=== PATIENT | male | born 1980 | race Caucasian/White ===

== ENCOUNTER 2018-07-13 13:21 | Emergency (ER) | payer MEDICAID, SELFPAY ==
[2018-07-13 13:22] VITALS: BP 130/79; PULSE 92; RESP 28; TEMP 36.6; O2SAT 97; BMI 31.3
--- NOTE | 2018-07-13 13:40 | EKG12_ITS ---
Test Reason : CP Blood Pressure : / mmHG Vent. Rate : 095 BPM Atrial Rate : 095 BPM P-R Int : 142 ms QRS Dur : 088 ms QT Int : 358 ms P-R-T Axes : 033 061 015 degrees QTc Int : 449 ms Normal sinus rhythm Normal ECG Confirmed by DAVON GARCES ([id number]), editorial intern PHOEBE CHARLES ([id number]) on 07/20/2018 8:50:57 AM Referred By: SAHIL Confirmed By:DAVON GARCES
--- NOTE | 2018-07-13 13:48 | RAD_ITS ---
STUDY: X-RAY CHEST REASON FOR EXAM: Male, 38 years old. Chest pain. Blurred vision. TECHNIQUE: Single AP portable view of the chest. COMPARISON: Comparison is made with prior study dated January 31, 2015. FINDINGS: EKG electrodes are seen. The lungs are clear and expanded. There is no demonstrated pleural abnormality. Normal size heart. Normal mediastinum and wendy. Normal visualized pulmonary arteries. Normal visualized aortic arch and descending thoracic aorta. Normal visualized thoracic spine. Normal visualized ribs, clavicles, and shoulders. There is no demonstrated abnormality of the visualized soft tissue structures of the upper abdomen. RAD/Chest 1 View (Portable) IMPRESSION: Normal x-ray examination of the chest. Electronically Signed: Hunter Chowdhury, at 14:07 EDT , Service support ,
--- NOTE | 2018-07-13 13:54 | CT_ITS ---
STUDY: CT BRAIN WITHOUT CONTRAST REASON FOR EXAM: Male, 38 years old. Visual disturbances in the right eye. RADIATION DOSAGE (If Supplied By Facility): CTDIvol = ( 60.81 ) mGy, DLP = ( 1044.28 ) mGycm TECHNIQUE: Transaxial CT imaging of the brain was performed without administration of intravenous contrast material. Individualized dose optimization techniques were used for this CT. COMPARISON: No relevant priors. FINDINGS: Normal soft tissue structures. Normal calvarium. Normal size ventricles and extra-axial spaces for the patient's age. Normal white matter tracts of the cerebral hemispheres. Normal basal ganglia and thalami. Normal brainstem. Normal cerebellum. There is no intracranial hemorrhage. There are no findings of an acute ischemic infarction. Normal visualized paranasal sinuses. CT/Brain/Head without Contrast IMPRESSION: Normal unenhanced CT scan of the brain. Electronically Signed: Hunter Chowdhury, at 14:37 EDT , Service support ,
--- NOTE | 2018-07-13 13:56 | ED.VISSUMM ---
- ER Visit Summary Date of Service: 07/13/18 Chief Complaint: [] Transient visual disturbance right eye muscle spasms left chest History of Present Illness: The patient is a 38 M [] diabetes noncompliant no medications no follow-up for 3 years he was on metformin. 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 He had no reports of anything that sounds like angina no diaphoresis no shortness of breath. He felt he should be evaluated he has been at baseline since this occurred at 8 AM no recurrence of the symptoms He has no history of MD PE or DVT or stroke Physical Examination: [] Vital signs are within normal range General, no distress resting comfortably HEENT is generally unremarkable, his ocular exam visual acuity are negative see below The neck is supple no adenopathy Cardiovascular, regular rate and rhythm Lungs, clear bilateral Abdomen, soft nontender Extremities, no clubbing cyanosis or edema Neurologic, awake alert answering questions appropriately moving all 4 extremities, his visual acuity is normal extraocular muscle movements cranial nerve exam all negative his NIH is 0 Test Results: [] Emergency Department Course and Treatment: [] EKG shows a sinus rhythm nothing acute His screening labs are generally unremarkable except his blood sugar is 371 troponin negative chest x-ray head CT negative on reevaluation he states he feels back to baseline he feels fine we discussed the long differential which included potential life-threatening conditions, we discussed inpatient versus outpatient management he does not wish to be admitted he wants to go home his is with him in the room, I discussed the potential that the blood sugar being 371 and his noncompliance diabetes could be contributing he agrees to keep his appointments with outpatient providers to reschedule soon, he will modify his diet he will get a glucometer check his blood sugar and he will return for change in symptoms, and again he declined admission Treatment Plan: [] Disposition: [] Home stable declined admission Impression: [] Transient visual disturbance right eye resolved, nonspecific sense of left chest muscle spasm This note was generated with [employer] dictation software. It may contain incorrect words, spelling, and punctuation that were not noted in review of the chart prior to signing ED Disposition - Plan for ED Patient: Referrals: Bernard Zelaya MD [Primary Care Provider] -
[2018-07-13 14:02] VITALS: BP 130/74; PULSE 91; RESP 17; O2SAT 95
[2018-07-13 14:20] LABS: Absolute Lymphocyte Count 3.81 X10^3/ul (0.83-4.51); Absolute Neutrophil Count 7.3 X10^3/uL (2.0-7.7); Basophil# 0.04 X10^3/uL; Basophil% 0.3 % (0-1); Differential Indicated SCAN CRITERIA MET; Eosinophil# 0.43 X10^3/uL; Eosinophils% 3.4 % (0-5); Hematocrit 44.7 % (40-54); Hemoglobin 15.9 g/dl (13.0-16.5); Lymphocyte # 3.81 X10^3/ul (4.0); Lymphocyte % 30.3 % (19-41); Mean Corp Hgb Conc 35.6 g/gl (32-36); Mean Corpuscular Volume 70.3 fL (80-94); Monocyte# 0.98 X10^3/uL; Monocyte% 7.8 % (0-10); Neutrophil # 7.29 X10^3/uL (2.7-7.7); POSITIVE COUNT NO; POSITIVE DIFFERENTIAL NO; POSITIVE MORPHOLOGY YES; Platelet Count 298 K/mm3 (150-450); RBC Distribution Width CV 14.9 % (11.6-14.6); RBC Distribution Width SD 37.7 fl (35.1-43.9); Red Blood Count 6.36 M/mm3 (4.6-6.2); White Blood Count 12.6 K/mm3 (4.4-11.0)
[2018-07-13 14:31] LABS: D-Dimer Quantitative (DVT/PE) < 0.27 FEU/ug/m (0.27-0.49)
[2018-07-13 14:44] LABS: Anion Gap 5 (5-15); BUN 14 mg/dL (7-18); Calcium,Total 8.6 mg/dL (8.5-10.1); Chloride 100 mmol/L (98-107); Creatinine, Serum 0.93 mg/dL (0.70-1.30); EST Glomerular Filtration Rate 96 mL/min (>60); Est Glom Filt Rate - Afr Amer 116 mL/min (>60); Estimated Creatinine Clearance 106.64 ml/min; Glucose 371 mg/dL (74-106); Sodium Level 132 mmol/L (136-145)
[2018-07-13 15:20] VITALS: BP 119/70; PULSE 88; RESP 27; O2SAT 97
[2018-07-13 16:07] VITALS: BP 130/86; PULSE 80; RESP 14; O2SAT 98
--- NOTE | 2018-07-13 16:23 | ED.DEP ---
ED Disposition - Plan for ED Patient: Instructions: ED Chest Pain Atypical Unkn Cause, ED Double Vision Referrals: Bernard Zelaya MD [Primary Care Provider] - Mickey Conway MD [STAFF PHYSICIAN] -
--- NOTE | 2018-07-13 16:29 | ED.RN ---
PT GIVEN WRITTEN WRITTN AND VERBAL DISCHARGE INSTRUCTIONS. VERBALIZES UNDERSTANDING. DENIES ANY FURTHER QUESTONS. REFUSES D/C VS. IV D/C AND COVERED WITH 2X2 GAUZE AND PAPER TAPE. AMBULATES OUT OF DEPT BY SELF.
== END 2018-07-13 16:30 | disposition home or self-care (01) ==
PROVIDERS: Emergency Provider Emergency Medicine; Family Provider Internal Medicine; PCP Internal Medicine
DX: H53.8 Other visual disturbances (principal); M62.838 Other muscle spasm; Z91.19 Patient's noncompliance with other medical treatment and regimen; E11.9 Type 2 diabetes mellitus without complications; R07.9 Chest pain, unspecified
CPT/HCPCS: 70450; 71045; 80048; 84484; 85025; 85379; 93005; 99284; A4216

== ENCOUNTER 2022-06-16 20:06 | Emergency (ER) | payer MEDICAID, SELFPAY ==
[2022-06-16 20:07] VITALS: BP 168/84; PULSE 96; RESP 18; TEMP 36.8; O2SAT 100; BMI 29.4
--- NOTE | 2022-06-16 20:42 | ED.VIS.GI ---
HPI HPI - GI History of Present Illness Chief Complaint: Abd Pain Detail of Chief Complaint: Abdominal pain Informant: patient Narrative Narrative: Patient presents with abdominal pain x4 days. Patient initially felt like maybe he has had on his testicle and he had discomfort in the area of the testicle. Patient denies nausea or vomiting. He has remote history as a child of torsion of the testicle with repair. Patient denies urinary symptoms. He denies trauma to his testicle. No history of kidney stones. Patient denies dysuria. He denies fever. Prior similar symptoms: No PFSH PFSH Medical History (Updated 06/16/22 @ 22:[address] Ti Storey, DO) Diabetes GERD (gastroesophageal reflux disease) Hypertension Sleep apnea Smoker Testicular torsion Home Medications atorvastatin 40 mg tablet 40 mg PO QHS 06/16/22 [History Last Taken Unknown] dulaglutide 3 mg/0.5 mL subcutaneous pen injector (Trulicity) 3 mg subcut QWEEK 06/16/22 [History Last Taken Unknown] lisinopril 5 mg tablet 5 mg PO DAILY 06/16/22 [History Last Taken Unknown] metformin 500 mg tablet,extended release 24 hr 1,000 mg PO BID 06/16/22 [History Last Taken Unknown] omeprazole 40 mg capsule,delayed release 40 mg PO DAILY 06/16/22 [History Last Taken Unknown] Allergy/AdvReac Type Severity Reaction Status Date / Time No Known Allergies Allergy Verified 06/16/22 20:09 Family History (Updated 06/16/22 @ 20:31 by Chelita Morales) Other Lymphoma Social History Smoking Status: Current every day smoker tobacco type: cigarettes ROS ROS ED Review of Systems ROS Unobtainable: other Constitutional Constitutional ED: Reports lethargy; Denies chills, fever(s), sweats or weight loss Eyes Eyes: Denies blurry vision, change in vision or diplopia ENT ENT ED: Denies rhinorrhea or sore throat Cardiovascular Cardiovascular: Denies chest pain, orthopnea or racing heartbeat Respiratory/Chest Respiratory/Chest: Denies cough, dyspnea, dyspnea on exertion, orthopnea or sputum Gastrointestinal Gastrointestinal: Reports abdominal pain; Denies diarrhea, nausea or vomiting Genitourinary Genitourinary ED: Reports other Details: Right testicle pain ; Denies dysuria, hematuria or urinary frequency Musculoskeletal Musculoskeletal: Denies arthralgias, back pain, myalgias or neck pain Integumentary Denies abscess, Abrasions or rash Neurologic Neurologic: Denies headache(s) or weakness Psychiatric Psychiatric: Denies anxiety, depression or suicidal thoughts Endocrine Endocrinology: Denies polydipsia, polyphagia or polyuria Hematologic/Lymphatic Hematologic/Lymphatic: Denies easy bleeding, easy bruising or lymphadenopathy Allergic/Immunologic Allergic/Immunologic ED: Denies mouth swelling, tongue swelling or urticaria EXAM Physical Exam Const Vital Signs: 06/16/22 20:07 06/16/22 22:22 Temperature 98.2 F Temperature Source Temporal Pulse Rate 96 86 Respiratory Rate 18 16 Blood Pressure 168/84 H 156/81 H Blood Pressure Mean 112 106 Pulse Ox 100 97 Oxygen Delivery Method Room Air Room Air Positive well nourished and well developed General Appearance ED: well developed and NAD HEENT Reports TM's clear and moist mucous membranes normocephalic and atraumatic; Negative for trauma or tenderness Tympanic Membrane ED: Yes TM's clear Eyes PERRL and EOMs intact bilaterally General Eye ED: Negative for pale conjunctiva or scleral icterus Neck no lymphadenopathy, supple and no JVD General: Negative for tenderness Chest Wall inspection of chest normal and palpation of chest normal Chest: Negative for tenderness Resp normal respiratory effort and clear to auscultation bilaterally Effort and Inspection: Negative for respiratory distress or pain with movement Auscultation: Negative for rhonchi, wheezes or diminished lung sounds Cardio regular rate, regular rhythm, S1 normal heart sound, S2 normal heart sound and no murmurs Peripheral Pulses: pulses 2+ throughout GI normal to inspection, nondistended, normoactive bowel sounds, soft to palpation, non-distended and no masses GI Narrative: Patient with tenderness over the right lower quadrant with some guarding. There is no rebound, rigidity, or. Signs. No obvious masses noted. Narrative: Patient with minimal discomfort over the right epididymis. Testicle has a normal lie. He has normal cremasteric reflex. No obvious or significant hernia palpated within the inguinal canal with cough. Back/Spine no CVA tenderness and no thoracic nor lumbar tenderness Extremity normal to inspection General Extremety ED: Negative for edema General Extremity: Negative for edema Neuro oriented x3, CN's II-XII intact bilaterally, no sensory deficits noted and gait normal Sensorium / Orientation: awake, alert, oriented to person, oriented to place and oriented to time Motor Exam: strength 5/5 throughout and strength abnormal Psych mental status grossly normal Skin no rashes or lesions noted and no wounds MDM MDM MDM Narrative Medical decision making narrative: Patient presents with right testicle pain and right lower quadrant abdominal discomfort. In the differential would be hernia versus epididymitis. Medically not having a significant amount of tenderness over the epididymis. There is no erythema or warmth or cellulitic changes noted. IV line established on arrival. CBC with differential obtained showed a white count of 11 as well as a hemoglobin of 13 and hematocrit of 41 and platelet count of 319. Chemistries were unremarkable. Urinalysis was normal. Lactate normal at 1.6. CT scan of the abdomen pelvis ordered to rule out incarcerated hernia versus appendicitis versus other etiology. CT scan of abdomen pelvis was read essentially as normal. I did order a testicular ultrasound to evaluate further for possible epididymitis versus other etiology for his pain. Case turned over to evening physician awaiting ultrasound results. Lab Data Labs: Laboratory Results - last 24 hr 06/16/22 06/16/22 06/16/22 21:00 21:05 21:05 WBC 11.0 RBC 5.26 Hgb 13.3 Hct 41.1 MCV 78.1 L MCH 25.3 L MCHC 32.4 RDW Std Deviation 39.9 RDW Coeff of Citlalli 14.2 Plt Count 319 MPV 9.5 Immature Gran % (Auto) 0.300 Neut % (Auto) 50.2 Lymph % (Auto) 37.0 Cook % (Auto) 7.0 Eos % (Auto) 5.0 Baso % (Auto) 0.5 Absolute Neuts (auto) 5.5 Absolute Lymphs (auto) 4.08 Nucleated RBC % 0 Sodium 138 Potassium 3.5 Chloride 107 Carbon Dioxide 28.0 Anion Gap 3 L BUN 14 Creatinine 1.12 Estim Creat Clear Calc 85.04 Est GFR (MDRD) Af Amer 92 Est GFR (MDRD) Non-Af 76 BUN/Creatinine Ratio 12.5 Glucose 191 H Lactic Acid Calcium 8.6 Urine Color Yellow Urine Clarity Clear Urine pH 7.0 Ur Specific [place] 1.010 Urine Protein 15 H Urine Glucose (UA) Normal Urine Ketones Negative Urine Occult Blood Negative Urine Nitrite Negative Urine Bilirubin Negative Urine Urobilinogen Normal Ur Leukocyte Esterase Negative Urine RBC 0 SEEN Urine WBC 0 SEEN Ur Squamous Epith Cells 0 SEEN Urine Bacteria 0 SEEN Urine Mucus 0 SEEN 06/16/22 21:05 WBC RBC Hgb Hct MCV MCH MCHC RDW Std Deviation RDW Coeff of Citlalli Plt Count MPV Immature Gran % (Auto) Neut % (Auto) Lymph % (Auto) Cook % (Auto) Eos % (Auto) Baso % (Auto) Absolute Neuts (auto) Absolute Lymphs (auto) Nucleated RBC % Sodium Potassium Chloride Carbon Dioxide Anion Gap BUN Creatinine Estim Creat Clear Calc Est GFR (MDRD) Af Amer Est GFR (MDRD) Non-Af BUN/Creatinine Ratio Glucose Lactic Acid 1.6 Calcium Urine Color Urine Clarity Urine pH Ur Specific [place] Urine Protein Urine Glucose (UA) Urine Ketones Urine Occult Blood Urine Nitrite Urine Bilirubin Urine Urobilinogen Ur Leukocyte Esterase Urine RBC Urine WBC Ur Squamous Epith Cells Urine Bacteria Urine Mucus Radiography Diagnostic Testing: Clinical Impression(s) from Imaging Studies Abdomen/Pelvis CT 06/16/22 21:24 IMPRESSION: No acute or inflammatory disease or bowel obstruction. Electronically Signed: Corky Miller MD at 22:37 EDT , Discharge Plan Triage Chief Complaint: Abd Pain ED Provider: Ti Storey Dx/Rx/DC Orders Clinical Impression: Abdominal pain, Pain in testicle Prescriptions: No Action atorvastatin 40 mg tablet 40 mg PO QHS Label Comments: TAKE 1 TABLET BY MOUTH ONCE DAILY AT BEDTIME FOR CHOLESTEROL omeprazole 40 mg capsule,delayed release(DR/EC) 40 mg PO DAILY lisinopril 5 mg tablet 5 mg PO DAILY metformin 500 mg tablet extended release 24 hr 1,000 mg PO BID Label Comments: TAKE 2 TABLETS BY MOUTH TWICE DAILY WITH MEALS Trulicity 3 mg/0.5 mL pen injector 3 mg SUBCUT QWEEK Label Comments: INJECT THE CONTENTS OF 1 PEN SUBCUTANEOUSLY ONCE WEEKLY Rx Instructions: saturdays Primary Care Provider: Bernard Zelaya Referrals: Bernard Zelaya MD [Primary Care Provider] -
[2022-06-16] MEDS: 0.9% Normal Saline 1,000 ML 125 ML IV (21:05)
[2022-06-16 21:16] LABS: Absolute Lymphocyte Count 4.08 X10^3/uL (0.83-4.51); Absolute Neutrophil Count 5.5 X10^3/uL (2.0-7.7); Basophil# 0.06 X10^3/uL; Basophil% 0.5 % (0-1); Eosinophil# 0.55 X10^3/uL; Hematocrit 41.1 % (40-54); Hemoglobin 13.3 g/dL (13.0-16.5); Lymphocyte # 4.08 X10^3/ul (0.83-4.51); Mean Corp Hgb Conc 32.4 g/dL (32-36); Mean Corpuscular Hgb 25.3 pg (27.0-32.0); Mean Corpuscular Volume 78.1 fL (80-94); Mean Platelet Vol. 9.5 fl (6.2-12.0); Monocyte# 0.77 X10^3/uL; NRBC Flagged by Analyzer 0 % (0-5); Neutrophil # 5.54 X10^3/uL (2.7-7.7); Neutrophil % 50.2 % (47-70); Platelet Count 319 K/mm3 (150-450); RBC Distribution Width CV 14.2 % (11.6-14.6); RBC Distribution Width SD 39.9 fl (35.1-43.9); Red Blood Count 5.26 M/mm3 (4.6-6.2)
[2022-06-16 21:17] LABS: Bacteria 0 SEEN /hpf (None Seen); Mucous, Urine 0 SEEN /hpf (<or=2+); Red Blood Cells-Urine 0 SEEN /hpf (0-5); Squamous Epithelial Cells - UA 0 SEEN /hpf (0-5); White Blood Cells 0 SEEN /hpf (0-5)
--- NOTE | 2022-06-16 21:24 | CT_ITS ---
EXAM: CT ABDOMEN AND PELVIS WITH INTRAVENOUS CONTRAST CLINICAL INDICATION: ABDOMINAL PAIN TECHNIQUE: Helically acquired images were obtained of the abdomen and pelvis with intravenous contrast. CTDIvol = ( 10.70 ) mGy, DLP = ( 1046.16 ) mGycm This CT exam was performed using one or more of the following dose reduction techniques: automated exposure control, adjustment of the mA and/or kV according to patient size, and/or use of iterative reconstruction technique. This report was created using [employer] report generation technology. CONTRAST: IV 100mL Isovue-300 COMPARISON: None. FINDINGS: LOWER THORAX: Unremarkable. Lung bases are clear. No cardiomegaly. No significant pericardial effusion. ABDOMEN: LIVER: Unremarkable. Homogeneous. No focal mass. GALLBLADDER AND BILE DUCTS: Contracted gallbladder. No calcified gallstones. No gallbladder distention or wall edema. No intra- or extrahepatic biliary ductal dilation. PANCREAS: Unremarkable. No focal cystic or solid mass. SPLEEN: Unremarkable. Normal size without focal cystic or solid mass. ADRENALS: Unremarkable. No nodules. KIDNEYS AND URETERS: Unremarkable. Normal renal size and position. No hydronephrosis. STOMACH AND BOWEL: Distal colonic diverticulosis without acute diverticulitis. No stomach or bowel distention. PELVIS: APPENDIX: No evidence of acute appendicitis. BLADDER: Unremarkable. REPRODUCTIVE: Unremarkable as visualized. No mass. ABDOMEN and PELVIS: INTRAPERITONEAL SPACE: Unremarkable. No ascites or other fluid collection. No free air. BONES/JOINTS: Unremarkable. No suspicious lytic or blastic abnormality. SOFT TISSUES: Unremarkable. No discrete abdominal or pelvic wall hernia. VASCULATURE: Unremarkable. Abdominal aorta is non-dilated. LYMPH NODES: Unremarkable. No enlarged lymph nodes. CT/Abdomen/Pelvis W IV Cont ONLY IMPRESSION: No acute or inflammatory disease or bowel obstruction. Electronically Signed: Corky Miller MD at 22:37 EDT ,
[2022-06-16 21:29] LABS: Color, Urine Yellow (Yellow); Glucose, Dipstick Normal (Normal); Ketone-Dipstick Negative (Negative); Leukocyte Esterase-Dipstick Negative /ul (Negative); Nitrite-Dipstick Negative (Negative); Occult Blood-Urine Negative /ul (Negative); Protein-Dipstick 15 mg/dl (Negative); Urine Bilirubin Dipstick Negative (Negative); Urine Clarity Clear (Clear); Urine Urobilinogen Normal (Normal)
[2022-06-16 21:35] LABS: Anion Gap 3 (5-15); BUN 14 mg/dL (7-18); BUN/Creat Ratio 12.5 RATIO (10-20); Calcium,Total 8.6 mg/dL (8.5-10.1); Chloride 107 mmol/L (98-107); Creatinine, Serum 1.12 mg/dL (0.70-1.30); EST Glomerular Filtration Rate 76 mL/min (>60); Est Glom Filt Rate - Afr Amer 92 mL/min (>60); Estimated Creatinine Clearance 85.04 ml/min; Glucose 191 mg/dL (74-106); Potassium 3.5 mmol/L (3.5-5.1); Sodium Level 138 mmol/L (136-145)
[2022-06-16 21:38] LABS: Lactic Acid 1.6 mmol/L (0.4-1.9)
--- NOTE | 2022-06-16 21:47 | US_ITS ---
EXAM: US SCROTUM CLINICAL INDICATION: right testicle pain TECHNIQUE: Realtime ultrasound of the testicles was performed with grayscale and Color Doppler analysis. This report was created using [employer] report generation technology. COMPARISON: None. FINDINGS: RIGHT TESTICLE: Unremarkable. Normal in size and echotexture. No focal lesion. No testicular tumor, torsion or infection. LEFT TESTICLE: See above. EPIDIDYMIDES: Small benign right and left-sided epididymal cyst measuring 3 and 4 mm respectively. Normal color Doppler flow pattern in the epididymis. SCROTUM: Small right hydrocele. Right-sided scrotal leeanna identified. No varicocele bilaterally. US/Testicular with Arterial Flow IMPRESSION: 1. No testicular tumor, torsion or infection. 2. Small right hydrocele. 3. Benign epididymal cysts. Electronically Signed: Corky Miller MD at 23:05 EDT ,
[2022-06-16 22:22] VITALS: BP 156/81; PULSE 86; RESP 16; O2SAT 97
== END 2022-06-16 23:45 | disposition home or self-care (01) ==
PROVIDERS: Emergency Provider Emergency Medicine; PCP Internal Medicine; Visit Provider Emergency Medicine
DX: R10.31 Right lower quadrant pain (principal); E11.9 Type 2 diabetes mellitus without complications; I10 Essential (primary) hypertension; N50.811 Right testicular pain; F17.210 Nicotine dependence, cigarettes, uncomplicated; Z79.85 Long-term (current) use of injectable non-insulin antidiabetic drugs; Z79.84 Long term (current) use of oral hypoglycemic drugs; Z79.899 Other long term (current) drug therapy; K21.9 Gastro-esophageal reflux disease without esophagitis
CPT/HCPCS: 74177; 76870; 80048; 81001; 83605; 85025; 93976; 96360; 96361; 99282; J7030; Q9967; A4216

== ENCOUNTER 2023-01-01 09:45 | Emergency (ER) | payer SELFPAY ==
[2023-01-01 09:46] VITALS: BP 151/92; PULSE 83; RESP 16; TEMP 36.6; O2SAT 98; BMI 32.2
--- NOTE | 2023-01-01 10:35 | ED.VIS.GI ---
HPI HPI - GI History of Present Illness Chief Complaint: Abd Pain Informant: patient and spouse/S.O. Narrative Narrative: 42-year-old diabetic male presenting to the emergency room with right upper quadrant abdominal pain. Patient symptoms began 8 to 9 days ago. He notes that it is worse with movement and certain positions. Worse with his smoker's cough with that is unchanged. He denies any fevers. No vomiting or diarrhea. He denies any known injury to the area. No rashes. Symptoms are not made worse with eating. He states that he thought at first it was most likely a pulled muscle or a rib injury but he cannot recall an injury and states its not gotten any better. Symptoms have been constant/persistent. 16 pound weight gain since September but he relates that to discontinuation of Trulicity. [facility] Medical History Diabetes GERD (gastroesophageal reflux disease) Hypertension Sleep apnea Smoker Testicular torsion Home Medications atorvastatin 40 mg tablet 40 mg PO QHS 06/16/22 [History Last Taken Unknown] dulaglutide 3 mg/0.5 mL subcutaneous pen injector (Trulicity) 3 mg subcut QWEEK 06/16/22 [History Last Taken Unknown] lisinopril 5 mg tablet 5 mg PO DAILY 06/16/22 [History Last Taken Unknown] metformin 500 mg tablet,extended release 24 hr 1,000 mg PO BID 06/16/22 [History Last Taken Unknown] omeprazole 40 mg capsule,delayed release 40 mg PO DAILY 06/16/22 [History Last Taken Unknown] Allergy/AdvReac Type Severity Reaction Status Date / Time No Known Allergies Allergy Verified 06/16/22 20:09 Family History Other Lymphoma Social History Smoking Status: Current every day smoker tobacco type: cigarettes ROS ROS ED Constitutional Constitutional ED: Denies chills or weight loss Eyes Eyes: Denies change in vision or diplopia ENT ENT ED: Denies ear pain, rhinorrhea or sore throat Cardiovascular Cardiovascular: Reports chest pain; Denies orthopnea, palpitations or racing heartbeat Respiratory/Chest Respiratory/Chest: Reports cough; Denies dyspnea, dyspnea on exertion or orthopnea Gastrointestinal Gastrointestinal: Reports abdominal pain; Denies diarrhea, nausea or vomiting Genitourinary Genitourinary ED: Denies dysuria, hematuria or urinary frequency Musculoskeletal Musculoskeletal: Denies arthralgias or myalgias Integumentary Denies abscess or rash Neurologic Neurologic: Denies headache(s) or weakness Psychiatric Psychiatric: Denies anxiety, depression, suicidal ideation or suicidal thoughts Endocrine Endocrinology: Denies polydipsia, polyphagia or polyuria Allergic/Immunologic Allergic/Immunologic ED: Denies mouth swelling, tongue swelling or urticaria EXAM Physical Exam Const Vital Signs: 01/01/23 09:46 Temperature 97.9 F Temperature Source Temporal Pulse Rate 83 Respiratory Rate 16 Blood Pressure 151/92 H Blood Pressure Mean 111 Pulse Ox 98 Oxygen Delivery Method Room Air Positive well nourished and well developed General Appearance ED: well developed HEENT Reports normocephalic, head/scalp atraumatic and moist mucous membranes Eyes PERRL and EOMs intact bilaterally Neck no lymphadenopathy, supple and no JVD Resp normal respiratory effort and clear to auscultation bilaterally Cardio regular rate, regular rhythm and no murmurs GI normal to inspection, nondistended, normoactive bowel sounds and non-tender GI Narrative: Patient points to the lower anterior costochondral border on the right as the area that hurts. He splints when he goes to do is set up. I do not appreciate a rash. No ecchymosis seen. No CVA tenderness. The abdomen itself is nontender. Palpation: soft Back/Spine no CVA tenderness and normal ROM Extremity normal to inspection General Extremety ED: Negative for edema General Extremity: Negative for edema Neuro oriented x3 and CN's II-XII intact bilaterally Sensorium / Orientation: alert Motor Exam: strength 5/5 throughout Psych mental status grossly normal Mood & Affect: Negative for depressed or tearful Skin no rashes or lesions noted and no wounds MDM MDM MDM Narrative Medical decision making narrative: White count 11.4 hemoglobin 14.8 platelet count of 308. Liver enzymes are within normal limits and lipase is normal at 20. Urinalysis is normal. He has no right upper quadrant tenderness over the gallbladder. The pain and tenderness is over the lower ribs/insertion of the oblique musculature. Is made worse with movement but at rest is better. He has no change with food. There is no vomiting at this point I would give this some more time have him use splinting techniques and scheduled anti-inflammatories. Had asked for him to follow-up with his primary care doctor in a week. Lab Data Attestation: I reviewed the patient's lab results. Labs: Laboratory Results - last 24 hr 01/01/23 01/01/23 10:32 10:55 WBC 11.4 H RBC 5.69 Hgb 14.8 Hct 44.5 MCV 78.2 L MCH 26.0 L MCHC 33.3 RDW Std Deviation 38.2 RDW Coeff of Citlalli 13.5 Plt Count 308 MPV 9.4 Immature Gran % (Auto) 0.300 Neut % (Auto) 49.2 Lymph % (Auto) 40.0 Andrew % (Auto) 7.1 Eos % (Auto) 3.0 Baso % (Auto) 0.4 Absolute Neuts (auto) 5.6 Absolute Lymphs (auto) 4.58 H Nucleated RBC % 0 Sodium 135 L Potassium 3.7 Chloride 104 Carbon Dioxide 29.0 Anion Gap 2 L BUN 10 Creatinine 0.78 Estim Creat Clear Calc 122.11 Est GFR (MDRD) Af Amer 140 Est GFR (MDRD) Non-Af 116 BUN/Creatinine Ratio 12.9 Glucose 207 H Calcium 8.5 Total Bilirubin 0.20 Direct Bilirubin < 0.05 AST 16 ALT 26 Alkaline Phosphatase 91 Total Protein 7.7 Albumin 3.2 Globulin 4.5 H Lipase 20 Urine Color Yellow Urine Clarity Clear Urine pH 6.0 Ur Specific [place] 1.010 Urine Protein 15 H Urine Glucose (UA) 1000 H Urine Ketones Negative Urine Occult Blood Negative Urine Nitrite Negative Urine Bilirubin Negative Urine Urobilinogen Normal Ur Leukocyte Esterase Negative Urine RBC 0 SEEN Urine WBC 0 SEEN Ur Squamous Epith Cells 0 SEEN Urine Bacteria 0 SEEN Urine Mucus 0 SEEN Discharge Plan Triage Chief Complaint: Abd Pain ED Provider: Bam Castro Dx/Rx/DC Orders Clinical Impression: Rib pain, Abdominal wall pain Prescriptions: No Action atorvastatin 40 mg tablet 40 mg PO QHS Patient Comments: TAKE 1 TABLET BY MOUTH ONCE DAILY AT BEDTIME FOR CHOLESTEROL omeprazole 40 mg capsule,delayed release(DR/EC) 40 mg PO DAILY lisinopril 5 mg tablet 5 mg PO DAILY metformin 500 mg tablet extended release 24 hr 1,000 mg PO BID Patient Comments: TAKE 2 TABLETS BY MOUTH TWICE DAILY WITH MEALS Trulicity 3 mg/0.5 mL pen injector 3 mg SUBCUT QWEEK Patient Comments: INJECT THE CONTENTS OF 1 PEN SUBCUTANEOUSLY ONCE WEEKLY Rx Instructions: saturdays Primary Care Provider: Bernard Zelaya Referrals: Bernard Zelaya MD [Primary Care Provider] - 1 Week Disposition Disposition: Home, Self Care
[2023-01-01 10:36] LABS: Bacteria 0 SEEN /hpf (None Seen); Mucous, Urine 0 SEEN /hpf (<or=2+); Red Blood Cells-Urine 0 SEEN /hpf (0-5); Squamous Epithelial Cells - UA 0 SEEN /hpf (0-5); White Blood Cells 0 SEEN /hpf (0-5)
[2023-01-01 10:46] LABS: Color, Urine Yellow (Yellow); Glucose, Dipstick 1000 mg/dl (Normal); Ketone-Dipstick Negative (Negative); Leukocyte Esterase-Dipstick Negative /ul (Negative); Nitrite-Dipstick Negative (Negative); Occult Blood-Urine Negative /ul (Negative); Protein-Dipstick 15 mg/dl (Negative); Urine Bilirubin Dipstick Negative (Negative); Urine Clarity Clear (Clear); Urine Urobilinogen Normal (Normal)
[2023-01-01 11:16] LABS: Absolute Lymphocyte Count 4.58 X10^3/uL (0.83-4.51); Absolute Neutrophil Count 5.6 X10^3/uL (2.0-7.7); Basophil# 0.05 X10^3/uL; Basophil% 0.4 % (0-1); Eosinophil# 0.34 X10^3/uL; Hematocrit 44.5 % (40-54); Hemoglobin 14.8 g/dL (13.0-16.5); Lymphocyte # 4.58 X10^3/ul (0.83-4.51); Mean Corp Hgb Conc 33.3 g/dL (32-36); Mean Corpuscular Volume 78.2 fL (80-94); Mean Platelet Vol. 9.4 fl (6.2-12.0); Monocyte# 0.81 X10^3/uL; Monocyte% 7.1 % (0-10); NRBC Flagged by Analyzer 0 % (0-5); Neutrophil # 5.63 X10^3/uL (2.7-7.7); Neutrophil % 49.2 % (47-70); Platelet Count 308 K/mm3 (150-450); RBC Distribution Width CV 13.5 % (11.6-14.6); RBC Distribution Width SD 38.2 fl (35.1-43.9); Red Blood Count 5.69 M/mm3 (4.6-6.2); White Blood Count 11.4 K/mm3 (4.4-11.0)
[2023-01-01 12:04] LABS: AST(SGOT) 16 U/L (15-37); Alanine Aminotransfer ALT/SGPT 26 U/L (16-61); Albumin, Serum 3.2 g/dL (3.2-5.0); Alkaline Phosphatase 91 U/L (45-117); Anion Gap 2 (5-15); BUN 10 mg/dL (7-18); BUN/Creat Ratio 12.9 RATIO (10-20); Bilirubin, Direct < 0.05 mg/dL (0.00-0.30); Calcium,Total 8.5 mg/dL (8.5-10.1); Chloride 104 mmol/L (98-107); Creatinine, Serum 0.78 mg/dL (0.70-1.30); EST Glomerular Filtration Rate 116 mL/min (>60); Est Glom Filt Rate - Afr Amer 140 mL/min (>60); Estimated Creatinine Clearance 122.11 ml/min; Globulin 4.5 g/dL (2.2-4.2); Glucose 207 mg/dL (74-106); Lipase 20 U/L (13-75); Potassium 3.7 mmol/L (3.5-5.1); Protein, Total 7.7 g/dL (6.4-8.2); Sodium Level 135 mmol/L (136-145)
== END 2023-01-01 12:56 | disposition home or self-care (01) ==
PROVIDERS: Emergency Provider Emergency Medicine; PCP Internal Medicine; Visit Provider Emergency Medicine
DX: R10.9 Unspecified abdominal pain (principal); E11.9 Type 2 diabetes mellitus without complications; R07.81 Pleurodynia; I10 Essential (primary) hypertension; F17.210 Nicotine dependence, cigarettes, uncomplicated; Z79.899 Other long term (current) drug therapy; Z79.85 Long-term (current) use of injectable non-insulin antidiabetic drugs; K21.9 Gastro-esophageal reflux disease without esophagitis; Z79.84 Long term (current) use of oral hypoglycemic drugs
CPT/HCPCS: 80048; 80076; 81001; 83690; 85025; 99282

== ENCOUNTER 2023-01-10 07:56 | Emergency (ER) | payer SELFPAY ==
[2023-01-10 07:58] VITALS: BP 201/87; PULSE 86; RESP 15; TEMP 36.1; O2SAT 100; BMI 32.3
[2023-01-10 08:29] LABS: Absolute Neutrophil Count 5.8 X10^3/uL (2.0-7.7); Basophil# 0.06 X10^3/uL; Basophil% 0.5 % (0-1); Eosinophil# 0.39 X10^3/uL; Eosinophils% 3.5 % (0-5); Hematocrit 45.4 % (40-54); Hemoglobin 14.7 g/dL (13.0-16.5); Lymphocyte % 36.5 % (19-41); Mean Corp Hgb Conc 32.4 g/dL (32-36); Mean Corpuscular Hgb 25.5 pg (27.0-32.0); Mean Corpuscular Volume 78.7 fL (80-94); Mean Platelet Vol. 9.3 fl (6.2-12.0); Monocyte# 0.83 X10^3/uL; Monocyte% 7.4 % (0-10); NRBC Flagged by Analyzer 0 % (0-5); Neutrophil # 5.81 X10^3/uL (2.7-7.7); Neutrophil % 51.8 % (47-70); Platelet Count 298 K/mm3 (150-450); RBC Distribution Width CV 13.3 % (11.6-14.6); Red Blood Count 5.77 M/mm3 (4.6-6.2); White Blood Count 11.2 K/mm3 (4.4-11.0)
--- NOTE | 2023-01-10 08:37 | EDS_ITS ---
HPI History of Present Illness Chief Complaint: Abd Pain [facility] Medical History Diabetes GERD (gastroesophageal reflux disease) Hypertension Sleep apnea Smoker Testicular torsion Home Medications atorvastatin 40 mg tablet 40 mg PO QHS 06/16/22 [History Last Taken 01/09/23] lisinopril 5 mg tablet 10 mg PO DAILY 06/16/22 [History Last Taken 01/03/23] metformin 500 mg tablet,extended release 24 hr 1,000 mg PO BID 06/16/22 [History Last Taken 01/10/23] omeprazole 40 mg capsule,delayed release 40 mg PO DAILY 06/16/22 [History Last Taken 01/10/23] empagliflozin 25 mg tablet (Jardiance) 25 mg PO DAILY 01/10/23 [History Last Taken 01/03/23] insulin glargine 100 unit/mL (3 mL) subcutaneous pen (Basaglar KwikPen U-100 Insulin) 20 unit subcut QPM 01/10/23 [History Last Taken 01/09/23] naproxen sodium 220 mg tablet (Aleve) 440 mg PO BID 01/10/23 [History Last Taken 01/10/23] Allergy/AdvReac Type Severity Reaction Status Date / Time No Known Allergies Allergy Verified 01/10/23 08:01 Family History Other Lymphoma Social History Smoking Status: Current every day smoker tobacco type: cigarettes EXAM Physical Exam Const Vital Signs: 01/10/23 07:58 01/10/23 10:18 Temperature 96.9 F L Temperature Source Temporal Pulse Rate 86 Respiratory Rate 15 16 Blood Pressure 201/87 H Blood Pressure Mean 125 Pulse Ox 100 Oxygen Delivery Method Room Air MDM MDM MDM Narrative Medical decision making narrative: HISTORY OF PRESENT ILLNESS: 42-year-old male here with concern for abdominal pain. He states he developed burning right upper quad abdominal pain after coughing. No trauma. The pain is not worse with food. Denies history abdominal surgery. Denies fever nausea or vomiting. Denies chest pain or shortness of breath. Denies any trouble urinating. Denies any melena hematochezia constipation or diarrhea. REVIEW OF SYSTEMS: Pertinent positives: Abdominal pain Pertinent negatives: Fever, nausea vomiting, chest pain, shortness of breath, change in bowel or bladder habits PHYSICAL EXAM: Nursing triage notes reviewed, Vital signs reviewed Constitutional: please see [facility] HENT: MMM Eyes: Pupils equal round and reactive to light, Extraocular muscles intact Neck: No stridor, no JVD, full neck ROM Lungs: Clear to auscultation, No wheezing or rales. No increased work of breathing, no conversational dyspnea, no accessory muscle use, no nasal flaring. No respiratory distress noted Heart: Regular rate and rhythm, No murmurs, No rubs and No gallops, 2+ distal pulses (radial, femoral, posterior tibial) in all extremities Abdomen: Soft, there is no tenderness, rigidity, rebound or guarding, no obvious peritoneal signs, no palpable pulsatile abdominal masses, no auscultated abdominal bruit : No CVAT Extremities: No edema Neuro: No focal neurological deficits, cranial nerves II through XII intact, 5/5 strength in all extremities. Intact sensation to light touch in all extremities, 2+ reflexes bilateral patella tendons. Normal gait. No ataxia. Skin: No rash or lesions noted MEDICAL DECISION MAKING: Chief Complaint: Abdominal pain External records reviewed: CT scan abdomen pelvis from May 2022 shows no acute inflammatory process Factors affecting care: none Social determinants of health: none History obtained from others: The patient's Consults: none [facility] Narrative: The patient was hemodynamically stable, afebrile, nontoxic-appearing. Exam with right upper quadrant TTP, no peritoneal signs I considered the following differential diagnosis: Musculoskeletal abdominal injury, acute cholecystitis, pancreatitis, hepatobiliary production, viral hepatitides ALL IMAGES (IF OBTAINED) HAVE BEEN PERSONALLY REVIEWED AND INTERPRETED BY MYSELF. CBC with leukocytosis (stable from baseline) suggestive of systemic inflammation, no anemia or thrombocytopenia BMP without evidence of significant electrolyte abnormalities, no anion gap, no acute kidney injury. Lipase is wnl indicating no pancreatic inflammation. LFTs show no evidence of hepatobiliary pathology. Gallbladder ultrasound showed evidence of gallstones but no evidence of acute cholecystitis The synthesis of the patient's history, physical exam, labs, images were suggestive of biliary colic. No indication for emergent surgical consultation or evaluation at this time. Patient was noted to have elevated blood pressure. Is likely secondary to pain. Encouraged him to take his home lisinopril. We will give surgery referral. Gave strict return precautions. The patient and/or family, caregivers express understanding. The patient and/or family, caregivers agrees with the plan. Shared decision making: I will have a discussion with the patient and or visitors regarding risk/benefits of further testing or admission. They will be made aware of of the risk/benefits inherent in this decision they will be given the opportunity to voice understanding. Total critical care time today provided was at least 0 minutes. This excludes separately billable procedures. Critical care time (if documented) is secondary to the patient having high probability of clinically significant/life threatening deterioration in the patient's condition which required my urgent intervention. Impression: 1. Abdominal pain acute on chronic right upper quadrant 2. Uncontrolled hypertension 3. Leukocytosis Dispo: Discharge Lab Data Attestation: I reviewed the patient's lab results. Labs: Laboratory Results - last 24 hr 01/10/23 08:25 WBC 11.2 H RBC 5.77 Hgb 14.7 Hct 45.4 MCV 78.7 L MCH 25.5 L MCHC 32.4 RDW Std Deviation 38.0 RDW Coeff of Citlalli 13.3 Plt Count 298 MPV 9.3 Immature Gran % (Auto) 0.300 Neut % (Auto) 51.8 Lymph % (Auto) 36.5 [place] % (Auto) 7.4 Eos % (Auto) 3.5 Baso % (Auto) 0.5 Absolute Neuts (auto) 5.8 Absolute Lymphs (auto) 4.10 Nucleated RBC % 0 Sodium 137 Potassium 4.4 Chloride 104 Carbon Dioxide 27.0 Anion Gap 6 BUN 10 Creatinine 0.86 Estim Creat Clear Calc 110.75 Est GFR (MDRD) Af Amer 124 Est GFR (MDRD) Non-Af 102 BUN/Creatinine Ratio 11.6 Glucose 176 H Calcium 8.7 Total Bilirubin 0.40 Direct Bilirubin 0.08 AST 16 ALT 24 Alkaline Phosphatase 93 Total Protein 7.5 Albumin 3.3 Globulin 4.2 Lipase 20 Radiography Diagnostic Testing: Clinical Impression(s) from Imaging Studies Gallbladder Ultrasound 01/10/23 09:03 IMPRESSION: Cholelithiasis without gallbladder wall thickening. Hepatomegaly with hepatic steatosis. Electronically Signed: Celestina Ribeiro MD at 10:30 EST , Discharge Plan Triage Chief Complaint: Abd Pain ED Provider: Dario Smith Dx/Rx/DC Orders Instructions: ED Gallstones with Biliary Colic Prescriptions: No Action atorvastatin 40 mg tablet 40 mg PO QHS Patient Comments: TAKE 1 TABLET BY MOUTH ONCE DAILY AT BEDTIME FOR CHOLESTEROL omeprazole 40 mg capsule,delayed release(DR/EC) 40 mg PO DAILY lisinopril 5 mg tablet 10 mg PO DAILY metformin 500 mg tablet extended release 24 hr 1,000 mg PO BID Patient Comments: TAKE 2 TABLETS BY MOUTH TWICE DAILY WITH MEALS Jardiance 25 mg tablet 25 mg PO DAILY insulin glargine [Basaglar KwikPen U-100 Insulin] 100 unit/mL (3 mL) insulin pen 20 unit subcut QPM naproxen sodium [Aleve] 220 mg tablet 440 mg PO BID Stand Alone Forms: ED Work / School Excuse Primary Care Provider: Bernard Zelaya Referrals: Reed Pedraza MD [Med Staff - Active Staff] - Activity Restrictions/Additional Instructions: Thank you for trusting us with your care today! Please take Tylenol (2 pills, 650 mg), ibuprofen (2 pills, 400 mg) every 6 hours as needed for pain and fever control. Please return to the emergency department if your symptoms change or worsen. Please follow with your primary care physician for further outpatient evaluation and management. Disposition Disposition: Home, Self Care
[2023-01-10 08:49] LABS: AST(SGOT) 16 U/L (15-37); Alanine Aminotransfer ALT/SGPT 24 U/L (16-61); Albumin, Serum 3.3 g/dL (3.2-5.0); Alkaline Phosphatase 93 U/L (45-117); Anion Gap 6 (5-15); BUN 10 mg/dL (7-18); BUN/Creat Ratio 11.6 RATIO (10-20); Bilirubin, Direct 0.08 mg/dL (0.00-0.30); Calcium,Total 8.7 mg/dL (8.5-10.1); Chloride 104 mmol/L (98-107); Creatinine, Serum 0.86 mg/dL (0.70-1.30); EST Glomerular Filtration Rate 102 mL/min (>60); Est Glom Filt Rate - Afr Amer 124 mL/min (>60); Estimated Creatinine Clearance 110.75 ml/min; Globulin 4.2 g/dL (2.2-4.2); Glucose 176 mg/dL (74-106); Lipase 20 U/L (13-75); Potassium 4.4 mmol/L (3.5-5.1); Protein, Total 7.5 g/dL (6.4-8.2); Sodium Level 137 mmol/L (136-145)
--- NOTE | 2023-01-10 09:03 | US_ITS ---
HISTORY: RUQ TTP, hx of gallstones. TECHNIQUE: Arndt scale and color doppler imaging was performed of the right upper quadrant. 88 images. COMPARISON: CT 06/16/2022. FINDINGS: LIVER: 18.5 cm in length. Heterogeneous echotexture without focal lesion demonstrated. No intrahepatic ductal dilatation. MAIN PORTAL VEIN: Industrial [employer] noted that the main portal vein was patent. COMMON BILE DUCT: 3-4 mm in diameter. GALLBLADDER: Multiple gallstones in a contracted gallbladder. 2 mm wall thickness, within normal limits. No pericholecystic fluid. Sonographic Jimenez sign negative. PANCREAS: Not well visualized due to overlying bowel gas. RIGHT KIDNEY: 12.3 cm in length with a cortical thickness of 1.4 cm. No hydronephrosis or gross renal mass demonstrated. US/Gallbladder IMPRESSION: Cholelithiasis without gallbladder wall thickening. Hepatomegaly with hepatic steatosis. Electronically Signed: Celestina Ribeiro MD at 10:30 EST ,
[2023-01-10] MEDS: 0.9% Normal Saline (1000mL) 1,000 ML 1000 ML IV (09:15)
[2023-01-10] MEDS: Ondansetron 4 MG/2 ML Vial IV (09:15)
[2023-01-10] MEDS: Ketorolac 15 MG/ML Vial IV (09:15)
[2023-01-10] MEDS: Morphine 4 MG/ML Syringe IV (09:16)
[2023-01-10 10:18] VITALS: RESP 16
== END 2023-01-10 11:34 | disposition home or self-care (01) ==
PROVIDERS: Student in an Organized Health Care Education/Training Program; Emergency Provider Emergency Medicine; PCP Internal Medicine; Visit Provider Emergency Medicine
DX: R10.11 Right upper quadrant pain (principal); E11.9 Type 2 diabetes mellitus without complications; Z79.4 Long term (current) use of insulin; F17.210 Nicotine dependence, cigarettes, uncomplicated; I10 Essential (primary) hypertension; K80.20 Calculus of gallbladder without cholecystitis without obstruction; G47.30 Sleep apnea, unspecified; K21.9 Gastro-esophageal reflux disease without esophagitis; Z79.899 Other long term (current) drug therapy; Z79.84 Long term (current) use of oral hypoglycemic drugs; D72.829 Elevated white blood cell count, unspecified
CPT/HCPCS: 76705; 80048; 80076; 83690; 85025; 96361; 96374; 96375; 99283; J7030; A4216; J2405

== ENCOUNTER 2025-01-22 21:10 | Emergency (ER) | payer MEDICAID, SELFPAY ==
[2025-01-22 21:10] VITALS: BP 163/91; PULSE 101; RESP 20; TEMP 36.2; O2SAT 97; BMI 33.5
--- NOTE | 2025-01-22 21:27 | EKG12_ITS ---
Test Reason : CP Blood Pressure : */* mmHG Vent. Rate : 84 BPM Atrial Rate : 84 BPM P-R Int : 148 ms QRS Dur : 92 ms QT Int : 364 ms P-R-T Axes : 35 43 18 degrees QTcB Int : 430 ms Normal sinus rhythm Normal ECG Confirmed by Stalin Guo ([id number]), editor sound LOKI PHILLIPS ([id number]) on 01/23/2025 8:48:52 AM Referred By: UG Confirmed By: Stalin Guo
--- NOTE | 2025-01-22 21:29 | ED.VIS.CHEST ---
HPI History of Present Illness Chief Complaint: Chest Pain Detail of Chief Complaint: Intermittent central chest pain that started Tuesday Informant: patient and spouse/S.O. Onset/Context/Timing Onset: Days Activity at onset: rest Timing: Intermittent and Lasts (2+ hours each episode) Quality: Positive for Aching and Dull Location: Substernal Current Severity: Gone Maximum Severity: Moderate Worsened By: Not Worsened By Exertion, Movement of Arm, Movement of Torso, Eating, Palpation, Breathing or Coughing Relieved By: - (Raising left arm above his head) Associated Symptoms: Positive for Acid Reflux (History of GERD.) and - (No history of trauma. No history of recent upper respiratory infection. Endorses belching more); Negative for Nausea, Vomiting, Diaphoresis, Dyspnea, Cough, Fever, Lightheadedness or Palpitations Narrative Narrative: Patient is a 44-year-old male. He has history of hypertension, type 2 diabetes on insulin that is poorly controlled, hypercholesterolemia and GERD. He is on omeprazole 40 mg. He has had intermittent pain lasting greater than 2 hours per episode since Tuesday. He had no associated symptoms. He did complain of numbness in his left upper extremity and more than 1 occasion and now complains of an ache over the bicep and and antecubital fossa region. He denies loss of use of that extremity. He has no known coronary disease. He states when he went to an urgent care with similar presentation he was told was a pinched nerve. The difference at that time is he had numbness in his little finger and ring finger on the left side and it was in a dermatomal pattern. The discomfort is left arm is not dermatomal. He denies headache, visual, ocular auditory symptoms. Eye he denies saw eructation. Eyes melena. Patient has not noted a rash. Patient has no motor or sensory deficits. Patient is a smoker of about 1/2 pack/day and vapes. No history of PE or DVT. He has no risk factors for either as well. Prior Similar Symptoms: Yes (Pinched nerve) Recent Illness/Hospitalization: No CVD Risk Factors: Positive for Hypertension, Diabetes, Hypercholesterolemia and Smoking PE Risk Factors: Negative for Recent Travel/Surgery, Recent Immobilization, Prior DVT or PE, Cancer or OCP + Smoking + >/=35 TAD Risk Factors: Positive for Hypertension; Negative for Marfan's Syndrome or Family History PFSH PFS Medical History Testicular torsion Diabetes GERD (gastroesophageal reflux disease) Sleep apnea Smoker Hypertension Home Medications ?Medication ?Instructions ?Recorded ?Last Taken ?Type atorvastatin 40 mg tablet 40 mg PO QHS 06/16/22 01/09/23 History lisinopril 5 mg tablet 10 mg PO DAILY 06/16/22 01/03/23 History metformin 500 mg tablet,extended 1,000 mg PO BID 06/16/22 01/10/23 History release 24 hr omeprazole 40 mg capsule,delayed 40 mg PO DAILY 06/16/22 01/10/23 History release empagliflozin 25 mg tablet 25 mg PO DAILY 01/10/23 01/03/23 History (Jardiance) insulin glargine 100 unit/mL (3 20 unit subcut QPM 01/10/23 01/09/23 History mL) subcutaneous pen (Basaglar KwikPen U-100 Insulin) naproxen sodium 220 mg tablet 440 mg PO BID 01/10/23 01/10/23 History (Aleve) sucralfate 1 gram tablet 1 g PO .AC and at bedtime #60 tabs 01/22/25 Unknown Rx Allergy/AdvReac Type Severity Reaction Status Date / Time No Known Allergies Allergy Verified 01/22/25 21:12 Family History Other Lymphoma Social History household members: spouse housing: house Smoking Status: Current every day smoker tobacco type: cigarettes ROS ROS ED Constitutional Constitutional ED: Denies chills, fever(s), subjective or sweats Eyes Eyes: Reports none ENT ENT ED: Denies ear pain, rhinorrhea or sore throat Cardiovascular Cardiovascular: Reports as per HPI; Denies orthopnea or paroxysmal nocturnal dyspnea Respiratory/Chest Respiratory/Chest: Denies cough, dyspnea, dyspnea on exertion, orthopnea or paroxysmal nocturnal dyspnea Gastrointestinal Gastrointestinal: Denies abdominal pain, constipation, diarrhea, melena, nausea or vomiting Musculoskeletal Musculoskeletal: Denies arthralgias, back pain, myalgias or neck pain Integumentary Denies rash Neurologic Neurologic: Reports paresthesias LUE (Paresthesia is not in dermatomal pattern. Described under the narrative portion of the HPI.); Denies weakness Hematologic/Lymphatic Hematologic/Lymphatic: Denies easy bleeding or easy bruising EXAM Physical Exam Const Vital Signs: 01/22/25 21:10 01/22/25 21:23 01/22/25 21:45 Temperature 97.2 F L Temperature Source Temporal Pulse Rate 101 H Respiratory Rate 20 H Respiratory Effort Normal Non-Labored Blood Pressure 163/91 H Blood Pressure Mean 115 Pulse Ox 97 100 Oxygen Delivery Method Room Air Room Air 01/22/25 22:10 Temperature Temperature Source Pulse Rate 88 Respiratory Rate 18 Respiratory Effort Blood Pressure 122/70 H Blood Pressure Mean 87 Pulse Ox 99 Oxygen Delivery Method Positive well nourished and well developed General Appearance ED: well developed and NAD; Negative for pallor HEENT Reports moist mucous membranes normocephalic and atraumatic Eyes PERRL and EOMs intact bilaterally General Eye ED: Negative for scleral icterus Neck No no lymphadenopathy, No supple and No no JVD Chest Wall Negative for inspection of chest normal or palpation of chest normal Resp No normal respiratory effort and No clear to auscultation bilaterally Resp Narrative: Patient has reproducible pain over the fourth fifth intercostal space on the left side. Cardio regular rate, regular rhythm, S1 normal heart sound, S2 normal heart sound and no murmurs GI normal to inspection, nondistended, normoactive bowel sounds, soft to palpation, non-tender, non-distended and no masses; Negative for hepatosplenomegaly Extremity normal to inspection General Extremety ED: Negative for edema or pulses abnormal General Extremity: Negative for edema or pulses abnormal Neuro oriented x3 and CN's II-XII intact bilaterally Sensorium / Orientation: awake and alert Psych mental status grossly normal Skin no rashes or lesions noted General Skin Exam: Negative for jaundice or pallor MDM MDM MDM Narrative Medical decision making narrative: Patient with multiple risk factors and hours of pain will obtain EKG and troponin. If first troponin is normal this will rule out cardiac event since she has had pain since Tuesday, January 19. This could represent costochondritis because of the reproducible pain versus musculoskeletal since he has improvement with his arm raised above his head. With history of GERD and arm discomfort he is could be causing irritation of the diaphragm with radiation of pain to his left upper extremity. Will obtain EKG appropriate blood work. Since he is not having pain will not treat with GI cocktail at this time. History & Record Review Additional record(s) reviewed:: Prior ED visit (Last ER visit was January 10, 2023. He was seen by Dr. Smith. He had unspecified abdominal pain. He was seen earlier that month for abdominal symptoms as well. He was seen at that time by Dr. Dariusz Koch. Also was seen earlier that year by Dr. Cherry.) and Prior labs Lab Data Attestation: I reviewed the patient's lab results. Lab results narrative: White count is slightly elevated 13.8 with no shift if anything he has a lymphocytosis. Electrolyte panel is remarkable and elevated glucose of 253. As noted earlier he states he has had high blood sugars and how he A1c. He had difficulty controlling his blood sugar levels. With pain since Tuesday and a troponin is 6 and a normal EKG cardiac etiologies been ruled out. He has been made aware of this. Labs: Laboratory Results - last 24 hr 01/22/25 21:35 WBC 13.8 H RBC 5.88 Hgb 14.5 Hct 43.9 MCV 74.7 L MCH 24.7 L MCHC 33.0 RDW Std Deviation 35.2 RDW Coeff of Citlalli 13.3 Plt Count 388 MPV 9.6 Immature Gran % (Auto) 0.300 Neut % (Auto) 48.1 Lymph % (Auto) 41.2 H [place] % (Auto) 6.9 Eos % (Auto) 2.9 Baso % (Auto) 0.6 Absolute Neuts (auto) 6.7 Absolute Lymphs (auto) 5.70 H Nucleated RBC % 0.1 Reactive Lymphocytes 1+ RBC Morphology NORM C+C Sodium 133 Potassium 4.3 Chloride 98 Carbon Dioxide 23.9 Anion Gap 11 BUN 12 Creatinine 0.90 Estim Creat Clear Calc 122.59 Est GFR (MDRD) Non-Af 107 BUN/Creatinine Ratio 12.8 Glucose 253 H Calcium 9.1 Troponin T High Sens 6 EKG Initial EKG: Attestation: I personally reviewed and interpreted this EKG as follows: Interpretation: Sinus Rhythm (Rate is 84. EKG is normal. TN interval is 148 ms. QS duration 92 ms. QT duration 364 ms. [place] is normal.) Treatment and Re-Evaluation :: The patient having increased belching and discomfort suspect this is GI etiology. Will add additional medication to the omeprazole. Discharge Plan Triage Chief Complaint: Chest Pain ED Provider: Tien Bonilla Dx/Rx/DC Orders Clinical Impression: Non-cardiac chest pain, Hx of gastroesophageal reflux (GERD), Costochondritis, acute, Type 2 diabetes mellitus with hyperglycemia, with long-term current use of insulin, Hypertension, Hypercholesterolemia Instructions: ED Chest Pain, Noncardiac, ED Chest Wall Pain, Costochondritis Prescriptions: New sucralfate 1 gram tablet 1 g PO .AC and at bedtime Qty: 60 0RF No Action atorvastatin 40 mg tablet 40 mg PO QHS Patient Comments: TAKE 1 TABLET BY MOUTH ONCE DAILY AT BEDTIME FOR CHOLESTEROL omeprazole 40 mg capsule,delayed release(DR/EC) 40 mg PO DAILY lisinopril 5 mg tablet 10 mg PO DAILY metformin 500 mg tablet extended release 24 hr 1,000 mg PO BID Patient Comments: TAKE 2 TABLETS BY MOUTH TWICE DAILY WITH MEALS Jardiance 25 mg tablet 25 mg PO DAILY insulin glargine [Basaglar KwikPen U-100 Insulin] 100 unit/mL (3 mL) insulin pen 20 unit subcut QPM naproxen sodium [Aleve] 220 mg tablet 440 mg PO BID Primary Care Provider: Bernard Zelaya Referrals: Bernard Zelaya MD [Primary Care Provider, Internal Medicine] - 1 Week Print Language: Citizen Of [place] Disposition Disposition: Home, Self Care
[2025-01-22 21:45] VITALS: O2SAT 100
[2025-01-22 21:47] LABS: Hematocrit 43.9 % (40-54); Hemoglobin 14.5 g/dL (13.0-16.5); Immature Granulocytes Count 0.040 X10^3/uL (0.0-0.0); Mean Corp Hgb Conc 33.0 g/dL (32-36); Mean Corpuscular Volume 74.7 fL (80-94); Mean Platelet Vol. 9.6 fl (6.2-12.0); NRBC Flagged by Analyzer 0.1 % (0-5); POSITIVE DIFFERENTIAL YES; Platelet Count 388 K/mm3 (150-450); RBC Distribution Width CV 13.3 % (11.6-14.6); RBC Distribution Width SD 35.2 fl (35.1-43.9); Red Blood Count 5.88 M/mm3 (4.6-6.2); White Blood Count 13.8 K/mm3 (4.4-11.0)
[2025-01-22 22:01] LABS: Differential Indicated SCAN CRITERIA MET
[2025-01-22 22:07] LABS: Troponin T High Sensitivity 6 ng/L (<=22)
[2025-01-22 22:10] VITALS: BP 122/70; PULSE 88; RESP 18; O2SAT 99
[2025-01-22 22:12] LABS: Anion Gap 11 (5-15); BUN 12 mg/dL (4-19); BUN/Creat Ratio 12.8 RATIO (10-20); Calcium,Total 9.1 mg/dL (7.6-11.0); Carbon Dioxide 23.9 mmol/L (21.0-32.0); Chloride 98 mmol/L (98-108); Estimated Creatinine Clearance 122.59 ml/min (50-250); Glucose 253 mg/dL (70-99); Potassium 4.3 mmol/L (3.3-5.1)
--- OUTSIDE RECORDS SUMMARY | 2025-01-22 22:12 | XMS RPT_ITS | CCD ---
Author Organization [facility] Care Team Providers Care Solderer Electronic Name Role Phone Laurel Sinclair Beronica Unavailable Dottie Laurel N Unavailable Bernard Zelaya MD Primary Care Provider [facility] [place] Unavailable Bernard Zelaya MD Primary Care Provider [facility] [place] Unavailable [facility] [place] Unavailable Bernard Zelaya MD Primary Care Provider [facility] [place] Unavailable DOTTY AMARO Attending Unavailable GARCIA, MC Primary Care Unavailable KARIME ROA Referring Unavailable ZELAYA, BERNARD Akers Primary Care Unavailable GARCIA, MC Primary Care Unavailable NEEL WANG Attending Unavailable NEEL WANG Admitting Unavailable Zelaya, Bernard Primary Care Unavailable Ti Storey Attending Unavailable Dario Smith Attending Unavailable Zelaya, Bernard Primary Care Unavailable Zelaya, Bernard Primary Care Unavailable Bam Castro Attending Unavailable Bernard Zelaya MD Primary Care Provider Lars POSTAGE MACHINE OPERATOR.Karime RECINOS Unavailable GARCIA, MC Primary Care Unavailable ALEXA GONZALEZ Referring Unavailable GARCIA, MC Primary Care Unavailable GARCIA, MC Referring Unavailable SUDRASHAN TRAN Attending Unavailable GARCIA, MC Primary Care Unavailable KARIME PRYOR Attending Unavailable BERNARD ZELAYA Primary Care Unavailable BERNARD ZELAYA Primary Care Unavailable KARIME PRYOR Referring Unavailable BERNARD ZELAYA Primary Care Unavailable SELF Referring Unavailable BERNARD ZELAYA Primary Care Unavailable KARIME PRYOR Attending Unavailable Allergies Allergy Classification Reported Allergen(s) Allergy Type Date of Onset Reaction(s) Facility (4 sources) dulaglutide; Translations: [DULAGLUTIDE] Drug Allergy 08-25-2024 Intolerance [facility] Medications Current Medications Medication Drug Class(es) Dates Sig (Normalized) Sig (Original) atorvastatin 40 mg oral tablet (20 sources) HMG-CoA Reductase Inhibitor Start: 09-14-2024 End: 10-02-2024 take 1 tablet by mouth once daily at bedtime for hyperlipidemia atorvastatin (LIPITOR) 40 mg tablet Indications: Hyperlipidemia, unspecified hyperlipidemia type Take 1 tablet by mouth daily at bedtime. For cholesterol. 30 tablet 11 09/14/2024 10/02/2024 Discontinued (Clinical Decision) Start: 06-16-2022 End: 09-14-2024 take 1 tablet by mouth once daily at bedtime for hyperlipidemia atorvastatin (LIPITOR) 40 mg tablet Indications: Hyperlipidemia, unspecified hyperlipidemia type Take 1 tablet by mouth daily at bedtime. For cholesterol. 90 tablet 1 03/14/2024 09/14/2024 Discontinued Start: 12-02-2021 End: 05-28-2022 take 1 tablet by mouth once daily at bedtime for hyperlipidemia atorvastatin (LIPITOR) 40 mg tablet Take 1 tablet by mouth daily at bedtime. For cholesterol. 90 tablet 1 05/28/2022 Active Comment on above: Take 1 tablet by amelia th daily at bedtime. For cholesterol. Blood-Glucose Meter (10 sources) Start: 03-14-2024 Blood-Glucose Meter Indications: Type 2 diabetes (HCC) Check Sugar 4 or more times daily Dx: E11.9 Insulin use: yes 1 Each 03/14/2024 Active Blood-Glucose Meter,Continuous (DEXCOM G7 TOMOGRAPHY TECHNOLOGIST) misc (7 sources) Start: 03-19-2024 Blood-Glucose Meter,Continuous (DEXCOM G7 TOMOGRAPHY TECHNOLOGIST) misc Indications: Type 2 diabetes (HCC) Use to check blood sugar at least four (4) times daily. Dx: E11.9. Insulin. Yes. 1 Each 03/19/2024 Active Blood-Glucose Sensor (DEXCOM G7 SENSOR) gem (7 sources) Start: 03-19-2024 Blood-Glucose Sensor (DEXCOM G7 SENSOR) gem Indications: Type 2 diabetes (HCC) Apply new sensor every ten (10) days. Dx:E11.9. Insulin: Yes. 9 Each 5 03/19/2024 Active 3 ml insulin glargine 100 unt/ml pen injector (20 sources) Insulin Analog Start: 09-14-2024 insulin glargine (LANTUS SOLOSTAR U-100 INSULIN) 100 unit/mL (3 mL) Indications: Type 2 diabetes (HCC) Inject 46 Units subcutaneously daily at bedtime. 09/14/2024 Active Start: 02-24-2024 End: 09-14-2024 insulin glargine (LANTUS JOAQUIN OSTAR U-100 INSULIN) 100 unit/mL (3 mL) Indications: Type 2 diabetes (HCC) Inject 44 Units subcutaneously daily at bedtime. 15 mL 5 03/14/2024 09/14/2024 Discontinued Start: 11-14-2023 End: 02-21-2024 insulin glargine (LANTUS JOAQUIN OSTAR U-100 INSULIN) 100 unit/mL (3 mL) Indications: Type 2 diabetes (HCC) Inject 44 Units subcutaneously daily at bedtime. 15 mL 2 11/14/2023 02/21/2024 Discontinued Start: 09-16-2023 End: 11-14-2023 insulin glargine (LANTUS JOAQUIN OSTAR U-100 INSULIN) 100 unit/mL (3 mL) Indications: Type 2 diabetes (HCC) Inject 38 Units subcutaneously daily at bedtime. 15 mL 1 09/16/2023 11/14/2023 Discontinued Start: 07-14-2023 End: 09-16-2023 insulin glargine (LANTUS JOAQUIN OSTAR U-100 INSULIN) 100 unit/mL (3 mL) Indications: Type 2 diabetes (HCC) Inject 36 Units subcutaneously daily at bedtime. 15 mL 1 08/11/2023 09/16/2023 Discontinued Start: 05-13-2023 End: 07-14-2023 insulin glargine (LANTUS JOAQUIN OSTAR U-100 INSULIN) 100 unit/mL (3 mL) Indications: Type 2 diabetes (HCC) Inject 28 Units subcutaneously daily at bedtime. 15 mL 2 05/23/2023 Active Start: 01-10-2023 Insulin Glargi ne (Basaglar Kwikpen U-100 Insulin) 100 unit/mL (3 mL) insulin pen Active 20 UNIT SC EVERY EVENING January 10, 2023 12:00am Start: 12-23-2022 End: 05-13-2023 insulin glargine (LANTUS JOAQUIN OSTAR U-100 INSULIN) 100 unit/mL (3 mL) Indications: Type 2 diabetes (HCC) Inject 20 Units subcutaneously daily at bedtime. 15 mL 2 03/11/2023 05/13/2023 Discontinued Start: 12-23-2022 insulin glargi ne (LANTUS SOLOSTAR U-100 INSULIN) 100 unit/mL (3 mL) Indications: Type 2 diabetes (HCC) Inject 20 Units subcutaneously daily at bedtime. 15 mL 2 12/23/2022 Active Start: 09-29-2022 End: 11-23-2022 insulin glargine (LANTUS JOAQUIN OSTAR U-100 INSULIN) 100 unit/mL (3 mL) Inject 17 Units subcutaneously daily at bedtime. 15 mL 2 11/24/2022 Active Start: 08-23-2022 End: 09-29-2022 insulin glargine (LANTUS JOAQUIN OSTAR U-100 INSULIN) 100 unit/mL (3 mL) Inject 15 Units subcutaneously daily at bedtime. 5 Each 0 08/23/2022 09/29/2022 Discontinued Start: 03-26-2021 End: 03-26-2022 insulin glargine (LANTUS JOAQUIN OSTAR U-100 INSULIN) 100 unit/mL (3 mL) Indications: Uncontrolled type 2 diabetes mellitus with hyperglycemia, with long-term current use of insulin ([facility]) Inject 32 Units subcutaneously daily at bedtime. 10 Pen 3 03/26/2021 09/26/2021 Discontinued Comment on above: Inject 32 Units subc utaneously daily at bedtime. Inject 15 Units subc utaneously daily at bedtime. Inject 17 Units subc utaneously daily at bedtime. Inject 20 Units subc utaneously daily at bedtime. Inject 28 Units subc utaneously daily at bedtime. isopropyl alcohol 0.7 ml/ml medicated pad (20 sources) Start: alcohol swabs (ALCOHOL PADS) Indications: Type 2 diabetes (HCC) Test blood sugar(s) 2 times daily. Dx: Type 2 DM - Uncontrolled E11.65 Insulin: Yes 100 Each 3 06/30/2020 Active Comment on above: Test blood sugar(s) 2 times daily. Dx: Type 2 DM - Uncontrolled E11.65 Insulin: Yes lisinopril 40 mg oral tablet (20 sources) Angiotensin Converting Enzyme Inhibitor Start: 4 End: take 1 tablet by mouth once daily lisinopril (ZESTRIL) 40 mg tablet Indications: Primary hypertension Take 1 tablet by mouth once daily. 90 tablet 3 07/23/2024 Active Start: 05-13-2023 End: 07-14-2023 take 1 tablet by mouth once daily lisinopril (ZESTRIL) 20 mg tablet Indications: Primary hypertension Take 1 tablet by mouth once daily. 90 tablet 3 05/13/2023 07/14/2023 Discontinued Start: 12-23-2022 End: 05-13-2023 take 1 tablet by mouth once daily lisinopril (ZESTRIL) 10 mg tablet Indications: Primary hypertension Take 1 tablet by mouth once daily. 30 tablet 5 01/05/2023 05/13/2023 Discontinued Start: 06-16-2022 take 10 mg by mouth once daily Lisinopril Active 10 MG PO DAILY June 15, 2022 11:00pm Start: 11-30-2021 End: 01-19-2023 take 1 tablet by mouth once daily lisinopril (ZESTRIL) 5 mg tablet Take 1 tablet by mouth once daily. 30 tablet 1 11/20/2022 01/19/2023 Active Start: 10-29-2020 End: 11-30-2021 take 1 tablet by mouth once daily lisinopril 2.5 mg tablet Indications: Type 2 diabetes (HCC) Take 1 tablet by mouth once daily. 30 tablet 11 10/29/2020 11/30/2021 Discontinued Start: 10-22-2016 LISINOPRIL 10 MG TABS LISINOPRIL [id number] Elis Callahan Comment on above: Take 1 tablet by amelia th once daily. meloxicam 15 mg oral tablet (20 sources) Nonsteroidal Anti-inflammatory Drug Start: 09-14-2024 take 1 tablet by mouth once daily as needed meloxicam (MOBIC) 15 mg tablet Take 1 tablet by mouth once daily. As needed 30 tablet 5 09/14/2024 Active Start: 03-11-2023 End: 09-14-2024 take 1 tablet by mouth once daily as needed meloxicam (MOBIC) 15 mg tablet Take 1 tablet by mouth once daily. As needed 30 tablet 2 03/14/2024 09/14/2024 Discontinued Start: 09-06-2022 End: 09-21-2022 take 1 tablet by mouth once daily at mealtime meloxicam (MOBIC) 15 mg tablet Indications: Left hand weakness , Numbness and tingling in left hand Take 1 tablet by mouth once daily for 15 days. Take with food. 15 tablet 0 09/06/2022 09/21/2022 Active Comment on above: Take 1 tablet by amelia th once daily for 15 days. Take with food. Take 1 tablet by amelia th once daily. With food. Take 1 tablet by amelia th once daily. As needed 24 hr metFORMIN hydrochloride 500 mg extended release oral tablet (20 sources) Biguanide Start: take 2 tablets by mouth twice daily at mealtime metFORMIN ER (GLUCOPHAGE XR) 500 mg 24 hr tablet Indications: Type 2 diabetes (HCC) Take 2 tablets by mouth two times a day with meals. E11.65 120 tablet 11 09/14/2024 Active Start: 02-09-2021 End: 09-14-2024 take 2 tablets by mouth twice daily at mealtime metFORMIN ER (GLUCOPHAGE XR) 500 mg 24 hr tablet Indications: Type 2 diabetes (HCC) Take 2 tablets by mouth two times a day with meals. E11.65 120 tablet 5 03/14/2024 09/14/2024 Discontinued Start: 10-22-2016 METFORMIN HCL 500 MG TABS METFORMIN HCL [id number] Elis Callahan Comment on above: Take 2 tablets by mo uth twice daily with meals. E11.65 Take 2 tablets by mo uth two times a day with meals. E11.65 naproxen sodium 220 mg oral tablet (1 source) Nonsteroidal Anti-inflammatory Drug Start: 01-11-20 23 take 2 tablets by mouth twice daily Naproxen Sodium (Aleve) 220 mg tablet Active 440 MG PO TWICE A DAY January 10, 2023 12:00am omeprazole 40 mg delayed release oral capsule (20 sources) Proton Pump Inhibitor Start: 09-15-19 take 1 capsule by mouth once daily omeprazole (PRILOSEC) 40 mg capsule Indications: Gastroesophageal reflux disease without esophagitis Take 1 capsule by mouth once daily. 30 capsule 11 09/14/2024 Active Start: 12-23-2022 End: 09-14-2024 take 1 capsule by mouth once daily omeprazole (PRILOSEC) 40 mg capsule Indications: Gastroesophageal reflux disease without esophagitis Take 1 capsule by mouth once daily. 90 capsule 1 03/14/2024 09/14/2024 Discontinued Start: 05-14-2021 End: 07-22-2022 take 1 capsule by mouth once daily omeprazole (PRILOSEC) 40 mg capsule Indications: Gastroesophageal reflux disease without esophagitis Take 1 capsule by mouth once daily. 90 capsule 1 12/23/2022 Active Start: 03-07-2021 take 1 capsule by mo uth once daily before breakfast omeprazole (PRILOSEC) 20 mg capsule Indications: Gastroesophageal reflux disease without esophagitis Take 1 capsule by mouth daily before breakfast. 1/2 hr before meal. 30 capsule 2 03/07/2021 Active Start: 10-22-2016 PRILOSEC 10 MG PACK OMEPRAZOLE MAGNESIUM [id number] Elis Callahan Comment on above: Take 1 capsule by mo uth daily before breakfast. 1/2 hr before meal. Take 1 capsule by mo uth once daily. ondansetron 4 mg disintegrating oral tablet (20 sources) Serotonin-3 Receptor Antagonist Start: 08-18-19 End: 09-15-19 take 1 tablet by mouth every six hours as needed for nausea and nausea ondansetron orally disintegrating (ZOFRAN ODT) 4 mg disintegrating tablet Indications: Nausea Take 1 tablet by mouth every 6 hours as needed for nausea/vomiting. 12 tablet 08/17/2022 09/14/2024 Discontinued (Lack of Efficacy) Start: 05-14-2021 End: 08-17-2022 take 1 tablet by mouth every twelve hours as needed for nausea ondansetron orally disintegrating (ZOFRAN ODT) 4 mg disintegrating tablet Indications: Nausea and vomiting, unspecified vomiting type Take 1 tablet by mouth every 12 hours as needed for nausea/vomiting. 10 tablet 0 02/01/2022 08/17/2022 Discontinued Comment on above: Take 1 tablet by amelia th every 12 hours as needed for nausea/vomiting. Take 1 tablet by amelia th every 6 hours as needed for nausea/vomiting. penicillin v potassium 500 mg oral tablet (2 sources) Start: End: take 1 tablet by mouth four times daily penicillin V potassium (V-CILLIN, VEETIDS) 500 mg tablet Indications: Pain, dental Take 1 tablet by mouth four times daily for 5 days. 20 tablet 0 04/09/2022 04/14/2022 Active Comment on above: Take 1 tablet by amelia th four times daily for 5 days. perflutren lipid microspheres 1.3 mL in NaCl (PF) 0.9% 10 mL injection (DEFINITY) (1 source) Start: End: perflutren lipid microspheres 1.3 mL in NaCl (PF) 0.9% 10 mL injection (DEFINITY) phenylephrine hydrochloride 25 mg/ml ophthalmic solution (1 source) alpha-1 Adrenergic Agonist Start: End: PHENYLephrine 2.5 % 1 Drop (AK-DILATE, MARBIN-SYNEPHRINE) predniSONE 10 mg oral tablet (1 source) Start: End: predniSONE (DELTASONE) 10 mg tablet Take 4 tabs daily for 3 days, then 2 tabs daily for 3 days, then 1 tab daily for 3 days with food. 21 tablet 02/22/2024 03/02/2024 Active proparacaine hydrochloride 5 mg/ml ophthalmic solution (1 source) Local Anesthetic Start: End: proparacaine 0.5 % 1 Drop (ALCAINE) rosuvastatin calcium 10 mg oral tablet (1 source) HMG-CoA Reductase Inhibitor Start: take 1 tablet by mouth once daily at bedtime rosuvastatin (CRESTOR) 10 mg tablet Take 1 tablet by mouth daily at bedtime. 90 tablet 3 10/02/2024 Active Start: 10-02-2024 take 1 tablet by amelia th once daily at bedtime rosuvastatin (CRESTOR) 10 mg tablet Take 1 tablet by mouth daily at bedtime. 90 tablet 3 10/02/2024 Active 125 ml sodium chloride 9 mg/ml prefilled syringe (1 source) Start: 03-02-2021 End: 06-01-2022 sodium chloride 0.9 % (flush) 10 mL (BD POSIFLUSH) tropicamide 10 mg/ml ophthalmic solution (1 source) Anticholinergic Start: 01-07-2023 End: 01-07-2023 tropicamide 1 % 1 Drop (MYDRIACYL) Completed/Discontinued Medications Medication Drug Class(es) Dates Sig (Normalized) Sig (Original) Blood-Glucose Sensor (FREESTYLE WANDA 3 SENSOR) gem (20 sources) Start: 03-14-2024 End: 03-19-2024 Blood-Glucose Sensor (FREESTYLE WANDA 3 SENSOR) gem Indications: Type 2 diabetes (HCC) Use to test blood sugar as directed. E11.65 6 Each 3 03/14/2024 03/19/2024 Discontinued (Not on Formulary) Start: 03-14-2024 Blood-Glucose Sensor (FREESTYLE WANDA 3 SENSOR) gem Indications: Type 2 diabetes (HCC) Use to test blood sugar as directed. E11.65 6 Each 3 03/14/2024 Active Start: 01-05-2023 End: 03-14-2024 Blood-Glucose Sensor (FREEST YLE WANDA 3 SENSOR) gem Indications: Type 2 diabetes (HCC) Use to test blood sugar as directed. E11.65 6 Each 3 01/05/2023 03/14/2024 Discontinued Start: 01-05-2023 Blood-Glucose Sensor (FREESTYLE WANDA 3 SENSOR) gem Indications: Type 2 diabetes (HCC) Use to test blood sugar as directed. E11.65 6 Each 3 01/05/2023 Active Start: 12-23-2022 End: 01-05-2023 Blood-Glucose Sensor (FREEST YLE WANDA 3 SENSOR) gem Indications: Type 2 diabetes (HCC) Use to test blood sugar as directed. E11.65 6 Each 3 12/23/2022 01/05/2023 Discontinued Start: 12-23-2022 Blood-Glucose Sensor (FREESTYLE WANDA 3 SENSOR) gem Indications: Type 2 diabetes (HCC) Use to test blood sugar as directed. E11.65 6 Each 3 12/23/2022 Active Start: 04-09-2022 Blood-Glucose Sensor (FREESTYLE WANDA 3 SENSOR) gem Indications: Type 2 diabetes mellitus with hyperglycemia, without long-term current use of insulin (HCC) Use to test blood sugar as directed. E11.65 6 Each 3 04/09/2022 Active Comment on above: Use to test blood wells gar as directed. E11.65 cephalexin 250 mg oral capsule (2 sources) Cephalosporin Antibacterial Start: 017 KEFLEX 250 MG CAPS CEPHALEXIN [id number] Elis Callahan cyclobenzaprine hydrochloride 10 mg oral tablet (9 sources) Muscle Relaxant Start: 025 End: take 1 tablet by mouth every eight hours as needed cyclobenzaprine (FLEXERIL) 10 mg tablet Take 1 tablet by mouth three times a day as needed for muscle spasm. 15 tablet 02/22/2024 08/25/2024 Discontinued (Other) Dulaglutide (10 sources) GLP-1 Receptor Agonist Start: 023 End: 023 Dulaglutide (Trulicity) 3 mg/0.5 mL pen injector Discontinued 3 MG SC EVERY WEEK June 15, 2022 11:00pm January 10, 2023 9:42am saturdays Start: 06-16-2022 Dulaglutide (T rulicity) 3 mg/0.5 mL pen injector Active 3 MG SC EVERY WEEK June 15, 2022 11:00pm saturdays Start: 06-16-2022 Dulaglutide (T rulicity) 3 mg/0.5 mL pen injector Active 3 MG SC EVERY WEEK June 16, 2022 12:00am saturdays Start: 08-31-2021 End: 11-29-2021 inject 1.5 mg by subcutaneous injection every week dulaglutide (TRULICITY) 1.5 mg/0.5 mL pen injector Inject 1.5 mg subcutaneously one time a week. 6 mL 0 08/31/2021 09/26/2021 Discontinued (Dosage adjustment) Start: 01-20-2021 inject 1.5 mg by sub cutaneous injection every week dulaglutide (TRULICITY) 1.5 mg/0.5 mL pen injector Inject 1.5 mg subcutaneously one time a week. 2 mL 5 01/20/2021 Active Comment on above: Inject 1.5 mg subcut aneously one time a week. dulaglutide (TRULICITY) 3 mg/0.5 mL pen injector (20 sources) Start: 023 End: 023 inject 3 mg by subcutaneous injection every week dulaglutide (TRULICITY) 3 mg/0.5 mL pen injector Indications: Type 2 diabetes mellitus with hyperglycemia, without long-term current use of insulin (HCC) Inject 3 mg subcutaneously one time a week. 6 mL 1 04/09/2022 09/29/2022 Discontinued (Side Effects) Start: 04-09-2022 End: 10-06-2022 inject 3 mg by subcutaneous injection every week dulaglutide (TRULICITY) 3 mg/0.5 mL pen injector Indications: Type 2 diabetes mellitus with hyperglycemia, without long-term current use of insulin (HCC) Inject 3 mg subcutaneously one time a week. 6 mL 1 04/09/2022 10/06/2022 Active Start: 03-31-2022 End: 04-09-2022 inject 3 mg by subcutaneous injection every week dulaglutide (TRULICITY) 3 mg/0.5 mL pen injector Indications: Type 2 diabetes mellitus with hyperglycaemia (HCC) Inject 3 mg subcutaneously one time a week. 6 mL 0 03/31/2022 04/09/2022 Discontinued Start: 03-31-2022 End: 06-29-2022 inject 3 mg by subcutaneous injection every week dulaglutide (TRULICITY) 3 mg/0.5 mL pen injector Indications: Type 2 diabetes mellitus with hyperglycaemia (HCC) Inject 3 mg subcutaneously one time a week. 6 mL 0 03/31/2022 06/29/2022 Active Start: 09-26-2021 End: 03-30-2022 inject 3 mg by subcutaneous injection every week dulaglutide (TRULICITY) 3 mg/0.5 mL pen injector Indications: Type 2 diabetes mellitus with hyperglycaemia (HCC) Inject 3 mg subcutaneously one time a week. 6 mL 1 09/26/2021 03/30/2022 Discontinued Start: 09-26-2021 End: 03-25-2022 inject 3 mg by subcutaneous injection every week dulaglutide (TRULICITY) 3 mg/0.5 mL pen injector Indications: Type 2 diabetes mellitus with hyperglycaemia (HCC) Inject 3 mg subcutaneously one time a week. 6 mL 1 09/26/2021 03/25/2022 Active Comment on above: Inject 3 mg subcutan eously one time a week. empagliflozin 25 mg oral tablet (20 sources) Sodium-Glucose Cotransporter 2 Inhibitor Start: 09-16-19 End: 08-26-19 take 1 tablet by mouth once daily, then take 1 tablet by mouth once daily in the morning empagliflozin (JARDIANCE) 25 mg tablet Take 1 tablet by mouth once daily. Take 1 tablet once daily in the morning 90 tablet 1 03/14/2024 08/25/2024 Discontinued (Other) Start: 01-05-2023 End: 03-11-2023 take 1 tablet by mouth once daily, then take 1 tablet by mouth once daily in the morning empagliflozin (JARDIANCE) 25 mg tablet Take 1 tablet by mouth once daily. Take 1 tablet once daily in the morning 30 tablet 2 01/05/2023 03/11/2023 Discontinued (Lack of Efficacy) Start: 10-15-2022 take 1 tablet by amelia th once daily, then take 1 tablet by mouth once daily in the morning empagliflozin (JARDIANCE) 10 mg tablet Take 1 tablet by mouth once daily. Take 1 tablet once daily in the morning 30 tablet 1 10/15/2022 Active Comment on above: Take 1 tablet by amelia th once daily. Take 1 tablet once daily in the morning flash glucose sensor (FREESTYLE WANDA 14 DAY SENSOR) kit (19 sources) Start: 09-26-2021 End: 04-09-2022 flash glucose sensor (FREESTYLE WANDA 14 DAY SENSOR) kit Use as directed. Change sensor every 14 days. E11.65 6 Kit 3 09/26/2021 04/09/2022 Discontinued (Clinical Decision) Start: 09-26-2021 flash glucose sensor (FREESTYLE WANDA 14 DAY SENSOR) kit Use as directed. Change sensor every 14 days. E11.65 6 Kit 3 09/26/2021 Active Start: 11-18-2020 End: 09-26-2021 flash glucose sensor (FREEST YLE WANDA 14 DAY SENSOR) kit Indications: Uncontrolled type 2 diabetes mellitus with hyperglycemia (HCC) Use as directed. E11.65 2 Kit 11 11/18/2020 09/26/2021 Discontinued Start: 11-18-2020 flash glucose sensor (FREESTYLE WANDA 14 DAY SENSOR) kit Indications: Uncontrolled type 2 diabetes mellitus with hyperglycemia (HCC) Use as directed. E11.65 2 Kit 11 11/18/2020 Active Comment on above: Use as directed. E11 .65 Use as directed. Nohemy nge sensor every 14 days. E11.65 pravastatin sodium 40 mg oral tablet (17 sources) HMG-CoA Reductase Inhibitor Start: End: take 1 tablet by mouth once daily at bedtime pravastatin (PRAVACHOL) 40 mg tablet Indications: Hyperlipidemia, unspecified hyperlipidemia type Take 1 tablet by mouth daily at bedtime. 90 tablet 0 11/30/2021 12/02/2021 Discontinued (Clinical Decision) Start: 07-10-2021 End: 11-30-2021 take 1 tablet by mouth once daily at bedtime pravastatin (PRAVACHOL) 40 mg tablet Indications: Hyperlipidemia, unspecified hyperlipidemia type Take 1 tablet by mouth daily at bedtime. 90 tablet 0 11/18/2021 11/30/2021 Discontinued Start: 03-27-2021 End: 07-08-2021 take 1 tablet by mouth once daily at bedtime pravastatin (PRAVACHOL) 40 mg tablet Indications: Hyperlipidemia, unspecified hyperlipidemia type Take 1 tablet by mouth daily at bedtime. 30 tablet 1 03/27/2021 07/08/2021 Discontinued Start: 10-22-2016 PRAVACHOL 20 M G TABS PRAVASTATIN SODIUM [id number] Elis Callahan Comment on above: Take 1 tablet by amelia th daily at bedtime. semaglutide (OZEMPIC) 0.25 mg or 0.5 mg (2 mg/3 mL) pen (14 sources) Start: 05-13-2023 End: 07-14-2023 semaglutide (OZEMPIC) 0.25 mg or 0.5 mg (2 mg/3 mL) pen Inject 0.25 mg subcutaneously one time a week. 3 mL 1 05/13/2023 07/14/2023 Discontinued (Cost of medication) Start: 05-13-2023 semaglutide (O ZEMPIC) 0.25 mg or 0.5 mg (2 mg/3 mL) pen Inject 0.25 mg subcutaneously one time a week. 3 mL 1 05/13/2023 Active Start: 03-14-2023 End: 05-13-2023 semaglutide (OZEMPIC) 0.25 m g or 0.5 mg (2 mg/3 mL) pen Inject 0.25 mg subcutaneously one time a week. 3 mL 1 03/14/2023 05/13/2023 Discontinued Start: 03-14-2023 semaglutide (O ZEMPIC) 0.25 mg or 0.5 mg (2 mg/3 mL) pen Inject 0.25 mg subcutaneously one time a week. 3 mL 1 03/14/2023 Active Start: 09-29-2022 semaglutide (O ZEMPIC) 0.25 mg or 0.5 mg (2 mg/3 mL) pen Inject 0.25 mg subcutaneously one time a week. 3 mL 2 09/29/2022 Active Comment on above: Inject 0.25 mg subcu taneously one time a week. varenicline 0.5 mg oral tablet (8 sources) Partial Cholinergic Nicotinic Agonist Start: 12-24-19 End: 03-11-19 24 take 1 tablet by mouth once daily varenicline (CHANTIX STARTING MONTH BOX) 0.5 mg (11)- 1 mg (42) tablet Indications: Tobacco use disorder Take 0.5 mg by mouth once daily on Days 1 through 3, THEN 0.5 mg twice daily on Days 4 through 7, THEN 1 mg twice daily on Day 8 and thereafter 53 tablet 12/23/2022 03/11/2023 Discontinued (Discontinued by Patient) Comment on above: Take 0.5 mg by mouth once daily on Days 1 through 3, THEN 0.5 mg twice daily on Days 4 through 7, THEN 1 mg twice daily on Day 8 and thereafter Problems Active Problems Problem Classification Problem Date Documented Da te Episodic/Chronic Abdominal pain (12 sources) Abdominal pain; Translations: [Unspecified abdominal pain] Onset: 3 06-16-2022 Episodic Biliary tract disease (1 source) Chronic cholecystitis; Translations: [Chronic cholecystitis] Onset: 3 Episodic Blindness and vision defects (2 sources) Bilateral myopia of eyes; Translations: [Myopia, bilateral] 01-07-2023 Episodic Complications of surgical procedures or medical care (1 source) Drug therapy finding; Translations: [Unspecified adverse effect of drug or medicament, initial encounter] 09-29-2022 Episodic Conditions associated with dizziness or vertigo (2 sources) Lightheadedness; Translations: [Dizziness and giddiness] Onset: 5 09-14-2024 Episodic Diabetes mellitus without complication (20 sources) Type 2 diabetes mellitus; Translations: [Type 2 diabetes mellitus without complications] Onset: 5 04-04-2019 Chronic Diseases of white blood cells (8 sources) Leukocytosis; Translations: [Elevated white blood cell count, unspecified] Onset: Chronic Disorders of lipid metabolism (20 sources) Hyperlipidemia; Translations: [Hyperlipidemia, unspecified] Onset: 5 08-26-2014 Chronic Disorders of teeth and jaw (1 source) Toothache; Translations: [Other specified disorders of teeth and supporting structures] Episodic Esophageal disorders (20 sources) Gastroesophageal reflux disease without esophagitis; Translations: [Gastro-esophageal reflux disease without esophagitis] Onset: 5 07-02-2020 Chronic Essential hypertension (20 sources) Essential hypertension; Translations: [Essential (primary) hypertension] Onset: 3 12-23-2022 Chronic Immunizations and screening for infectious disease (1 source) Exposure to streptococcal pharyngitis; Translations: [Contact with and (suspected) exposure to other bacterial communicable diseases] 04-20-2023 Episodic Nausea and vomiting (2 sources) Nausea and vomiting; Translations: [Nausea with vomiting, unspecified] Episodic Noninfectious gastroenteritis (1 source) Gastroenteritis; Translations: [Noninfective gastroenteritis and colitis, unspecified] Episodic Nonspecific chest pain (1 source) Chest pain; Translations: [Chest pain, unspecified] 12-30-2022 Episodic Other aftercare (1 source) Treatment changed; Translations: [Other ferry terminal agent (current) drug therapy] Episodic Other circulatory disease (1 source) Elevated blood-pressure reading without diagnosis of hypertension; Translations: [Elevated blood-pressure reading, without diagnosis of hypertension] Episodic Other connective tissue disease (2 sources) Weakness of left hand; Translations: [Other symptoms and signs involving the musculoskeletal system] 09-06-2022 Episodic Other connective tissue disease (1 source) Pain in left arm; Translations: [Pain in left arm] 12-30-2022 Episodic Other eye disorders (1 source) Pain of right eye; Translations: [Ocular pain, right eye] 07-06-2023 Episodic Other gastrointestinal disorders (4 sources) Diarrhea; Translations: [Diarrhea, unspecified] Episodic Other gastrointestinal disorders (1 source) Abdominal bloating; Translations: [Abdominal distension (gaseous)] 05-13-2023 Episodic Other gastrointestinal disorders (1 source) Dysphagia; Translations: [Dysphagia, unspecified] 03-14-2024 Episodic Other gastrointestinal disorders (1 source) Diarrhea of presumed infectious origin; Translations: [Diarrhea, unspecified] 08-25-2024 Episodic Other gastrointestinal disorders (1 source) Diarrhea, unspecified; Translations: [Diarrhea of presumed infectious origin] Onset: Episodic Other lower respiratory disease (4 sources) Rib pain; Translations: [Pleurodynia] 01-01-2023 Episodic Other male genital disorders (20 sources) Male erectile dysfunction, unspecified; Translations: [Impotence of organic origin] Onset: 6 04-17-2015 Chronic Other male genital disorders (3 sources) Pain in testicle; Translations: [Testicular pain, unspecified] 06-16-2022 Episodic Other male genital disorders (4 sources) Disorder of male genital organ; Translations: [Hydrocele, unspecified] 06-16-2022 Episodic Other male genital disorders (1 source) Pain of right testicle; Translations: [Right testicular pain] Episodic Other nervous system disorders (2 sources) Paresthesia of hand ; Translations: [Anesthesia of skin] 09-06-2022 Episodic Other nervous system disorders (1 source) Paresthesia of upper limb; Translations: [Anesthesia of skin] 03-14-2024 Episodic Other non-traumatic joint disorders (1 source) Pain in wrist; Translations: [Pain in left wrist] 12-23-2022 Episodic Other nutritional; endocrine; and metabolic disorders (20 sources) Obese class I; Translations: [Obesity, unspecified] Onset: 1 06-30-2020 Chronic Other upper respiratory infections (1 source) Acute upper respiratory infection; Translations: [Acute upper respiratory infection, unspecified] Episodic Residual codes; unclassified (1 source) Generalized aches and pains; Translations: [Pain, unspecified] 04-20-2023 Episodic Residual codes; unclassified (1 source) Viral syndrome; Translations: [Other general symptoms and signs] 04-22-2023 Episodic Screening and history of mental health and substance abuse codes (2 sources) Encounter for screening examination for other mental health and behavioral disorders; Translations: [Encounter for screening for depression] Onset: Episodic Substance-related disorders (20 sources) Tobacco user; Translations: [Nicotine dependence, unspecified, uncomplicated] Onset: 5 10-03-2014 Chronic Viral infection (1 source) Viral disease; Translations: [Viral infection, unspecified] 04-22-2023 Episodic Past or Other Problems Problem Classification Problem Date Documented Da te Episodic/Chronic Diabetes mellitus with complications (20 sources) Type II diabetes mellitus uncontrolled; Translations: [Type 2 diabetes mellitus with hyperglycemia] Onset: 03-04-2021 Resolved: 12-23-2022 03-04-2021 Chronic Fracture of upper limb (4 sources) Fracture of unspecified phalanx of other finger, initial encounter for closed fracture; Translations: [Fracture of unspecified phalanx of right index finger, initial encounter for open fracture] Onset: 10-22-2016 10-22-2016 Episodic Open wounds of extremities (2 sources) Laceration without foreign body, unspecified lower leg, initial encounter; Translations: [Laceration without foreign body, unspecified lower leg, initial encounter] Onset: 10-22-2016 10-22-2016 Episodic Other connective tissue disease (20 sources) Disease suspected; Translations: [Other symptoms and signs involving the nervous system] Onset: 01-20-2023 01-20-2023 Episodic Other connective tissue disease (6 sources) Suspected respiratory disease; Translations: [Other symptoms and signs involving the nervous system] Onset: 01-20-2023 01-20-2023 Episodic Other diseases of kidney and ureters (1 source) Hydronephrosis Onset: 06-22-2022 Episodic Other gastrointestinal disorders (1 source) Dysphagia, unspecified; Translations: [Dysphagia, unspecified type] Onset: 03-14-2024 Episodic Other nervous system disorders (20 sources) Burning feet; Translations: [Other disturbances of skin sensation] Onset: 11-30-2021 Episodic Other nervous system disorders (1 source) Anesthesia of skin; Translations: [Numbness and tingling in left arm] Onset: 03-14-2024 Episodic Other nervous system disorders (1 source) Paresthesia of skin; Translations: [Numbness and tingling in left arm] Onset: 03-14-2024 Episodic Other nutritional; endocrine; and metabolic disorders (20 sources) Body mass index 25-29 - overweight; Translations: [Overweight] Onset: 06-30-2020 05-28-2022 Episodic Other screening for suspected conditions (not mental disorders or infectious disease) (20 sources) Patient encounter status; Translations: [Encounter for screening for cardiovascular disorders] Onset: 03-04-2021 Resolved: 05-14-2021 03-04-2021 Episodic Spondylosis; intervertebral disc disorders; other back problems (4 sources) Neck pain; Translations: [Cervicalgia] Onset: 03-14-2024 02-22-2024 Episodic Substance-related disorders (20 sources) Marijuana user; Translations: [Cannabis use, unspecified, uncomplicated] Onset: 01-20-2023 01-20-2023 Episodic Results Test Name Value Interpretation Reference Range Facility Basic metabolic 2000 panelon 09-14-2024 Anion gap [Moles/Vol] 13 mmol/L Normal 8-15 [facility] Comment on above: Order Comment: Speci men Type: BLOOD SPECIMENOrdering Facility: [facility] Address: [address] [place] [address] Performed By: #### 2 4321-2, 99345-1 ####[facility] LABCLIA [id number] [place] [address] [place] Calcium [Mass/Vol] 9.4 mg/dL Normal 8.5-10.[address] [facility] Comment on above: Order Comment: Speci men Type: BLOOD SPECIMENOrdering Facility: [facility] Address: [address] [place] [address] Performed By: #### 2 4321-2, 22590-2 ####[facility] LABCLIA [id number] [place] [id number] [place] Chloride [Moles/Vol] 99 mmol/L Normal 98-107 [facility] Comment on above: Order Comment: Speci men Type: BLOOD SPECIMENOrdering Facility: [facility] Address: [address] [place] [address] Performed By: #### 2 4321-2, 77403-2 ####[facility] LABIA [id number] [place] [id number] [place] CO2 [Moles/Vol] 21 mmol/L Low 22-30 [facility] Comment on above: Order Comment: Speci men Type: BLOOD SPECIMENOrdering Facility: [facility] Address: [address] [place] [address] Performed By: #### 2 4321-2, 61731-2 ####[facility] [id number] [place] [address] [place] Creatinine [Mass/Vol] 0.88 mg/dL Normal 0.73-1.22 [facility] Comment on above: Order Comment: Speci men Type: BLOOD SPECIMENOrdering Facility: [facility] Address: [address] [place] [address] Performed By: #### 2 4321-2, 35110-2 ####[facility] [id number] [place] [id number] [place] eGFRcr SerPlBld CKD-EPI 2020 108 mL/min/1.73m??? Normal >=60 [facility] Comment on above: Order Comment: Speci men Type: BLOOD SPECIMENOrdering Facility: [facility] Address: [address] [place] [address] Result Comment: Maryam mated Glomerular Filtration Rate (eGFR) is calculated using the 2020 CKD-EPI creatinine equation. This equation utilizes serum creatinine, sex, and age as parameters. The creatinine assay has traceable calibration to isotope dilution-mass spectrometry. Refer to KDIGO guidelines for clinical interpretation. In patients with unstable renal function, e.g. those with acute kidney injury, the eGFR may not accurately reflect actual GFR. Performed By: #### 2 4321-2, 53205-2 ####[facility] LABIA [id number] [place] [address] [place] Glucose [Mass/Vol] 234 mg/dL High 74-[address] [facility] Comment on above: Order Comment: Mesha men Type: BLOOD SPECIMENOrdering Facility: [facility] Address: [address] [place] [address] Result Comment: The [place] Diabetes Association (ADA) provides guidance for cutoff values for fasting glucose and random glucose. The ADA defines fasting as no caloric intake for at least 8 hours. Fasting plasma glucose results between 100 to 125 mg/dL indicate increased risk for diabetes (prediabetes). Fasting plasma glucose results greater than or equal to 126 mg/dL meet the criteria for diagnosis of diabetes. In the absence of unequivocal hyperglycemia, results should be confirmed by repeat testing. In a patient with classic symptoms of hyperglycemia or hyperglycemic crisis, random plasma glucose results greater than or equal to 200 mg/dL meet the criteria for diagnosis of diabetes. Reference: Standards of Medical Care in Diabetes 2016, [place] Diabetes Association. Diabetes Care. 2016.39(Suppl 1). Performed By: #### 2 4321-2, 96670-7 ####[facility] [id number] [place] [address] [place] Potassium [Moles/Vol] 4.6 mmol/L Normal 3.7-5.1 [facility] Comment on above: Order Comment: Mesha gonzalez Type: BLOOD SPECIMENOrdering Facility: [facility] Address: [address] [place] [address] Performed By: #### 2 4321-2, 40157-4 ####[facility] [id number] [place] [address] [place] Sodium [Moles/Vol] 133 mmol/L Low 136-[address] [facility] Comment on above: Order Comment: Mesha men Type: BLOOD SPECIMENOrdering Facility: [facility] Address: [address] [place] [id number] Performed By: #### 2 4321-2, 90768-3 ####[facility] LABCLIA [id number] [place] [id number] [place] Urea nitrogen [Mass/Vol] 17 mg/dL Normal 9-24 [facility] Comment on above: Order Comment: Speci men Type: BLOOD SPECIMENOrdering Facility: [facility] Address: [address] [place] [address] Performed By: #### 2 4321-2, 99753-0 ####[facility] LABCLIA [id number] [place] [address] [place] CBC panel Auto (Bld)on 09-14 Erythrocyte distribution width (RBC) [Ratio] 13.2 % Normal 11.5-15.0 [facility] Comment on above: Order Comment: Speci men Type: BLOOD SPECIMENOrdering Facility: [facility] Address: [address] [place] [address] Performed By: #### 5 8410-2 ####[facility] LABCLIA [id number] [place] [address] [place] Hematocrit (Bld) [Volume fraction] 42.6 % Normal 39.0-51.0 [facility] Comment on above: Order Comment: Speci men Type: BLOOD SPECIMENOrdering Facility: [facility] Address: [address] [place] [address] Performed By: #### 5 8410-2 ####[facility] LABCLIA [id number] [place] [id number] [place] Hemoglobin (Bld) [Mass/Vol] 13.8 g/dL Normal 13.0-17.0 [facility] Comment on above: Order Comment: Speci men Type: BLOOD SPECIMENOrdering Facility: [facility] Address: [address] [place] [address] Performed By: #### 5 8410-2 ####[facility] LABIA [id number] [place] [address] [place] MCH (RBC) [Entitic mass] 25.0 pg Low 26.0-34.0 [facility] Comment on above: Order Comment: Speci men Type: BLOOD SPECIMENOrdering Facility: [facility] Address: [address] [place] [address] Performed By: #### 5 8410-2 ####[facility] [id number] [place] [address] [place] MCHC (RBC) [Mass/Vol] 32.4 g/dL Normal 30.5-36.0 [facility] Comment on above: Order Comment: Speci men Type: BLOOD SPECIMENOrdering Facility: [facility] Address: [address] [place] [address] Performed By: #### 5 8410-2 ####[facility] [id number] [place] [address] [place] MCV (RBC) [Entitic vol] 77.0 fL Low 80.0-100.0 [facility] Comment on above: Order Comment: Speci men Type: BLOOD SPECIMENOrdering Facility: [facility] Address: [address] [place] [address] Performed By: #### 5 8410-2 ####[facility] [id number] [place] [address] [place] Nucleated RBC (Bld) [#/Vol] 10*3/uL Normal <0.01 [facility] Comment on above: Order Comment: Speci men Type: BLOOD SPECIMENOrdering Facility: [facility] Address: [address] [place] [address] Performed By: #### 5 8410-2 ####[facility] [id number] [place] [address] [place] Platelet mean volume (Bld) [Entitic vol] 10.4 fL Normal 9.0-12.7 [facility] Comment on above: Order Comment: Speci men Type: BLOOD SPECIMENOrdering Facility: [facility] Address: [address] [place] [address] Performed By: #### 5 8410-2 ####[facility] LABCLIA [id number] [place] [address] [place] Platelets (Bld) [#/Vol] 408 10*3/uL High 150-400 [facility] Comment on above: Order Comment: Speci men Type: BLOOD SPECIMENOrdering Facility: [facility] Address: [address] [place] [address] Performed By: #### 5 8410-2 ####[facility] LABIA [id number] [place] [address] [place] RBC (Bld) [#/Vol] 5.53 10*6/uL Normal 4.20-6.00 [facility] Comment on above: Order Comment: Speci men Type: BLOOD SPECIMENOrdering Facility: [facility] Address: [address] [place] [address] Performed By: #### 5 8410-2 ####[facility] LABIA [id number] [place] [address] [place] WBC (Bld) [#/Vol] 12.24 10*3/uL High 3.70-11.00 [facility] Comment on above: Order Comment: Speci men Type: BLOOD SPECIMENOrdering Facility: [facility] Address: [address] [place] [address] Performed By: #### 5 8410-2 ####[facility] LABIA [id number] [place] [id number] [place] CNOVon 09-14-2024 CNOV Office Visit (INTMWS) PETE VASQUEZ ([id number]) 1980 M Date Time Provider Department 09/14/24 7:00 AM KARIME PRYOR INTMWS During your visit today, we recorded the following information about you: Pulse Respiration Blood pressure Weight 72/minute 12/minute 124/78 97.3 kg Karime Pryor, POSTAGE MACHINE OPERATOR.CRUISE COORDINATOR 09/14/2024 7:36 AM Signed CC: Patient presents with: Follow Up: 6 months HPI Recording using [employer] software for draft documentation of the visit was discussed with the patient/authorized paper sales representative; all questions welcomed and answered. Patient/authorized paper sales representative agreed to proceed Pete Molina Pedro is a 44-year-old male with a history of type 2 diabetes mellitus, GERD, and hyperlipidemia, presenting for a routine follow-up. Type 2 Diabetes Mellitus: - Increased Lantus by 2 units due to consistently elevated fasting blood glucose levels (130-140 mg/dL) upon waking. - Has not used continuous glucose monitor for a few weeks. - No issues reported with Metformin. - Recent burning sensation on the top of the right foot but has since resolved GERD: - Managed with omeprazole; reports rare episodes of dysphagia. Hyperlipidemia: - Taking atorvastatin; denies myalgias or other side effects. Lightheadedness: - Recent onset when standing up after bending over. Notices it more when he is outside working - Occurs more frequently than before. - Drinks 2-3 32 oz Yetis of water daily. - Recent episode of a stomach flu a couple of weeks ago prior to worsening Hypertension: - Taking Lisinopril as prescribed - Denies side effects Review of Systems See HPI PAST MEDICAL HISTORY Diagnosis Date Burning sensation of feet 11/30/2021 Erectile dysfunction 04/17/2015 Essential hypertension Gastroesophageal reflux disease without esophagitis 08/26/2014 GERD (gastroesophageal reflux disease) 08/26/2014 Hyperlipidemia 08/26/2014 Overweight (BMI 25.0-29.9) 06/30/2020 Tobacco use disorder 10/03/2014 Type 2 diabetes (HCC) 08/26/2014 Type II or unspecified type diabetes mellitus without mention of complication, not stated as uncontrolled 08/26/2014 diagnosed 2013 PAST SURGICAL HISTORY Procedure Laterality Date EUSTACHIAN TUBOPLASTY as a child PAST SURGICAL HISTORY OF Right 02/22/1996 Right hand tendon repair PAST SURGICAL HISTORY OF Right 02/21/2003 Calf debridement, infection PAST SURGICAL HISTORY OF 02/21/1991 Testicular torsion REMOVAL GALLBLADDER 01/[address] Wang ALLERGIES Trulicity [Dulaglutide] MEDICATIONS atorvastatin (LIPITOR) 40 mg tablet Take 1 tablet by mouth daily at bedtime. For cholesterol. insulin glargine (LANTUS SOLOSTAR U-100 INSULIN) 100 unit/mL (3 mL) Inject 46 Units subcutaneously daily at bedtime. meloxicam (MOBIC) 15 mg tablet Take 1 tablet by mouth once daily. As needed metFORMIN ER (GLUCOPHAGE XR) 500 mg 24 hr tablet Take 2 tablets by mouth two times a day with meals. E11.65 omeprazole (PRILOSEC) 40 mg capsule Take 1 capsule by mouth once daily. lisinopril (ZESTRIL) 40 mg tablet Take 1 tablet by mouth once daily. Blood-Glucose Meter,Continuous (DEXCOM G7 TOMOGRAPHY TECHNOLOGIST) mis Use to check blood sugar at least four (4) times daily. Dx: E11.9. Insulin. Yes. Blood-Glucose Sensor (DEXCOM G7 SENSOR) gem Apply new sensor every ten (10) days. Dx:E11.9. Insulin: Yes. blood sugar diagnostic test strip Use with blood glucose test four times a day. Insulin Dep? Yes Blood-Glucose Meter Check Sugar 4 or more times daily Dx: E11.9 Insulin use: yes Lancets Test blood sugar(s) 4 times daily. Dx: Type 2 DM - Uncontrolled E11.65 Insulin: Yes insulin needles, DISPOSABLE, (PEN NEEDLE) 31 gauge x 5/16 Use to inject insulin daily as directed. alcohol swabs (ALCOHOL PADS) Test blood sugar(s) 2 times daily. Dx: Type 2 DM - Uncontrolled . Insulin: Yes FAMILY HISTORY Problem Relation Age of Onset No Ocular Disease Mother Osteoporosis Mother No Ocular Disease Father other (lymphoma) Father other (hepatitis C) Father Stroke Father No Ocular Disease Brother No Ocular Disease Brother None Brother No Ocular Disease Maternal Grandmother Dementia Maternal Grandmother No Ocular Disease Maternal Grandfather Heart Maternal Grandfather No Ocular Disease Paternal Grandmother unsure if grandmother had cataracts or glaucoma Diabetes Paternal Grandmother No Ocular Disease Paternal Grandfather Anesthesia Problems No Family History Social History Tobacco Use Smoking status: Former Current packs/day: 0.00 Average packs/day: 1 pack/day for 27.0 years (27.0 ttl pk-yrs) Types: Cigarettes Start date: 01/24/1996 Quit date: 01/23/2023 Years since quittin.6 Smokeless tobacco: Never Tobacco comments: From age 15 Vaping Use Vaping status: current everyday user Substances: Nicotine Substance Use Topics Alcohol use: Yes Co (more content not included)... Normal [facility] HbA1c (Bld)on 09-14-2024 Average glucose Estimated from glycated hemoglobin (Bld) [Mass/Vol] 240 mg/dL Normal [facility] Comment on above: Order Comment: Mesha gonzalez Type: BLOOD SPECIMENOrdering Facility: [facility] Address: [address] [place] [address] Result Comment: eAG: (Estimated average glucose) is a calculated value from HgbA1c and is paper sales representative of the average blood glucose level in the last 2-3 month period. Performed By: #### 5 5454-3 ####[facility] LABCLIA [id number] [place] [address] [place] HbA1c (Bld) [Mass fraction] 10.0 % High 4.3-5.6 [facility] Comment on above: Order Comment: Mesha gonzalez Type: BLOOD SPECIMENOrdering Facility: [facility] Address: [address] [place] [address] Result Comment: [place] Diabetes Association guidelines indicate that patients with HgbA1c in the range 5.7-6.4% are at increased risk for development of diabetes, and intervention by lifestyle modification may be beneficial. HgbA1c greater or equal to 6.5% is considered diagnostic of diabetes. Performed By: #### 5 5454-3 ####[facility] LABCLIA [id number] [place] [id number] [place] Lipid 1996 panelon Cholesterol [Mass/Vol] 221 mg/dL High <200 [facility] Comment on above: Order Comment: Speci men Type: BLOOD SPECIMENOrdering Facility: [facility] Address: [address] [place] [address] Result Comment: <200 mg/dL, Desirable 200-239 mg/dL, Borderline high >239 mg/dL, High Performed By: #### 2 4321-2, 38065-0 ####[facility] LABCLIA [id number] [facility] [id number] [address] [place] Cholesterol in HDL [Mass/Vol] 28 mg/dL Low >39 [facility] Comment on above: Order Comment: Speci men Type: BLOOD SPECIMENOrdering Facility: [facility] Address: [address] [place] [address] Result Comment: 40-5 9 mg/dL, Acceptable >59 mg/dL, High: Negative risk factor for coronary heart disease <40 mg/dL, Low: Positive risk factor for coronary heart disease Performed By: #### 2 4321-2, 71376-5 ####[facility] LABCLIA [id number] [facility] [address] [place] [address] [place] Cholesterol in LDL [Mass/Vol] 110 mg/dL High <100 [facility] Comment on above: Order Comment: Speci men Type: BLOOD SPECIMENOrdering Facility: [facility] Address: [address] [place] [address] Result Comment: <100 mg/dL, Optimal 100-129 mg/dL, Near optimal/above optimal 130-159 mg/dL, Borderline high 160-189 mg/dL, High >189 mg/dL, Very high Secondary prevention optimal LDL Cholesterol levels are recommended to be <70 mg/dL LDL cholesterol is calculated using the Espinosa-NIH equation. Performed By: #### 2 4321-2, 00654-3 ####[facility] LABCLIA [id number] [facility] [id number], [place] [address] [place] Cholesterol in LDL/Cholesterol in HDL [Mass ratio] 3.93 {ratio} High <2.54 [facility] Comment on above: Order Comment: Speci men Type: BLOOD SPECIMENOrdering Facility: [facility] Address: [address] [place] [address] Result Comment: Guillermo elizalde: 1. National Cholesterol Education Program ATP III Guideline At-A-Glance Quick Desk Reference: National Heart, Lung, and Blood [place]. National Institutes of Health. 2001: NIH Publication No. 01-3305. 2. An International Atherosclerosis Society position paper: global recommendations for the management of dyslipidemia: executive summary, Atherosclerosis. 2014: 232(2):410-413. Performed By: #### 2 4321-2, 29153-8 ####[facility] LABIA [id number] [place] [address] [place] Cholesterol in VLDL [Mass/Vol] 83 mg/dL High <30 [facility] Comment on above: Order Comment: Speci men Type: BLOOD SPECIMENOrdering Facility: [facility] Address: [address] [place] [address] Performed By: #### 2 432-2, 39627-1 ####[facility] LABIA [id number] [place] [address] [place] Cholesterol non HDL [Mass/Vol] 193 mg/dL High <130 [facility] Comment on above: Order Comment: Speci men Type: BLOOD SPECIMENOrdering Facility: [facility] Address: [address] [place] [address] Result Comment: <130 mg/dL, Optimal 130-159 mg/dL, Near optimal/above optimal 160-189 mg/dL, Borderline high 190-219 mg/dL, High >219 mg/dL, Very high Secondary prevention optimal non HDL Cholesterol levels are recommended to be <100 mg/dL Performed By: #### 2 4321-2, 05804-2 ####[facility] LABCLIA [id number] [place] [id number] [place] Cholesterol.total/Lois sterol in HDL [Mass ratio] 7.89 {ratio} High <5.10 [facility] Comment on above: Order Comment: Speci men Type: BLOOD SPECIMENOrdering Facility: [facility] Address: [address] [id number] Performed By: #### 2 4321-2, 51581-3 ####[facility] LABCLIA [id number] [address] [address] [place] FASTING TIME 12 hrs Normal [facility] Comment on above: Order Comment: Speci men Type: BLOOD SPECIMENOrdering Facility: [facility] Address: [address] [place] [address] Performed By: #### 2 4321-2, 24077-9 ####[facility] LABCLIA [id number] [place] [id number] [place] Triglyceride [Mass/Vol] 481 mg/dL High <150 [facility] Comment on above: Order Comment: Speci men Type: BLOOD SPECIMENOrdering Facility: [facility] Address: [address] [place] [address] Result Comment: <150 mg/dL, Normal 150-199 mg/dL, Borderline high 200-499 mg/dL, High >499 mg/dL, Very high Performed By: #### 2 4321-2, 37718-7 ####[facility] LABCLIA [id number] [place] [id number] [place] CNOVon 08-25-2024 [facility] PETE VASQUEZ ([id number]) 1980 M Date Time Provider Department 08/25/24 1:30 PM SUDARSHAN TRAN [facility] During your visit today, we recorded the following information about you: Temperature Pulse Respiration Blood pressure 98.1 degrees 102/minute 20/minute 107/73 Weight 96 kg Sudarshan Tran MD 08/25/2024 2:02 PM Signed [facility] Subjective Peteelin Vasquez is a 44 year old male. No chief complaint on file. Patient has been feeling sick for 7 days. Initial symptoms just upset stomach which progressed to diarrhea, nausea, and belching. He continues to feel fatigued and and have upper abdominal discomfort. He felt dizzy when he was standing up today working in the garage. His daughter developed diarrhea today. Denies vomiting, blood in his stool, fever, cough, rhinorrhea, sore throat. Has had panting breathing and chest pain at times. He made vincentian chicken last weekend and is concerned he could have salmonella. He has been drinking water. He is not eating much. He has not taken anything for symptoms. Review of Systems Objective BP 107/73 Pulse 102 Temp 36.7 ?C (98.1 ?F) Resp 20 Wt 96 kg (211 lb 10.3 oz) SpO2 100% BMI 30.99 kg/m? Last 4 Encounter BP Readings: Date: BP: 08/25/2024 107/73 03/14/2024 134/72 02/22/2024 132/82 09/16/2023 138/77 Physical Exam Constitutional: General: He is not in acute distress. Appearance: He is not ill-appearing. Comments: Accompanied by his MARY ALICE: Right Ear: Tympanic membrane and ear canal normal. Left Ear: Tympanic membrane and ear canal normal. Nose: No congestion or rhinorrhea. Mouth/Throat: Mouth: Mucous membranes are moist. Pharynx: No oropharyngeal exudate or posterior oropharyngeal erythema. Eyes: Extraocular Movements: Extraocular movements intact. Conjunctiva/sclera: Conjunctivae normal. Pupils: Pupils are equal, round, and reactive to light. Cardiovascular: Rate and Rhythm: Normal rate and regular rhythm. Heart sounds: No murmur heard. Pulmonary: Effort: No respiratory distress. Breath sounds: No wheezing, rhonchi or rales. Abdominal: General: There is no distension. Palpations: There is no mass. Tenderness: There is no abdominal tenderness. There is no guarding. Musculoskeletal: Cervical back: Neck supple. Lymphadenopathy: Cervical: No cervical adenopathy. Neurological: General: No focal deficit present. Mental Status: He is alert and oriented to person, place, and time. Cranial Nerves: No cranial nerve deficit. Motor: No weakness. Gait: Gait normal. {ASSESSMENT/PLAN: 1. Diarrhea of presumed infectious origin - ICD9: 009.3, ICD10: R19.7 (primary diagnosis) Hydration with fluids encouraged. Resume normal solid intake as tolerated. He has nausea medicine and may try using it. Follow up in the ER with signs of dehydration, increasing abdominal pain, high fever, or blood in vomit or stool. Test for Salmonella and other enteric pathogen's can be ordered if diarrhea is not improving by Tuesday 2. Primary hypertension - ICD9: 401.9, ICD10: I10 He has had poor intake this week. He will reduce lisinopril dose in half today and tomorrow. Follow up in the ER with worsening dizziness, worsening shortness of breath, increasing chest pain. Sudarshan Tran MD Differential Diagnoses - Infectious gastroenteritis is more likely for the following reason(s): suggested by HANDP - Pancreatitis or biliary obstruction is less likely for the following reason(s): Status postcholecystectomy, benign exam Procedures Allergies As of Date: 08/25/2024 Noted Allergy Reaction TRULICITY (DULAGLUTIDE) 08/25/2024 5 - Intolerance Comments: Vomiting, abd discomfort Date Reviewed: 08/25/2024 Reviewed by: Reina Cee LPN - Fully Assessed Primary Visit Diagnosis:Diarrhea of presumed infectious origin [R19.7] Other Visit Diagnosis:Primary hypertension [I10] Prescriptions as of 08/25/2024 - lisinopril (ZESTRIL) 40 mg tablet Take 1 tablet by mouth once daily. - Blood-Glucose Meter,Continuous (DEXCOM G7 TOMOGRAPHY TECHNOLOGIST) [facility] [place] to check blood sugar at least four (4) times daily. Dx: E11.9. Insulin. Yes. - Blood-Glucose Sensor (DEXCOM G7 SENSOR) gem Apply new sensor every ten (10) days. Dx:E11.9. Insulin: Yes. - blood sugar diagnostic test strip Use with blood glucose test four times a day. Insulin Dep? Yes - Blood-Glucose Meter Check Sugar 4 or more times daily Dx: E11.9 Insulin use: yes - atorvastatin (LIPITOR) 40 mg tablet Take 1 tablet by mouth daily at bedtime. For cholesterol. - insulin glargine (LANTUS SOLOSTAR U-100 INSULIN) 100 unit/mL (3 mL) Inject 44 Units subcutaneously daily at bedtime. - Lancets Test blood sugar(s) 4 times daily. Dx: Type 2 DM - Uncontrolled E11.65 Insulin: Yes - metFORMIN ER (GLUCOPHAGE XR) 500 mg 24 hr tablet Take (more content not included)... Normal [facility] CBC panel Auto (Bld)on 03-16 Erythrocyte distribution width (RBC) [Ratio] 13.2 % Normal 11.5-15.0 [facility] Comment on above: Order Comment: Speci men Type: BLOOD SPECIMENOrdering Facility: [facility] Address: [address] [place] [address] Performed By: #### 5 8410-2 ####[facility] [id number] [place] [address] [place] Hematocrit (Bld) [Volume fraction] 42.4 % Normal 39.0-51.0 [facility] Comment on above: Order Comment: Speci men Type: BLOOD SPECIMENOrdering Facility: [facility] Address: [address] [place] [address] Performed By: #### 5 8410-2 ####[facility] [id number] [place] [address] [place] Hemoglobin (Bld) [Mass/Vol] 13.3 g/dL Normal 13.0-17.0 [facility] Comment on above: Order Comment: Speci men Type: BLOOD SPECIMENOrdering Facility: [facility] Address: [address] [place] [address] Performed By: #### 5 8410-2 ####[facility] LABIA [id number] [place] [address] [place] MCH (RBC) [Entitic mass] 24.1 pg Low 26.0-34.0 [facility] Comment on above: Order Comment: Speci men Type: BLOOD SPECIMENOrdering Facility: [facility] Address: [address] [place] [address] Performed By: #### 5 8410-2 ####[facility] LABIA [id number] [place] [address] [place] MCHC (RBC) [Mass/Vol] 31.4 g/dL Normal 30.5-36.0 [facility] Comment on above: Order Comment: Speci men Type: BLOOD SPECIMENOrdering Facility: [facility] Address: [address] [place] [address] Performed By: #### 5 8410-2 ####[facility] LABIA [id number] [place] [address] [place] MCV (RBC) [Entitic vol] 76.7 fL Low 80.0-100.0 [facility] Comment on above: Order Comment: Speci men Type: BLOOD SPECIMENOrdering Facility: [facility] Address: [address] [place] [address] Performed By: #### 5 8410-2 ####[facility] [id number] [place] [address] [place] Nucleated RBC (Bld) [#/Vol] 10*3/uL Normal <0.01 [facility] Comment on above: Order Comment: Speci men Type: BLOOD SPECIMENOrdering Facility: [facility] Address: [address] [place] [address] Performed By: #### 5 8410-2 ####[facility] [id number] [place] [address] [place] Platelet mean volume (Bld) [Entitic vol] 10.3 fL Normal 9.0-12.7 [facility] Comment on above: Order Comment: Speci men Type: BLOOD SPECIMENOrdering Facility: [facility] Address: [address] [place] [address] Performed By: #### 5 8410-2 ####[facility] LABBRIGHTL[facility] [id number] [address] [id number], [place] [address] [place] Platelets (Bld) [#/Vol] 347 10*3/uL Normal 150-400 [facility] Comment on above: Order Comment: Speci men Type: BLOOD SPECIMENOrdering Facility: [facility] Address: [address] [place] [address] Performed By: #### 5 8410-2 ####[facility] LABCLIA [id number] [place] [address] [place] RBC (Bld) [#/Vol] 5.53 10*6/uL Normal 4.20-6.00 [facility] Comment on above: Order Comment: Speci men Type: BLOOD SPECIMENOrdering Facility: [facility] Address: [address] [place] [address] Performed By: #### 5 8410-2 ####[facility] LABCLIA [id number] [place] [address] [place] WBC (Bld) [#/Vol] 12.60 10*3/uL High 3.70-11.00 [facility] Comment on above: Order Comment: Speci men Type: BLOOD SPECIMENOrdering Facility: [facility] Address: [address] [place] [address] Performed By: #### 5 8410-2 ####[facility] LABCLIA [id number] [place] [address] [place] Comprehensive metabolic 2000 panelon 03-16-2024 Albumin [Mass/Vol] 3.7 g/dL Low 3.9-4.[address] [facility] Comment on above: Order Comment: Speci men Type: BLOOD SPECIMENOrdering Facility: [facility] Address: [address] [place] [address] Performed By: #### 2 4323-8 ####[facility] LABCLIA [id number] [place] [address] [place] ALP [Catalytic activity/Vol] 106 U/L Normal 38-113 [facility] Comment on above: Order Comment: Speci men Type: BLOOD SPECIMENOrdering Facility: [facility] Address: [address] [id number] Performed By: #### 2 4323-8 ####[facility] LABCLIA [id number] [place] [id number] [place] ALT [Catalytic activity/Vol] 17 U/L Normal 10-54 [facility] Comment on above: Order Comment: Speci men Type: BLOOD SPECIMENOrdering Facility: [facility] Address: [address] [id number] Performed By: #### 2 4323-8 ####[facility] LABCLIA [id number] [place] [address] [place] Anion gap [Moles/Vol] 9 mmol/L Normal 8-15 [facility] Comment on above: Order Comment: Speci men Type: BLOOD SPECIMENOrdering Facility: [facility] Address: [address] [place] [address] Performed By: #### 2 4323-8 ####[facility] LABCLIA [id number] [place] [address] [place] AST [Catalytic activity/Vol] 19 U/L Normal 14-40 [facility] Comment on above: Order Comment: Speci men Type: BLOOD SPECIMENOrdering Facility: [facility] Address: [address] [id number] Performed By: #### 2 4323-8 ####[facility] LABCLIA [id number] [place] [id number] [place] Bilirubin [Mass/Vol] 0.2 mg/dL Normal 0.2-1.3 [facility] Comment on above: Order Comment: Speci men Type: BLOOD SPECIMENOrdering Facility: [facility] Address: [address] [place], [place] [address] Performed By: #### 2 4323-8 ####[facility] LABCLIA [id number] [place] [address] [place] Calcium [Mass/Vol] 9.0 mg/dL Normal 8.5-10.[address] [facility] Comment on above: Order Comment: Speci men Type: BLOOD SPECIMENOrdering Facility: [facility] Address: [address] [place] [address] Performed By: #### 2 4323-8 ####[facility] LABCLIA [id number] [place] [address] [place] Chloride [Moles/Vol] 100 mmol/L Normal 98-107 [facility] Comment on above: Order Comment: Speci men Type: BLOOD SPECIMENOrdering Facility: [facility] Address: [address] [place] [address] Performed By: #### 2 4323-8 ####[facility] LABCLIA [id number] [place] [address] [place] CO2 [Moles/Vol] 27 mmol/L Normal 22-30 [facility] Comment on above: Order Comment: Speci men Type: BLOOD SPECIMENOrdering Facility: [facility] Address: [address] [place] [address] Performed By: #### 2 4323-8 ####[facility] LABCLIA [id number] [place] [address] [place] Creatinine [Mass/Vol] 0.81 mg/dL Normal 0.73-1.22 [facility] Comment on above: Order Comment: Speci men Type: BLOOD SPECIMENOrdering Facility: [facility] Address: [address] [place] [address] Performed By: #### 2 4323-8 ####[facility] LABCLIA [id number] [place] [id number] [place] Creatinine and Glomerular filtration rate.predicted panel (S/P/Bld) 111 mL/min/1.73m??? Normal >=60 [facility] Comment on above: Order Comment: Mesha gonzalez Type: BLOOD SPECIMENOrdering Facility: [facility] Address: [address] [place] [address] Result Comment: Maryam mated Glomerular Filtration Rate (eGFR) is calculated using the 2020 CKD-EPI creatinine equation. This equation utilizes serum creatinine, sex, and age as parameters. The creatinine assay has traceable calibration to isotope dilution-mass spectrometry. Refer to KDIGO guidelines for clinical interpretation. In patients with unstable renal function, e.g. those with acute kidney injury, the eGFR may not accurately reflect actual GFR. Performed By: #### 2 4323-8 ####[facility] LABIA [id number] [place] [address] [place] Glucose [Mass/Vol] 155 mg/dL High 74-[address] [facility] Comment on above: Order Comment: Mesha gonzalez Type: BLOOD SPECIMENOrdering Facility: [facility] Address: [address] [place] [address] Result Comment: The [place] Diabetes Association (ADA) provides guidance for cutoff values for fasting glucose and random glucose. The ADA defines fasting as no caloric intake for at least 8 hours. Fasting plasma glucose results between 100 to 125 mg/dL indicate increased risk for diabetes (prediabetes). Fasting plasma glucose results greater than or equal to 126 mg/dL meet the criteria for diagnosis of diabetes. In the absence of unequivocal hyperglycemia, results should be confirmed by repeat testing. In a patient with classic symptoms of hyperglycemia or hyperglycemic crisis, random plasma glucose results greater than or equal to 200 mg/dL meet the criteria for diagnosis of diabetes. Reference: Standards of Medical Care in Diabetes 2016, [place] Diabetes Association. Diabetes Care. 2016.39(Suppl 1). Performed By: #### 2 4323-8 ####[facility] LABIA [id number] [place] [address] [place] Potassium [Moles/Vol] 4.0 mmol/L Normal 3.7-5.1 [facility] Comment on above: Order Comment: Mesha gonzalez Type: BLOOD SPECIMENOrdering Facility: [facility] Address: [address] [place] [address] Performed By: #### 2 4323-8 ####[facility] LABCLIA [id number] [place] [address] [place] Protein [Mass/Vol] 7.5 g/dL Normal 6.3-8.[address] [facility] Comment on above: Order Comment: Speci men Type: BLOOD SPECIMENOrdering Facility: [facility] Address: [address] [place] [address] Performed By: #### 2 4323-8 ####[facility] LABIA [id number] [place] [address] [place] Sodium [Moles/Vol] 136 mmol/L Normal 136-[address] [facility] Comment on above: Order Comment: Speci men Type: BLOOD SPECIMENOrdering Facility: [facility] Address: [address] [place] [address] Performed By: #### 2 4323-8 ####[facility] LABIA [id number] [place] [address] [place] Urea nitrogen [Mass/Vol] 14 mg/dL Normal 9-24 [facility] Comment on above: Order Comment: Speci men Type: BLOOD SPECIMENOrdering Facility: [facility] Address: [address] [place] [address] Performed By: #### 2 4323-8 ####[facility] LABIA [id number] [place] [address] [place] HbA1c (Bld)on 03-16-2024 Average glucose Estimated from glycated hemoglobin (Bld) [Mass/Vol] 192 mg/dL Normal [facility] Comment on above: Order Comment: Speci men Type: BLOOD SPECIMENOrdering Facility: [facility] Address: [address] [place] [address] Result Comment: eAG: (Estimated average glucose) is a calculated value from HgbA1c and is paper sales representative of the average blood glucose level in the last 2-3 month period. Performed By: #### 5 5454-3 ####[facility] LABIA [id number] [place] [address] [place] HbA1c (Bld) [Mass fraction] 8.3 % High 4.3-5.6 [facility] Comment on above: Order Comment: Speci men Type: BLOOD SPECIMENOrdering Facility: [facility] Address: [address] [place] [address] Result Comment: Ayad [place] Diabetes Association guidelines indicate that patients with HgbA1c in the range 5.7-6.4% are at increased risk for development of diabetes, and intervention by lifestyle modification may be beneficial. HgbA1c greater or equal to 6.5% is considered diagnostic of diabetes. Performed By: #### 5 5454-3 ####[facility] LABCLIA [id number] [address] OF [facility] Tad 03-15-2024 [facility] Telephone (INTMWS) PETE VASQUEZ ([id number]) 1980 M Date Time Provider Department 03/15/24 BERNARD ZELAYA INTWS During your visit today, we recorded the following information about you: Amanda Tabares LPN 03/15/2024 8:25 AM Signed [employer] PA completed for the freestyle wanda 3. Insurance prefers decom. Request for coverage of Continuous Glucose Monitors has been denied. A request for prescription coverage for Continuous Glucose Monitors was recently submitted on your behalf. After careful consideration and review of the information sent to us, this request was not approved. We understand that this decision may not be what you and your doctor expected. This letter and the enclosed information will explain your options and help you decide what to do next. We reviewed all the supporting information sent to us and used your plan?s guidelines to make our decision. Why your request was denied: Your plan only covers this product when your doctor gives us a medical reason you cannot use the preferred product. We have denied your request because you do not meet this condition. We reviewed the information we had. Your request has been denied. Your doctor can send us any new or missing information for us to review. The preferred product for your plan is Dexcom Continuous Glucose Monitor. Your doctor may need to get approval from your plan for preferred products. from payer: Your PA request has been denied. Additional information will be provided in the denial communication. (Message 1140) Payer: OSMAN Bustos [phone] Electronic appeal: Not supported Appeal instructions: Your PA request has been denied. Additional information will be provided in the denial communication. (Message 1140) View History Notes Time User Attachment Attachment received from payer. 03/14/2024 8:53 PM [facility], Rx Priorauth In Document Medication Being Authorized Blood-Glucose Sensor (FREESTYLE WANDA 3 SENSOR) gem Use to test blood sugar as directed. E11.65 Dispense: 6 Each Refills: 3 Start: 03/14/2024 Class: Normal Diagnoses: Type 2 diabetes (HCC) This order has been released to its destination. To be filled at: [facility] [address] [place] [address] [id number] [facility] [phone] [facility] Amanda Tabares LPN 03/15/2024 2:37 PM Signed Reviewed with pt and he would be fine with the decom that insurance says is covered. Pharmacy verified. Bernard Zelaya MD 03/19/2024 8:09 AM Signed The following approved medication requests have been transmitted electronically. Requested Prescriptions Signed Prescriptions Disp Refills Blood-Glucose Meter,Continuous (DEXCOM G7 TOMOGRAPHY TECHNOLOGIST) misc 1 Each 0 Sig: Use to check blood sugar at least four (4) times daily. Dx: E11.9. Insulin. Yes. Authorizing Provider: BERNARD ZELAYA Blood-Glucose Sensor (DEXCOM G7 SENSOR) gem 9 Each 5 Sig: Apply new sensor every ten (10) days. Dx:E11.9. Insulin: Yes. Authorizing Provider: BERNARD ZELAYA MD Allergies As of Date: 03/15/2024 (No Known Allergies) Date Reviewed: 03/14/2024 Reviewed by: Karime Pryor, POSTAGE MACHINE OPERATOR.CRUISE COORDINATOR - Fully Assessed Reason for Visit: Insurance Authorization [[id number]] Primary Visit Diagnosis:Type 2 diabetes (HCC) [E11.9] Order(s):Blood-Gluco se Meter,Continuous (DEXCOM G7 TOMOGRAPHY TECHNOLOGIST) miscUse to check blood sugar at least four (4) times daily. Dx: E11.9. Insulin. Yes.Disp: 1 EachRfl: 0 Blood-Glucose Sensor (DEXCOM G7 SENSOR) deviApply new sensor every ten (10) days. Dx:E11.9. Insulin: Yes.Disp: 9 EachRfl: 5 Prescriptions as of 03/19/2024 - Blood-Glucose Meter,Continuous (DEXCOM G7 TOMOGRAPHY TECHNOLOGIST) misc Use to check blood sugar at least four (4) times daily. Dx: E11.9. Insulin. Yes. - Blood-Glucose Sensor (DEXCOM G7 SENSOR) gem Apply new sensor every ten (10) days. Dx:E11.9. Insulin: Yes. - blood sugar diagnostic test strip Use with blood glucose test four times a day. Insulin Dep? Yes - Blood-Glucose Meter Check Sugar 4 or more times daily Dx: E11.9 Insulin use: yes - atorvastatin (LIPITOR) 40 mg tablet Take 1 tablet by mouth daily at bedtime. For cholesterol. - empagliflozin (JARDIANCE) 25 mg tablet Take 1 tablet by mouth once daily. Take 1 tablet once daily in the morning - insulin glargine (LANTUS SOLOSTAR U-100 INSULIN) 100 unit/mL (3 mL) Inject 44 Units subcutaneously daily at bedtime. - Lancets Test blood sugar(s) 4 times daily. Dx: Type 2 DM - Uncontrolled E11.65 Insulin: Yes - metFORMIN ER (GLUCOPHAGE XR) 500 mg 24 hr tablet Take 2 tablets by mouth two times a day with meals. E11.65 - omeprazole (PRILOSEC) 40 mg capsule Take 1 capsule by mouth once daily. - meloxicam (MOBIC) 15 mg tablet Take 1 tablet by mouth once daily. As needed - cyclobenzaprine (FLEXERIL) 10 mg tablet Take 1 tablet by mouth three times a day as (more content not included)... Normal [facility] CNOVon 03-14-2024 CNOV Office Visit (INTMWS) PETE VASQUEZ ([id number]) 1980 M Date Time Provider Department 03/14/24 6:20 PM KARIME PRYOR INTMWS During your visit today, we recorded the following information about you: Pulse Blood pressure Weight Height 104/minute 134/72 101.7 kg 1.76 m Karime Pryor, POSTAGE MACHINE OPERATOR.CRUISE COORDINATOR 03/14/2024 6:57 PM Signed CC: Patient presents with: Physical Pain: Neck x 1.5 month HPI Peteelin Vasquez is a 43 year old male who presents today for above. He is taking medications as prescribed, denies side effects. He reports occasional reflux and dysphagia with solid foods despite taking PPI. He was seen in [facility] on 02/21 for one week history of neck pain on the left with radiation down the left arm. Associated with intermittent numbness/tingling of the left arm. He was prescribed prednisone burst with taper. X-ray was ordered but he did not have done. He reports modest relief after completing the prednisone but pain is still bothersome. Denies any new or worsening symptoms. Denies left arm weakness or loss of standard machine stitcher strength. There was no injury or trauma, just woke up with the neck pain one morning. He does do quite a bit of heavy lifting at work. Pain is worse first thing in the morning along with stiffness that improves as the day goes on. Review of Systems Constitutional: Negative for chills, diaphoresis, fatigue, fever and unexpected weight change. HENT: Negative for voice change. Respiratory: Negative for cough, shortness of breath and wheezing. Cardiovascular: Negative for chest pain, palpitations and leg swelling. Gastrointestinal: Negative for constipation. Neurological: Negative for dizziness, syncope and light-headedness. PAST MEDICAL HISTORY Diagnosis Date Burning sensation of feet 11/30/2021 Erectile dysfunction 04/17/2015 Essential hypertension Gastroesophageal reflux disease without esophagitis 08/26/2014 GERD (gastroesophageal reflux disease) 08/26/2014 Hyperlipidemia 08/26/2014 Overweight (BMI 25.0-29.9) 06/30/2020 Tobacco use disorder 10/03/2014 Type 2 diabetes (HCC) 08/26/2014 Type II or unspecified type diabetes mellitus without mention of complication, not stated as uncontrolled 08/26/2014 diagnosed 2012 PAST SURGICAL HISTORY Procedure Laterality Date EUSTACHIAN TUBOPLASTY as a child PAST SURGICAL HISTORY OF Right 02/22/1996 Right hand tendon repair PAST SURGICAL HISTORY OF Right 02/21/2003 Calf debridement, infection PAST SURGICAL HISTORY OF 02/21/1991 Testicular torsion REMOVAL GALLBLADDER 01/[address] Wang ALLERGIES Patient has no known allergies. MEDICATIONS insulin glargine (LANTUS SOLOSTAR U-100 INSULIN) 100 unit/mL (3 mL) Inject 44 Units subcutaneously daily at bedtime. cyclobenzaprine (FLEXERIL) 10 mg tablet Take 1 tablet by mouth three times a day as needed for muscle spasm. omeprazole (PRILOSEC) 40 mg capsule Take 1 capsule by mouth once daily. metFORMIN ER (GLUCOPHAGE XR) 500 mg 24 hr tablet Take 2 tablets by mouth two times a day with meals. E11.65 empagliflozin (JARDIANCE) 25 mg tablet Take 1 tablet by mouth once daily. Take 1 tablet once daily in the morning lisinopril (ZESTRIL) 40 mg tablet Take 1 tablet by mouth once daily. insulin needles, DISPOSABLE, (PEN NEEDLE) 31 gauge x 5/16 Use to inject insulin daily as directed. atorvastatin (LIPITOR) 40 mg tablet Take 1 tablet by mouth daily at bedtime. For cholesterol. meloxicam (MOBIC) 15 mg tablet Take 1 tablet by mouth once daily. As needed Blood-Glucose Sensor (FREESTYLE WANDA 3 SENSOR) gem Use to test blood sugar as directed. E11.65 ondansetron orally disintegrating (ZOFRAN ODT) 4 mg disintegrating tablet Take 1 tablet by mouth every 6 hours as needed for nausea/vomiting. alcohol swabs (ALCOHOL PADS) Test blood sugar(s) 2 times daily. Dx: Type 2 DM - Uncontrolled E11.65 Insulin: Yes Lancets lancets Test blood sugar(s) 2 times daily. Dx: Type 2 DM - Uncontrolled E11.65 Insulin: Yes FAMILY HISTORY Problem Relation Age of Onset No Ocular Disease Mother Osteoporosis Mother No Ocular Disease Father other (lymphoma) Father other (hepatitis C) Father Stroke Father No Ocular Disease Brother No Ocular Disease Brother None Brother No Ocular Disease Maternal Grandmother Dementia Maternal Grandmother No Ocular Disease Maternal Grandfather Heart Maternal Grandfather No Ocular Disease Paternal Grandmother unsure if grandmother had cataracts or glaucoma Diabetes Paternal Grandmother No Ocular Disease Paternal Grandfather Anesthesia Problems No Family History Social History Tobacco Use Smoking status: Former Current packs/day: 0.00 Average packs/day: 1 pack/day for 27.0 years (27.0 ttl pk-yrs) Types: Cigarettes Start date: 01/24/1996 Quit date: 01/23/2023 Years since quittin.1 Smokeless tobacco: Never Tobacco comments: F (more content not included)... Normal [facility] PETE VASQUEZ ([id number]) 1980 M Date Time Provider Department 03/14/24 BEAU RO [facility] During your visit today, we recorded the following information about you: Beau Ro APRN.CNP 03/14/2024 7:20 PM Signed X-ray came back with just mild degenerative changes. Patient should continue treatment plan as discussed with his primary care that he seen yesterday. If getting worse follow back up with primary care Agatha Rosario MA 03/14/2024 7:32 PM Signed Pt was notified of the results. Pt verbalized understanding. Agatha Rosario MA Allergies As of Date: 03/14/2024 (No Known Allergies) Date Reviewed: 03/14/2024 Reviewed by: Karime Pryor APRN.CRUISE COORDINATOR - Fully Assessed Reason for Visit: Results [95] Prescriptions as of 03/14/2024 - blood sugar diagnostic test strip Use with blood glucose test four times a day. Insulin Dep? Yes - Blood-Glucose Meter Check Sugar 4 or more times daily Dx: E11.9 Insulin use: yes - atorvastatin (LIPITOR) 40 mg tablet Take 1 tablet by mouth daily at bedtime. For cholesterol. - Blood-Glucose Sensor (FREESTYLE WANDA 3 SENSOR) gem Use to test blood sugar as directed. . - empagliflozin (JARDIANCE) 25 mg tablet Take 1 tablet by mouth once daily. Take 1 tablet once daily in the morning - insulin glargine (LANTUS SOLOSTAR U-100 INSULIN) 100 unit/mL (3 mL) Inject 44 Units subcutaneously daily at bedtime. - Lancets Test blood sugar(s) 4 times daily. Dx: Type 2 DM - Uncontrolled Insulin: Yes - metFORMIN ER (GLUCOPHAGE XR) 500 mg 24 hr tablet Take 2 tablets by mouth two times a day with meals. - omeprazole (PRILOSEC) 40 mg capsule Take 1 capsule by mouth once daily. - meloxicam (MOBIC) 15 mg tablet Take 1 tablet by mouth once daily. As needed - cyclobenzaprine (FLEXERIL) 10 mg tablet Take 1 tablet by mouth three times a day as needed for muscle spasm. - lisinopril (ZESTRIL) 40 mg tablet Take 1 tablet by mouth once daily. - insulin needles, DISPOSABLE, (PEN NEEDLE) 31 gauge x 5/16 Use to inject insulin daily as directed. - ondansetron orally disintegrating (ZOFRAN ODT) 4 mg disintegrating tablet Take 1 tablet by mouth every 6 hours as needed for nausea/vomiting. - alcohol swabs (ALCOHOL PADS) Test blood sugar(s) 2 times daily. Dx: Type 2 DM - Uncontrolled Insulin: Yes Problem List As Of Date 03/14/2024 Noted Resolved Type 2 diabetes (HCC) [E11.9] 08/26/2014 Hyperlipidemia [E78.5] 08/26/2014 Gastroesophageal reflux disease without esophag*08/26/2014 Tobacco use disorder [F17.200] 10/03/2014 Erectile dysfunction [N52.9] 04/17/2015 Overweight (BMI 25.0-29.9) [E66.3] 06/30/2020 Screening for ischemic heart disease [Z13.6] 03/04/2021 05/14/2021 Uncontrolled type 2 diabetes mellitus with hype*03/04/2021 12/23/2022 Burning sensation of feet [R20.8] 11/30/2021 Primary hypertension [I10] 12/23/2022 Obesity (BMI 30.0-34.9) [E66.811] 01/20/2023 Suspected sleep apnea [R29.818] 01/20/2023 Marijuana use [F12.90] 01/20/2023 Encounter Status:Closed by AGATHA ROSARIO on 03/14/24 Normal [facility] XR CERVICAL 4V AP/LAT/OBLon 03-14-2024 XR CERVICAL 4V AP/LAT/OBL * * *Final Report* * * DATE OF EXAM: Mar 14 2024 7:01PM [id number] - XR CERVICAL 4V AP/LAT/OBL / PROCEDURE REASON: Neck pain * * * * Physician Interpretation * * * * Examination: XR CERVICAL 4V AP/LAT/OBL History: Neck pain Technique: XR CERVICAL 4V AP/LAT/OBL Comparison: 09/06/2022 RESULT: Vertebral bodies are well aligned. Disc spaces are well maintained. No fracture or prevertebral swelling is seen. Normal lordosis. Mild spondylosis. Neural foramina are widely patent bilaterally. IMPRESSION: MILD DEGENERATIVE CHANGE Soda Drier Feeder: FABRICIO Transcribe Date/Time: Mar 14 2024 7:10P Dictated by : MALLY ROCK MD This examination was interpreted and the report reviewed and electronically signed by: MALLY ROCK MD on Mar 14 2024 7:11PM EST [id number] Normal [facility] XR Cervical spine AP and Lat eral and obliqueon 03-14-2024 IMPRESSION: MILD DEGENERATIVE CHANGE Soda Drier Feeder: PSCB Transcribe Date/Time: Mar 14 2024 7:10P Dictated by : MALLY ROCK MD This examination was interpreted and the report reviewed and electronically signed by: MALLY ROCK MD on Mar 14 2024 7:11PM EST DIVISION OF RADIOLOGY * * *Final Report* * * DATE OF EXAM: Mar 14 2024 7:01PM [id number] - XR CERVICAL 4V AP/LAT/OBL / PROCEDURE REASON: Neck pain * * * * Physician Interpretation * * * * Examination: XR CERVICAL 4V AP/LAT/OBL History: Neck pain Technique: XR CERVICAL 4V AP/LAT/OBL Comparison: 09/06/2022 RESULT: Vertebral bodies are well aligned. Disc spaces are well maintained. No fracture or prevertebral swelling is seen. Normal lordosis. Mild spondylosis. Neural foramina are widely patent bilaterally. DIVISION OF RADIOLOGY Provider, [facility] [place] - 03/14/2024 * * *Final Report* * * DATE OF EXAM: Mar 14 2024 7:01PM [id number] [id number] - XR CERVICAL 4V AP/LAT/OBL / PROCEDURE REASON: Neck pain * * * * Physician Interpretation * * * * Examination: XR CERVICAL 4V AP/LAT/OBL History: Neck pain Technique: XR CERVICAL 4V AP/LAT/OBL Comparison: 09/06/2022 RESULT: Vertebral bodies are well aligned. Disc spaces are well maintained. No fracture or prevertebral swelling is seen. Normal lordosis. Mild spondylosis. Neural foramina are widely patent bilaterally. IMPRESSION IMPRESSION: MILD DEGENERATIVE CHANGE Soda Drier Feeder: PSCB Transcribe Date/Time: Mar 14 2024 7:10P Dictated by : MALLY ROCK MD This examination was interpreted and the report reviewed and electronically signed by: MALLY ROCK MD on Mar 14 2024 7:11PM [facility] Radiology Study observation (narrative) [facility] XR Cervical spine AP and Lat eral and obliqueOrdered By: [facility] Provider on 03-14-2024 [facility] CNOVon 02-22-2024 CNOV Office Visit (UCWSTR) PETE VASQUEZ ([id number]) 1980 M Date Time Provider Department 02/22/24 11:45 AM ALEXA GONZALEZ [facility] During your visit today, we recorded the following information about you: Temperature Pulse Respiration Blood pressure 97.8 degrees 86/minute 16/minute 132/82 Weight 101.1 kg Alexa Gonzalez APRN.CNP 02/22/2024 11:50 AM Signed Subjective The history is provided by the patient and the spouse. No educational sign language interpreter was used. THAI Vasquez is a 43 year old male who presents today for CC of neck pain, with radiation down arm. This started after Yvonne and has not gone away. He has tried tylenol and ibuprofen without relief. Denies any known injury or trauma. BP 132/82 Pulse 86 Temp 36.6 ?C (97.8 ?F) (Tympanic) Resp 16 Wt 101.1 kg (222 lb 14.2 oz) SpO2 98% BMI 32.44 kg/m? Social History Tobacco Use Smoking status: Former Current packs/day: 0.00 Average packs/day: 1 pack/day for 27.0 years (27.0 ttl pk-yrs) Types: Cigarettes Start date: 01/24/1996 Quit date: 01/23/2023 Years since quittin.0 Smokeless tobacco: Never Tobacco comments: From age 15 Vaping Use Vaping status: current everyday user Substances: Nicotine Substance Use Topics Alcohol use: Yes Comment: holidays 2 drinks or less, infrequent drinker Drug use: Yes Types: Marijuana Comment: 5 times per week for anxiety or less, non-medical PAST MEDICAL HISTORY Diagnosis Date Burning sensation of feet 11/30/2021 Erectile dysfunction 04/17/2015 Essential hypertension Gastroesophageal reflux disease without esophagitis 08/26/2014 GERD (gastroesophageal reflux disease) 08/26/2014 Hyperlipidemia 08/26/2014 Overweight (BMI 25.0-29.9) 06/30/2020 Tobacco use disorder 10/03/2014 Type 2 diabetes (HCC) 08/26/2014 Type II or unspecified type diabetes mellitus without mention of complication, not stated as uncontrolled 08/26/2014 diagnosed 2012 I have confirmed and edited as necessary, the [facility] Review of Systems Constitutional: Negative for chills and fever. Musculoskeletal: Positive for neck pain. Negative for joint pain and myalgias. Skin: Negative for itching and rash. All other systems reviewed and are negative. Objective Physical Exam Vitals and nursing note reviewed. Cardiovascular: Pulses: Radial pulses are 2+ on the right side and 2+ on the left side. Dorsalis pedis pulses are 2+ on the right side and 2+ on the left side. Posterior tibial pulses are 2+ on the right side and 2+ on the left side. Pulmonary: Effort: Pulmonary effort is normal. Musculoskeletal: Cervical back: Rigidity, spasms and tenderness present. No swelling, edema, deformity, erythema, signs of trauma, lacerations, torticollis, bony tenderness or crepitus. Pain with movement present. Normal range of motion. Thoracic back: Normal. Back: Skin: General: Skin is warm and dry. Neurological: Mental Status: He is alert and oriented to person, place, and time. Cranial Nerves: Cranial nerves 2-12 are intact. Sensory: Sensation is intact. Deep Tendon Reflexes: Reflexes are normal and symmetric. Psychiatric: Mood and Affect: Affect normal. ASSESSMENT/PLAN: 1. Neck pain - ICD9: 723.1, ICD10: M54.2 Muscle strain, possible disc involvement due to radiation and occasional numbness Prednisone taper as ordered Flexeril Follow up with PCP for further evaluation and treatment. - XR CERV OTHER 4V AP/LAT/OBL Diagnosis and treatment plan were discussed and questions were answered to the patient's satisfaction. Pt acknowledged understanding of concepts and follow up plan. Specific signs and symptoms that would indicate the need for higher level of care were discussed in detail warranting prompt ER evaluation. Alexa Gonzalez APRN.CRUISE COORDINATOR Referring Provider: SELF [[id number]] Allergies As of Date: 02/22/2024 (No Known Allergies) Date Reviewed: 02/22/2024 Reviewed by: Khushbu Jacobson LPN - Fully Assessed Reason for Visit: Neck Pain [135] Cmt: Neck pain radiating down back and into limbs x 2 weeks-cannot recall an injury Primary Visit Diagnosis:Neck pain [M54.2] Order(s):XR CERV OTHER 4V AP/LAT/OBL [[id number]] Order #: [id number] FUTURE predniSONE (DELTASONE) 10 mg tabletTake 4 tabs daily for 3 days, then 2 tabs daily for 3 days, then 1 tab daily for 3 days with food.Disp: 21 tabletRfl: 0 cyclobenzaprine (FLEXERIL) 10 mg tabletTake 1 tablet by mouth three times a day as needed for muscle spasm.Disp: 15 tabletRfl: 0 Prescriptions as of 02/22/2024 - predniSONE (DELTASONE) 10 mg tablet Take 4 tabs daily for 3 days, then 2 tabs daily for 3 days, then 1 tab daily for 3 days with food. - cyclobenzaprine (FLEXERIL) 10 mg tablet Take 1 tablet by mouth three times a day as needed for muscle spasm. - insulin glargine (LANTUS SOLOSTAR U-100 INSULIN) 100 unit/mL (3 mL) Inject 44 Units subcuta (more content not included)... Normal [facility] HEMOGLOBIN A1C (POC)on 09-15 HbA1c (Bld) [Mass fraction] 8.1 % Abnormal 4.3 - 5.6 % [facility] Comment on above: Location:[address], [place], [address] Point of care (POC) Hemoglobin A1c (HGBA1C) testing is intended to assess glucose control and provide a management tool for patients known to have diabetes and their healthcare providers. Target HGBA1C levels may depend on specific clinical circumstances. POC HGBA1C is not intended for use as a diagnostic or screening test; laboratory-based testing should be used for diagnostic purposes. The following information is supplemental and may not be applicable to specific diabetes management situations: The POC device chin strap maker provides a normal range of 4.2% to 6.5% for the HGBA1C POC test. However, the [employer] guidelines indicate that patients with HGBA1C in the range of 5.7% to 6.4% are at increased risk for development of diabetes and that intervention by lifestyle modification may be beneficial. A HGBA1C level greater than or equal to 6.5% is considered diagnostic of diabetes, pending confirmatory testing. Use of HGBA1C testing to evaluate glucose control may not be appropriate for patients with hemoglobin variants or other conditions (e.g. anemia) that alter red blood cell lifespan. Interpretation and review of laboratory results Abnormal [facility] INFLUENZA A&B MOLECULAR (POC )on 04-22-2023 Flu A (POCT) Negative Negative [facility] Flu B (POCT) Negative Negative [facility] Procedural Control Valid [facility] STREP A MOLECULAR (POC)on Procedural Control [facility] Strep A (POCT) Negative Negative [facility] ANES POSTPROC EVALon 023 ANES POSTPROC EVAL HNO ID: [id number] Author: Kathy Chu MD Service: Anesthesiology Author Type: Anesthesiologist Type: Anesthesia Postprocedure Evaluation Filed: 01/24/2023 10:59 AM Note Text: POST ANESTHESIA EVALUATION NOTE : 1980 Procedure Summary Date: 01/24/23 Room / Location: NM OR / NM OR Anesthesia Start: 728 Anesthesia Stop: 849 Procedure: LAPAROSCOPIC CHOLECYSTECTOMY WITH GRAMS (Abdomen) Diagnosis: Right upper quadrant pain Chronic cholecystitis (Right upper quadrant pain [R10.11]) (Chronic cholecystitis [K81.1]) Surgeons: Neel Wang MD Responsible Provider: Kathy Chu MD Anesthesia Type: general ASA Status: 2 Anesthesia Type: general Airway Type: ETT Last Vitals Vitals Value Taken Time BP 168/66 01/24/23 0944 Temp 36.2 ?C (97.2 ?F) 01/24/2330 Pulse 85 01/24/23 0944 Resp 20 01/24/23 0944 SpO2 99 % 01/24/23943 Post Anesthesia Patient Status Patient Evaluation: PACU. PACU/ICU Patient Condition: stable. Anticipated Disposition: phase 2 then home. Neurological Status: aware and responsive. Pulmonary Status: breathing comfortably on room air Airway Control: returned to baseline unsupported. Cardiovascular Status: stable. Pain Management: clinically adequate - multimodal analgesia pain management approach Postoperative Hydration: acceptable. Intraoperative Events: no significant anesthesia events Post Operative Nausea/Vomiting Status: no significant post operative nausea or vomiting Recommendation: continue current plan of care. Anesthesia Observations No Documentation SIGNATURE: Kathy Chu MD PATIENT NAME: Pete Vasquez DATE: January 24, 2023 TIME: 10:59 AM CSN: [id number] [facility] ANES PRE-OPon 01-24-2023 ANES PRE-OP HNO ID: [id number] Author: Kathy Chu MD Service: Anesthesiology Author Type: Anesthesiologist Type: Anesthesia Preprocedure Evaluation Filed: 01/24/2023 7:15 AM Note Text: ANESTHESIOLOGY DAY OF SURGERY NOTE : 1980 Procedure Information Date/Time: 01/24/23729 Procedure: LAPAROSCOPIC CHOLECYSTECTOMY WITH GRAMS Location: NM OR / NM OR Surgeons: Neel Wang MD Estimated body mass index is 31.59 kg/m? as calculated from the following: Height as of 01/20/23: 176.5 cm (5' 9.5). Weight as of 01/20/23: 98.4 kg (217 lb). Most recent hematocrit and potassium results: Hematocrit 47.3 06/19/2022 Potassium 4.2 12/17/2022 Relevant Problems CARDIO (+) Primary hypertension ENDO (+) Type 2 diabetes (HCC) GI (+) Gastroesophageal reflux disease without esophagitis I - PHYSICAL EVALUATION AIRWAY Patient intubated: No. Tracheostomy tube not present Mallampati: III. TM distance: >3 FB. Neck ROM: full ROM without neurological symptoms. Mouth opening: adequate. Short neck: yes. Thick neck: yes Hogan present: yes Microretrognathia/Mi cronagthia/Recessed Chin: No DENTAL Dental findings: missing tooth/teeth. Additional exam findings: yes. CARDIOVASCULAR Normal cardiovascular observations. Rhythm: regular Rate: normal PULMONARY Normal pulmonary observations. Breath sounds clear to auscultation. II - ANESTHESIA PLAN ASA Score: 2 Anesthetic Plan: general Airway type: ETT The patient is not a current smoker. NPO Status: adequate Beta Herb Monitoring Plan Monitoring plan: standard ASA. Post Procedure Analgesic Plan Postoperative analgesic plan: parenteral or oral opioids. Informed Consent Anesthetic risks, benefits, alternatives, personnel and consent discussed: yes. Patient / Responsible Republican agrees to proceed: yes Patient / Surrogate agrees to blood products: Yes Significant changes in the patient condition since the History and Physical, not otherwise documented in primary service progress note: no. Potential Anesthesia issues that may suggest increased risk of complications or contraindication to planned procedure: none. Vitals Value Taken Time BP 146/78 01/24/23623 Pulse Resp 16 01/24/23623 Temp 36.7 ?C (98.1 ?F) 01/24/23623 SpO2 99 % 01/24/23623 Facility-Administere d Medications as of 01/24/2023 Medication Dose Route Frequency - lidocaine (PF) 10 mg/mL (1 %) 1-2 mg injection (XYLOCAINE) 0.1-0.2 mL INTRADERMAL PRN - lactated ringers iv infusion 5-30 mL/hr INTRAVENOUS CONTINUOUS - NaCl 0.9% iv flush bag 20 mL INTRAVENOUS PRN - ceFAZolin iv piggyback 2 g in D5W (iso-osmotic) 100 mL (ANCEF) 2 g INTRAVENOUS Pre-Op Once - acetaminophen 1,000 mg tab(s) (TYLENOL) 1,000 mg ORAL ONCE - promethazine 12.5 mg tab(s) (PHENERGAN) 12.5 mg ORAL Pre-Op Once Outpatient Medications as of 01/24/2023 Medication Sig - atorvastatin (LIPITOR) 40 mg tablet Take 1 tablet by mouth daily at bedtime. For cholesterol. - insulin glargine (LANTUS SOLOSTAR U-100 INSULIN) 100 unit/mL (3 mL) Inject 20 Units subcutaneously daily at bedtime. - metFORMIN ER (GLUCOPHAGE XR) 500 mg 24 hr tablet Take 2 tablets by mouth two times a day with meals. E11.65 - empagliflozin (JARDIANCE) 25 mg tablet Take 1 tablet by mouth once daily. Take 1 tablet once daily in the morning (Patient not taking: Reported on 01/20/2023) - lisinopril (ZESTRIL) 10 mg tablet Take 1 tablet by mouth once daily. - Blood-Glucose Sensor (FREESTYLE WANDA 3 SENSOR) gem Use to test blood sugar as directed. E11.65 - omeprazole (PRILOSEC) 40 mg capsule Take 1 capsule by mouth once daily. - varenicline (CHANTIX STARTING MONTH BOX) 0.5 mg (11)- 1 mg (42) tablet Take 0.5 mg by mouth once daily on Days 1 through 3, THEN 0.5 mg twice daily on Days 4 through 7, THEN 1 mg twice daily on Day 8 and thereafter (Patient not taking: Reported on 01/18/2023) - insulin needles, DISPOSABLE, (PEN NEEDLE) 31 gauge x 5/16 Use to inject insulin daily as directed. - ondansetron orally disintegrating (ZOFRAN ODT) 4 mg disintegrating tablet Take 1 tablet by mouth every 6 hours as needed for nausea/vomiting. - alcohol swabs (ALCOHOL PADS) Test blood sugar(s) 2 times daily. Dx: Type 2 DM - Uncontrolled E11.65 Insulin: Yes - Lancets lancets Test blood sugar(s) 2 times daily. Dx: Type 2 DM - Uncontrolled E11.65 Insulin: Yes I have interviewed and examined the patient. I have reviewed the medical record and/or the pre-anesthesia evaluation, pertinent labs, and test results. This contains updated information obtained within 48 hours of Surgery/Procedure. SIGNATURE: Kathy Chu MD PATIENT NAME: Pete Vasquez DATE: January 24, 2023 TIME: 7:11 AM CSN: [id number] [facility] BRIEF OP NOTon 01-24-2023 BRIEF OP NOT HNO ID: [id number] Author: Neel Wang MD Service: General Surgery Author Type: Physician Type: Brief Op Note Filed: 01/24/2023 8:47 AM Note Text: BRIEF OPERATIVE NOTATION FOR SURGICAL PROCEDURE. Pete Vasquez 1980 [id number] male LOG ID: [id number] Surgery/Procedure Date: 01/24/2023 Incision/Procedure Start Time: 7:53 AM Incision Close/Procedure End Time: 8:36 AM Surgeon(s)/Procedura list(s) and Key Attendant(s): Surgeon(s) and Role: * Neel Wang MD - Primary Physician Key Attendant: Risa Vann PA-C REFERRING PHYSICIAN: Hammad Outpatient DEPT: CLIVE PROVIDER: Niharika POS: [id number] ANESTHESIA: General ASA CLASS: 2 - mild DIAGNOSIS: biliary colic PROCEDURE: LAPAROSCOPIC CHOLECYSTECTOMY WITH INTRAOPERATIVE CHOLEANGIOGRAM - 31510-703 IVF: 800 EBL: minimal Specimens: gallbladder ADDITIONAL DIAGNOSES: FINDINGS: chronic cholecystitis, normal IOC - call duct COMPLICATIONS: None PMHx - PAST MEDICAL HISTORY Diagnosis Date Burning sensation of feet 11/30/2021 Erectile dysfunction 04/17/2015 Essential hypertension Gastroesophageal reflux disease without esophagitis 08/26/2014 GERD (gastroesophageal reflux disease) 08/26/2014 Hyperlipidemia 08/26/2014 Overweight (BMI 25.0-29.9) 06/30/2020 Tobacco use disorder 10/03/2014 Type 2 diabetes (HCC) 08/26/2014 Type II or unspecified type diabetes mellitus without mention of complication, not stated as uncontrolled 08/26/2014 diagnosed 2013 COMORBIDITIES - Smoking/Tobacco, Obesity, and NIDDM Post Op Occurrences - None Wound Classification - Clean Contaminated Operative note dictated in the dictation system. - [id number] Neel Wang MD [facility] HISTORY PHYSICALon 12-04-202 3 HISTORY PHYSICAL HNO ID: [id number] Author: Neel Wang MD Service: General Surgery Author Type: Physician Type: HANDP Filed: 01/24/2023 6:46 AM Note Text: HISTORY AND PHYSICAL Pete Vasquez 1980 REFERRING PHYSICIAN: Karime Roa APRN.CNP CHIEF COMPLAINT: Consult (RIGHT UPPER QUADRANT) HPI: The patient is a pleasant 42 year old male with a complaint of RUQ abdominal pain. He presented to ED on 01/01/2023. He also had a fall just prior to this and thought that the pain was due to the fall He underwent gallbladder ultrasound which showed sludge and possible stones. A HIDA scan revealed an ejection fracture of 9%. He still notes RUQ abdominal pain and states that it is almost constant. He is trying to watch what he is eating - low fats and more vegetables. He denies fevers. He notes occasional nausea but denies emesis. He denies diarrhea, and notes occasional constipation, though improving with better diet. He denies icterus/jaundice PAST MEDICAL HISTORY PAST MEDICAL HISTORY Diagnosis Date Burning sensation of feet 11/30/2021 Erectile dysfunction 04/17/2015 Essential hypertension Gastroesophageal reflux disease without esophagitis 08/26/2014 GERD (gastroesophageal reflux disease) 08/26/2014 Hyperlipidemia 08/26/2014 Overweight (BMI 25.0-29.9) 06/30/2020 Tobacco use disorder 10/03/2014 Type 2 diabetes (HCC) 08/26/2014 Type II or unspecified type diabetes mellitus without mention of complication, not stated as uncontrolled 08/26/2014 diagnosed 2012 PAST SURGICAL HISTORY PAST SURGICAL HISTORY Procedure Laterality Date EUSTACHIAN TUBOPLASTY as a child PAST SURGICAL HISTORY OF Right 02/22/1996 Right hand tendon repair PAST SURGICAL HISTORY OF Right 02/21/2003 Calf debridement, infection PAST SURGICAL HISTORY OF 02/21/1991 Testicular torsion CURRENT MEDICATIONS Current Outpatient Medications Medication Sig empagliflozin (JARDIANCE) 25 mg tablet Take 1 tablet by mouth once daily. Take 1 tablet once daily in the morning lisinopril (ZESTRIL) 10 mg tablet Take 1 tablet by mouth once daily. Blood-Glucose Sensor (FREESTYLE WANDA 3 SENSOR) gem Use to test blood sugar as directed. E11.65 omeprazole (PRILOSEC) 40 mg capsule Take 1 capsule by mouth once daily. atorvastatin (LIPITOR) 40 mg tablet Take 1 tablet by mouth daily at bedtime. For cholesterol. insulin glargine (LANTUS SOLOSTAR U-100 INSULIN) 100 unit/mL (3 mL) Inject 20 Units subcutaneously daily at bedtime. metFORMIN ER (GLUCOPHAGE XR) 500 mg 24 hr tablet Take 2 tablets by mouth two times a day with meals. E11.65 insulin needles, DISPOSABLE, (PEN NEEDLE) 31 gauge x 5/16 Use to inject insulin daily as directed. ondansetron orally disintegrating (ZOFRAN ODT) 4 mg disintegrating tablet Take 1 tablet by mouth every 6 hours as needed for nausea/vomiting. alcohol swabs (ALCOHOL PADS) Test blood sugar(s) 2 times daily. Dx: Type 2 DM - Uncontrolled E11.65 Insulin: Yes Lancets lancets Test blood sugar(s) 2 times daily. Dx: Type 2 DM - Uncontrolled E11.65 Insulin: Yes varenicline (CHANTIX STARTING MONTH BOX) 0.5 mg (11)- 1 mg (42) tablet Take 0.5 mg by mouth once daily on Days 1 through 3, THEN 0.5 mg twice daily on Days 4 through 7, THEN 1 mg twice daily on Day 8 and thereafter (Patient not taking: Reported on 01/18/2023) No current facility-administere d medications for this visit. ALLERGIES: Patient has no known allergies. PERSONAL HISTORY: SOCIAL HISTORY Social History Tobacco Use Smoking status: Every Day Packs/day: 1.00 Years: 27.00 Additional pack years: 0.00 Total pack years: 27.00 Types: Cigarettes Smokeless tobacco: Never Tobacco comments: From age 15 Vaping Use Vaping Use: Some days Substance Use Topics Alcohol use: Yes Comment: holidays 2 drinks Drug use: Yes Types: Marijuana Comment: 5 times per week for anxiety FAMILY HISTORY FAMILY HISTORY Problem Relation Age of Onset No Ocular Disease Father other (lymphoma) Father other (hepatitis C) Father Stroke Father No Ocular Disease Mother Osteoporosis Mother No Ocular Disease Brother No Ocular Disease Brother None Brother No Ocular Disease Maternal Grandmother Dementia Maternal Grandmother No Ocular Disease Maternal Grandfather Heart Maternal Grandfather No Ocular Disease Paternal Grandmother unsure if grandmother had cataracts or glaucoma Diabetes Paternal Grandmother No Ocular Disease Paternal Grandfather The review of systems data was entered by the nurse and reviewed by ar Nursing Notes: Pam Nguyen LPN 01/18/2023 4:18 PM Signed REVIEW OF SYSTEMS: General: The patient denies fatigue, denies weight loss, denies weight gain, denies feeling hot, and denies feelings of cold. Eyes: The patient denies glaucoma, denies eye injury/surgery, wears glasses or contacts. Ear/Nose/Throat: The patient denies allergies, denies hayfever, NOTES ear infections, and denies b (more content not included)... [facility] NURSING PROGon 01-24-2023 NURSING PROG HNO ID: [id number] Author: Laurel Ang RN Service: Nursing Author Type: Registered Nurse Type: Nursing Progress Note Filed: 01/24/2023 10:43 AM Note Text: Other: per pt mom to stay in waiting room. Pain 6/10 wanting to get up and void then go home. 1020 pt pacing in ASCU 16 wanting to go home. Relates pain 6/10. + belching. Aware of need to picker feeder RX in out pt pharmacy. [facility] OPERATIVE NOon 01-24-2023 OPERATIVE NO HNO ID: [id number] Author: Neel Wang MD Service: General Surgery Author Type: Physician Type: Operative Report Filed: 01/24/2023 4:05 PM Note Text: [facility] - Operative Report PETE VASQUEZ : 1980 AGE: 42. SEX: M PATIENT TYPE: [facility] [place]: [facility] LOCATION: [facility] ATTENDING PHYSICIAN: Neel Wang M.D. CSN NUMBER: [id number] DATE OF SURGERY/PROCEDURE: 01/24/2023 INCISION/PROCEDURE START TIME: 7:53 a.m. INCISION CLOSE/PROCEDURE END TIME: 8:36 a.m. PREOPERATIVE DIAGNOSIS: Biliary colic. POSTOPERATIVE DIAGNOSIS: Biliary colic, adhesions to gallbladder, normal intraoperative cholangiogram with small ducts with small dark stones in the cystic duct. SURGEON: Neel Wang M.D. AIRPORT RAMP ATTENDANT: Risa Vann PA-C SURGERY/PROCEDURE: Laparoscopic cholecystectomy with intraoperative cholangiogram. ANESTHESIA: General endotracheal. LOGIN: [id number] ANESTHESIOLOGIST: Dr. Flynn. ASA: 2. INTRAVENOUS FLUIDS: 800 mL. ESTIMATED BLOOD LOSS: Minimal. URINE OUTPUT: No catheter. FINDINGS: As above. SPECIMENS: Gallbladder. DRAINS: None. COMPLICATIONS: None. DISPOSITION: Patient was taken to PACU in stable condition. DESCRIPTION OF PROCEDURE: Sign-in was performed verifying patient, site, procedure, position, critical nursing information, VTE, and antibiotic prophylaxis. Patient received 2 g of Ancef and sequential compression devices placed. The patient was brought to the operative suite. Following induction of general anesthetic, the patient's abdomen was prepped and draped in the usual fashion. Time-out was performed verifying patient, site, procedure, position. Local anesthetic was injected in the umbilicus. Incision was made through the fascia. Two stay sutures were placed on the fascia. Incision was made in fascia and peritoneum under direct visualization. Tyrel trocar was inserted through a stay suture. Pneumoperitoneum to 15 mmHg was insufflated. Three 5 mm ports were placed in position. Visual inspection revealed fatty liver. There were adhesions to the gallbladder and liver. These were taken down bluntly and using Hook electrocautery. Once this was completed, the gallbladder was dissected upward and outward. Dissection was carried out in Calot triangle. As dissection was continued, a critical view of the gallbladder finding the neck of the gallbladder with no signs of aberrant ductal structures were seen. A clip was placed at the neck of the gallbladder cystic duct junction and a partial ductotomy was made. There were noted to be dark small stones and sludge in the duct. The duct was milked backwards, so hopefully all stones removed. At this point, a cholangiocath was inserted into the duct and secured with a clip. Intraoperative cholangiogram showed cystic duct filling a smaller common bile duct, filling the secondary biliary radicals and emptying into the duodenum without signs of obstruction and no signs of common duct stones. At this point, the clip and catheter were removed from the cystic duct and cystic duct divided. Dissection was further continued. Cystic artery was identified, double clipped proximally, singly clipped distally and divided. The gallbladder was continued to be dissected free from the gallbladder fossa using electrocautery, placed in the Endobag and removed through the umbilical port site. 0 PDS [id number]-[id number] suture were placed on the port site defect. The gallbladder fossa was checked for hemostasis. With good hemostasis, area was irrigated and aspirated clear. 5 ports removed under direct visualization. No signs of bleeding. Pneumoperitoneum was released. The umbilical trocar was removed and the fascia was secured. Skin was closed using 4-0 Monocryl subcuticular sutures. Steri-Strips dressings applied. Patient tolerated procedure well and brought to recovery room in stable condition. Risa Vann was my res habilitation assistant. She assisted in visualization, retraction, or subcuticular closure. There were no surgeons or qualified residents available. Neel Wang M.D. RG:[id number] /[id number] Normal [facility] SURGICAL PATHOLOGYon 023 CASE REPORT [facility] Comment on above: Order Comment: Speci men Type: TISSUE SPECIMEN Ordering Facility: [facility] Address: [address] [place] [address] Result Comment: Surg ica Pathology Report Case: [id number] Authorizing Provider: Neel Wang MD Collected: 01/24/2023 07:56 AM Ordering Location: [facility] Surgery Received: 01/24/2023 11:24 AM Pathologist: Nori Polanco MD, PhD Specimen: GALLBLADDER, gallbladder Performed By: #### S #### [facility] CLIA [id number] [address] [place] [address] [place] CLINICAL HISTORY Normal [facility] Comment on above: Order Comment: Speci lisa Type: TISSUE SPECIMEN Ordering Facility: [facility] Address: [address] [place] [address] Result Comment: Pre- op diagnosis: Right upper quadrant pain [R10.11] Chronic cholecystitis [K81.1] Performed By: #### S #### [facility] CLIA [id number] [address] [place] [address] [place] FINAL DIAGNOSIS [facility] Comment on above: Order Comment: Abdii lisa Type: TISSUE SPECIMEN Ordering Facility: [facility] Address: [address] [place] [address] Result Comment: A. G allbladder, cholecystectomy: - Gallbladder with cholelithiasis. Performed By: #### S #### [facility] CLIA [id number] [address] [place] [address] [place] FINAL PERFORMING LAB Normal [facility] Comment on above: Order Comment: Speci men Type: TISSUE SPECIMEN Ordering Facility: [facility] Address: [address] [place] [address] Result Comment: Diag nostic interpretation performed at [facility], [address] [place] [address] CLIA# [id number] Advertising Editor: Jaun Adame M.D. Performed By: #### S #### [facility] CLIA [id number] [address] [place] [address] [place] GROSS DESCRIPTION A. GALLBLADDER Normal [facility] Comment on above: Order Comment: Speci men Type: TISSUE SPECIMEN Ordering Facility: [facility] Address: [address] [place] [address] Result Comment: Rece ived in formalin labeled gallbladder is a specimen consisting of a gallbladder measuring 7.7 x 2.8 x 2.6 cm. A perforation is not present. The lumen contains bile. The serosal surface is green smooth and glistening. The wall of the specimen measures 0.2 cm in thickness. Calculi are present and of the calcium bilirubinate type and range in size from less than 0.1 to 0.3 cm in greatest dimension. The calculus is not impacted in the cystic duct. Mucosal surface is bile-stained. Oil Derrick Operator sections are submitted in formalin in 1 cassette. KVB January 24, 2023 2:59 PM Gross examination performed at [facility], [address] [place] [address] Performed By: #### S #### [facility] CLIA [id number] [address] [place] [address] [place] Absolute lymphocyte countOrd ered By: Marcelo Arriaza on 01-10-2023 Lymphocytes Auto (Unsp spec) [#/Vol] 4.10 10*3/uL 0.83-4.51 [facility] Basic Metabolic Profile (BMP )on 01-10-2023 BUN/CRE 11.6 RATIO Normal - [facility] Comment on above: Performed By: #### L 500.3400, L100.0100, L500.2500, L501.2450 #### [facility] [address] [place], [address] CA,Total 8.7 mg/dL Normal 8.5-10.1 [facility] Comment on above: Performed By: #### L 500.3400, L100.0100, L500.2500, L501.2450 #### [facility] [address] [place], [address] Chloride [Moles/Vol] 104 mmol/L Normal 98-107 [facility] Comment on above: Performed By: #### L 500.3400, L100.0100, L500.2500, L501.2450 #### [facility] [address] [place], [address] CO2 [Moles/Vol] 27.0 mmol/L Normal 21.0-32.0 [facility] Comment on above: Performed By: #### L 500.3400, L100.0100, L500.2500, L501.2450 #### [facility] [address] [place], [address] Creatinine [Mass/Vol] 0.86 mg/dL Normal 0.70-1.30 [facility] Comment on above: Result Comment: The validity of the calculated GFR GFRAA in patients over 70 years has not been determined. Clinical correlation is essential. Performed By: #### L 500.3400, L100.0100, L500.2500, L501.2450 #### [facility] [address] [place], [address] ECRCL 110.75 ml/min Normal [facility] Comment on above: Performed By: #### L 500.3400, L100.0100, L500.2500, L501.2450 #### [facility] [address] [place], [address] EST GFR - AA 124 mL/min Normal >60 [facility] Comment on above: Result Comment: Afri can Scottish GFR Calc Performed By: #### L 500.3400, L100.0100, L500.2500, L501.2450 #### [facility] [address] [place], [address] GAP 6 Normal 5-15 [facility] Comment on above: Performed By: #### L 500.3400, L100.0100, L500.2500, L501.2450 #### [facility] [address] [place], [address] GFR/1.73 sq M.predicted among non-blacks MDRD (S/P/Bld) [Vol rate/Area] 102 mL/min/{1.73_m2} Normal >60 [facility] Comment on above: Result Comment: Non- GFR Calc Performed By: #### L 500.3400, L100.0100, L500.2500, L501.2450 #### [facility] [address] [place], [address] Glucose [Mass/Vol] 176 mg/dL High 74-106 [facility] Comment on above: Result Comment: Fast ing Glucose result greater than or equal to 126 mg/dL suggests DIABETES MELLITUS per A.D.A. criteria. Performed By: #### L 500.3400, L100.0100, L500.2500, L501.2450 #### [facility] [address] [place], [address] Potassium [Moles/Vol] 4.4 mmol/L Normal 3.5-5.1 [facility] Comment on above: Performed By: #### L 500.3400, L100.0100, L500.2500, L501.2450 #### [facility] [address] [place], [address] Sodium [Moles/Vol] 137 mmol/L Normal 136-145 [facility] Comment on above: Performed By: #### L 500.3400, L100.0100, L500.2500, L501.2450 #### [facility] [address] [place], [address] Urea nitrogen [Mass/Vol] 10 mg/dL Normal 7-18 [facility] Comment on above: Performed By: #### L 500.3400, L100.0100, L500.2500, L501.2450 #### [facility] [address] [place], [address] Basophil percentageOrdered B y: Marcelo Arriaza on 01-10-2023 Basophils/100 WBC (Bld) 0.5 % 0-1 [facility] Bilirubin [Mass/Vol] 0.40 mg/dL 0.20-1.00 [facility] Comment on above: For patients on eltr ombopag therapy, use of Dimension [place] TBIL is not recommended. Chloride [Moles/Vol] 104 mmol/L 98-107 [facility] Eosinophils/100 WBC (Bld) 3.5 % 0-5 [facility] Glucose [Mass/Vol] 176 mg/dL 74-106 [facility] Comment on above: Fasting Glucose resu lt greater than or equal to 126 mg/dL suggests DIABETES MELLITUS per A.D.A. criteria. Neutrophils (Bld) [#/Vol] 5.8 10*3/uL 2.0-7.7 [facility] Neutrophils/100 WBC (Bld) 51.8 % 47-70 [facility] Potassium [Moles/Vol] 4.4 mmol/L 3.5-5.1 [facility] Protein [Mass/Vol] 7.5 g/dL 6.4-8.2 [facility] Sodium [Moles/Vol] 137 mmol/L 136-145 [facility] WBC (Bld) [#/Vol] 11.2 10*3/uL 4.4-11.0 [facility] Blood erythrocytes count (nu mber/volume)Ordered By: Marcelo Arriaza on 01-10-2023 RBC (Bld) [#/Vol] 5.77 10*6/uL 4.6-6.2 [facility] Blood hemoglobin measurement (mass/volume)Ordered By: Marcelo Arriaza on 01-10-2023 Hemoglobin (Bld) [Mass/Vol] 14.7 g/dL 13.0-16.5 [facility] Blood lymphocytes/100 leukoc ytesOrdered By: Marcelo Arriaza on 01-10-2023 Lymphocytes/100 WBC (Bld) 36.5 % 19-41 [facility] Blood monocytes/100 leukocyt esOrdered By: Marcelo Arriaza on 01-10-2023 Monocytes/100 WBC (Bld) 7.4 % 0-10 [facility] Blood platelet mean volumeOr dered By: Marcelo Arriaza on 01-10-2023 Platelet mean volume (Bld) [Entitic vol] 9.3 fL 6.2-12.0 [facility] CBC W/Diff, Automatedon 12-23 Absolute Lymph 4.10 X10 3/uL Normal 0.83-4.51 [facility] Comment on above: Performed By: #### L 500.3400, L100.0100, L500.2500, L501.2450 #### [facility] [address] [place], [address] Absolute Neut 5.8 X10 3/uL Normal 2.0-7.7 [facility] Comment on above: Performed By: #### L 500.3400, L100.0100, L500.2500, L501.2450 #### [facility] [address] [place], [address] Basophils/100 WBC (Bld) 0.5 % Normal 0-1 [facility] Comment on above: Performed By: #### L 500.3400, L100.0100, L500.2500, L501.2450 #### [facility] [address] [place], [address] Eosinophils/100 WBC (Bld) 3.5 % Normal 0-5 [facility] Comment on above: Performed By: #### L 500.3400, L100.0100, L500.2500, L501.2450 #### [facility] [address] [place], [address] Erythrocyte distribution width (RBC) [Ratio] 13.3 % Normal 11.6-14.6 [facility] Comment on above: Performed By: #### L 500.3400, L100.0100, L500.2500, L501.2450 #### [facility] [address] [place], [address] Hematocrit (Bld) [Volume fraction] 45.4 % Normal 40-54 [facility] Comment on above: Performed By: #### L 500.3400, L100.0100, L500.2500, L501.2450 #### [facility] [address] [place], [address] Hemoglobin (Bld) [Mass/Vol] 14.7 g/dL Normal 13.0-16.5 [facility] Comment on above: Performed By: #### L 500.3400, L100.0100, L500.2500, L501.2450 #### [facility] [address] [place], [address] IG% 0.300 Normal 0.0-0.9 [facility] Comment on above: Result Comment: IG% - Immature Granulocytes (promyelocytes, myelocytes and metamyelocytes) > 1% indicates that a LEFT SHIFT is Present. Performed By: #### L 500.3400, L100.0100, L500.2500, L501.2450 #### [facility] [address] [place], [address] Lymphocytes/100 WBC (Bld) 36.5 % Normal 19-41 [facility] Comment on above: Performed By: #### L 500.3400, L100.0100, L500.2500, L501.2450 #### [facility] [address] [place], [address] MCH (RBC) [Entitic mass] 25.5 pg Low 27.0-32.0 [facility] Comment on above: Performed By: #### L 500.3400, L100.0100, L500.2500, L501.2450 #### [facility] [address] [place], [address] MCHC (RBC) [Mass/Vol] 32.4 g/dL Normal 32-36 [facility] Comment on above: Performed By: #### L 500.3400, L100.0100, L500.2500, L501.2450 #### [facility] [address] [place], [address] MCV (RBC) [Entitic vol] 78.7 fL Low 80-94 [facility] Comment on above: Performed By: #### L 500.3400, L100.0100, L500.2500, L501.2450 #### [facility] [address] [place], [address] Monocytes/100 WBC (Bld) 7.4 % Normal 0-10 [facility] Comment on above: Performed By: #### L 500.3400, L100.0100, L500.2500, L501.2450 #### [facility] [address] [place], [address] Neutrophils/100 WBC (Bld) 51.8 % Normal 47-70 [facility] Comment on above: Performed By: #### L 500.3400, L100.0100, L500.2500, L501.2450 #### [facility] [address] [place], [address] Nucleated RBC (Bld) [#/Vol] 0 10*3/uL Normal 0-5 [facility] Comment on above: Performed By: #### L 500.3400, L100.0100, L500.2500, L501.2450 #### [facility] [address] [place], [address] Platelet mean volume (Bld) [Entitic vol] 9.3 fL Normal 6.2-12.0 [facility] Comment on above: Performed By: #### L 500.3400, L100.0100, L500.2500, L501.2450 #### [facility] [address] [place], [address] Platelets (Bld) [#/Vol] 298 10*3/uL Normal 150-450 [facility] Comment on above: Performed By: #### L 500.3400, L100.0100, L500.2500, L501.2450 #### [facility] [address] [place], [address] RBC (Bld) [#/Vol] 5.77 10*6/uL Normal 4.6-6.2 [facility] Comment on above: Performed By: #### L 500.3400, L100.0100, L500.2500, L501.2450 #### [facility] [address] [place], [address] RDW SD 38.0 fl Normal 35.1-43.9 [facility] Comment on above: Performed By: #### L 500.3400, L100.0100, L500.2500, L501.2450 #### [facility] [address] [place], [address] WBC (Bld) [#/Vol] 11.2 10*3/uL High 4.4-11.0 [facility] Comment on above: Performed By: #### L 500.3400, L100.0100, L500.2500, L501.2450 #### [facility] [address] [place], [address] Determination of erythrocyte mean corpuscular volume (MCV)Ordered By: Marcelo Arriaza on 01-10-2023 MCV (RBC) [Entitic vol] 78.7 fL 80-94 [facility] Direct bilirubinOrdered By: Marcelo Arriaza on 01-10-2023 Bilirubin.direct [Mass/Vol] 0.08 mg/dL 0.00-0.30 [facility] Emergency Department Summary on 01-10-[address] [facility] Medical Records Department [address] [place] [address] Emergency Department Summary 01/10/23 MR#: [id number] Acct: [id number] Name: PETE VASQUEZ Rep #: [id number] : 1980 42 From: Dario Smith DO PCP: Dr. Bernard Zelaya MD Status:REG ER Location: ED HPI History of Present Illness Chief Complaint: [facility] Medical History Diabetes GERD (gastroesophageal reflux disease) Hypertension Sleep apnea Smoker Testicular torsion Home Medications atorvastatin 40 mg tablet 40 mg PO QHS 06/16/22 [History Last Taken 01/09/23] lisinopril 5 mg tablet 10 mg PO DAILY 06/16/22 [History Last Taken 01/03/23] metformin 500 mg tablet,extended release 24 hr 1,000 mg PO BID 06/16/22 [History Last Taken 01/10/23] omeprazole 40 mg capsule,delayed release 40 mg PO DAILY 06/16/22 [History Last Taken 01/10/23] empagliflozin 25 mg tablet (Jardiance) 25 mg PO DAILY 01/10/23 [History Last Taken 01/03/23] insulin glargine 100 unit/mL (3 mL) subcutaneous pen (Basaglar KwikPen U-100 Insulin) 20 unit subcut QPM 01/10/23 [History Last Taken 01/09/23] naproxen sodium 220 mg tablet (Aleve) 440 mg PO BID 01/10/23 [History Last Taken 01/10/23] Allergy/AdvReac Type Severity Reaction Status Date / Time No Known Allergies Allergy Verified 01/10/23 08:01 Family History Other Lymphoma Social History Smoking Status: Current every day smoker tobacco type: cigarettes EXAM Physical Exam Const Vital Signs: 01/10/23 07:58 01/10/23 10:18 Temperature 96.9 F L Temperature Source Temporal Pulse Rate 86 Respiratory Rate 15 16 Blood Pressure 201/87 H Blood Pressure Mean 125 Pulse Ox 100 Oxygen Delivery Method Room Air MDM MDM MDM Narrative Medical decision making narrative: HISTORY OF PRESENT ILLNESS: 42-year-old male here with concern for abdominal pain. He states he developed burning right upper quad abdominal pain after coughing. No trauma. The pain is not worse with food. Denies history abdominal surgery. Denies fever nausea or vomiting. Denies chest pain or shortness of breath. Denies any trouble urinating. Denies any melena hematochezia constipation or diarrhea. REVIEW OF SYSTEMS: Pertinent positives: Abdominal pain Pertinent negatives: Fever, nausea vomiting, chest pain, shortness of breath, change in bowel or bladder habits PHYSICAL EXAM: Nursing triage notes reviewed, Vital signs reviewed Constitutional: please see mdm HENT: MMM Eyes: Pupils equal round and reactive to light, Extraocular muscles intact Neck: No stridor, no JVD, full neck ROM Lungs: Clear to auscultation, No wheezing or rales. No increased work of breathing, no conversational dyspnea, no accessory muscle use, no nasal flaring. No respiratory distress noted Heart: Regular rate and rhythm, No murmurs, No rubs and No gallops, 2+ distal pulses (radial, femoral, posterior tibial) in all extremities Abdomen: Soft, there is no tenderness, rigidity, rebound or guarding, no obvious peritoneal signs, no palpable pulsatile abdominal masses, no auscultated abdominal bruit : No CVAT Extremities: No edema Neuro: No focal neurological deficits, cranial nerves II through XII intact, 5/5 strength in all extremities. Intact sensation to light touch in all extremities, 2+ reflexes bilateral patella tendons. Normal gait. No ataxia. Skin: No rash or lesions noted MEDICAL DECISION MAKING: Chief Complaint: Abdominal pain External records reviewed: CT scan abdomen pelvis from May 2022 shows no acute inflammatory process Factors affecting care: none Social determinants of health: none History obtained from others: The patient's Consults: none MDM Narrative: The patient was hemodynamically stable, afebrile, nontoxic-appearing. Exam with right upper quadrant TTP, no peritoneal signs I considered the following differential diagnosis: Musculoskeletal abdominal injury, acute cholecystitis, pancreatitis, hepatobiliary production, viral hepatitides ALL IMAGES (IF OBTAINED) HAVE BEEN PERSONALLY REVIEWED AND INTERPRETED BY MYSELF. CBC with leukocytosis (stable from baseline) suggestive of systemic inflammation, no anemia or thrombocytopenia BMP without evidence of significant electrolyte abnormalities, no anion gap, no acute kidney injury. Lipase is wnl indicating no pancreatic inflammation. LFTs show no evidence of hepatobiliary pathology. Gallbladder ultrasound showed evidence of gallstones but no evidence of acute cholecystitis The synthesis of the patient's history, physical exam, labs, images were suggestive of biliary colic. No indication for teddy (more content not included)... Normal [facility] Gallbladderon 01-10-2023 Gallbladder [facility] [address] [place] [address] Gallbladder MR#: [id number] Acct: [id number] Name: PETE VASQUEZ Rep #: [id number] : 1980 M 42 From: Celestina soriano MD PCP: Dr. Bernard Zelaya MD Status: [facility] ER Study: Gallbladder Date of Exam: 01/10/23 Exam# [id number] Ordering Dr: Dario Smith DO [id number] HISTORY: RUQ TTP, hx of gallstones. TECHNIQUE: Arndt scale and color doppler imaging was performed of the right upper quadrant. 88 images. COMPARISON: CT 06/16/2022. FINDINGS: LIVER: 18.5 cm in length. Heterogeneous echotexture without focal lesion demonstrated. No intrahepatic ductal dilatation. MAIN PORTAL VEIN: Ad Operations Associate noted that the main portal vein was patent. COMMON BILE DUCT: 3-4 mm in diameter. GALLBLADDER: Multiple gallstones in a contracted gallbladder. 2 mm wall thickness, within normal limits. No pericholecystic fluid. Sonographic Jimenez sign negative. PANCREAS: Not well visualized due to overlying bowel gas. RIGHT KIDNEY: 12.3 cm in length with a cortical thickness of 1.4 cm. No hydronephrosis or gross renal mass demonstrated. US/Gallbladder IMPRESSION: Cholelithiasis without gallbladder wall thickening. Hepatomegaly with hepatic steatosis. Electronically Signed: Celestina Ribeiro MD at 10:30 EST , CC: Dr. Dario Smith DO; Dr. Bernard Zelaya MD Soda Drier Feeder: Signed Normal [facility] Hematocrit Auto (Bld) [Volum e fraction]Ordered By: Marcelo Arriaza on 01-10-2023 Hematocrit (Bld) [Volume fraction] 45.4 % 40-54 [facility] - Chemistry and C hemistry - challengeOrdered By: Marcelo Arriaza on 01-10-2023 ALP [Catalytic activity/Vol] 93 U/L 45-117 [facility] ALT [Catalytic activity/Vol] 24 U/L 16-61 [facility] CO2 [Moles/Vol] 27.0 mmol/L 21.0-32.0 [facility] Globulin (S) [Mass/Vol] 4.2 g/dL 2.2-4.2 [facility] Lipase [Catalytic activity/Vol] 20 U/L 13-75 [facility] Comment on above: Please note:LIPASE r evised reference range effective 22. New Lipase methodology. Expected to produce lower values than the previous assay method. NEW Reference Range: 13 - 75 U/L Urea nitrogen/Creatinine [Mass ratio] 11.6 mg/mg -20 [facility] - Hematology and Cell countsOrdered By: Marcelo Arriaza on 01-10-2023 Erythrocyte distribution width (RBC) [Entitic vol] 38.0 fL 35.1-43.9 [facility] Erythrocyte distribution width (RBC) [Ratio] 13.3 % 11.6-14.6 [facility] Immature granulocytes/100 WBC (Bld) 0.300 % 0.0-0.9 [facility] Comment on above: IG% - Immature Granu locytes (promyelocytes, myelocytes and metamyelocytes) > 1% indicates that a LEFT SHIFT is Present. MCH (RBC) [Entitic mass] 25.5 pg 27.0-32.0 [facility] Nucleated RBC/100 WBC (Bld) [Ratio] 0 % 0-5 [facility] Lipaseon 01-10-2023 Lipase [Catalytic activity/Vol] 20 U/L Normal 13-75 [facility] Comment on above: Result Comment: Marielena fuller note: LIPASE revised reference range effective 22. New Lipase methodology. Expected to produce lower values than the previous assay method. NEW Reference Range: 13 - 75 U/L Performed By: #### L 500.3400, L100.0100, L500.2500, L501.2450 ####[facility] [address] [place], [address] Liver Profileon 01-10-2023 Albumin [Mass/Vol] 3.3 g/dL Normal 3.2-5.0 [facility] Comment on above: Performed By: #### L 500.3400, L100.0100, L500.2500, L501.2450 ####[facility] [address] [place], [address] ALK P 93 U/L Normal 45-117 [facility] Comment on above: Performed By: #### L 500.3400, L100.0100, L500.2500, L501.2450 ####[facility] [address] [place], [address] ALT [Catalytic activity/Vol] 24 U/L Normal 16-61 [facility] Comment on above: Performed By: #### L 500.3400, L100.0100, L500.2500, L501.2450 ####[facility] [address] [place], [address] AST [Catalytic activity/Vol] 16 U/L Normal 15-37 [facility] Comment on above: Performed By: #### L 500.3400, L100.0100, L500.2500, L501.2450 ####[facility] [address] [place], [address] Bilirubin [Mass/Vol] 0.40 mg/dL Normal 0.20-1.00 [facility] Comment on above: Result Comment: For patients on eltrombopag therapy, use of Dimension [place] TBIL is not recommended. Performed By: #### L 500.3400, L100.0100, L500.2500, L501.2450 ####[facility] [address] [place], [address] Bilirubin.direct [Mass/Vol] 0.08 mg/dL Normal 0.00-0.30 [facility] Comment on above: Performed By: #### L 500.3400, L100.0100, L500.2500, L501.2450 ####[facility] [address] [place], [address] Globulin (S) [Mass/Vol] 4.2 g/dL Normal 2.2-4.2 [facility] Comment on above: Performed By: #### L 500.3400, L100.0100, L500.2500, L501.2450 ####[facility] [address] [place], [address] T PROT 7.5 g/dL Normal 6.4-8.2 [facility] Comment on above: Performed By: #### L 500.3400, L100.0100, L500.2500, L501.2450 ####[facility] [address] [place], [address] MCHC Auto (RBC) [Mass/Vol]Or dered By: Marcelo Arriaza on 01-10-2023 MCHC (RBC) [Mass/Vol] 32.4 g/dL 32-36 [facility] No Panel InformationOrdered By: Marcelo Arriaza on 01-10-2023 Estimated Creatinine Clearance Calc 110.75 ml/min [facility] Estimated GFR (MDRD) Amer 124 mL/min >60 [facility] Comment on above: GFR Calc Estimated GFR (MDRD) Non-Af Amer 102 mL/min >60 [facility] Comment on above: Non- GFR Calc Platelets bldOrdered By: Jacques Arriaza on 01-10-2023 Platelets (Bld) [#/Vol] 298 10*3/uL 150-450 [facility] Serum or plasma albumin sera urement (mass/volume)Ordered By: Marcelo Arriaza on 01-10-2023 Albumin [Mass/Vol] 3.3 g/dL 3.2-5.0 [facility] Serum or plasma calcium sera urement (mass/volume)Ordered By: Marcelo Arriaza on 01-10-2023 Calcium [Mass/Vol] 8.7 mg/dL 8.5-10.1 [facility] Serum or plasma creatinine m easurement (mass/volume)Ordered By: Marcelo Arriaza on 01-10-2023 Creatinine [Mass/Vol] 0.86 mg/dL 0.70-1.30 [facility] Comment on above: The validity of the calculated GFR & GFRAA in patients over 70 years has not been determined. Clinical correlation is essential. Serum or plasma urea nitroge n measurement (mass/volume)Ordered By: Marcelo Arriaza on 01-10-2023 Urea nitrogen [Mass/Vol] 10 mg/dL 7-18 [facility] Thin prep Papanicolaou smear with manual screeningOrdered By: Marcelo Arriaza on 01-10-2023 Thin prep Papanicolaou smear with manual screening 16 U/L 15-37 [facility] Thin prep Papanicolaou smear with manual screening 6 5-15 [facility] US ABD RIGHT UPPER QUADRANTo n 01-06-2023 US ABD RIGHT UPPER QUADRANT * * *Final Report* * * DATE OF EXAM: Jan 06 2023 5:05PM LDU 1032 - US ABD RIGHT UPPER QUADRANT / PROCEDURE REASON: Right upper quadrant pain * * * * Physician Interpretation * * * * EXAMINATION: RIGHT UPPER QUADRANT ULTRASOUND CLINICAL HISTORY: Right upper quadrant abdominal pain TECHNIQUE: Sonography of the right upper quadrant was performed. Images were obtained and stored in a permanent archive. MQ: [id number] COMPARISON: None. RESULT: Pancreas: Normal sonographic appearance. Portions obscured: tail Liver: Echotexture: Normal, homogeneous. Echogenicity: Increased Surface contour: Smooth Lesions: None. Biliary: No intrahepatic biliary duct dilation. CBD: 0.3 cm at the hilum. Gallbladder: Normal caliber -Contents: Focal echogenic structure adherent to the gallbladder wall may represent a sludge ball or conglomerate nonshadowing gallstones. -Wall: Normal -Other: No pericholecystic fluid. Right Kidney: 11.5 cm in length. No hydronephrosis. Ascites: None. IMPRESSION: 1. Focal echogenic structure in the gallbladder may represent a sludge ball or conglomerate nonshadowing gallstones. No gallbladder wall thickening or pericholecystic fluid. No [place] dilation. 2. Hepatic steatosis. Soda Drier Feeder: FABRICIO Transcribe Date/Time: Jan 06 2023 5:46P Dictated by : DEBO LAZAR MD This examination was interpreted and the report reviewed and electronically signed by: DEBO LAZAR MD on Jan 06 2023 5:49PM EST [id number] CN Normal [facility] XR RIBS/CHEST 3V AP RIB/OBLS /CXR RIGHTon 01-05-2023 [facility] XR Ribs - right Views and est PAon 01-05-2023 IMPRESSION: No acute displaced right rib fracture identified Soda Drier Feeder: [facility] Transcribe Date/Time: Jan 05 2023 10:25A Dictated by : PUJA PEGUERO MD This examination was interpreted and the report reviewed and electronically signed by: PUJA PEGUERO MD on Jan 05 2023 10:27AM [facility] DIVISION OF RADIOLOGY * * *Final Report* * * DATE OF EXAM: Jan 05 2023 10:16AM WOX [id number] - XR RIB/CHST 3V AP RIB/OBL/CHST R / PROCEDURE REASON: Rib pain on right side * * * * Physician Interpretation * * * * TITLE: XR RIB/CHST 3V AP RIB/OBL/CHST R CLINICAL INDICATION: Right rib pain TECHNIQUE: Three-view right-sided radiographic rib series with inclusion of a single frontal view of the chest for purposes of comparison/symmetry COMPARISON: None FINDINGS: No acute displaced right rib fracture identified. Normal cardiomediastinal silhouette. No focal consolidation. No discernible pleural effusion or pneumothorax DIVISION OF RADIOLOGY Provider, [facility] [place] - 01/05/2023 * * *Final Report* * * DATE OF EXAM: Jan 05 2023 10:16AM WOX [id number] - XR RIB/CHST 3V AP RIB/OBL/CHST R / PROCEDURE REASON: Rib pain on right side * * * * Physician Interpretation * * * * TITLE: XR RIB/CHST 3V AP RIB/OBL/CHST R CLINICAL INDICATION: Right rib pain TECHNIQUE: Three-view right-sided radiographic rib series with inclusion of a single frontal view of the chest for purposes of comparison/symmetry COMPARISON: None FINDINGS: No acute displaced right rib fracture identified. Normal cardiomediastinal silhouette. No focal consolidation. No discernible pleural effusion or pneumothorax IMPRESSION IMPRESSION: No acute displaced right rib fracture identified Soda Drier Feeder: [facility] Transcribe Date/Time: Jan 05 2023 10:25A Dictated by : PUJA PEGUERO MD This examination was interpreted and the report reviewed and electronically signed by: PUJA PEGUERO MD on Jan 05 2023 10:27AM EST [facility] Radiology Study [facility] (narrative) [facility] XR Ribs - right Views and Ch est PAOrdered By: [facility]cf Provider on 01-05-2023 [facility] Absolute lymphocyte countOrd ered By: Bam Castro on 01-01-2023 Lymphocytes Auto (Unsp spec) [#/Vol] 4.58 10*3/uL 0.83-4.51 [facility] Basic Metabolic Profile (BMP )on 01-01-2023 BUN/CRE 12.9 RATIO Normal 10-20 [facility] Comment on above: Performed By: #### L 100.0100, L501.2450, L500.3400, L500.2500 ####[facility] [address] [place], [address] CA,Total 8.5 mg/dL Normal 8.5-10.1 [facility] Comment on above: Performed By: #### L 100.0100, L501.2450, L500.3400, L500.2500 ####[facility] [address] [place], [address] Chloride [Moles/Vol] 104 mmol/L Normal 98-107 [facility] Comment on above: Performed By: #### L 100.0100, L501.2450, L500.3400, L500.2500 ####[facility] [address] [place], [address] CO2 [Moles/Vol] 29.0 mmol/L Normal 21.0-32.0 [facility] Comment on above: Performed By: #### L 100.0100, L501.2450, L500.3400, L500.2500 ####[facility] [address] [place], [address] Creatinine [Mass/Vol] 0.78 mg/dL Normal 0.70-1.30 [facility] Comment on above: Result Comment: The validity of the calculated GFR GFRAA in patients over 70 years has not been determined. Clinical correlation is essential. Performed By: #### L 100.0100, L501.2450, L500.3400, L500.2500 ####[facility] [address] [place], [address] ECRCL 122.11 ml/min Normal [facility] Comment on above: Performed By: #### L 100.0100, L501.2450, L500.3400, L500.2500 ####[facility] [address] [place], [address] EST GFR - AA 140 mL/min Normal >60 [facility] Comment on above: Result Comment: Afri can [place] GFR Calc Performed By: #### L 100.0100, L501.2450, L500.3400, L500.2500 ####[facility] [address] [place], [address] GAP 2 Low 5-15 [facility] Comment on above: Performed By: #### L 100.0100, L501.2450, L500.3400, L500.2500 ####[facility] [address] [place], [address] GFR/1.73 sq M.predicted among non-blacks MDRD (S/P/Bld) [Vol rate/Area] 116 mL/min/{1.73_m2} Normal >60 [facility] Comment on above: Result Comment: Non- GFR Calc Performed By: #### L 100.0100, L501.2450, L500.3400, L500.2500 ####[facility] [address] [place], [address] Glucose [Mass/Vol] 207 mg/dL High 74-106 [facility] Comment on above: Result Comment: Gluc ose result greater than or equal to 200 mg/dL suggests DIABETES MELLITUS per A.D.A. criteria. Performed By: #### L 100.0100, L501.2450, L500.3400, L500.2500 ####[facility] [address] [place], [address] Potassium [Moles/Vol] 3.7 mmol/L Normal 3.5-5.1 [facility] Comment on above: Performed By: #### L 100.0100, L501.2450, L500.3400, L500.2500 ####[facility] [address] [place], [address] Sodium [Moles/Vol] 135 mmol/L Low 136-145 [facility] Comment on above: Performed By: #### L 100.0100, L501.2450, L500.3400, L500.2500 ####[facility] [address] [place], [address] Urea nitrogen [Mass/Vol] 10 mg/dL Normal 7-18 [facility] Comment on above: Performed By: #### L 100.0100, L501.2450, L500.3400, L500.2500 ####[facility] [address] [place], [address] Basophil percentageOrdered B y: Bam Castro on 01-01-2023 Basophils/100 WBC (Bld) 0.4 % 0-1 [facility] Bilirubin [Mass/Vol] 0.20 mg/dL 0.20-1.00 [facility] Comment on above: For patients on eltr ombopag therapy, use of Dimension [place] TBIL is not recommended. Chloride [Moles/Vol] 104 mmol/L 98-107 [facility] Eosinophils/100 WBC (Bld) 3.0 % 0-5 [facility] Glucose [Mass/Vol] 207 mg/dL 74-106 [facility] Comment on above: Glucose result great er than or equal to 200 mg/dLsuggests DIABETES MELLITUS per A.D.A. criteria. Neutrophils (Bld) [#/Vol] 5.6 10*3/uL 2.0-7.7 [facility] Neutrophils/100 WBC (Bld) 49.2 % 47-70 [facility] Potassium [Moles/Vol] 3.7 mmol/L 3.5-5.1 [facility] Protein [Mass/Vol] 7.7 g/dL 6.4-8.2 [facility] Sodium [Moles/Vol] 135 mmol/L 136-145 [facility] WBC (Bld) [#/Vol] 11.4 10*3/uL 4.4-11.0 [facility] Basophil percentage 0 SEEN /hpf 0-5 [facility] Bilirubin Test strip Ql (U)O rdered By: Bam Castro on 01-01-2023 Bilirubin Ql (U) Negative Negative [facility] Blood erythrocytes count (nu mber/volume)Ordered By: Bam Castro on 01-01-2023 RBC (Bld) [#/Vol] 5.69 10*6/uL 4.6-6.2 [facility] Blood hemoglobin measurement (mass/volume)Ordered By: Bam Castro on 01-01-2023 Hemoglobin (Bld) [Mass/Vol] 14.8 g/dL 13.0-16.5 [facility] Blood lymphocytes/100 leukoc ytesOrdered By: Bam Castro on 01-01-2023 Lymphocytes/100 WBC (Bld) 40.0 % 19-41 [facility] Blood monocytes/100 leukocyt esOrdered By: Bam Castro on 01-01-2023 Monocytes/100 WBC (Bld) 7.1 % 0-10 [facility] Blood platelet mean volumeOr dered By: Bam Castro on 01-01-2023 Platelet mean volume (Bld) [Entitic vol] 9.4 fL 6.2-12.0 [facility] CBC W/Diff, Automatedon 12-22 Absolute Lymph 4.58 X10 3/uL High 0.83-4.51 [facility] Comment on above: Performed By: #### L 100.0100, L501.2450, L500.3400, L500.2500 ####[facility] [address] [place], [address] Absolute Neut 5.6 X10 3/uL Normal 2.0-7.7 [facility] Comment on above: Performed By: #### L 100.0100, L501.2450, L500.3400, L500.2500 ####[facility] [address] [place], [address] Basophils/100 WBC (Bld) 0.4 % Normal 0-1 [facility] Comment on above: Performed By: #### L 100.0100, L501.2450, L500.3400, L500.2500 ####[facility] [address] [place], [address] Eosinophils/100 WBC (Bld) 3.0 % Normal 0-5 [facility] Comment on above: Performed By: #### L 100.0100, L501.2450, L500.3400, L500.2500 ####[facility] [address] [place], [address] Erythrocyte distribution width (RBC) [Ratio] 13.5 % Normal 11.6-14.6 [facility] Comment on above: Performed By: #### L 100.0100, L501.2450, L500.3400, L500.2500 ####[facility] [address] [place], [address] Hematocrit (Bld) [Volume fraction] 44.5 % Normal 40-54 [facility] Comment on above: Performed By: #### L 100.0100, L501.2450, L500.3400, L500.2500 ####[facility] [address] [place], [address] Hemoglobin (Bld) [Mass/Vol] 14.8 g/dL Normal 13.0-16.5 [facility] Comment on above: Performed By: #### L 100.0100, L501.2450, L500.3400, L500.2500 ####[facility] [address] [place], [address] IG% 0.300 Normal 0.0-0.9 [facility] Comment on above: Result Comment: IG% - Immature Granulocytes (promyelocytes, myelocytes and metamyelocytes) > 1% indicates that a LEFT SHIFT is Present. Performed By: #### L 100.0100, L501.2450, L500.3400, L500.2500 ####[facility] [address] [place], [address] Lymphocytes/100 WBC (Bld) 40.0 % Normal 19-41 [facility] Comment on above: Performed By: #### L 100.0100, L501.2450, L500.3400, L500.2500 ####[facility] [address] [place], [address] MCH (RBC) [Entitic mass] 26.0 pg Low 27.0-32.0 [facility] Comment on above: Performed By: #### L 100.0100, L501.2450, L500.3400, L500.2500 ####[facility] [address] [place], [address] MCHC (RBC) [Mass/Vol] 33.3 g/dL Normal 32-36 [facility] Comment on above: Performed By: #### L 100.0100, L501.2450, L500.3400, L500.2500 ####[facility] [address] [place], [address] MCV (RBC) [Entitic vol] 78.2 fL Low 80-94 [facility] Comment on above: Performed By: #### L 100.0100, L501.2450, L500.3400, L500.2500 ####[facility] [address] [place], [address] Monocytes/100 WBC (Bld) 7.1 % Normal 0-10 [facility] Comment on above: Performed By: #### L 100.0100, L501.2450, L500.3400, L500.2500 ####[facility] [address] [place], [address] Neutrophils/100 WBC (Bld) 49.2 % Normal 47-70 [facility] Comment on above: Performed By: #### L 100.0100, L501.2450, L500.3400, L500.2500 ####[facility] [address] [place], [address] Nucleated RBC (Bld) [#/Vol] 0 10*3/uL Normal 0-5 [facility] Comment on above: Performed By: #### L 100.0100, L501.2450, L500.3400, L500.2500 ####[facility] [address] [place], [address] Platelet mean volume (Bld) [Entitic vol] 9.4 fL Normal 6.2-12.0 [facility] Comment on above: Performed By: #### L 100.0100, L501.2450, L500.3400, L500.2500 ####[facility] [address] [place], [address] Platelets (Bld) [#/Vol] 308 10*3/uL Normal 150-450 [facility] Comment on above: Performed By: #### L 100.0100, L501.2450, L500.3400, L500.2500 ####[facility] [address] [place], [address] RBC (Bld) [#/Vol] 5.69 10*6/uL Normal 4.6-6.2 [facility] Comment on above: Performed By: #### L 100.0100, L501.2450, L500.3400, L500.2500 ####[facility] [address] [place], [address] RDW SD 38.2 fl Normal 35.1-43.9 [facility] Comment on above: Performed By: #### L 100.0100, L501.2450, L500.3400, L500.2500 ####[facility] [address] [place], [address] WBC (Bld) [#/Vol] 11.4 10*3/uL High 4.4-11.0 [facility] Comment on above: Performed By: #### L 100.0100, L501.2450, L500.3400, L500.2500 ####[facility] [address] [place], [address] Determination of erythrocyte mean corpuscular volume (MCV)Ordered By: Bam Castro on 01-01-2023 MCV (RBC) [Entitic vol] 78.2 fL 80-94 [facility] Direct bilirubinOrdered By: Bam Castro on 01-01-2023 Bilirubin.direct [Mass/Vol] mg/dL 0.00-0.30 [facility] Emergency Department Summary on 01-01-[address] [facility] Medical Records Department [address] [place] [address] Emergency Department Summary 01/01/23 MR#: [id number] Acct: [id number] Name: PETE VASQUEZ Rep #: [id number] : 1980 42 From: Bam Castro DO PCP: Dr. Bernard Zelaya MD Status:DEP ER Location: ED HPI HPI - GI History of Present Illness Chief Complaint: Abd Pain Informant: patient and spouse/S.O. Narrative Narrative: 42-year-old diabetic male presenting to the emergency room with right upper quadrant abdominal pain. Patient symptoms began 8 to 9 days ago. He notes that it is worse with movement and certain positions. Worse with his smoker's cough with that is unchanged. He denies any fevers. No vomiting or diarrhea. He denies any known injury to the area. No rashes. Symptoms are not made worse with eating. He states that he thought at first it was most likely a pulled muscle or a rib injury but he cannot recall an injury and states its not gotten any better. Symptoms have been constant/persistent. 16 pound weight gain since September but he relates that to discontinuation of Trulicity. [facility] Medical History Diabetes GERD (gastroesophageal reflux disease) Hypertension Sleep apnea Smoker Testicular torsion Home Medications atorvastatin 40 mg tablet 40 mg PO QHS 06/16/22 [History Last Taken Unknown] dulaglutide 3 mg/0.5 mL subcutaneous pen injector (Trulicity) 3 mg subcut QWEEK 06/16/22 [History Last Taken Unknown] lisinopril 5 mg tablet 5 mg PO DAILY 06/16/22 [History Last Taken Unknown] metformin 500 mg tablet,extended release 24 hr 1,000 mg PO BID 06/16/22 [History Last Taken Unknown] omeprazole 40 mg capsule,delayed release 40 mg PO DAILY 06/16/22 [History Last Taken Unknown] Allergy/AdvReac Type Severity Reaction Status Date / Time No Known Allergies Allergy Verified 06/16/22 20:09 Family History Other Lymphoma Social History Smoking Status: Current every day smoker tobacco type: cigarettes ROS ROS ED Constitutional Constitutional ED: Denies chills or weight loss Eyes Eyes: Denies change in vision or diplopia ENT ENT ED: Denies ear pain, rhinorrhea or sore throat Cardiovascular Cardiovascular: Reports chest pain; Denies orthopnea, palpitations or racing heartbeat Respiratory/Chest Respiratory/Chest: Reports cough; Denies dyspnea, dyspnea on exertion or orthopnea Gastrointestinal Gastrointestinal: Reports abdominal pain; Denies diarrhea, nausea or vomiting Genitourinary Genitourinary ED: Denies dysuria, hematuria or urinary frequency Musculoskeletal Musculoskeletal: Denies arthralgias or myalgias Integumentary Denies abscess or rash Neurologic Neurologic: Denies headache(s) or weakness Psychiatric Psychiatric: Denies anxiety, depression, suicidal ideation or suicidal thoughts Endocrine Endocrinology: Denies polydipsia, polyphagia or polyuria Allergic/Immunologic Allergic/Immunologic ED: Denies mouth swelling, tongue swelling or urticaria EXAM Physical Exam Const Vital Signs: 01/01/23 09:46 Temperature 97.9 F Temperature Source Temporal Pulse Rate 83 Respiratory Rate 16 Blood Pressure 151/92 H Blood Pressure Mean 111 Pulse Ox 98 Oxygen Delivery Method Room Air Positive well nourished and well developed General Appearance ED: well developed HEENT Reports normocephalic, head/scalp atraumatic and moist mucous membranes Eyes PERRL and EOMs intact bilaterally Neck no lymphadenopathy, supple and no JVD Resp normal respiratory effort and clear to auscultation bilaterally Cardio regular rate, regular rhythm and no murmurs GI normal to inspection, nondistended, normoactive bowel sounds and non-tender GI Narrative: Patient points to the lower anterior costochondral border on the right as the area that hurts. He splints when he goes to do is set up. I do not appreciate a rash. No ecchymosis seen. No CVA tenderness. The abdomen itself is nontender. Palpation: soft Back/Spine no CVA tenderness and normal ROM Extremity normal to inspection General Extremety ED: Negative for edema General Extremity: Negative for edema Neuro oriented x3 and CN's II-XII intact bilaterally Sensorium / Orientation: alert Motor Exam: strength 5/5 throughout Psych mental status grossly normal Mood Affect: Negative for depressed or tearful Skin no rashes or lesions noted and no wounds MDM MDM MDM Narrative Medical decision making narrative: White count 11.4 hemoglobin 14.8 platelet count of 308. Liver enzymes are within normal limits and lipase is normal at 20. Urinalysis is normal. He has no right upper quadrant tenderness over the (more content not included)... Normal [facility] Hematocrit Auto (Bld) [Volum e fraction]Ordered By: Bam Castro on 01-01-2023 Hematocrit (Bld) [Volume fraction] 44.5 % 40-54 [facility] Ketones Test strip Ql (U)Ord ered By: Bam Castro on 01-01-2023 Ketones Ql (U) Negative Negative [facility] Laboratory - Chemistry and C hemistry - challengeOrdered By: Bam Castro on 01-01-2023 ALP [Catalytic activity/Vol] 91 U/L 45-117 [facility] ALT [Catalytic activity/Vol] 26 U/L 16-61 [facility] CO2 [Moles/Vol] 29.0 mmol/L 21.0-32.0 [facility] Globulin (S) [Mass/Vol] 4.5 g/dL 2.2-4.2 [facility] Lipase [Catalytic activity/Vol] 20 U/L 13-75 [facility] Comment on above: Please note:LIPASE r evised reference range effective 22. New Lipase methodology. Expected to produce lower values than the previous assay method. NEW Reference Range: 13 - 75 U/L Urea nitrogen/Creatinine [Mass ratio] 12.9 mg/mg 10-20 [facility] Laboratory - Hematology and Cell countsOrdered By: aBm Castro on 01-01-2023 Erythrocyte distribution width (RBC) [Entitic vol] 38.2 fL 35.1-43.9 [facility] Erythrocyte distribution width (RBC) [Ratio] 13.5 % 11.6-14.6 [facility] Immature granulocytes/100 WBC (Bld) 0.300 % 0.0-0.9 [facility] Comment on above: IG% - Immature Granu locytes (promyelocytes, myelocytes and metamyelocytes) > 1% indicates that a LEFT SHIFT is Present. MCH (RBC) [Entitic mass] 26.0 pg 27.0-32.0 [facility] Nucleated RBC/100 WBC (Bld) [Ratio] 0 % 0-5 [facility] Lipaseon 01-01-2023 Lipase [Catalytic activity/Vol] 20 U/L Normal 13-75 [facility] Comment on above: Result Comment: Marielena fuller note: LIPASE revised reference range effective 22. New Lipase methodology. Expected to produce lower values than the previous assay method. NEW Reference Range: 13 - 75 U/L Performed By: #### L 100.0100, L501.2450, L500.3400, L500.2500 ####[facility] [address] [place], [address] Liver Profileon 01-01-2023 Albumin [Mass/Vol] 3.2 g/dL Normal 3.2-5.0 [facility] Comment on above: Performed By: #### L 100.0100, L501.2450, L500.3400, L500.2500 ####[facility] [address] [place], [address] ALK P 91 U/L Normal 45-117 [facility] Comment on above: Performed By: #### L 100.0100, L501.2450, L500.3400, L500.2500 ####[facility] [address] [place], [address] ALT [Catalytic activity/Vol] 26 U/L Normal 16-61 [facility] Comment on above: Performed By: #### L 100.0100, L501.2450, L500.3400, L500.2500 ####[facility] [address] [place], [address] AST [Catalytic activity/Vol] 16 U/L Normal 15-37 [facility] Comment on above: Performed By: #### L 100.0100, L501.2450, L500.3400, L500.2500 ####[facility] [address] [place], [address] Bilirubin [Mass/Vol] 0.20 mg/dL Normal 0.20-1.00 [facility] Comment on above: Result Comment: For patients on eltrombopag therapy, use of Dimension [place] TBIL is not recommended. Performed By: #### L 100.0100, L501.2450, L500.3400, L500.2500 ####[facility] [address] [place], [address] D BILI < 0.05 Normal 0.00-0.30 [facility] Comment on above: Performed By: #### L 100.0100, L501.2450, L500.3400, L500.2500 ####[facility] [address] [place], [address] Globulin (S) [Mass/Vol] 4.5 g/dL High 2.2-4.2 [facility] Comment on above: Performed By: #### L 100.0100, L501.2450, L500.3400, L500.2500 ####[facility] [address] [place], [address] T PROT 7.7 g/dL Normal 6.4-8.2 [facility] Comment on above: Performed By: #### L 100.0100, L501.2450, L500.3400, L500.2500 ####[facility] [address] [place], [address] MCHC Auto (RBC) [Mass/Vol]Or dered By: Bam Castro on 01-01-2023 MCHC (RBC) [Mass/Vol] 33.3 g/dL 32-36 [facility] Mucus LM Ql (Urine sed)Order ed By: Bam Castro on 01-01-2023 Mucus Ql (Urine sed) 0 SEEN /hpf [facility] Nitrite Test strip Ql (U)Ord ered By: Bam Castro on 01-01-2023 Nitrite Ql (U) Negative Negative [facility] No Panel InformationOrdered By: Bam Castro on 01-01-2023 Estimated Creatinine Clearance Calc 122.11 ml/min [facility] Estimated GFR (MDRD) Amer 140 mL/min >60 [facility] Comment on above: GFR Calc Estimated GFR (MDRD) Non-Af Amer 116 mL/min >60 [facility] Comment on above: Non- GFR Calc Platelets bldOrdered By: Dariusz Castro on 01-01-2023 Platelets (Bld) [#/Vol] 308 10*3/uL 150-450 [facility] Protein Test strip Ql (U)Ord ered By: Bam Castro on 01-01-2023 Protein Ql (U) 15 mg/dl Negative [facility] Serum or plasma albumin sera urement (mass/volume)Ordered By: Bam Castro on 01-01-2023 Albumin [Mass/Vol] 3.2 g/dL 3.2-5.0 [facility] Serum or plasma calcium sera urement (mass/volume)Ordered By: Bam Castro on 01-01-2023 Calcium [Mass/Vol] 8.5 mg/dL 8.5-10.1 [facility] Serum or plasma creatinine m easurement (mass/volume)Ordered By: Bam Castro on 01-01-2023 Creatinine [Mass/Vol] 0.78 mg/dL 0.70-1.30 [facility] Comment on above: The validity of the calculated GFR & GFRAA in patients over 70 years has not been determined. Clinical correlation is essential. Serum or plasma urea nitroge n measurement (mass/volume)Ordered By: Bam Castro on 01-01-2023 Urea nitrogen [Mass/Vol] 10 mg/dL 7-18 [facility] Squamous epithelial cells de tection in urine sediment by light microscopyOrdered By: Bam Castro on 01-01-2023 Epithelial cells.squamous LM Ql (Urine sed) 0 SEEN /hpf 0-5 [facility] Thin prep Papanicolaou smear with manual screeningOrdered By: Bam Castro on 01-01-2023 Thin prep Papanicolaou smear with manual screening 16 U/L 15-37 [facility] Thin prep Papanicolaou smear with manual screening 2 5-15 [facility] Urinalysis, Completeon 01-01 BACTERIA 0 SEEN Normal None Seen [facility] Comment on above: Order Comment: CLEAN CATCH Performed By: #### L 400.0001 #### [facility] [address] [place], [address] EPI,SQUAMOUS 0 SEEN Normal 0-5 [facility] Comment on above: Order Comment: CLEAN CATCH Performed By: #### L 400.0001 #### [facility] [address] [place], [address] Mucus Ql (Urine sed) 0 SEEN Normal [facility] Comment on above: Order Comment: CLEAN CATCH Performed By: #### L 400.0001 #### [facility] [address] [place], [address] RBC 0 SEEN Normal 0-5 [facility] Comment on above: Order Comment: CLEAN CATCH Performed By: #### L 400.0001 #### [facility] [address] [place], [address] WBC 0 SEEN Normal [address] [place] [address] Comment on above: Order Comment: CLEAN CATCH Performed By: #### L 400.0001 #### [facility] [address] [place], [address] Urine blood detectionOrdered By: Bam Castro on 01-01-2023 RBC Ql (U) Negative Negative [facility] RBC Ql (U) 0 SEEN /hpf 0-5 [facility] Urine clarityOrdered By: Dariusz Castro on 01-01-2023 Clarity (U) Clear Clear [facility] Urine color determinationOrd ered By: Bam Castro on 01-01-2023 Color (U) Yellow Yellow [facility] Urine glucose detectionOrder ed By: Bam Castro on 01-01-2023 Glucose Ql (U) 1000 mg/dl Normal [facility] Urine leukocyte esterase det ection by dipstickOrdered By: Bam Castro on 01-01-2023 Leukocyte esterase Test strip Ql (U) Negative Negative [facility] Urine pHOrdered By: Bam cantu on 01-01-2023 pH (U) 6.0 [pH] 5.0 - 8.0 [facility] Urine sediment bacteria coun t by microscopy (number/high power field)Ordered By: Bam Castro on 01-01-2023 Bacteria LM.HPF (Urine sed) [#/Area] 0 /[HPF] None Seen [facility] Urine specific gravity measu rementOrdered By: Bam Castro on 01-01-2023 Specific gravity (U) [Rel density] 1.010 1.002-1.030 [facility] Urobilinogen Auto test strip Ql (U)Ordered By: Bam Castro on 01-01-2023 Urobilinogen Ql (U) Normal mg/dl Normal [facility] XR Wrist - left PA and Later al and Obliqueon 12-27-2022 IMPRESSION: Unremarkable left wrist x-ray. [employer] Feeder: [facility] Transcribe Date/Time: Dec 27 2022 4:48P Dictated by : RAKESH GARVIN MD This examination was interpreted and the report reviewed and electronically signed by: RAKESH GARVIN MD on Dec 27 2022 4:50PM [facility] DIVISION OF RADIOLOGY * * *Final Report* * * DATE OF EXAM: Dec 23 2022 11:50AM WOX 5270 - XR WRIST 3V PA/LAT/OBL LT / PROCEDURE REASON: Acute wrist pain, left * * * * Physician Interpretation * * * * EXAM TITLE: XR WRIST 3V PA/LAT/OBL LT EXAM DATE/TIME: 12/23/2022 11:50 AM COMPARISON: None. CLINICAL INDICATION/HISTORY: Wrist pain. TECHNIQUE: PA, lateral and oblique views of left wrist are presented. FINDINGS: No acute fractures or subluxations are noted. No appears osteophyte formation. The joint spaces are well preserved. The mineralization of the bones is normal. There is no significant soft tissue swelling. DIVISION OF RADIOLOGY Provider, [facility] [place] - 12/27/2022 * * *Final Report* * * DATE OF EXAM: Dec 23 2022 11:50AM WOX 5270 - XR WRIST 3V PA/LAT/OBL LT / PROCEDURE REASON: Acute wrist pain, left * * * * Physician Interpretation * * * * EXAM TITLE: XR WRIST 3V PA/LAT/OBL LT EXAM DATE/TIME: 12/23/2022 11:50 AM COMPARISON: None. CLINICAL INDICATION/HISTORY: Wrist pain. TECHNIQUE: PA, lateral and oblique views of left wrist are presented. FINDINGS: No acute fractures or subluxations are noted. No appears osteophyte formation. The joint spaces are well preserved. The mineralization of the bones is normal. There is no significant soft tissue swelling. IMPRESSION IMPRESSION: Unremarkable left wrist x-ray. [employer] Feeder: FABRICIO Transcribe Date/Time: Dec 27 2022 4:48P Dictated by : RAKESH GARVIN MD This examination was interpreted and the report reviewed and electronically signed by: RAKESH GARVIN MD on Dec 27 2022 4:50PM EST [facility] XR Wrist - left PA and Later al and ObliqueOrdered By: [facility] Provider on 12-27-2022 [facility] XR Wrist - left PA and Later al and Obliqueon 12-23-2022 Radiology Study observation (narrative) [facility] XR CERV OTHER 4V AP/LAT/OBLo n 09-06-2022 [facility] XR Cervical spine AP and Lat eral and obliqueon 09-06-2022 IMPRESSION: Unremarkable radiographs of the cervical spine S[employer] Drier Feeder: [facility] Transcribe Date/Time: Sep 06 2022 12:33P Dictated by : PUJA PEGUERO MD This examination was interpreted and the report reviewed and electronically signed by: PUJA PEGUERO MD on Sep 06 2022 12:35PM [facility] DIVISION OF RADIOLOGY * * *Final Report* * * DATE OF EXAM: Sep 06 2022 12:20PM WOX [id number] - XR CERVICAL 4V AP/LAT/OBL / PROCEDURE REASON: multiple diagnoses * * * * Physician Interpretation * * * * TITLE: XR CERVICAL 4V AP/LAT/OBL CLINICAL INDICATION: Left hand weakness. Numbness and tingling. TECHNIQUE: AP, lateral and bilateral oblique radiographs of the cervical spine COMPARISON: None FINDINGS: Normal prevertebral soft tissues. Preservation of vertebral body height and disc space heights. Bilateral neural foramina appear patent. DIVISION OF RADIOLOGY Provider, [facility] [place] - 09/06/2022 * * *Final Report* * * DATE OF EXAM: Sep 06 2022 12:20PM WOX [id number] - XR CERVICAL 4V AP/LAT/OBL / PROCEDURE REASON: multiple diagnoses * * * * Physician Interpretation * * * * TITLE: XR CERVICAL 4V AP/LAT/OBL CLINICAL INDICATION: Left hand weakness. Numbness and tingling. TECHNIQUE: AP, lateral and bilateral oblique radiographs of the cervical spine COMPARISON: None FINDINGS: Normal prevertebral soft tissues. Preservation of vertebral body height and disc space heights. Bilateral neural foramina appear patent. IMPRESSION IMPRESSION: Unremarkable radiographs of the cervical spine S[employer] Feeder: [facility] Transcribe Date/Time: Sep 06 2022 12:33P Dictated by : PUJA PEGUERO MD This examination was interpreted and the report reviewed and electronically signed by: PUJA PEGUERO MD on Sep 06 2022 12:35PM EST [facility] Radiology Study observation (narrative) Francisco Javier stahl [facility] XR Cervical spine AP and Lat eral and obliqueOrdered By: [facility] Provider on 09-06-2022 [facility] [facility] 06-22-2022 CNOV Office Visit (AKURFL) PETE VASQUEZ ([id number]) 1980 M Date Time Provider Department 06/22/22 11:00 AM DOTTY AMARO During your visit today, we recorded the following information about you: Respiration Weight Height 18/minute 85.7 kg 1.765 m Dotty Amaro DO 06/22/2022 5:02 PM Signed [facility] [place] [facility] LOCATION: [address] [place] [address] NEW CONSULT VISIT PATIENT INFO: Pete Vasquez 42 year old PCP: Bernard Zelaya MD Consultation requested by Bernard Zelaya MD and my final recommendations will be communicated back to the requesting physician by way of shared medical record or letter via US mail. Chief Complaint: Abdominal pain HPI Went to ED for diffuse abdominal pain CT flank negative Scrotal ultrasound with small right hydrocele No images for review 1-Duration: 2022 2-Location: testis 3-Severity: N/A 4-Quality: Not applicable 5-Context: N/A 6-Timing: N/A 7-Modifying factors: No treatment prior to referral 8-Associated signs AND symptoms: no additional symptoms No question data found. PATHOLOGY: N/A LAB: WBC (k/uL) Date Value 06/19/2022 11.84 (H) RBC (m/uL) Date Value 06/19/2022 5.87 Hemoglobin (g/dL) Date Value 06/19/2022 14.8 Hematocrit (%) Date Value 06/19/2022 47.3 MCV (fL) Date Value 06/19/2022 80.6 MCH (pg) Date Value 06/19/2022 25.2 (L) MCHC (g/dL) Date Value 06/19/2022 31.3 RDW-CV (%) Date Value 06/19/2022 14.3 Platelet Count (k/uL) Date Value 06/19/2022 370 MPV (fL) Date Value 06/19/2022 10.6 Neutrophils % (%) Date Value 06/19/2022 45.0 Lymphocytes % (%) Date Value 06/19/2022 44.0 Monocytes % (%) Date Value 06/19/2022 2.0 Basophils % (%) Date Value 06/19/2022 0.0 Abs Neut (Segs + Bands) (k/uL) Date Value 06/19/2022 5.33 Abs Carolina (k/uL) Date Value 06/19/2022 0.24 Abs Eosin (k/uL) Date Value 06/19/2022 1.07 (H) Abs Baso (k/uL) Date Value 06/19/2022 0.00 Creatinine Date Value Ref Range Status 06/19/2022 0.83 0.73 - 1.22 mg/dL Final 05/29/2022 0.90 0.73 - 1.22 mg/dL Final 11/30/2021 0.83 0.73 - 1.22 mg/dL Final 07/05/2020 0.64 (L) 0.73 - 1.22 mg/dL Final No results found for: PSA, PSAPER URINE POC No results found for this basename: uglucpoc,ubilipoc,uk etonpoc,usgpoc,uhbpo c,uphpoc,upropoc,uur opoc,unitpoc,uwbcpo- c,ucolpoc,uclarpoc IMAGING: Epic reports from [facility] I have independently reviewed films and my findings are the same. ALLERGIES: ALLERGIES No Known Allergies MEDICATIONS: atorvastatin (LIPITOR) 40 mg tablet Take 1 tablet by mouth daily at bedtime. For cholesterol. lisinopril (ZESTRIL) 5 mg tablet Take 1 tablet by mouth once daily. Blood-Glucose Sensor (Myshaadi.inSTYLE WANDA 3 SENSOR) gem Use to test blood sugar as directed. E11.65 dulaglutide (TRULICITY) 3 mg/0.5 mL pen injector Inject 3 mg subcutaneously one time a week. metFORMIN ER (GLUCOPHAGE XR) 500 mg 24 hr tablet Take 2 tablets by mouth twice daily with meals. E11.65 ondansetron orally disintegrating (ZOFRAN ODT) 4 mg disintegrating tablet Take 1 tablet by mouth every 12 hours as needed for nausea/vomiting. omeprazole (PRILOSEC) 40 mg capsule Take 1 capsule by mouth once daily. alcohol swabs (ALCOHOL PADS) Test blood sugar(s) 2 times daily. Dx: Type 2 DM - Uncontrolled E11.65 Insulin: Yes blood sugar diagnostic (BLOOD GLUCOSE TEST) test strip Test blood sugar(s) 2 times daily. Dx: Type 2 DM - Uncontrolled E11.65 Insulin: Yes Lancets lancets Test blood sugar(s) 2 times daily. Dx: Type 2 DM - Uncontrolled E11.65 Insulin: Yes Does the patient take any herbal medications?: No Medication list reviewed and reconciled with patient: Yes HISTORIES PAST MEDICAL HISTORY Diagnosis Date GERD (gastroesophageal reflux disease) 08/26/2014 Hyperlipidemia 08/26/2014 Type II or unspecified type diabetes mellitus without mention of complication, not stated as uncontrolled 08/26/2014 diagnosed 2012 PAST SURGICAL HISTORY Procedure Laterality Date PAST SURGICAL HISTORY OF Right 1996 Right hand tendon repair PAST SURGICAL HISTORY OF Right 2003 Calf debridement, infection PAST SURGICAL HISTORY OF 1991 Testicular torsion FAMILY HISTORY Problem Relation Age of Onset Osteoporosis Mother other (lymphoma) Father other (hepatitis C) Father Stroke Father None Brother Dementia Maternal Grandmother Heart Maternal Grandfather Diabetes Paternal Grandmother Negative family history: No SOCIAL HISTORY Social History Tobacco Use Smoking status: Every Day Packs/day: 1.00 Years: 19.00 Pack years: 19.00 Types: Cigarettes Smokeless tobacco: Never Substance Use Topics Alcohol use: Yes Comment: holidays 2 drinks Drug use: Yes Types: Marijuana Comment: 5 times per week for anxiety Smoki (more content not included)... Normal [facility] Abdomen/Pelvis W IV Cont ONL Yon 06-16-2022 Abdomen/Pelvis W IV Cont ONLY [facility] Imaging Services [address] [place] [address] Abdomen/Pelvis W IV Cont ONLY MR#: [id number] Acct: [id number] Name: PETE VASQUEZ Rep #: [id number] : 1980 M 42 From: Corky Miller MD PCP: Dr. Bernard Zelaya MD Status: REG ER Study: Abdomen/Pelvis W IV Cont ONLY Date of Exam: Exam# [id number] Ordering Dr: Ti Storey DO EXAM: CT ABDOMEN AND PELVIS WITH INTRAVENOUS CONTRAST CLINICAL INDICATION: ABDOMINAL PAIN TECHNIQUE: Helically acquired images were obtained of the abdomen and pelvis with intravenous contrast. CTDIvol = ( 10.70 ) mGy, DLP = ( 1046.16 ) mGycm This CT exam was performed using one or more of the following dose reduction techniques: automated exposure control, adjustment of the mA and/or kV according to patient size, and/or use of iterative reconstruction technique. This report was created using [employer] report generation technology. CONTRAST: IV 100mL Isovue-300 COMPARISON: None. FINDINGS: LOWER THORAX: Unremarkable. Lung bases are clear. No cardiomegaly. No significant pericardial effusion. ABDOMEN: LIVER: Unremarkable. Homogeneous. No focal mass. GALLBLADDER AND BILE DUCTS: Contracted gallbladder. No calcified gallstones. No gallbladder distention or wall edema. No intra- or extrahepatic biliary ductal dilation. PANCREAS: Unremarkable. No focal cystic or solid mass. SPLEEN: Unremarkable. Normal size without focal cystic or solid mass. ADRENALS: Unremarkable. No nodules. KIDNEYS AND URETERS: Unremarkable. Normal renal size and position. No hydronephrosis. STOMACH AND BOWEL: Distal colonic diverticulosis without acute diverticulitis. No stomach or bowel distention. PELVIS: APPENDIX: No evidence of acute appendicitis. BLADDER: Unremarkable. REPRODUCTIVE: Unremarkable as visualized. No mass. ABDOMEN and PELVIS: INTRAPERITONEAL SPACE: Unremarkable. No ascites or other fluid collection. No free air. BONES/JOINTS: Unremarkable. No suspicious lytic or blastic abnormality. SOFT TISSUES: Unremarkable. No discrete abdominal or pelvic wall hernia. VASCULATURE: Unremarkable. Abdominal aorta is non-dilated. LYMPH NODES: Unremarkable. No enlarged lymph nodes. CT/Abdomen/Pelvis W IV Cont ONLY IMPRESSION: No acute or inflammatory disease or bowel obstruction. Electronically Signed: Corky Miller MD at 22:37 EDT , CC: Dr. Ti Storey DO; Dr. Bernard Zelaya MD Soda Drier Feeder: Signed Normal [facility] Absolute lymphocyte countOrd ered By: Dr. Storey on 06-16-2022 Lymphocytes Auto (Unsp spec) [#/Vol] 4.08 10*3/uL 0.83-4.51 [facility] Basic Metabolic Profile (BMP )on 06-16-2022 BUN/CRE 12.5 RATIO Normal 10-20 [facility] Comment on above: Performed By: #### L 500.2500, L503.6005, L100.0100 ####[facility] [address] [place], [address] CA,Total 8.6 mg/dL Normal 8.5-10.1 [facility] Comment on above: Performed By: #### L 500.2500, L503.6005, L100.0100 ####[facility] [address] [place], [address] Chloride [Moles/Vol] 107 mmol/L Normal 98-107 [facility] Comment on above: Performed By: #### L 500.2500, L503.6005, L100.0100 ####[facility] [address] [place], [address] CO2 [Moles/Vol] 28.0 mmol/L Normal 21.0-32.0 [facility] Comment on above: Performed By: #### L 500.2500, L503.6005, L100.0100 ####[facility] [address] [place], [address] Creatinine [Mass/Vol] 1.12 mg/dL Normal 0.70-1.30 [facility] Comment on above: Result Comment: The validity of the calculated GFR GFRAA in patients over 70 years has not been determined. Clinical correlation is essential. Performed By: #### L 500.2500, L503.6005, L100.0100 ####[facility] [address] [place], [address] ECRCL 85.04 ml/min Normal [facility] Comment on above: Performed By: #### L 500.2500, L503.6005, L100.0100 ####[facility] [address] [place], [address] EST GFR - AA 92 mL/min Normal >60 [facility] Comment on above: Result Comment: Afri can Scottish GFR Calc Performed By: #### L 500.2500, L503.6005, L100.0100 ####[facility] [address] [place], [address] GAP 3 Low 5-15 [facility] Comment on above: Performed By: #### L 500.2500, L503.6005, L100.0100 ####[facility] [address] [place], [address] GFR/1.73 sq M.predicted among non-blacks MDRD (S/P/Bld) [Vol rate/Area] 76 mL/min/{1.73_m2} Normal >60 [facility] Comment on above: Result Comment: Non- GFR Calc Performed By: #### L 500.2500, L503.6005, L100.0100 ####[facility] [address] [place], [address] Glucose [Mass/Vol] 191 mg/dL High 74-106 [facility] Comment on above: Result Comment: Fast ing Glucose result greater than or equal to 126 mg/dL suggests DIABETES MELLITUS per A.D.A. criteria. Performed By: #### L 500.2500, L503.6005, L100.0100 ####[facility] [address] [place], [address] Potassium [Moles/Vol] 3.5 mmol/L Normal 3.5-5.1 [facility] Comment on above: Performed By: #### L 500.2500, L503.6005, L100.0100 ####[facility] [address] [place], [address] Sodium [Moles/Vol] 138 mmol/L Normal 136-145 [facility] Comment on above: Performed By: #### L 500.2500, L503.6005, L100.0100 ####[facility] [address] [place], [address] Urea nitrogen [Mass/Vol] 14 mg/dL Normal 7-18 [facility] Comment on above: Performed By: #### L 500.2500, L503.6005, L100.0100 ####[facility] [address] [place], [address] Basophil percentageOrdered B y: Dr. Storey on 06-16-2022 Basophils/100 WBC (Bld) 0.5 % 0-1 [facility] Chloride [Moles/Vol] 107 mmol/L 98-107 [facility] Eosinophils/100 WBC (Bld) 5.0 % 0-5 [facility] Glucose [Mass/Vol] 191 mg/dL 74-106 [facility] Comment on above: Fasting Glucose resu lt greater than or equal to 126 mg/dL suggests DIABETES MELLITUS per A.D.A. criteria. Lactate [Moles/Vol] 1.6 mmol/L 0.4-2.0 [facility] Neutrophils (Bld) [#/Vol] 5.5 10*3/uL 2.0-7.7 [facility] Neutrophils/100 WBC (Bld) 50.2 % 47-70 [facility] Potassium [Moles/Vol] 3.5 mmol/L 3.5-5.1 [facility] Sodium [Moles/Vol] 138 mmol/L 136-145 [facility] WBC (Bld) [#/Vol] 11.0 10*3/uL 4.4-11.0 [facility] Basophil percentage 0 SEEN /hpf 0-5 [facility] Bilirubin Test strip Ql (U)O rdered By: Dr. Storey on 06-16-2022 Bilirubin Ql (U) Negative Negative [facility] Blood erythrocytes count (nu mber/volume)Ordered By: Dr. Storey on 06-16-2022 RBC (Bld) [#/Vol] 5.26 10*6/uL 4.6-6.2 [facility] Blood hemoglobin measurement (mass/volume)Ordered By: Dr. Storey on 06-16-2022 Hemoglobin (Bld) [Mass/Vol] 13.3 g/dL 13.0-16.5 [facility] Blood lymphocytes/100 leukoc ytesOrdered By: Dr. Storey on 06-16-2022 Lymphocytes/100 WBC (Bld) 37.0 % 19-41 [facility] Blood monocytes/100 leukocyt esOrdered By: Dr. Storey on 06-16-2022 Monocytes/100 WBC (Bld) 7.0 % 0-10 [facility] Blood platelet mean volumeOr dered By: Dr. Storey on 06-16-2022 Platelet mean volume (Bld) [Entitic vol] 9.5 fL 6.2-12.0 [facility] CBC W/Diff, Automatedon 04-2 -2022 Absolute Lymph 4.08 X10 3/uL Normal 0.83-4.51 [facility] Comment on above: Performed By: #### L 500.2500, L503.6005, L100.0100 ####[facility] [address] [place], [address] Absolute Neut 5.5 X10 3/uL Normal 2.0-7.7 [facility] Comment on above: Performed By: #### L 500.2500, L503.6005, L100.0100 ####[facility] [address] [place], [address] Basophils/100 WBC (Bld) 0.5 % Normal 0-1 [facility] Comment on above: Performed By: #### L 500.2500, L503.6005, L100.0100 ####[facility] [address] [place], [address] Eosinophils/100 WBC (Bld) 5.0 % Normal 0-5 [facility] Comment on above: Performed By: #### L 500.2500, L503.6005, L100.0100 ####[facility] [address] [place], [address] Erythrocyte distribution width (RBC) [Ratio] 14.2 % Normal 11.6-14.6 [facility] Comment on above: Performed By: #### L 500.2500, L503.6005, L100.0100 ####[facility] [address] [place], [address] Hematocrit (Bld) [Volume fraction] 41.1 % Normal 40-54 [facility] Comment on above: Performed By: #### L 500.2500, L503.6005, L100.0100 ####[facility] [address] [place], [address] Hemoglobin (Bld) [Mass/Vol] 13.3 g/dL Normal 13.0-16.5 [facility] Comment on above: Performed By: #### L 500.2500, L503.6005, L100.0100 ####[facility] [address] [place], [address] IG% 0.300 Normal 0.0-0.9 [facility] Comment on above: Result Comment: IG% - Immature Granulocytes (promyelocytes, myelocytes and metamyelocytes) > 1% indicates that a LEFT SHIFT is Present. Performed By: #### L 500.2500, L503.6005, L100.0100 ####[facility] [address] [place], [address] Lymphocytes/100 WBC (Bld) 37.0 % Normal 19-41 [facility] Comment on above: Performed By: #### L 500.2500, L503.6005, L100.0100 ####[facility] [address] [place], [address] MCH (RBC) [Entitic mass] 25.3 pg Low 27.0-32.0 [facility] Comment on above: Performed By: #### L 500.2500, L503.6005, L100.0100 ####[facility] [address] [place], [address] MCHC (RBC) [Mass/Vol] 32.4 g/dL Normal 32-36 [facility] Comment on above: Performed By: #### L 500.2500, L503.6005, L100.0100 ####[facility] [address] [place], [address] MCV (RBC) [Entitic vol] 78.1 fL Low 80-94 [facility] Comment on above: Performed By: #### L 500.2500, L503.6005, L100.0100 ####[facility] [address] [place], [address] Monocytes/100 WBC (Bld) 7.0 % Normal 0-10 [facility] Comment on above: Performed By: #### L 500.2500, L503.6005, L100.0100 ####[facility] [address] [place], [address] Neutrophils/100 WBC (Bld) 50.2 % Normal 47-70 [facility] Comment on above: Performed By: #### L 500.2500, L503.6005, L100.0100 ####[facility] [address] [place], [address] Nucleated RBC (Bld) [#/Vol] 0 10*3/uL Normal 0-5 [facility] Comment on above: Performed By: #### L 500.2500, L503.6005, L100.0100 ####[facility] [address] [place], [address] Platelet mean volume (Bld) [Entitic vol] 9.5 fL Normal 6.2-12.0 [facility] Comment on above: Performed By: #### L 500.2500, L503.6005, L100.0100 ####[facility] [address] [place], [address] Platelets (Bld) [#/Vol] 319 10*3/uL Normal 150-450 [facility] Comment on above: Performed By: #### L 500.2500, L503.6005, L100.0100 ####[facility] [address] [place], [address] RBC (Bld) [#/Vol] 5.26 10*6/uL Normal 4.6-6.2 [facility] Comment on above: Performed By: #### L 500.2500, L503.6005, L100.0100 ####[facility] [address] [place], [address] RDW SD 39.9 fl Normal 35.1-43.9 [facility] Comment on above: Performed By: #### L 500.2500, L503.6005, L100.0100 ####[facility] [address] [place], [address] WBC (Bld) [#/Vol] 11.0 10*3/uL Normal 4.4-11.0 [facility] Comment on above: Performed By: #### L 500.2500, L503.6005, L100.0100 ####[facility] [address] [place], [address] Determination of erythrocyte mean corpuscular volume (MCV)Ordered By: Dr. Storey on 06-16-2022 MCV (RBC) [Entitic vol] 78.1 fL 80-94 [facility] Emergency Department Summary on 06-16-[address] [facility] Medical Records Department [address] [place] [address] Emergency Department Summary 06/16/22 MR#: [id number] Acct: [id number] Name: PETE VASQUEZ Rep #: [id number] : 1980 42 From: iT Storey DO PCP: Dr. Bernard Zelaya MD Status:REG ER Location: ED HPI HPI - GI History of Present Illness Chief Complaint: Abd Pain Detail of Chief Complaint: Abdominal pain Informant: patient Narrative Narrative: Patient presents with abdominal pain x4 days. Patient initially felt like maybe he has had on his testicle and he had discomfort in the area of the testicle. Patient denies nausea or vomiting. He has remote history as a child of torsion of the testicle with repair. Patient denies urinary symptoms. He denies trauma to his testicle. No history of kidney stones. Patient denies dysuria. He denies fever. Prior similar symptoms: No PFSH PFSH Medical History (Updated 06/16/22 @ 22:[address] Ti Storey DO) Diabetes GERD (gastroesophageal reflux disease) Hypertension Sleep apnea Smoker Testicular torsion Home Medications atorvastatin 40 mg tablet 40 mg PO QHS 06/16/22 [History Last Taken Unknown] dulaglutide 3 mg/0.5 mL subcutaneous pen injector (Trulicity) 3 mg subcut QWEEK 06/16/22 [History Last Taken Unknown] lisinopril 5 mg tablet 5 mg PO DAILY 06/16/22 [History Last Taken Unknown] metformin 500 mg tablet,extended release 24 hr 1,000 mg PO BID 06/16/22 [History Last Taken Unknown] omeprazole 40 mg capsule,delayed release 40 mg PO DAILY 06/16/22 [History Last Taken Unknown] Allergy/AdvReac Type Severity Reaction Status Date / Time No Known Allergies Allergy Verified 06/16/22 20:09 Family History (Updated 06/16/22 @ 20:31 by Chelita Morales) Other Lymphoma Social History Smoking Status: Current every day smoker tobacco type: cigarettes ROS ROS ED Review of Systems ROS Unobtainable: other Constitutional Constitutional ED: Reports lethargy; Denies chills, fever(s), sweats or weight loss Eyes Eyes: Denies blurry vision, change in vision or diplopia ENT ENT ED: Denies rhinorrhea or sore throat Cardiovascular Cardiovascular: Denies chest pain, orthopnea or racing heartbeat Respiratory/Chest Respiratory/Chest: Denies cough, dyspnea, dyspnea on exertion, orthopnea or sputum Gastrointestinal Gastrointestinal: Reports abdominal pain; Denies diarrhea, nausea or vomiting Genitourinary Genitourinary ED: Reports other Details: Right testicle pain ; Denies dysuria, hematuria or urinary frequency Musculoskeletal Musculoskeletal: Denies arthralgias, back pain, myalgias or neck pain Integumentary Denies abscess, Abrasions or rash Neurologic Neurologic: Denies headache(s) or weakness Psychiatric Psychiatric: Denies anxiety, depression or suicidal thoughts Endocrine Endocrinology: Denies polydipsia, polyphagia or polyuria Hematologic/Lymphati c Hematologic/Lymphati c: Denies easy bleeding, easy bruising or lymphadenopathy Allergic/Immunologic Allergic/Immunologic ED: Denies mouth swelling, tongue swelling or urticaria EXAM Physical Exam Const Vital Signs: 06/16/22 20:07 06/16/22 22:22 Temperature 98.2 F Temperature Source Temporal Pulse Rate 96 86 Respiratory Rate 18 16 Blood Pressure 168/84 H 156/81 H Blood Pressure Mean 112 106 Pulse Ox 100 97 Oxygen Delivery Method Room Air Room Air Positive well nourished and well developed General Appearance ED: well developed and NAD HEENT Reports TM's clear and moist mucous membranes normocephalic and atraumatic; Negative for trauma or tenderness Tympanic Membrane ED: Yes TM's clear Eyes PERRL and EOMs intact bilaterally General Eye ED: Negative for pale conjunctiva or scleral icterus Neck no lymphadenopathy, supple and no JVD General: Negative for tenderness Chest Wall inspection of chest normal and palpation of chest normal Chest: Negative for tenderness Resp normal respiratory effort and clear to auscultation bilaterally Effort and Inspection: Negative for respiratory distress or pain with movement Auscultation: Negative for rhonchi, wheezes or diminished lung sounds Cardio regular rate, regular rhythm, S1 normal heart sound, S2 normal heart sound and no murmurs Peripheral Pulses: pulses 2+ throughout GI normal to inspection, nondistended, normoactive bowel sounds, soft to palpation, non-distended and no masses GI Narrative: Patient with tenderness over the right lower quadrant with some guarding. There is no rebound, rigidity, or. Signs. No obvious masses noted. Narrative: Patient with minimal discomfort over the right epididymis. Testicle has a normal lie. He has normal cremasteric reflex. No obvious or significant hernia palpated within the inguinal canal with cough. Back/Spine no CVA tenderness (more content not included)... Normal [facility] Hematocrit Auto (Bld) [Volum e fraction]Ordered By: Dr. Storey on 06-16-2022 Hematocrit (Bld) [Volume fraction] 41.1 % 40-54 [facility] Ketones Test strip Ql (U)Ord ered By: Dr. Storey on 06-16-2022 Ketones Ql (U) Negative Negative [facility] Laboratory - Chemistry and C hemistry - challengeOrdered By: Dr. Storey on 06-16-2022 CO2 [Moles/Vol] 28.0 mmol/L 21.0-32.0 [facility] Urea nitrogen/Creatinine [Mass ratio] 12.5 mg/mg 10-20 [facility] Laboratory - Hematology and Cell countsOrdered By: Dr. Storey on 06-16-2022 Erythrocyte distribution width (RBC) [Entitic vol] 39.9 fL 35.1-43.9 [facility] Erythrocyte distribution width (RBC) [Ratio] 14.2 % 11.6-14.6 [facility] Immature granulocytes/100 WBC (Bld) 0.300 % 0.0-0.9 [facility] Comment on above: IG% - Immature Granu locytes (promyelocytes, myelocytes and metamyelocytes) > 1% indicates that a LEFT SHIFT is Present. MCH (RBC) [Entitic mass] 25.3 pg 27.0-32.0 [facility] Nucleated RBC/100 WBC (Bld) [Ratio] 0 % 0-5 [facility] Lactic Acidon 06-16-2022 Lactate [Moles/Vol] 1.6 mmol/L Normal 0.4-1.9 [facility] Comment on above: Order Comment: Y Performed By: #### L 500.2500, L503.6005, L100.0100 ####[facility] [address] [place], [address] MCHC Auto (RBC) [Mass/Vol]Or dered By: Dr. Storey on 06-16-2022 MCHC (RBC) [Mass/Vol] 32.4 g/dL 32-36 [facility] Mucus LM Ql (Urine sed)Order ed By: Dr. Storey on 06-16-2022 Mucus Ql (Urine sed) 0 SEEN /hpf [facility] [facility] Nitrite Test strip Ql (U)Ord ered By: Dr. Storey on 06-16-2022 Nitrite Ql (U) Negative Negative [facility] No Panel InformationOrdered By: Dr. Storey on 06-16-2022 Estimated Creatinine Clearance Calc 85.04 ml/min [facility] Estimated GFR (MDRD) Amer 92 mL/min >60 [facility] Comment on above: GFR Calc Estimated GFR (MDRD) Non-Af Amer 76 mL/min >60 [facility] Comment on above: Non- GFR Calc Platelets bldOrdered By: Dr. Storey on 06-16-2022 Platelets (Bld) [#/Vol] 319 10*3/uL 150-450 [facility] Protein Test strip Ql (U)Ord ered By: Dr. Storey on 06-16-2022 Protein Ql (U) 15 mg/dl Negative [facility] Serum or plasma calcium sera urement (mass/volume)Ordered By: Dr. Storey on 06-16-2022 Calcium [Mass/Vol] 8.6 mg/dL 8.5-10.1 [facility] Serum or plasma creatinine m easurement (mass/volume)Ordered By: Dr. Storey on 06-16-2022 Creatinine [Mass/Vol] 1.12 mg/dL 0.70-1.30 [facility] Comment on above: The validity of the calculated GFR & GFRAA in patients over 70 years has not been determined. Clinical correlation is essential. Serum or plasma urea nitroge n measurement (mass/volume)Ordered By: Dr. Storey on 06-16-2022 Urea nitrogen [Mass/Vol] 14 mg/dL 7-18 [facility] Squamous epithelial cells de tection in urine sediment by light microscopyOrdered By: Dr. Storey on 06-16-2022 Epithelial cells.squamous LM Ql (Urine sed) 0 SEEN /hpf 0-5 [facility] Testicular with Arterial Anthony won 06-16-2022 Testicular with Arterial Flow [facility] Imaging Services [address] [place] [address] Testicular with Arterial Flow MR#: [id number] Acct: [id number] Name: PETE VASQUEZ Rep #: [id number] : 1980 M 42 From: Corky Miller MD PCP: Dr. Bernard Zelaya MD Status: REG ER Study: Testicular with Arterial Flow Date of Exam: Exam# [id number] Ordering Dr: Ti Storey DO EXAM: US SCROTUM CLINICAL INDICATION: right testicle pain TECHNIQUE: Realtime ultrasound of the testicles was performed with grayscale and Color Doppler analysis. This report was created using [employer] report [employer] technology. COMPARISON: None. FINDINGS: RIGHT TESTICLE: Unremarkable. Normal in size and echotexture. No focal lesion. No testicular tumor, torsion or infection. LEFT TESTICLE: See above. EPIDIDYMIDES: Small benign right and left-sided epididymal cyst measuring 3 and 4 mm respectively. Normal color Doppler flow pattern in the epididymis. SCROTUM: Small right hydrocele. Right-sided scrotal leeanna identified. No varicocele bilaterally. US/Testicular with Arterial Flow IMPRESSION: 1. No testicular tumor, torsion or infection. 2. Small right hydrocele. 3. Benign epididymal cysts. Electronically Signed: Corky Miller MD at 23:05 EDT Reading Location ID and State: [facility] / [place] Tel , Service support , CC: Dr. Ti Storey, DO; Dr. Bernard Zelaya MD Soda Drier Feeder: Signed Normal [facility] Thin prep Papanicolaou smear with manual screeningOrdered By: Dr. Storey on 06-16-2022 Thin prep Papanicolaou smear with manual screening 3 5-15 [facility] Urinalysis, Completeon 06-16 BACTERIA 0 SEEN Normal None Seen [facility] Comment on above: Order Comment: CLEAN CATCH Performed By: #### L [id number] #### [facility] [address] [place], [address] EPI,SQUAMOUS 0 SEEN Normal 0-5 [facility] Comment on above: Order Comment: CLEAN CATCH Performed By: #### L [id number] #### [facility] [address] [place], [address] Mucus Ql (Urine sed) 0 SEEN Normal [facility] Comment on above: Order Comment: CLEAN CATCH Performed By: #### L [id number] #### [facility] [address] [place], [address] RBC 0 SEEN Normal 0-5 [facility] Comment on above: Order Comment: CLEAN CATCH Performed By: #### L [id number] #### [facility] [address] [place], [address] WBC 0 SEEN Normal 0-5 [facility] Comment on above: Order Comment: CLEAN CATCH Performed By: #### L [id number] #### [facility] [address] [place], [address] Urine blood detectionOrdered By: Dr. Storey on 06-16-2022 RBC Ql (U) Negative Negative [facility] RBC Ql (U) 0 SEEN /hpf 0-5 [facility] Urine clarityOrdered By: Dr. Storey on 06-16-2022 Clarity (U) Clear Clear [facility] Urine color determinationOrd ered By: Dr. Storey on 06-16-2022 Color (U) Yellow Yellow [facility] Urine glucose detectionOrder ed By: Dr. Storey on 06-16-2022 Glucose Ql (U) Normal mg/dl Normal [facility] Urine leukocyte esterase det ection by dipstickOrdered By: Dr. Storey on 06-16-2022 Leukocyte esterase Test strip Ql (U) Negative Negative [facility] Urine pHOrdered By: Dr. Tamar peace on 06-16-2022 pH (U) 7.0 [pH] 5.0 - 8.0 [facility] Urine sediment bacteria coun t by microscopy (number/high power field)Ordered By: Dr. Storey on 06-16-2022 Bacteria LM.HPF (Urine sed) [#/Area] 0 /[HPF] None Seen [facility] Urine specific gravity measu rementOrdered By: Dr. Storey on 06-16-2022 Specific gravity (U) [Rel density] 1.010 1.002-1.030 [facility] Urobilinogen Auto test strip Ql (U)Ordered By: Dr. Storey on 06-16-2022 Urobilinogen Ql (U) Normal mg/dl Normal [facility] Office Visiton 11-26-2016 Smoking cessation education (procedure) yes Invalid Interpretation Code [facility] Work Phone: Tobacco use [facility] Current every day smoker Invalid Interpretation Code [facility] Work Phone: Office Visiton 10-29-2016 Documentation of current medications (procedure) Done Invalid Interpretation Code [facility] Work Phone: Vital Signs Date Time Vital Sign Value Performing Clinician Facility 09-14-2024 07:10-0400 Body mass index (BMI) [Ratio] 31.41 kg/m2 Karime Lars POSTAGE MACHINE OPERATOR.CRUISE COORDINATOR Work Phone: [facility] 09-14-2024 07:10-0400 Body weight 97.3 kg Karime Lars POSTAGE MACHINE OPERATOR.CRUISE COORDINATOR Work Phone: [facility] 09-14-2024 07:10-0400 Diastolic blood pressure 78 mm[Hg] Karime Lars POSTAGE MACHINE OPERATOR.CRUISE COORDINATOR Work Phone: [facility] 09-14-2024 07:10-0400 Heart rate 72 /min Karime Lars POSTAGE MACHINE OPERATOR.CRUISE COORDINATOR Work Phone: [facility] 09-14-2024 07:10-0400 Respiratory rate 12 /min Karime Lars POSTAGE MACHINE OPERATOR.CRUISE COORDINATOR Work Phone: [facility] 09-14-2024 07:10-0400 SaO2% (BldA) [Mass fraction] 99 % Karime Lars POSTAGE MACHINE OPERATOR.CRUISE COORDINATOR Work Phone: [facility] 09-14-2024 07:10-0400 Systolic blood pressure 124 mm[Hg] Karime Lars POSTAGE MACHINE OPERATOR.CRUISE COORDINATOR Work Phone: [facility] 08-25-2024 13:33-0400 Body mass index (BMI) [Ratio] 30.99 kg/m2 Sudarshan Tran MD Work Phone: [facility] 08-25-2024 13:33-0400 Body temperature 98.1 [degF] Sudarshan Tran MD Work Phone: [facility] 08-25-2024 13:33-0400 Body weight 96 kg Sudarshan Tran MD Work Phone: [facility] 08-25-2024 13:33-0400 Diastolic blood pressure 73 mm[Hg] Sudarshan Tran MD Work Phone: [facility] 08-25-2024 13:33-0400 Heart rate 102 /min Sudarshan Tran MD Work Phone: [facility] 08-25-2024 13:33-0400 Respiratory rate 20 /min Sudarshan Tran MD Work Phone: [facility] 08-25-2024 13:33-0400 SaO2% (BldA) [Mass fraction] 100 % Sudarshan Trna MD Work Phone: [facility] 08-25-2024 13:33-0400 Systolic blood pressure 107 mm[Hg] Sudarshan Tran MD Work Phone: [facility] 03-14-2024 18:43-0500 Diastolic blood pressure 72 mm[Hg] Karime Lars POSTAGE MACHINE OPERATOR.CRUISE COORDINATOR Work Phone: [facility] 03-14-2024 18:43-0500 Systolic blood pressure 134 mm[Hg] Karime Lars POSTAGE MACHINE OPERATOR.CRUISE COORDINATOR Work Phone: [facility] 03-14-2024 18:18-0500 Body height 176 cm Karime WilsonLars POSTAGE MACHINE OPERATOR.CRUISE COORDINATOR Work Phone: [facility] 03-14-2024 18:18-0500 Body mass index (BMI) [Ratio] 32.83 kg/m2 Karime Lars POSTAGE MACHINE OPERATOR.CRUISE COORDINATOR Work Phone: [facility] 03-14-2024 18:18-0500 Body weight 101.7 kg Karime Lars POSTAGE MACHINE OPERATOR.CRUISE COORDINATOR Work Phone: [facility] 03-14-2024 18:18-0500 Heart rate 104 /min Karime Lars POSTAGE MACHINE OPERATOR.CRUISE COORDINATOR Work Phone: [facility] 03-14-2024 18:18-0500 SaO2% (BldA) [Mass fraction] 98 % Karime Lars POSTAGE MACHINE OPERATOR.CRUISE COORDINATOR Work Phone: [facility] 02-22-2024 11:30-0500 Body mass index (BMI) [Ratio] 32.44 kg/m2 Alexa Gonzalez POSTAGE MACHINE OPERATOR.CRUISE COORDINATOR Work Phone: [facility] 02-22-2024 11:30-0500 Body temperature 97.81 [degF] Alexa Lisa POSTAGE MACHINE OPERATOR.CRUISE COORDINATOR Work Phone: [facility] 02-22-2024 11:30-0500 Body weight 101.1 kg Alexa Lisa POSTAGE MACHINE OPERATOR.CRUISE COORDINATOR Work Phone: [facility] 02-22-2024 11:30-0500 Diastolic blood pressure 82 mm[Hg] Alexa Lisa POSTAGE MACHINE OPERATOR.CRUISE COORDINATOR Work Phone: [facility] 02-22-2024 11:30-0500 Heart rate 86 /min Alexa Lisa POSTAGE MACHINE OPERATOR.CRUISE COORDINATOR Work Phone: [facility] 02-22-2024 11:30-0500 Respiratory rate 16 /min Alexa Lisa POSTAGE MACHINE OPERATOR.CRUISE COORDINATOR Work Phone: [facility] 02-22-2024 11:30-0500 SaO2% (BldA) [Mass fraction] 98 % Alexa Lisa POSTAGE MACHINE OPERATOR.CRUISE COORDINATOR Work Phone: [facility] 02-22-2024 11:30-0500 Systolic blood pressure 132 mm[Hg] Alexa Lisa POSTAGE MACHINE OPERATOR.CRUISE COORDINATOR Work Phone: [facility] 09-16-2023 09:07-0400 Diastolic blood pressure 77 mm[Hg] Karime MeyerLars POSTAGE MACHINE OPERATOR.CRUISE COORDINATOR Work Phone: [facility] 09-16-2023 09:07-0400 Heart rate 93 /min Karime Pryor POSTAGE MACHINE OPERATOR.CRUISE COORDINATOR Work Phone: [facility] 09-16-2023 09:07-0400 Systolic blood pressure 138 mm[Hg] Karime MeyerLars POSTAGE MACHINE OPERATOR.CRUISE COORDINATOR Work Phone: [facility] 09-16-2023 08:59-0400 Body mass index (BMI) [Ratio] 31.73 kg/m2 Karime Lars POSTAGE MACHINE OPERATOR.CRUISE COORDINATOR Work Phone: [facility] 09-16-2023 08:59-0400 Body weight 98.88 kg Karime WilsonLars POSTAGE MACHINE OPERATOR.CRUISE COORDINATOR Work Phone: [facility] 09-16-2023 08:59-0400 Respiratory rate 16 /min Karime Lars POSTAGE MACHINE OPERATOR.CRUISE COORDINATOR Work Phone: [facility] 07-14-2023 09:29-0400 Body mass index (BMI) [Ratio] 31.73 kg/m2 Karime Lars POSTAGE MACHINE OPERATOR.CRUISE COORDINATOR Work Phone: [facility] 07-14-2023 09:29-0400 Body weight 98.88 kg Karime Lars POSTAGE MACHINE OPERATOR.CRUISE COORDINATOR Work Phone: [facility] 07-14-2023 09:29-0400 Diastolic blood pressure 81 mm[Hg] Karime Lars POSTAGE MACHINE OPERATOR.CRUISE COORDINATOR Work Phone: [facility] Comment on above: bp rosalie average 07-14-2023 09:29-0400 Heart rate 94 /min Karime Lars POSTAGE MACHINE OPERATOR.CRUISE COORDINATOR Work Phone: [facility] 07-14-2023 09:29-0400 Respiratory rate 16 /min Karime Lars POSTAGE MACHINE OPERATOR.CRUISE COORDINATOR Work Phone: [facility] 07-14-2023 09:29-0400 SaO2% (BldA) [Mass fraction] 98 % Karime Lars POSTAGE MACHINE OPERATOR.CRUISE COORDINATOR Work Phone: [facility] 07-14-2023 09:29-0400 Systolic blood pressure 150 mm[Hg] Karime Lars POSTAGE MACHINE OPERATOR.CRUISE COORDINATOR Work Phone: [facility] Comment on above: bp rosalie average 07-06-2023 07:18-0400 Body mass index (BMI) [Ratio] 31.7 kg/m2 [facility] Work Phone: [facility] 07-06-2023 07:18-0400 Body temperature 96.91 [degF] [facility] Work Phone: [facility] 07-06-2023 07:18-0400 Body weight 98.8 kg [facility] Work Phone: [facility] 07-06-2023 07:18-0400 Diastolic blood pressure 70 mm[Hg] [facility] Work Phone: [facility] 07-06-2023 07:18-0400 Heart rate 86 /min [facility] Work Phone: [facility] 07-06-2023 07:18-0400 Respiratory rate 16 /min [facility] Work Phone: [facility] 07-06-2023 07:18-0400 SaO2% (BldA) [Mass fraction] 98 % [facility] Work Phone: [facility] 07-06-2023 07:18-0400 Systolic blood pressure 110 mm[Hg] [facility] Work Phone: [facility] 05-13-2023 09:34-0400 Body weight 96.62 kg Karime WilsonLars POSTAGE MACHINE OPERATOR.CRUISE COORDINATOR Work Phone: [facility] 05-13-2023 09:34-0400 Diastolic blood pressure 94 mm[Hg] Karime Lars POSTAGE MACHINE OPERATOR.CRUISE COORDINATOR Work Phone: [facility] 05-13-2023 09:34-0400 Heart rate 98 /min Karime Lars POSTAGE MACHINE OPERATOR.CRUISE COORDINATOR Work Phone: [facility] 05-13-2023 09:34-0400 Respiratory rate 18 /min Karime MeyerLars POSTAGE MACHINE OPERATOR.CRUISE COORDINATOR Work Phone: [facility] 05-13-2023 09:34-0400 SaO2% (BldA) [Mass fraction] 98 % Karime Lars POSTAGE MACHINE OPERATOR.CRUISE COORDINATOR Work Phone: [facility] 05-13-2023 09:34-0400 Systolic blood pressure 156 mm[Hg] Karime Lars POSTAGE MACHINE OPERATOR.CRUISE COORDINATOR Work Phone: [facility] 04-22-2023 19:40-0500 Body temperature 97 [degF] Dinesh Huffman POSTAGE MACHINE OPERATOR.CRUISE COORDINATOR Work Phone: [facility] 04-22-2023 19:40-0500 Body weight 97.52 kg Dinesh Huffman POSTAGE MACHINE OPERATOR.CRUISE COORDINATOR Work Phone: [facility] 04-22-2023 19:40-0500 Diastolic blood pressure 79 mm[Hg] Dinesh Pendlebury POSTAGE MACHINE OPERATOR.CRUISE COORDINATOR Work Phone: [facility] 04-22-2023 19:40-0500 Heart rate 89 /min Dinesh Pendlebury POSTAGE MACHINE OPERATOR.CRUISE COORDINATOR Work Phone: [facility] 04-22-2023 19:40-0500 Respiratory rate 18 /min Dinesh Pendlebury POSTAGE MACHINE OPERATOR.CRUISE COORDINATOR Work Phone: [facility] 04-22-2023 19:40-0500 SaO2% (BldA) [Mass fraction] 99 % Dinesh Pendlebury POSTAGE MACHINE OPERATOR.CRUISE COORDINATOR Work Phone: [facility] 04-22-2023 19:40-0500 Systolic blood pressure 168 mm[Hg] Dinesh Pendlebury POSTAGE MACHINE OPERATOR.CRUISE COORDINATOR Work Phone: [facility] 04-20-2023 14:36-0500 Body temperature 97.59 [degF] Sudarshan Tran MD Work Phone: [facility] 04-20-2023 14:36-0500 Body weight 97.43 kg Sudarshan Tran MD Work Phone: [facility] 04-20-2023 14:36-0500 Diastolic blood pressure 86 mm[Hg] Sudarshan Tran MD Work Phone: [facility] 04-20-2023 14:36-0500 Heart rate 82 /min Sudarshan Tran MD Work Phone: [facility] 04-20-2023 14:36-0500 Respiratory rate 14 /min Sudarshan Tran MD Work Phone: [facility] 04-20-2023 14:36-0500 SaO2% (BldA) [Mass fraction] 97 % Sudarshan Tran MD Work Phone: [facility] 04-20-2023 14:36-0500 Systolic blood pressure 168 mm[Hg] Sudarshan Tran MD Work Phone: [facility] 01-20-2023 09:15-0500 Body height 176.5 cm [facility] 01-20-2023 09:15-0500 Body weight 98.43 kg [facility] 01-20-2023 09:15-0500 Heart rate 84 /min [facility] 01-10-2023 10:18-0500 Respiratory rate 16 /min [facility] 01-10-2023 07:58-0500 Body height 175.26 cm [facility] 01-10-2023 07:58-0500 Body mass index (BMI) [Ratio] 32.3 kg/m2 [facility] 01-10-2023 07:58-0500 Body temperature 96.9 [degF] [facility] 01-10-2023 07:58-0500 Body weight 99.33 kg [facility] 01-10-2023 07:58-0500 Diastolic blood pressure 87 mm[Hg] [facility] 01-10-2023 07:58-0500 Heart rate 86 /min [facility] 01-10-2023 07:58-0500 SaO2% (BldA) [Mass fraction] 100 % [facility] 01-10-2023 07:58-0500 Systolic blood pressure 201 mm[Hg] [facility] 01-05-2023 09:20-0500 Diastolic blood pressure 95 mm[Hg] Karime Older POSTAGE MACHINE OPERATOR.CRUISE COORDINATOR Work Phone: [facility] 01-05-2023 09:20-0500 Heart rate 91 /min Karime Older POSTAGE MACHINE OPERATOR.CRUISE COORDINATOR Work Phone: [facility] 01-05-2023 09:20-0500 Systolic blood pressure 176 mm[Hg] Karime Older POSTAGE MACHINE OPERATOR.CRUISE COORDINATOR Work Phone: [facility] 01-05-2023 09:11-0500 Body weight 99.34 kg Karime Older POSTAGE MACHINE OPERATOR.CRUISE COORDINATOR Work Phone: [facility] 01-05-2023 09:11-0500 Respiratory rate 18 /min Karime Older POSTAGE MACHINE OPERATOR.CRUISE COORDINATOR Work Phone: [facility] 01-05-2023 09:11-0500 SaO2% (BldA) [Mass fraction] 97 % Karime Roa APRN.CNP Work Phone: [facility] 01-01-2023 09:46-0500 Body height 175.26 cm [facility] 01-01-2023 09:46-0500 Body mass index (BMI) [Ratio] 32.2 kg/m2 [facility] 01-01-2023 09:46-0500 Body temperature 97.9 [degF] [facility] 01-01-2023 09:46-0500 Body weight 99 kg [facility] 01-01-2023 09:46-0500 Diastolic blood pressure 92 mm[Hg] [facility] 01-01-2023 09:46-0500 Heart rate 83 /min [facility] 01-01-2023 09:46-0500 Respiratory rate 16 /min [facility] 01-01-2023 09:46-0500 SaO2% (BldA) [Mass fraction] 98 % [facility] 01-01-2023 09:46-0500 Systolic blood pressure 151 mm[Hg] [facility] 09-06-2022 11:41-0400 Body temperature 96.91 [degF] Sudarshan Tran MD Work Phone: [facility] 09-06-2022 11:41-0400 Body weight 93.35 kg Sudarshan Tran MD Work Phone: [facility] 09-06-2022 11:41-0400 Diastolic blood pressure 78 mm[Hg] Sudarshan Tran MD Work Phone: [facility] 09-06-2022 11:41-0400 Heart rate 97 /min Sudarshan Tran MD Work Phone: [facility] 09-06-2022 11:41-0400 Respiratory rate 18 /min Sudarshan Tran MD Work Phone: [facility] 09-06-2022 11:41-0400 SaO2% (BldA) [Mass fraction] 98 % Sudarshan Tran MD Work Phone: [facility] 09-06-2022 11:41-0400 Systolic blood pressure 152 mm[Hg] Sudarshan Tran MD Work Phone: [facility] 08-17-2022 18:00-0400 Body temperature 97.7 [degF] Theodora Praisler-Wood POSTAGE MACHINE OPERATOR.CRUISE COORDINATOR Work Phone: [facility] 08-17-2022 18:00-0400 Body weight 88.91 kg Theodora Praisler-Wood POSTAGE MACHINE OPERATOR.CRUISE COORDINATOR Work Phone: [facility] 08-17-2022 18:00-0400 Diastolic blood pressure 76 mm[Hg] Theodora Praisler-Wood POSTAGE MACHINE OPERATOR.CRUISE COORDINATOR Work Phone: [facility] 08-17-2022 18:00-0400 Heart rate 98 /min Theodora Praisler-Wood POSTAGE MACHINE OPERATOR.CRUISE COORDINATOR Work Phone: [facility] 08-17-2022 18:00-0400 Respiratory rate 16 /min Theodora Praisler-Wood POSTAGE MACHINE OPERATOR.CRUISE COORDINATOR Work Phone: [facility] 08-17-2022 18:00-0400 SaO2% (BldA) [Mass fraction] 99 % Theodora Praisler-Wood POSTAGE MACHINE OPERATOR.CRUISE COORDINATOR Work Phone: [facility] 08-17-2022 18:00-0400 Systolic blood pressure 134 mm[Hg] Theodora Praisler-Wood POSTAGE MACHINE OPERATOR.CRUISE COORDINATOR Work Phone: [facility] 06-22-2022 11:16-0400 Body height 176.5 cm Jayram Prem DO Work Phone: [facility] 06-22-2022 11:16-0400 Body weight 85.73 kg Jayram Prem DO Work Phone: [facility] 06-22-2022 11:16-0400 Respiratory rate 18 /min Jayram Prem DO Work Phone: [facility] 06-18-2022 08:17-0400 Body weight 88.45 kg Karime Older POSTAGE MACHINE OPERATOR.CRUISE COORDINATOR Work Phone: [facility] 06-18-2022 08:17-0400 Diastolic blood pressure 83 mm[Hg] Karime Older POSTAGE MACHINE OPERATOR.CRUISE COORDINATOR Work Phone: [facility] 06-18-2022 08:17-0400 Heart rate 92 /min Karime Older POSTAGE MACHINE OPERATOR.CRUISE COORDINATOR Work Phone: [facility] 06-18-2022 08:17-0400 Respiratory rate 16 /min Karime Older POSTAGE MACHINE OPERATOR.CRUISE COORDINATOR Work Phone: [facility] 06-18-2022 08:17-0400 Systolic blood pressure 139 mm[Hg] Karime Older POSTAGE MACHINE OPERATOR.CRUISE COORDINATOR Work Phone: [facility] 06-16-2022 22:22-0400 Diastolic blood pressure 81 mm[Hg] [facility] 06-16-2022 22:22-0400 Heart rate 86 /min [facility] 06-16-2022 22:22-0400 Respiratory rate 16 /min [facility] 06-16-2022 22:22-0400 SaO2% (BldA) [Mass fraction] 97 % [facility] 06-16-2022 22:22-0400 Systolic blood pressure 156 mm[Hg] [facility] 06-16-2022 20:07-0400 Body height 175.26 cm [facility] 06-16-2022 20:07-0400 Body mass index (BMI) [Ratio] 29.4 kg/m2 [facility] 06-16-2022 20:07-0400 Body temperature 98.2 [degF] [facility] 06-16-2022 20:07-0400 Body weight 90.4 kg [facility] 05-28-2022 08:04-0400 Body weight 84.82 kg Karime Older POSTAGE MACHINE OPERATOR.CRUISE COORDINATOR Work Phone: [facility] 05-28-2022 08:04-0400 Diastolic blood pressure 86 mm[Hg] Karime Older POSTAGE MACHINE OPERATOR.CRUISE COORDINATOR Work Phone: [facility] 05-28-2022 08:04-0400 Heart rate 88 /min Karime Older POSTAGE MACHINE OPERATOR.CRUISE COORDINATOR Work Phone: [facility] 05-28-2022 08:04-0400 Respiratory rate 14 /min Karime Older POSTAGE MACHINE OPERATOR.CRUISE COORDINATOR Work Phone: [facility] 05-28-2022 08:04-0400 Systolic blood pressure 134 mm[Hg] Karime Older POSTAGE MACHINE OPERATOR.CRUISE COORDINATOR Work Phone: [facility] 05-26-2022 14:28-0400 Body temperature 98.71 [degF] Krislyn Aberegg PA Work Phone: [facility] 05-26-2022 14:28-0400 Body weight 86.36 kg Krislyn Aberegg PA Work Phone: [facility] 05-26-2022 14:28-0400 Diastolic blood pressure 80 mm[Hg] Krislyn Aberegg PA Work Phone: [facility] 05-26-2022 14:28-0400 Heart rate 95 /min Krislyn Aberegg PA Work Phone: [facility] 05-26-2022 14:28-0400 Respiratory rate 16 /min Krislyn Aberegg PA Work Phone: [facility] 05-26-2022 14:28-0400 SaO2% (BldA) [Mass fraction] 97 % Krislyn Aberegg PA Work Phone: [facility] 05-26-2022 14:28-0400 Systolic blood pressure 132 mm[Hg] Krislyn Aberegg PA Work Phone: [facility] 04-09-2022 17:01-0500 Body temperature 98.71 [degF] Sudarshan Tran MD Work Phone: [facility] 04-09-2022 17:01-0500 Body weight 91.72 kg Sudarshan Tran MD Work Phone: [facility] 04-09-2022 17:01-0500 Diastolic blood pressure 87 mm[Hg] Sudarshan Tran MD Work Phone: [facility] 04-09-2022 17:01-0500 Heart rate 100 /min Sudarshan Tran MD Work Phone: [facility] 04-09-2022 17:01-0500 Respiratory rate 18 /min Sudarshan Tran MD Work Phone: [facility] 04-09-2022 17:01-0500 SaO2% (BldA) [Mass fraction] 98 % Sudarshan Tran MD Work Phone: [facility] 04-09-2022 17:01-0500 Systolic blood pressure 144 mm[Hg] Sudarshan Tran MD Work Phone: [facility] 03-31-2022 10:05-0500 Body temperature 97.59 [degF] Laurel Lee POSTAGE MACHINE OPERATOR.CRUISE COORDINATOR Work Phone: [facility] 03-31-2022 10:05-0500 Body weight 91.17 kg Laurel Lee POSTAGE MACHINE OPERATOR.CRUISE COORDINATOR Work Phone: [facility] 03-31-2022 10:05-0500 Diastolic blood pressure 82 mm[Hg] Laurel Lee POSTAGE MACHINE OPERATOR.CRUISE COORDINATOR Work Phone: [facility] 03-31-2022 10:05-0500 Heart rate 104 /min Laurel Lee POSTAGE MACHINE OPERATOR.CRUISE COORDINATOR Work Phone: [facility] 03-31-2022 10:05-0500 Respiratory rate 16 /min Laurel Lee POSTAGE MACHINE OPERATOR.CRUISE COORDINATOR Work Phone: [facility] 03-31-2022 10:05-0500 SaO2% (BldA) [Mass fraction] 98 % Laurel Lee POSTAGE MACHINE OPERATOR.CRUISE COORDINATOR Work Phone: [facility] 03-31-2022 10:05-0500 Systolic blood pressure 128 mm[Hg] Laurel Lee POSTAGE MACHINE OPERATOR.CRUISE COORDINATOR Work Phone: [facility] 11-30-2021 08:42-0400 Diastolic blood pressure 87 mm[Hg] Karime Older POSTAGE MACHINE OPERATOR.CRUISE COORDINATOR Work Phone: [facility] 11-30-2021 08:42-0400 Heart rate 90 /min Karime Older POSTAGE MACHINE OPERATOR.CRUISE COORDINATOR Work Phone: [facility] 11-30-2021 08:42-0400 Systolic blood pressure 150 mm[Hg] Karime Older POSTAGE MACHINE OPERATOR.CRUISE COORDINATOR Work Phone: [facility] 11-30-2021 08:18-0400 Body weight 93.44 kg Karime Older POSTAGE MACHINE OPERATOR.CRUISE COORDINATOR Work Phone: [facility] 11-30-2021 08:18-0400 Respiratory rate 16 /min Karime Older POSTAGE MACHINE OPERATOR.CRUISE COORDINATOR Work Phone: [facility] 10-22-2016 08:44-0400 BMI (Body Mass Index) 31.45 kg/m2 [facility] Work Phone: 10-22-2016 08:44-0400 Height 175.26 cm [facility] Work Phone: 10-22-2016 08:44-0400 Weight 96.62 kg [facility] Work Phone: Encounters Encounter Date Encounter Type Care Provider Facility Start: 09-17-2024 End: 10-02-2024 Follow-up encounter Karime Pryor APRN.CNP Work Phone: [facility] [place] Start: 09-14-2024 End: 09-14-2024 Office outpatient visit 25 minutes Karime rPyor APRN.CNP Work Phone: [facility] [place] Comment on above: Type 2 diabetes (HCC ) (Primary Dx); Positional lightheadedness; Hyperlipidemia, unspecified hyperlipidemia type; Gastroesophageal reflux disease without esophagitis; Encounter for screening examination for other mental health and behavioral disorders; Primary hypertension; Screening for depression Start: 09-14-2024 End: 09-14-2024 ambulatory BERNARD ZELAYA Facility:[facility] Start: 08-25-2024 End: 08-25-2024 Office outpatient visit 25 minutes Sudarshan Tran MD Work Phone: [facility] Comment on above: Diarrhea of presumed infectious origin (Primary Dx); Primary hypertension Start: 08-25-2024 End: 08-25-2024 ambulatory SUDARSHAN TRAN Facility:[facility] Start: 07-22-2024 End: 07-23-2024 Refill Karime Pryor APRN.CRUISE COORDINATOR Work Phone: [facility] [place] Comment on above: Refill Request Start: 06-11-2024 End: 06-11-2024 ambulatory Bernard Zelaya MD Work Phone: [facility] [place] Start: 06-11-2024 End: 06-11-2024 Follow-up encounter Bernard Zelaya MD Work Phone: [facility] [place] Comment on above: Follow Up (Patient n eeds a follow up appointment for August) Start: 05-28-2024 End: 05-28-2024 ambulatory Brisa Tai LPN [facility] [place] Start: 03-16-2024 End: 03-16-2024 ambulatory BERNARD ZELAYA Facility:[facility] Start: 03-15-2024 End: 03-19-2024 Telephone encounter Bernard Zelaya MD Work Phone: [facility] [place] Comment on above: Insurance Authorizat ion Start: 03-14-2024 End: 03-14-2024 ambulatory BERNARD ZELAYA Facility:[facility] Start: 03-14-2024 End: 03-14-2024 Subsequent hospital visit by physician Genaro [facility] Work Phone: Radiology Comment on above: Neck pain [M54.2] Start: 03-14-2024 End: 03-14-2024 Patient encounter procedure Karime Pryor APRN.CRUISE COORDINATOR Work Phone: [facility] [place] Comment on above: Neck pain (Primary D x); Numbness and tingling in left arm; Dysphagia, unspecified type; Gastroesophageal reflux disease without esophagitis; Type 2 diabetes (HCC); Hyperlipidemia, unspecified hyperlipidemia type; Primary hypertension Start: 03-14-2024 End: 03-14-2024 ambulatory BERNARD ZELAYA Facility:[facility] Start: 03-14-2024 End: 03-14-2024 Telephone encounter Beau Ro APRN.CRUISE COORDINATOR Work Phone: [facility] Comment on above: Results Start: 02-22-2024 End: 02-22-2024 ambulatory BERNARD ZELAYA Facility:[facility] Start: 02-22-2024 End: 02-22-2024 Patient encounter procedure Alexa Lisa POSTAGE MACHINE OPERATOR.CRUISE COORDINATOR Work Phone: [facility] Comment on above: Neck pain (Primary D x) Start: 02-21-2024 End: 02-24-2024 Refill Karime Pryor APRN.CRUISE COORDINATOR Work Phone: [facility] [place] Comment on above: Refill Request Start: 11-14-2023 End: 11-14-2023 Refill Karime Pryor APRN.CRUISE COORDINATOR Work Phone: [facility] [place] Comment on above: Refill Request Start: 10-21-2023 End: 10-21-2023 Refill Karime Pryor APRN.CRUISE COORDINATOR Work Phone: [facility] [place] Comment on above: Refill Request Start: 10-06-2023 Refill Karime stephens APRN.CRUISE COORDINATOR Work Phone: [facility] [place] Comment on above: Refill Request Start: 09-16-2023 End: 09-16-2023 Patient encounter procedure Karime Pryor APRN.CRUISE COORDINATOR Work Phone: [facility] [place] Comment on above: Type 2 diabetes (HCC ) (Primary Dx); Primary hypertension Start: 08-11-2023 Refill Bernard marcial MD Work Phone: [address] [place] [address] Comment on above: Refill Request Start: 07-14-2023 End: 07-14-2023 Patient encounter procedure Karime Pryor APRN.CRUISE COORDINATOR Work Phone: [facility] [place] Comment on above: Primary hypertension (Primary Dx); Type 2 diabetes (HCC) Start: 07-06-2023 End: 07-06-2023 Patient encounter procedure [facility] Work Phone: [facility] Comment on above: Pain of right eye (P rimary Dx) Start: 05-26-2023 Telephone encounter Sharron arredondo OD Work Phone: [facility] Comment on above: Patient Question Refill Request Start: 05-23-2023 Refill Bernard marcial MD Work Phone: [facility] [place] Comment on above: Refill Request Start: 05-13-2023 End: 05-13-2023 Patient encounter procedure Karime Pryor POSTAGE MACHINE OPERATOR.CRUISE COORDINATOR Work Phone: [facility] [place] Comment on above: Primary hypertension (Primary Dx); Type 2 diabetes (HCC); Bloating; Gastroesophageal reflux disease without esophagitis; Hyperlipidemia, unspecified hyperlipidemia type Start: 04-22-2023 End: 04-22-2023 Office outpatient visit 15 minutes Dinesh Huffman POSTAGE MACHINE OPERATOR.CRUISE COORDINATOR Work Phone: [facility] Comment on above: Flu-like symptoms (P rimary Dx); Viral illness Start: 04-20-2023 End: 04-20-2023 Patient encounter procedure Sudarshan Tran MD Work Phone: [facility] Comment on above: Body aches (Primary Dx); Exposure to strep throat Start: 01-24-2023 End: 01-24-2023 ambulatory BERNARD ZELAYA Facility:[facility] Start: 01-20-2023 End: 01-20-[address] [facility] Pre Anesthesia Comment on above: Preop examination (P rimary Dx); Primary hypertension; Tobacco use disorder; Type 2 diabetes (HCC); Hyperlipidemia, unspecified hyperlipidemia type; Gastroesophageal reflux disease without esophagitis; Obesity (BMI 30.0-34.9); Suspected sleep apnea; Marijuana use Start: 01-20-2023 End: 01-20-2023 Preprocedural examination done [facility] Work Phone: Start: 01-19-2023 End: 12-27-2023 Telephone encounter Silvina Cueva MD Work Phone: General Surgery Comment on above: 01/24/2023 LAP LOIS W/ VERNON ALVAREZ Start: 01-10-2023 End: 01-10-2023 Emergency department patient visit Dario Smith Facility:[facility] Start: 01-10-2023 End: 01-10-2023 Emergency department patient visit [facility] Work Phone: Start: 01-07-2023 End: 01-07-2023 Patient encounter procedure Sharron Vigil OD Work Phone: Ophthalmology Comment on above: Type 2 diabetes mehreen itus without retinopathy (HCC) (Primary Dx); Myopia, bilateral; Regular astigmatism of both eyes Start: 01-06-2023 ambulatory [facility] Facility:[facility] Start: 01-06-2023 End: 01-06-2023 Subsequent hospital visit by physician [facility] Comment on above: Right upper quadrant pain [R10.11] Start: 01-05-2023 End: 01-05-2023 Subsequent hospital visit by physician Genaro [facility] Work Phone: Radiology Comment on above: Rib pain on right si de [R07.81] Start: 01-05-2023 End: 01-05-2023 Patient encounter procedure [facility] Work Phone: [facility] [place] Comment on above: Right upper quadrant pain (Primary Dx); Rib pain on right side; Type 2 diabetes (HCC); Primary hypertension Start: 01-01-2023 End: 01-01-2023 Emergency department patient visit Bernard Zelaya Facility:[facility] Start: 01-01-2023 End: 01-01-2023 Emergency department patient visit [facility] Work Phone: Start: 12-30-2022 End: 12-30-2022 Patient encounter procedure Louise Magaña PA-C Work Phone: [facility] Comment on above: Chest pain, unspecif ied type (Primary Dx); Left arm pain Start: 12-23-2022 Telephone encounter Farrah Farias Comment on above: Medication Problem Start: 12-23-2022 End: 12-23-2022 Subsequent hospital visit by physician X[facility] [place] Work Phone: Radiology Comment on above: Acute wrist pain, le ft [M25.532] Start: 11-23-2022 Refill Karime Older POSTAGE MACHINE OPERATOR .CRUISE COORDINATOR Work Phone: [facility] [place] Comment on above: Refill Request Start: 11-18-2022 ambulatory Karime Older POSTAGE MACHINE OPERATOR .CRUISE COORDINATOR Work Phone: [facility] [place] Comment on above: Metformin Start: 10-12-2022 ambulatory Karime Older POSTAGE MACHINE OPERATOR .CRUISE COORDINATOR Work Phone: [facility] [place] Comment on above: Jardiance Start: 09-30-2022 Telephone encounter Bernard bone MD Work Phone: [facility] [place] Comment on above: Insurance Authorizat ion Start: 09-29-2022 End: 09-29-2022 ambulatory Karime Older POSTAGE MACHINE OPERATOR.CRUISE COORDINATOR Work Phone: [facility] [place] Comment on above: Uncontrolled type 2 diabetes mellitus with hyperglycemia (HCC) (Primary Dx); Medication side effects Start: 09-29-2022 End: 09-29-2022 Telemedicine consultation with patient Karime Older POSTAGE MACHINE OPERATOR.CRUISE COORDINATOR Work Phone: [facility] Start: 09-06-2022 End: 09-06-2022 Subsequent hospital visit by physician [facility] [place] Work Phone: Radiology Comment on above: Left hand weakness [ R29.898] Start: 09-06-2022 End: 09-06-2022 Patient encounter procedure Sudarshan Tran MD Work Phone: [facility] Comment on above: Left hand weakness ( Primary Dx); Numbness and tingling in left hand Start: 08-23-2022 End: 08-23-2022 ambulatory Karime Older POSTAGE MACHINE OPERATOR.CRUISE COORDINATOR Work Phone: [facility] [place] Comment on above: Diarrhea, unspecifie d type (Primary Dx); Type 2 diabetes mellitus without complication, without long-term current use of insulin (HCC); Abnormal CBC Start: 08-23-2022 End: 08-23-2022 Telemedicine consultation with patient Karime Older POSTAGE MACHINE OPERATOR.GRISEL Work Phone: [facility] Start: 08-17-2022 End: 08-17-2022 Patient encounter procedure Theodora Mcmahon POSTAGE MACHINE OPERATOR.CRUISE COORDINATOR Work Phone: [facility] Comment on above: Nausea (Primary Dx); Diarrhea, unspecified type Start: 07-22-2022 Refill Maria Antonia Myers POSTAGE MACHINE OPERATOR.CRUISE COORDINATOR Work Phone: Endocrinology Comment on above: Refill Request Start: 06-22-2022 End: 06-22-2022 ambulatory DOTTY AMARO Facility:[facility] Start: 06-22-2022 End: 06-22-2022 Patient encounter procedure [facility] Work Phone: [facility] Comment on above: Hydrocele, unspecifi ed hydrocele type (Primary Dx) Start: 06-18-2022 End: 06-18-2022 Patient encounter procedure Karime Older POSTAGE MACHINE OPERATOR.CRUISE COORDINATOR Work Phone: [facility] [place] Comment on above: Right testicular elizabeth n (Primary Dx); Right groin pain Start: 06-16-2022 End: 06-17-2022 Emergency department patient visit Bernard Zelaya Facility:[facility] Start: 06-16-2022 End: 06-16-2022 Emergency department patient visit [facility] Start: 05-31-2022 Orders Only Karime Older POSTAGE MACHINE OPERATOR .CRUISE COORDINATOR Work Phone: [facility] [place] Comment on above: Leukocytosis, unspec ified type (Primary Dx) Start: 05-28-2022 End: 05-28-2022 Patient encounter procedure Karime Older POSTAGE MACHINE OPERATOR.CRUISE COORDINATOR Work Phone: [facility] [place] Comment on above: Diarrhea, unspecifie d type (Primary Dx); Type 2 diabetes (HCC) Start: 05-26-2022 End: 05-26-2022 Patient encounter procedure Tesha PRASAD Work Phone: [facility] Comment on above: Gastroenteritis (Steffany dread Dx) Start: 04-20-2022 Telephone encounter Maria Antonia boo POSTAGE MACHINE OPERATOR.CRUISE COORDINATOR Work Phone: Endocrinology Comment on above: Forms Start: 04-13-2022 Telephone encounter Maria Antonia boo POSTAGE MACHINE OPERATOR.CRUISE COORDINATOR Work Phone: Endocrinology Comment on above: Insurance Authorizat ion Start: 04-09-2022 End: 04-09-2022 Patient encounter procedure Sudarshan Tran MD Work Phone: [facility] Comment on above: Pain, dental (Primar y Dx) Start: 04-09-2022 End: 04-09-2022 ambulatory Maria Antonia Myers POSTAGE MACHINE OPERATOR.CRUISE COORDINATOR Work Phone: Endocrinology Comment on above: Type 2 diabetes mehreen itus with hyperglycemia, without long-term current use of insulin (HCC) (Primary Dx); Diabetes mellitus treated with oral medication (HCC); Diabetes mellitus treated with injections of non-insulin medication (HCC) Start: 04-09-2022 End: 04-09-2022 Telemedicine consultation with patient Maria Antonia Myersantoinette MANN.CRUISE COORDINATOR Work Phone: [facility] Start: 03-31-2022 End: 03-31-2022 Patient encounter procedure Laurel Lee POSTAGE MACHINE OPERATOR.CRUISE COORDINATOR Work Phone: [facility] Comment on above: URI, acute (Primary Dx); Diarrhea, unspecified type Start: 03-30-2022 Refill Maria Antonia Myers POSTAGE MACHINE OPERATOR.CRUISE COORDINATOR Work Phone: Endocrinology Comment on above: Refill Request Start: 01-31-2022 Refill Bernard marcial MD Work Phone: [facility] [place] Comment on above: Refill Request Start: 12-18-2021 Refill Bernard marcial MD Work Phone: [facility] [place] Comment on above: Refill Request Start: 12-02-2021 ambulatory Karime Roa POSTAGE MACHINE OPERATOR .CRUISE COORDINATOR Work Phone: [facility] [place] Comment on above: lab results Start: 12-02-2021 E-mail encounter solange m caregiver Karime Roa APRN.CRUISE COORDINATOR Work Phone: [facility] Start: 11-30-2021 End: 11-30-2021 Patient encounter procedure Karime Roa APRN.CRUISE COORDINATOR Work Phone: [facility] [place] Comment on above: Uncontrolled type 2 diabetes mellitus with hyperglycemia (HCC) (Primary Dx); Elevated blood pressure reading in office without diagnosis of hypertension; Burning sensation of feet; Gastroesophageal reflux disease without esophagitis; Hyperlipidemia, unspecified hyperlipidemia type Start: 11-18-2021 Refill Bernard marcial MD Work Phone: [facility] [place] Comment on above: Refill Request Start: 11-04-2021 Telephone encounter Bernard bone MD Work Phone: [facility] [place] Comment on above: Patient Question Refill Request Start: 09-26-2021 End: 09-26-2021 ambulatory Maria Antonia Myers APRN.CRUISE COORDINATOR Work Phone: Endocrinology Comment on above: Type 2 diabetes mehreen itus with hyperglycaemia (HCC) (Primary Dx); Diabetes mellitus treated with oral medication (HCC); Diabetes mellitus treated with injections of non-insulin medication (HCC); Medication course changed Start: 09-26-2021 End: 09-26-2021 Telemedicine consultation with patient Maria Antonia Lucia MADRID.CRUISE COORDINATOR Work Phone: [facility] Start: 09-24-2021 ambulatory Karime Roa APRN .CRUISE COORDINATOR Work Phone: [facility] [place] Comment on above: Metformin Start: 09-02-2021 E-mail encounter solange matute caregiver Maria Antonia Lucia MADRID.CRUISE COORDINATOR Work Phone: [facility] Start: 09-02-2021 Patient encounter procedure Maria Antonia Myers APRN.CRUISE COORDINATOR Work Phone: Endocrinology Comment on above: Appointment Reminder Start: 07-08-2021 Telephone encounter Maria Antonia boo APRN.CRUISE COORDINATOR Work Phone: [facility] [place] Comment on above: Orders Prescription Refills Question Start: 03-27-2021 End: 03-27-2021 Subsequent hospital visit by physician Bernard Zelaya MD Work Phone: [facility] Procedures Date Procedure Procedure Detail Performing Clinician Start: 09-14-2024 Adult depression screening assessment Karimelouie Pryor POSTAGE MACHINE OPERATOR.CRUISE COORDINATOR Work Phone: Start: 03-14-2024 Radex spine cervical 4 or 5 views Alexa Gonzalez POSTAGE MACHINE OPERATOR.CRUISE COORDINATOR Work Phone: Start: 09-16-2023 Hemoglobin A1c/Hemoglobin.total in Blood Karime Matute Lars POSTAGE MACHINE OPERATOR.CRUISE COORDINATOR Work Phone: Start: 07-14-2023 Adult depression screening assessment Silvina Cueva MD Work Phone: Start: 04-22-2023 INFLUENZA A&B MOLECU LAR (POC) Dinesh Huffman POSTAGE MACHINE OPERATOR.CRUISE COORDINATOR Work Phone: Start: 04-20-2023 STREP A MOLECULAR (POC) Sudarshan Tran MD Work Phone: Start: 01-10-2023 US scan of gallbladder Start: 01-06-2023 Us abdominal real ti me w/image limited Karime Roa POSTAGE MACHINE OPERATOR.CRUISE COORDINATOR Work Phone: Start: 01-05-2023 Radex ribs uni w/posteroant ch minimum 3 views Karime Matute Lars POSTAGE MACHINE OPERATOR.CRUISE COORDINATOR Work Phone: Start: 12-23-2022 Radex wrist complete minimum 3 views Bernard Zelaya MD Work Phone: Start: 09-06-2022 Radex spine cervical 4 or 5 views Sudarshan Tran MD Work Phone: Start: 06-16-2022 Ultrasound of scrotu m with Doppler and color flow imaging Start: 06-16-2022 Computed tomography of abdomen and pelvis with intravenous contrast Start: 05-14-2021 Adult depression screening assessment Maria Antonia Myers POSTAGE MACHINE OPERATOR.CRUISE COORDINATOR Work Phone: Start: 07-18-2018 Adult depression screening assessment Bernard Zelaya MD Work Phone: Plan of Treatment Date Care Activity Detail Author Start: 10-19-2026 Urine microalbumin profile DTaP,Tdap,Td Vaccine (3 - Td or Tdap) [facility] Start: 09-14-2025 Annual PCP Team Project Mgr omer Disease Visit Annual PCP Team Chronic Disease Visit [facility] Start: 09-14-2025 Anxiety Screening Anxiety Screening [facility] Start: 09-14-2025 Depression Screening Depression Scre ening [facility] Start: 09-14-2025 Diabetic foot examination Diabetic Foot Exam [facility] Start: 09-14-2025 Hepatitis B surface antibody level LDL Cholesterol [facility] Start: 03-22-2025 End: 03-22-2025 Patient encounter procedure 03/22/2025 7:00 AM EST Office Visit [facility] [place] [address] [place], [place] [address] Karime Pryor, POSTAGE MACHINE OPERATOR.CRUISE COORDINATOR [address] [place], [place] [id number] follow up 6 months/wellness [facility] [place] Comment on above: follow up 6 months/w ellness Start: 03-14-2025 Annual PCP Team Project Mgr omer Disease Visit Annual PCP Team Chronic Disease Visit [facility] Start: 03-14-2025 Covid-19 Vaccine ( season) Covid-19 Vaccine ( season) [facility] Comment on above: Postponed from 10/22 (Declined at this time) Start: 03-14-2025 Pneumococcal vaccination Pneumococcal Vaccine (2 of 2 - PCV) [facility] Comment on above: Postponed from 04/17 (Declined at this time) Start: 02-21-2025 Screening for malign ant neoplasm of colon Colorectal Cancer Screening [facility] Comment on above: Postponed from 03/20 (Declined at this time) Start: 12-15-2024 Hemoglobin A1c measurement HbA1C [facility] Start: 10-22-2024 Influenza vaccination [facility] Start: 09-15-2024 Annual PCP Team Project Mgr omer Disease Visit Annual PCP Team Chronic Disease Visit [facility] Start: 09-14-2024 End: 12-14-2024 Basic metabolic 2000 panel - Serum or Plasma [facility] Comment on above: Expected: 09/14/2024 , Expires: 12/14/2024 Start: 09-14-2024 End: 12-14-2024 CBC panel - Blood by Automated count [facility] Comment on above: Expected: 09/14/2024 , Expires: 12/14/2024 Start: 09-14-2024 End: 12-14-2024 Hemoglobin A1c in Blood [facility] Work Phone: Comment on above: Expected: 09/14/2024 , Expires: 12/14/2024 Start: 09-14-2024 End: 12-14-2024 Lipid 1996 panel - Serum or Plasma [facility] Comment on above: Expected: 09/14/2024 , Expires: 12/14/2024 Start: 09-14-2024 End: 12-14-2024 Microalbumin/Creatinine [Mass Ratio] in Urine ALBUMIN/CREATININE RATIO, URINE Lab Routine Type 2 diabetes (HCC) Expected: 09/14/2024, Expires: 12/14/2024 [facility] Comment on above: Expected: 09/14/2024 , Expires: 12/14/2024 Start: 09-14-2024 End: 09-14-2024 Patient encounter procedure 09/14/2024 7:00 AM EDT Office Visit [facility] [place] [address] [place] [address] Karime Pryor, POSTAGE MACHINE OPERATOR.CRUISE COORDINATOR [address] [place] [address] follow up 6 [facility] [place] Comment on above: follow up 6 months Start: 08-26-2024 Urine microalbumin profile [facility] Start: 08-20-2024 Influenza vaccination Influenza Vacc ine (#1) [facility] Comment on above: Postponed from 10/22 (Declined at this time) Start: 07-13-2024 Annual PCP Team Project Mgr omer Disease Visit Annual PCP Team Chronic Disease Visit [facility] Start: 07-13-2024 Anxiety Screening Anxiety Screening [facility] Start: 07-13-2024 Depression Screening Depression Scre ening [facility] Start: 07-05-2024 BP Controlled (<130/80) BP Controlle d (<130/80) [facility] Start: 06-14-2024 Hemoglobin A1c measurement HbA1C [facility] Start: 05-12-2024 Annual PCP Team Project Mgr omer Disease Visit Annual PCP Team Chronic Disease Visit [facility] Start: 04-26-2024 Hepatitis B screening Urine Albumin:Creatinine Ratio [facility] Start: 04-26-2024 Hepatitis B surface antibody level LDL Cholesterol [facility] Start: 2024 Screening for malign ant neoplasm of colon [facility] Start: 03-16-2024 End: 03-16-2024 ambulatory 03/16/2024 7:30 AM EST Results Only [facility] [address] [place] [address] [facility] Start: 03-14-2024 End: 03-14-2024 Patient encounter procedure 03/14/2024 6:20 PM EST Office Visit [facility] [address] [facility] [place] [address] Karime Pryor, POSTAGE MACHINE OPERATOR.CRUISE COORDINATOR [address] [place] [address] physical [facility] [place] Comment on above: physical Start: 03-11-2024 Annual PCP Team Project Mgr omer Disease Visit Annual PCP Team Chronic Disease Visit [facility] Start: 02-25-2024 End: 05-26-2024 CBC panel - Blood by Automated count COMPLETE BLOOD COUNT Lab Routine Type 2 diabetes (HCC) Expected: 02/25/2024, Expires: 05/26/2024 [facility] Comment on above: Expected: 02/25/2024 , Expires: 05/26/2024 Start: 02-25-2024 End: 05-26-2024 Comprehensive metabolic 2000 panel - Serum or Plasma COMPREHENSIVE METABOLIC PANEL Lab Routine Type 2 diabetes (HCC) Expected: 02/25/2024, Expires: 05/26/2024 [facility] Comment on above: Expected: 02/25/2024 , Expires: 05/26/2024 Start: 02-25-2024 End: 05-26-2024 Hemoglobin A1c in Blood HEMOGLOBIN A1C Lab Routine Type 2 diabetes (HCC) Expected: 02/25/2024, Expires: 05/26/2024 [facility] Work Phone: Comment on above: Expected: 02/25/2024 , Expires: 05/26/2024 Start: 01-12-2024 End: 01-12-2024 Patient encounter procedure 01/12/2024 10:30 AM EST Office Visit [facility] [address] [place], [place] [id number] Sharron Vigil, OD [address] [place] [address] 1 YR diabetic eye exam and cl eval. Ophthalmology Comment on above: 1 YR diabetic eye ex am and cl eval. Start: 01-08-2024 Glaucoma screening Dilated Retinal E xam [facility] Start: 01-08-2024 Hepatitis C antibody , confirmatory test Dilated Retinal Exam [facility] Start: 01-06-2024 Annual PCP Team Project Mgr omer Disease Visit Annual PCP Team Chronic Disease Visit [facility] Start: 12-24-2023 3 comp foot exam completed Diabetic Foot Exam [facility] Start: 12-24-2023 Annual PCP Team Project Mgr omer Disease Visit Annual PCP Team Chronic Disease Visit [facility] Start: 12-24-2023 Covid-19 Vaccine (#1) Covid-19 Vacci ne (#1) [facility] Comment on above: Postponed from 09/17 (Declined at this time) Start: 12-24-2023 Covid-19 Vaccine () Covid-19 Vaccine () [facility] Comment on above: Postponed from 10/22 (Declined at this time) Start: 12-24-2023 Diabetic foot examination Diabetic Foot Exam [facility] Start: 12-24-2023 Pneumococcal vaccination [facility] Comment on above: Postponed from 04/17 (Declined at this time) Start: 12-17-2023 Hemoglobin A1c measurement HbA1C [facility] Start: 12-16-2023 End: 12-16-2023 Patient encounter procedure [facility] Comment on above: 3 month follow up Start: 10-23-2023 Covid-19 Vaccine ( season) Covid-19 Vaccine ( season) [facility] Start: 10-23-2023 Covid-19 Vaccine ( season) Covid-19 Vaccine ( season) [facility] Start: 10-23-2023 Influenza vaccination [facility] Start: 09-30-2023 ANNUAL PCP TEAM FELLED SEAM OPERATOR CHAINSTITCH OMER DISEASE VISIT ANNUAL PCP TEAM CHRONIC DISEASE VISIT [facility] Start: 09-16-2023 End: 09-16-2023 Patient encounter procedure 09/16/2023 9:00 AM EDT Office Visit [facility] Medicine [facility] [address] [place], [place] [address] Karime Pryor, POSTAGE MACHINE OPERATOR.CRUISE COORDINATOR [address] [place] [address] 2 month follow up - blood pressure [facility] Comment on above: 2 month follow up - blood pressure Start: 08-24-2023 ANNUAL PCP TEAM FELLED SEAM OPERATOR CHAINSTITCH OMER DISEASE VISIT ANNUAL PCP TEAM CHRONIC DISEASE VISIT [facility] Start: 08-21-2023 Influenza vaccination Influenza Vacc ine (#1) [facility] Comment on above: Postponed from 10/22 (Declined at this time) Start: 07-28-2023 Hemoglobin A1c measurement HbA1C [facility] Start: 07-14-2023 End: 07-14-2023 Patient encounter procedure 07/14/2023 9:40 AM EDT Office Visit [facility] [address] [place] [address] Karime Pryor, POSTAGE MACHINE OPERATOR.CRUISE COORDINATOR [address] [place] [address] 2 month follow up - bp [facility] Comment on above: 2 month follow up - bp Start: 06-19-2023 ANNUAL PCP TEAM FELLED SEAM OPERATOR CHAINSTITCH OMER DISEASE VISIT ANNUAL PCP TEAM CHRONIC DISEASE VISIT [facility] Start: 06-18-2023 Hemoglobin A1c measurement HbA1C [facility] Start: 06-18-2023 Hemoglobin A1c/Hemoglobin.total in Blood HbA1C [facility] Start: 05-30-2023 Hepatitis B surface antibody level LDL CHOLESTEROL [facility] Start: 05-29-2023 ANNUAL PCP TEAM FELLED SEAM OPERATOR CHAINSTITCH OMER DISEASE VISIT ANNUAL PCP TEAM CHRONIC DISEASE VISIT [facility] Start: 04-22-2023 End: 05-06-2023 COVID & INFLUENZA A/B & RSV NAAT, ROUTINE [facility] Work Phone: Comment on above: Expected: 04/22/2023 , Expires: 05/06/2023 Start: 02-21-2023 Behavioral Health Screening Behavioral Health Screening [facility] Start: 02-21-2023 Depression Assessment Depression Ass essment [facility] Start: 01-10-2023 [facility] Start: 01-01-2023 [facility] Start: 11-30-2022 3 comp foot exam completed DIABETIC FOOT EXAM [facility] Start: 11-30-2022 ANNUAL PCP TEAM FELLED SEAM OPERATOR CHAINSTITCH OMER DISEASE VISIT ANNUAL PCP TEAM CHRONIC DISEASE VISIT [facility] Start: 11-30-2022 COVID-19 VACCINE (#1) COVID-19 VACCI NE (#1) [facility] Comment on above: Postponed from 09/17 (Declined at this time) Start: 11-30-2022 Hepatitis B surface antibody level LDL CHOLESTEROL [facility] Start: 11-28-2022 Hemoglobin A1c/Hemoglobin.total in Blood HBA1C [facility] Start: 11-19-2022 End: 01-19-2023 Basic metabolic 2000 panel - Serum or Plasma BASIC METABOLIC PNL Lab Routine Type 2 diabetes mellitus with hyperglycemia, without long-term current use of insulin (HCC) Expected: 11/19/2022, Expires: 01/19/2023 [facility] Work Phone: Comment on above: Expected: 11/19/2022 , Expires: 01/19/2023 Start: 11-19-2022 End: 01-19-2023 Hemoglobin A1c in Blood HGB A1C Lab Routine Type 2 diabetes mellitus with hyperglycemia, without long-term current use of insulin (HCC) Expected: 11/19/2022, Expires: 01/19/2023 [facility] Work Phone: Comment on above: Expected: 11/19/2022 , Expires: 01/19/2023 Start: 10-22-2022 Influenza vaccination [facility] Start: 08-20-2022 Influenza vaccination INFLUENZA (#1) [facility] Comment on above: Postponed from 10/22 (Declined at this time) Start: 06-14-2022 End: 08-14-2022 CBC W Auto Differential panel - Blood CBC + DIFF Lab Routine Leukocytosis, unspecified type Expected: 06/14/2022 (Approximate), Expires: 08/14/2022 [facility] Work Phone: Comment on above: Expected: 06/14/2022 (Approximate), Expires: 08/14/2022 Start: 06-03-2022 End: 08-03-2022 ALBUMIN/CREAT RATIO RND UR ALBUMIN/CREAT RATIO RND UR Lab Routine Type 2 diabetes (HCC) Expected: 06/03/2022 (Approximate), Expires: 08/03/2022 [facility] Work Phone: Comment on above: Expected: 06/03/2022 (Approximate), Expires: 08/03/2022 Start: 06-03-2022 End: 08-03-2022 Basic metabolic 2000 panel - Serum or Plasma BASIC METABOLIC PNL Lab Routine Type 2 diabetes (HCC) Expected: 06/03/2022 (Approximate), Expires: 08/03/2022 [facility] Work Phone: Comment on above: Expected: 06/03/2022 (Approximate), Expires: 08/03/2022 Start: 06-03-2022 End: 08-03-2022 Hemoglobin A1c in Blood HGB A1C Lab Routine Type 2 diabetes (HCC) Expected: 06/03/2022 (Approximate), Expires: 08/03/2022 [facility] Work Phone: Comment on above: Expected: 06/03/2022 (Approximate), Expires: 08/03/2022 Start: 06-03-2022 End: 08-03-2022 Lipid 1996 panel - Serum or Plasma LIPID PANEL BASIC Lab Routine Hyperlipidemia, unspecified hyperlipidemia type Expected: 06/03/2022 (Approximate), Expires: 08/03/2022 [facility] Work Phone: Comment on above: Expected: 06/03/2022 (Approximate), Expires: 08/03/2022 Start: 05-31-2022 Hemoglobin A1c/Hemoglobin.total in Blood HBA1C [facility] Start: 05-28-2022 End: 07-28-2022 CBC W Auto Differential panel - Blood CBC + DIFF Lab Routine Diarrhea, unspecified type Expected: 05/28/2022, Expires: 07/28/2022 [facility] Work Phone: Comment on above: Expected: 05/28/2022 , Expires: 07/28/2022 Start: 05-28-2022 End: 07-28-2022 Clostridioides difficile toxin genes [Presence] in Stool by JONG with probe detection [facility] Work Phone: Comment on above: Expected: 05/28/2022 , Expires: 07/28/2022 Start: 05-28-2022 End: 07-28-2022 Comprehensive metabolic 2000 panel - Serum or Plasma COMP METABOLIC PANEL Lab Routine Diarrhea, unspecified type Expected: 05/28/2022, Expires: 07/28/2022 [facility] Work Phone: Comment on above: Expected: 05/28/2022 , Expires: 07/28/2022 Start: 05-28-2022 End: 07-28-2022 ENTERIC BACTERIAL PANEL BY PCR [facility] Work Phone: Comment on above: Expected: 05/28/2022 , Expires: 07/28/2022 Start: 05-14-2022 Adult depression screening assessment DEPRESSION SCREENING [facility] Start: 05-14-2022 ANNUAL PCP TEAM FELLED SEAM OPERATOR CHAINSTITCH OMER DISEASE VISIT ANNUAL PCP TEAM CHRONIC DISEASE VISIT [facility] Start: 03-31-2022 End: 04-14-2022 Influenza virus A and B RNA and SARS-CoV-2 (COVID-19) N gene panel - Respiratory specimen by JONG with probe detection COVID WITH FLUA+B, ROUTINE Microbiology Routine URI, acute Diarrhea, unspecified type Expected: 03/31/2022, Expires: 04/14/2022 [facility] Work Phone: Comment on above: Expected: 03/31/2022 , Expires: 04/14/2022 Start: 02-21-2022 DEPRESSION ASSESSMENT DEPRESSION ASS [facility] Start: 12-16-2021 End: 02-15-2022 CBC W Auto Differential panel - Blood CBC + DIFF Lab Routine Abnormal CBC Expected: 12/16/2021 (Approximate), Expires: 02/15/2022 [facility] Work Phone: Comment on above: Expected: 12/16/2021 (Approximate), Expires: 02/15/2022 Start: 11-30-2021 End: 01-30-2022 Hemoglobin A1c in Blood [facility] Work Phone: Comment on above: Expected: 11/30/2021 , Expires: 01/30/2022 Start: 10-29-2021 ANNUAL PCP TEAM FELLED SEAM OPERATOR CHAINSTITCH OMER DISEASE VISIT ANNUAL PCP TEAM CHRONIC DISEASE VISIT [facility] Start: 10-22-2021 Influenza vaccination [facility] Start: 09-26-2021 End: 11-26-2021 Hemoglobin A1c in Blood HGB A1C Lab Routine Type 2 diabetes mellitus with hyperglycaemia (HCC) Expected: 09/26/2021, Expires: 11/26/2021 [facility] Work Phone: Comment on above: Expected: 09/26/2021 , Expires: 11/26/2021 Start: 09-24-2021 Hemoglobin A1c/Hemoglobin.total in Blood HBA1C [facility] Start: 08-20-2021 Influenza vaccination INFLUENZA (#1) [facility] Comment on above: Postponed from 10/22 (Declined at this time) Start: 07-05-2021 Hepatitis B surface antibody level LDL CHOLESTEROL [facility] Start: 07-03-2021 Hepatitis C antibody , confirmatory test DILATED RETINAL EXAM [facility] Start: 02-21-2021 [facility]PRESSION [facility]ESSMENT [facility] Start: 01-10-2021 3 comp foot exam completed DIABETIC FOOT EXAM [facility] Start: 04-11-2020 Hepatitis B screening URINE ALBUMIN:CREATININE RATIO [facility] Start: 07-19-2019 Adult depression screening assessment DEPRESSION SCREENING [facility] Start: 01-07-2017 End: 01-07-2017 Appointment Appointment [facility] Work Phone: Start: 11-26-2016 End: 11-26-2016 Radex fingr minimum 2 views X-Ray, Fingers [facility] Work Phone: Start: 10-29-2016 End: 10-29-2016 Radex fingr minimum 2 views X-Ray, Fingers [facility] Work Phone: Start: 10-22-2016 End: 10-22-2016 Radex hand minimum 3 views X-Ray, Hand [facility] Work Phone: Start: 04-17-2016 PNEUMOCOCCAL (2 - PCV) PNEUMOCOCCAL (2 - PCV) [facility] Start: 04-17-2016 Pneumococcal vaccination [facility] Start: 2006 HPV Vaccine (1 - 3-d ose SCDM series) HPV Vaccine (1 - 3-dose SCDM series) [facility] Start: 1998 HEPATITIS B (1 of 3 - Risk 3-dose series) HEPATITIS B (1 of 3 - Risk 3-dose series) [facility] Start: 1997 Anxiety Screening Anxiety Screening [facility] Start: 1997 BP Controlled (<130/80) BP Controlle d (<130/80) [facility] Start: 1997 Depression Screening Depression Scre ening [facility] Start: 1984 COVID-19 VACCINE (#1) COVID-19 VACCI NE (#1) [facility] Start: 1984 COVID-19 VACCINE (1) COVID-19 VACCIN E (1) [facility] Start: 1979 COVID-19 VACCINE (#1) COVID-19 VACCI NE (#1) [facility] Start: 1979 HEPATITIS B (1 of 3 - 3-dose series) HEPATITIS B (1 of 3 - 3-dose series) [facility] Start: 1979 Hepatitis B Vaccine (1 of 3 - 3-dose series) Hepatitis B Vaccine (1 of 3 - 3-dose series) [facility] Patient Education ED Gallstones with Biliary Colic [facility] Work Phone: Patient referral [facility] Work Phone: End: 02-04-2024 US ABD RIGHT UPPER QUADRANT US ABD RIGHT UPPER QUADRANT Radiology STAT Right upper quadrant pain 1 Occurrences starting 01/05/2023 until 02/04/2024 [facility] Work Phone: Comment on above: 1 Occurrences starti ng 01/05/2023 until 02/04/2024 End: 03-23-2025 XR Cervical spine AP and Lateral and oblique XR CERV OTHER 4V AP/LAT/OBL Radiology STAT Neck pain 1 Occurrences starting 02/22/2024 until 03/23/2025 [facility] Work Phone: Comment on above: 1 Occurrences starti ng 02/22/2024 until 03/23/2025 [facility] OR [facility] Immunizations Immunization Date Immunization Notes Care Provider Nati [facility] 10-19-2016 tetanus toxoid, redu michael diphtheria toxoid, and acellular pertussis vaccine, adsorbed [facility] 04-17-2015 pneumococcal polysaccharide vaccine, 23 valent Bernard Zelaya MD Work Phone: [facility] 08-26-2014 tetanus toxoid, redu michael diphtheria toxoid, and acellular pertussis vaccine, adsorbed Bernard Zelaya MD Work Phone: [facility] 11-21-2012 influenza nasal, unspecified formulation Farrah Galvez [employer] [facility] Work Phone: 11-21-2012 influenza virus vacc ine, unspecified formulation Karime Roa APRN.CNP Work Phone: [facility] Payers Date Payer Category Payer Blue Cross Blue [facility] BLUE [facility] [id number] 2024 Unknown [id number] 2022 Unknown [id number] 2022 Self-pay [id number] 2022 Unknown [id number] 2020 Private Health Insurance [id number] 2016 Medicaid [employer] [id number] 2016-Present [phone] [address] [place] [address] Medicaid [id number] 2016 Medicaid [id number] Unknown [employer] [id number] Unknown SELF INS [facility] ZACHARY CASPER [id number] Unknown SELF INSURED [facility] OTHER [id number] Unknown [id number] Unknown [id number] Unknown [id number] Social History Date Type Detail Facility Start: 05-02-2018 End: 12-23-2022 Tobacco smoking status NHIS Smokes tobacco daily [facility] Work Phone: Start: 01-24-1996 End: 01-23-2023 History of tobacco use Cigarette Smoker [facility] Start: 03-04-2021 End: 09-14-2024 Alcohol intake Current drinker of alcohol (finding) [facility] Start: 08-26-2014 History SDOH Alcohol Comment holidays 2 drinks [facility] Start: 1980 Sex Assigned At Not on file [facility] Start: 10-25-2021 End: 11-04-2021 Exposure to SARS-CoV-2 (event) Not sure [facility] Start: 05-14-2021 History SDOH Alcohol Frequency 98 [facility] Start: 05-14-2021 End: 08-23-2022 History SDOH Alcohol Binge 1 [facility] Start: 05-14-2021 End: 08-23-2022 History SDOH Social Connections Phone 5 [facility] Start: 05-14-2021 End: 08-23-2022 History SDOH Social Connections Membership 2 [facility] Start: 05-14-2021 End: 08-23-2022 History SDOH Social Connections Living 3 [facility] Start: 05-14-2021 End: 08-23-2022 History SDOH Financial 4 [facility] Start: 05-02-2018 End: 08-23-2022 Cigarettes smoked current (pack per day) - Reported 1 [facility] Start: 05-02-2018 End: 02-22-2024 Tobacco use and exposure Smokeless tobacco non-user [facility] Start: 11-02-2021 End: 11-12-2021 Exposure to SARS-CoV-2 (event) Unable to assess [facility] Work Phone: Start: 06-16-2022 End: 01-10-2023 Tobacco smoking status NHIS Unknown if ever smoked [facility] Start: 1980 Sex Assigned At Male [facility] Start: 08-23-2022 History SDOH Physical Activity DPW 6 [facility] Start: 08-23-2022 End: 03-14-2024 Social connection and isolation panel [facility] Do you belong to any clubs or organizations such as yazdanism groups, unions, fraternal or athletic groups, or school groups? No [facility] Are you now , , , , never or living with a partner? [facility] How often to you hav e a drink containing alcohol? Monthly or less [facility] How many standard dr inks containing alcohol do you have on a typical day? 1 or 2 [facility] How often do you hav e 6 or more drinks on 1 occasion? Never [facility] How hard is it for y ou to pay for the very basics like food, housing, medical care, and heating Not very hard [facility] Start: 01-23-2012 Adult Depression Screening Assessment 0 [facility] Do you feel stress - tense, restless, nervous, or anxious, or unable to sleep at night because your mind is troubled all the time - these days [OSQ] To some extent [facility] (I/We) worried wheth er (my/our) food would run out before (I/we) got money to buy more. Sometimes true [facility] The food that (I/we) bought just didn't last, and (I/we) didn't have money to get more. Never true [facility] In the past 12 month s, was there a time when you were not able to pay the mortgage or rent on time? Yes [facility] Start: 11-26-2020 Gender identity Identifies as male gender (finding) [facility] Start: 11-26-2020 Sexual orientation Heterosexual (finding) [facility] Start: 12-23-2022 Tobacco Comment From age 15 [facility] Start: 01-20-2023 Alcohol Comment holidays 2 drinks or less, infrequent drinker [facility] Start: 04-20-2023 End: 02-22-2024 Tobacco smoking status NHIS Ex-smoker [facility] Work Phone: Start: 01-24-1996 End: 01-23-2023 History of tobacco use Current smoker [facility] Work Phone: How hard is it for y ou to pay for the very basics like food, housing, medical care, and heating Somewhat hard [facility] Do you feel stress - tense, restless, nervous, or anxious, or unable to sleep at night because your mind is troubled all the time - these days [OSQ] Not at all [facility] Medical Equipment Procedure Code Equipment Code Equipment Original Text Equipment Identifier Dates [id number], [id number], [id number], [id number], [id number] Start: 06-30-2020 End: 03-14-2024 Comment on above: Test blood sugar(s) 2 times daily. Dx: Type 2 DM - Uncontrolled E11.65 Insulin: Yes Use to inject insuli n daily as directed. Functional Status Date Assessment Result Facility 08-26-2014 Are you deaf, or do you have serious difficulty hearing No 08/26/2014 8:48 AM Ban Ricci LPN No [facility] 08-26-2014 Are you blind, or do you have serious difficulty seeing, even when wearing glasses No 08/26/2014 8:48 AM Ban Ricci LPN No [facility] 08-26-2014 Do you have serious difficulty walking or climbing stairs No 08/26/2014 8:48 AM Ban Ricci LPN No [facility] 08-26-2014 Do you have difficul ty dressing or bathing No 08/26/2014 8:48 AM Ban Ricci LPN No [facility] 08-26-2014 Because of a physica l, mental, or emotional condition, do you have difficulty doing errands alone such as visiting a physician's office or shopping No 08/26/2014 8:48 AM Ban Ricci LPN No [facility] Mental Status Date Assessment Result Facility 08-26-2014 Because of a physica l, mental, or emotional condition, do you have serious difficulty concentrating, remembering, or making decisions No 08/26/2014 8:48 AM EDT Ban Eid LPN No [facility] Clinical Notes 03-04-2021 to 10-01-2024 Telephone Encounter - Arlene Steele MA - 10/01/2024 4:54 PM EDTTelephone Encounter - Arlene Steele MA - 10/01/2024 4:54 PM EDTPatient InstructionsPatient InstructionsPatient Instructions Note Date & Type Note Facility 10-01-2024 Telephone encounter Note Please send statin alternative Arlene Steele MA [facility] 10-01-2024 Miscellaneous Notes Please send statin alternative Arlene Steele MA documented in this encounter [facility] 09-14-2024 Instructions Karime Pryor APRN.CNP - 09/14/2024 7:31 AM EDT - Go to the lab today for your fasting blood work, including cholesterol panel and electrolytes. - Replenish your continuous glucose monitor supplies and resume regular blood sugar checks. - Talk with your about colon cancer screening and choose one: Colonoscopy every 10 years (requires prep and a entry driver operator) Cologuard stool DNA test every 3 years Then arrange your preferred option. - Watch for any ongoing burning, tingling, or numbness in your feet; let me know if these symptoms persist documented in this encounter [facility] 09-14-2024 Note HNO ID: [id number] Author: KARIME PRYOR APRN.GRISEL Service: ? Author Type: Nurse Practitioner Type: Progress Notes Filed: 09/14/2024 07:36 Note Text: CC: Patient presents with: Follow Up: 6 months HPI Recording using Distil Interactive software for draft documentation of the visit was discussed with the patient/authorized paper sales representative; all questions welcomed and answered. Patient/authorized paper sales representative agreed to proceed Pete Molina Pedro is a 44-year-old male with a history of type 2 diabetes mellitus, GERD, and hyperlipidemia, presenting for a routine follow-up. Type 2 Diabetes Mellitus: - Increased Lantus by 2 units due to consistently elevated fasting blood glucose levels (130-140 mg/dL) upon waking. - Has not used continuous glucose monitor for a few weeks. - No issues reported with Metformin. - Recent burning sensation on the top of the right foot but has since resolved GERD: - Managed with omeprazole; reports rare episodes of dysphagia. Hyperlipidemia: - Taking atorvastatin; denies myalgias or other side effects. Lightheadedness: - Recent onset when standing up after bending over. Notices it more when he is outside working - Occurs more frequently than before. - Drinks 2-3 32 oz Yetis of water daily. - Recent episode of a stomach flu a couple of weeks ago prior to worsening Hypertension: - Taking Lisinopril as prescribed - Denies side effects Review of Systems See HPI PAST MEDICAL HISTORY Diagnosis Date Burning sensation of feet 11/30/2021 Erectile dysfunction 04/17/2015 Essential hypertension Gastroesophageal reflux disease without esophagitis 08/26/2014 GERD (gastroesophageal reflux disease) 08/26/2014 Hyperlipidemia 08/26/2014 Overweight (BMI 25.0-29.9) 06/30/2020 Tobacco use disorder 10/03/2014 Type 2 diabetes (HCC) 08/26/2014 Type II or unspecified type diabetes mellitus without mention of complication, not stated as uncontrolled 08/26/2014 diagnosed 2012 PAST SURGICAL HISTORY Procedure Laterality Date EUSTACHIAN TUBOPLASTY as a child PAST SURGICAL HISTORY OF Right 02/22/1996 Right hand tendon repair PAST SURGICAL HISTORY OF Right 02/21/2003 Calf debridement, infection PAST SURGICAL HISTORY OF 02/21/1991 Testicular torsion REMOVAL GALLBLADDER 01/[address] Wang ALLERGIES Trulicity [Dulaglutide] MEDICATIONS atorvastatin (LIPITOR) 40 mg tablet Take 1 tablet by mouth daily at bedtime. For cholesterol. insulin glargine (LANTUS SOLOSTAR U-100 INSULIN) 100 unit/mL (3 mL) Inject 46 Units subcutaneously daily at bedtime. meloxicam (MOBIC) 15 mg tablet Take 1 tablet by mouth once daily. As needed metFORMIN ER (GLUCOPHAGE XR) 500 mg 24 hr tablet Take 2 tablets by mouth two times a day with meals. E11.65 omeprazole (PRILOSEC) 40 mg capsule Take 1 capsule by mouth once daily. lisinopril (ZESTRIL) 40 mg tablet Take 1 tablet by mouth once daily. Blood-Glucose Meter,Continuous (DEXCOM G7 TOMOGRAPHY TECHNOLOGIST) misc Use to check blood sugar at least four (4) times daily. Dx: E11.9. Insulin. Yes. Blood-Glucose Sensor (DEXCOM G7 SENSOR) gem Apply new sensor every ten (10) days. Dx:E11.9. Insulin: Yes. blood sugar diagnostic test strip Use with blood glucose test four times a day. Insulin Dep? Yes Blood-Glucose Meter Check Sugar 4 or more times daily Dx: E11.9 Insulin use: yes Lancets Test blood sugar(s) 4 times daily. Dx: Type 2 DM - Uncontrolled Insulin: Yes insulin needles, DISPOSABLE, (PEN NEEDLE) 31 gauge x 5/16 Use to inject insulin daily as directed. alcohol swabs (ALCOHOL PADS) Test blood sugar(s) 2 times daily. Dx: Type 2 DM - Uncontrolled Insulin: Yes FAMILY HISTORY Problem Relation Age of Onset No Ocular Disease Mother Osteoporosis Mother No Ocular Disease Father other (lymphoma) Father other (hepatitis C) Father Stroke Father No Ocular Disease Brother No Ocular Disease Brother None Brother No Ocular Disease Maternal Grandmother Dementia Maternal Grandmother No Ocular Disease Maternal Grandfather Heart Maternal Grandfather No Ocular Disease Paternal Grandmother unsure if grandmother had cataracts or glaucoma Diabetes Paternal Grandmother No Ocular Disease Paternal Grandfather Anesthesia Problems No Family History Social History Tobacco Use Smoking status: Former Current packs/day: 0.00 Average packs/day: 1 pack/day for 27.0 years (27.0 ttl pk-yrs) Types: Cigarettes Start date: 01/24/1996 Quit date: 01/23/2023 Years since quittin.6 Smokeless tobacco: Never Tobacco comments: From age 15 Vaping Use Vaping status: current everyday user Substances: Nicotine Substance Use Topics Alcohol use: Yes Comment: holidays 2 drinks or less, infrequent drinker Drug use: Yes Types: Marijuana Comment: 5 times per week for anxiety or less, non-medical BP 124/78 Pulse 72 Resp 12 Wt 97.3 kg (214 lb 8.1 oz) SpO2 99% BMI 31.41 kg/m? Physical Exam Vitals (more content not included)... [facility] 09-14-2024 History of Presen t illness Narrative CC: Patient presents with: Follow Up: 6 months HPI Recording using Distil Interactive software for draft documentation of the visit was discussed with the patient/authorized paper sales representative; all questions welcomed and answered. Patient/authorized paper sales representative agreed to proceed Pete Molina Pedro is a 44-year-old male with a history of type 2 diabetes mellitus, GERD, and hyperlipidemia, presenting for a routine follow-up. Type 2 Diabetes Mellitus: - Increased Lantus by 2 units due to consistently elevated fasting blood glucose levels (130-140 mg/dL) upon waking. - Has not used continuous glucose monitor for a few weeks. - No issues reported with Metformin. - Recent burning sensation on the top of the right foot but has since resolved GERD: - Managed with omeprazole; reports rare episodes of dysphagia. Hyperlipidemia: - Taking atorvastatin; denies myalgias or other side effects. Lightheadedness: - Recent onset when standing up after bending over. Notices it more when he is outside working - Occurs more frequently than before. - Drinks 2-3 32 oz Yetis of water daily. - Recent episode of a stomach flu a couple of weeks ago prior to worsening Hypertension: - Taking Lisinopril as prescribed - Denies side effects Review of Systems See HPI PAST MEDICAL HISTORY Diagnosis Date Burning sensation of feet 11/30/2021 Erectile dysfunction 04/17/2015 Essential hypertension Gastroesophageal reflux disease without esophagitis 08/26/2014 GERD (gastroesophageal reflux disease) 08/26/2014 Hyperlipidemia 08/26/2014 Overweight (BMI 25.0-29.9) 06/30/2020 Tobacco use disorder 10/03/2014 Type 2 diabetes (HCC) 08/26/2014 Type II or unspecified type diabetes mellitus without mention of complication, not stated as uncontrolled 08/26/2014 diagnosed 2012 PAST SURGICAL HISTORY Procedure Laterality Date EUSTACHIAN TUBOPLASTY as a child PAST SURGICAL HISTORY OF Right 02/22/1996 Right hand tendon repair PAST SURGICAL HISTORY OF Right 02/21/2003 Calf debridement, infection PAST SURGICAL HISTORY OF 02/21/1991 Testicular torsion REMOVAL GALLBLADDER 01/[address] Wang ALLERGIES Trulicity [Dulaglutide] MEDICATIONS atorvastatin (LIPITOR) 40 mg tablet Take 1 tablet by mouth daily at bedtime. For cholesterol. insulin glargine (LANTUS SOLOSTAR U-100 INSULIN) 100 unit/mL (3 mL) Inject 46 Units subcutaneously daily at bedtime. meloxicam (MOBIC) 15 mg tablet Take 1 tablet by mouth once daily. As needed metFORMIN ER (GLUCOPHAGE XR) 500 mg 24 hr tablet Take 2 tablets by mouth two times a day with meals. E11.65 omeprazole (PRILOSEC) 40 mg capsule Take 1 capsule by mouth once daily. lisinopril (ZESTRIL) 40 mg tablet Take 1 tablet by mouth once daily. Blood-Glucose Meter,Continuous (DEXCOM G7 TOMOGRAPHY TECHNOLOGIST) misc Use to check blood sugar at least four (4) times daily. Dx: E11.9. Insulin. Yes. Blood-Glucose Sensor (DEXCOM G7 SENSOR) gem Apply new sensor every ten (10) days. Dx:E11.9. Insulin: Yes. blood sugar diagnostic test strip Use with blood glucose test four times a day. Insulin Dep? Yes Blood-Glucose Meter Check Sugar 4 or more times daily Dx: E11.9 Insulin use: yes Lancets Test blood sugar(s) 4 times daily. Dx: Type 2 DM - Uncontrolled 65 Insulin: Yes insulin needles, DISPOSABLE, (PEN NEEDLE) 31 gauge x 5/16 Use to inject insulin daily as directed. alcohol swabs (ALCOHOL PADS) Test blood sugar(s) 2 times daily. Dx: Type 2 DM - Uncontrolled . Insulin: Yes FAMILY HISTORY Problem Relation Age of Onset No Ocular Disease Mother Osteoporosis Mother No Ocular Disease Father other (lymphoma) Father other (hepatitis C) Father Stroke Father No Ocular Disease Brother No Ocular Disease Brother None Brother No Ocular Disease Maternal Grandmother Dementia Maternal Grandmother No Ocular Disease Maternal Grandfather Heart Maternal Grandfather No Ocular Disease Paternal Grandmother unsure if grandmother had cataracts or glaucoma Diabetes Paternal Grandmother No Ocular Disease Paternal Grandfather Anesthesia Problems No Family History Social History Tobacco Use Smoking status: Former Current packs/day: 0.00 Average packs/day: 1 pack/day for 27.0 years (27.0 ttl pk-yrs) Types: Cigarettes Start date: 01/24/1996 Quit date: 01/23/2023 Years since quittin.6 Smokeless tobacco: Never Tobacco comments: From age 15 Vaping Use Vaping status: current everyday user Substances: Nicotine Substance Use Topics Alcohol use: Yes Comment: holidays 2 drinks or less, infrequent drinker Drug use: Yes Types: Marijuana Comment: 5 times per week for anxiety or less, non-medical BP 124/78 Pulse 72 Resp 12 Wt 97.3 kg (214 lb 8.1 oz) SpO2 99% BMI 31.41 kg/m Physical Exam Vitals reviewed. Constitutional: Appearance: Normal appearance. Cardiovascular: Rate and Rhythm: Normal rate and regular rhythm. Pulses: Dorsalis pedis pulses are 2+ on the right side and 2+ on the left side. Heart sounds: Normal heart sounds. No murmur heard. Pulmonary: Effort: Pulmonary effort is normal. Breath sounds: Normal breath sounds. No wheezing, rhonchi or rales. Musculoskeletal: Right lower leg: No edema. Left lower leg: No edema. Right foot: No deformity. Left foot: No deformity. Feet: Right foot: Protective Sensation: 6 sites tested. 6 sites sensed. Skin integrity: Skin integrity normal. Toenail Condition: Right toenails are normal. Left foot: Protective Sensation: 6 sites tested. 6 sites sensed. Skin integrity: Skin integrity normal. Toenail Condition: Left toenails are normal. Neurological: Mental Status: He is alert. Health maintenance reviewed with patient: Dilated Retinal Exam due on 01/08/2024 Urine Albumin:Creatinine Ratio due on 04/26/2024 LDL Cholesterol due on 04/26/2024 HbA1C due on 06/14/2024 Colorectal Cancer Screening due on 02/21/2025 Pneumococcal Vaccine(2 of 2 - PCV) due on 03/14/2025 Influenza Vaccine(1) due on 10/22/2024 Diabetic Foot Exam due on 09/14/2025 Annual PCP Team Chronic Disease Visit due on 09/14/2025 Depression Screening due on 09/14/2025 Anxiety Screening due on 09/14/2025 DTaP,Tdap,Td Vaccine(3 - Td or Tdap) due on 10/19/2026 Hepatitis C Screening Completed HIV Screening Completed Hepatitis B Vaccine Discontinued DATA REVIEWED: Most recent labs Assessment/Plan 1. Type 2 diabetes (HCC) (E11.9) - Fasting glucose levels improved after self-increasing Lantus by 2 units; previously 130-140 mg/dL. - Due for lab work today - Continue metformin as prescribed, refilled today - Schedule eye exam, overdue. - Performed foot exam; good sensation noted, but educated on burning as a potential sign of neuropathy. - Follow-up in 6 months. 2. Positional lightheadedness (R42) - Likely multifactorial: recent viral illness, heat exposure, and possible dehydration. - Advised to maintain adequate hydration. - Will review electrolytes with lab work. 3. Hyperlipidemia, unspecified hyperlipidemia type (E78.5) - No reported side effects from atorvastatin. - Continue atorvastatin as prescribed. - Obtain cholesterol labs today. 4. Gastroesophageal reflux disease without esophagitis (K21.9) - Symptoms well controlled with omeprazole; rare dysphagia. - Continue omeprazole as prescribed. 5. Encounter for screening examination for other mental health and behavioral disorders (Z13.39) 6. Screening for depression (Z13.31) 7. Primary hypertension (I10) - Well controlled; BP today 124/78 mmHg. - Continue current management with Lisinopril Prescription instructions reviewed with patient as applicable. Potential red flag symptoms discussed with the patient. Reviewed appropriate action plan to take if red flag symptoms occur. Patient agreeable to treatment plan. Karime Pryor APRN.CRUISE COORDINATOR documented in this encounter [facility] 08-25-2024 Note HNO ID: [id number] Author: SUDARSHAN TRAN MD Service: ? Author Type: Physician Type: Progress Notes Filed: 08/25/2024 14:02 Note Text: [facility] Subjective Peteelin Vasquez is a 44 year old male. No chief complaint on file. Patient has been feeling sick for 7 days. Initial symptoms just upset stomach which progressed to diarrhea, nausea, and belching. He continues to feel fatigued and and have upper abdominal discomfort. He felt dizzy when he was standing up today working in the garage. His daughter developed diarrhea today. Denies vomiting, blood in his stool, fever, cough, rhinorrhea, sore throat. Has had panting breathing and chest pain at times. He made vincentian chicken last weekend and is concerned he could have salmonella. He has been drinking water. He is not eating much. He has not taken anything for symptoms. Review of Systems Objective BP 107/73 Pulse 102 Temp 36.7 ?C (98.1 ?F) Resp 20 Wt 96 kg (211 lb 10.3 oz) SpO2 100% BMI 30.99 kg/m? Last 4 Encounter BP Readings: Date: BP: 08/25/2024 107/73 03/14/2024 134/72 02/22/2024 132/82 09/16/2023 138/77 Physical Exam Constitutional: General: He is not in acute distress. Appearance: He is not ill-appearing. Comments: Accompanied by his MARY ALICE: Right Ear: Tympanic membrane and ear canal normal. Left Ear: Tympanic membrane and ear canal normal. Nose: No congestion or rhinorrhea. Mouth/Throat: Mouth: Mucous membranes are moist. Pharynx: No oropharyngeal exudate or posterior oropharyngeal erythema. Eyes: Extraocular Movements: Extraocular movements intact. Conjunctiva/sclera: Conjunctivae normal. Pupils: Pupils are equal, round, and reactive to light. Cardiovascular: Rate and Rhythm: Normal rate and regular rhythm. Heart sounds: No murmur heard. Pulmonary: Effort: No respiratory distress. Breath sounds: No wheezing, rhonchi or rales. Abdominal: General: There is no distension. Palpations: There is no mass. Tenderness: There is no abdominal tenderness. There is no guarding. Musculoskeletal: Cervical back: Neck supple. Lymphadenopathy: Cervical: No cervical adenopathy. Neurological: General: No focal deficit present. Mental Status: He is alert and oriented to person, place, and time. Cranial Nerves: No cranial nerve deficit. Motor: No weakness. Gait: Gait normal. {ASSESSMENT/PLAN: 1. Diarrhea of presumed infectious origin - ICD9: 009.3, ICD10: R19.7 (primary diagnosis) Hydration with fluids encouraged. Resume normal solid intake as tolerated. He has nausea medicine and may try using it. Follow up in the ER with signs of dehydration, increasing abdominal pain, high fever, or blood in vomit or stool. Test for Salmonella and other enteric pathogen's can be ordered if diarrhea is not improving by Tuesday 2. Primary hypertension - ICD9: 401.9, ICD10: I10 He has had poor intake this week. He will reduce lisinopril dose in half today and tomorrow. Follow up in the ER with worsening dizziness, worsening shortness of breath, increasing chest pain. Sudarshan Tran MD Differential Diagnoses - Infectious gastroenteritis is more likely for the following reason(s): suggested by HANDP - Pancreatitis or biliary obstruction is less likely for the following reason(s): Status postcholecystectomy, benign exam Procedures [facility] 08-25-2024 History of Presen t illness Narrative [facility] Subjective Peteelin Vasquez is a 44 year old male. No chief complaint on file. Patient has been feeling sick for 7 days. Initial symptoms just upset stomach which progressed to diarrhea, nausea, and belching. He continues to feel fatigued and and have upper abdominal discomfort. He felt dizzy when he was standing up today working in the garage. His daughter developed diarrhea today. Denies vomiting, blood in his stool, fever, cough, rhinorrhea, sore throat. Has had panting breathing and chest pain at times. He made vincentian chicken last weekend and is concerned he could have salmonella. He has been drinking water. He is not eating much. He has not taken anything for symptoms. Review of Systems Objective BP 107/73 Pulse 102 Temp 36.7 C (98.1 F) Resp 20 Wt 96 kg (211 lb 10.3 oz) SpO2 100% BMI 30.99 kg/m Last 4 Encounter BP Readings: Date: BP: 08/25/2024 107/73 03/14/2024 134/72 02/22/2024 132/82 09/16/2023 138/77 Physical Exam Constitutional: General: He is not in acute distress. Appearance: He is not ill-appearing. Comments: Accompanied by his CATRACHOT: Right Ear: Tympanic membrane and ear canal normal. Left Ear: Tympanic membrane and ear canal normal. Nose: No congestion or rhinorrhea. Mouth/Throat: Mouth: Mucous membranes are moist. Pharynx: No oropharyngeal exudate or posterior oropharyngeal erythema. Eyes: Extraocular Movements: Extraocular movements intact. Conjunctiva/sclera: Conjunctivae normal. Pupils: Pupils are equal, round, and reactive to light. Cardiovascular: Rate and Rhythm: Normal rate and regular rhythm. Heart sounds: No murmur heard. Pulmonary: Effort: No respiratory distress. Breath sounds: No wheezing, rhonchi or rales. Abdominal: General: There is no distension. Palpations: There is no mass. Tenderness: There is no abdominal tenderness. There is no guarding. Musculoskeletal: Cervical back: Neck supple. Lymphadenopathy: Cervical: No cervical adenopathy. Neurological: General: No focal deficit present. Mental Status: He is alert and oriented to person, place, and time. Cranial Nerves: No cranial nerve deficit. Motor: No weakness. Gait: Gait normal. {ASSESSMENT/PLAN: 1. Diarrhea of presumed infectious origin - ICD9: 009.3, ICD10: R19.7 (primary diagnosis) Hydration with fluids encouraged. Resume normal solid intake as tolerated. He has nausea medicine and may try using it. Follow up in the ER with signs of dehydration, increasing abdominal pain, high fever, or blood in vomit or stool. Test for Salmonella and other enteric pathogen's can be ordered if diarrhea is not improving by Tuesday 2. Primary hypertension - ICD9: 401.9, ICD10: I10 He has had poor intake this week. He will reduce lisinopril dose in half today and tomorrow. Follow up in the ER with worsening dizziness, worsening shortness of breath, increasing chest pain. Sudarshan Tran MD Differential Diagnoses - Infectious gastroenteritis is more likely for the following reason(s): suggested by H&P - Pancreatitis or biliary obstruction is less likely for the following reason(s): Status postcholecystectomy, benign exam Procedures documented in this encounter [facility] 07-23-2024 Telephone encounter Note Patient has been identified by name and date of : Yes Patient phones for refill(s): Requested Prescriptions Pending Prescriptions Disp Refills lisinopril (ZESTRIL) 40 mg tablet 90 tablet 3 Sig: Take 1 tablet by mouth once daily. Date of last office visit in primary care: 03/14/2024 Date of next office visit in primary care: Visit date not found Please advise. Thank you. Brisa Tai LPN. [facility] 07-23-2024 Miscellaneous Notes Patient has been identified by name and date of : Yes Patient phones for refill(s): Requested Prescriptions Pending Prescriptions Disp Refills lisinopril (ZESTRIL) 40 mg tablet 90 tablet 3 Sig: Take 1 tablet by mouth once daily. Date of last office visit in primary care: 03/14/2024 Date of next office visit in primary care: Visit date not found Please advise. Thank you. Brisa Tai LPN. documented in this encounter [facility] 06-18-2024 Note HNO ID: [id number] Author: ?, ?, ? Service: ? Author Type: ? Type: Progress Notes Filed: 06/18/2024 11:09 Note Text: Contacted patient, scheduled colonoscopy consult 06-28-2024 [facility] 06-18-2024 Note Patient Outreach ( [facility]) PETE VASQUEZ ([id number]) 1980 M Date Time Provider Department 06/18/24 [facility]ERN[facility] ZELAYA AS[facility] During your visit today, we recorded the following information about you: Mira Evans 06/18/2024 11:09 AM Signed Contacted patient, scheduled colonoscopy consult 06-28-2024 Allergies As of Date: 06/18/2024 (No Known Allergies) Date Reviewed: 03/14/2024 Reviewed by: Karime Pryor, POSTAGE MACHINE OPERATOR.CRUISE COORDINATOR - Fully Assessed Reason for Visit: Outpatient Colonoscopy [482] Cmt: Patient is overdue for colorectal cancer screening (Has never done). Patient will need consult with Marlen Michael CNP prior to colorectal cancer screening. Primary Visit Diagnosis:Screening for colorectal cancer [Z12.11, Z12.12] Prescriptions as of 06/18/2024 - Blood-Glucose Meter,Continuous (DEXCOM G7 TOMOGRAPHY TECHNOLOGIST[place] [facility] [place] check blood sugar at least four (4) times daily. Dx: E11.9. Insulin. Yes. - Blood-Glucose Sensor (DEXCOM G7 SENSOR) gem Apply new sensor every ten (10) days. Dx:E11.9. Insulin: Yes. - blood sugar diagnostic test strip Use with blood glucose test four times a day. Insulin Dep? Yes - Blood-Glucose Meter Check Sugar 4 or more times daily Dx: E11.9 Insulin use: yes - atorvastatin (LIPITOR) 40 mg tablet Take 1 tablet by mouth daily at bedtime. For cholesterol. - empagliflozin (JARDIANCE) 25 mg tablet Take 1 tablet by mouth once daily. Take 1 tablet once daily in the morning - insulin glargine (LANTUS SOLOSTAR U-100 INSULIN) 100 unit/mL (3 mL) Inject 44 Units subcutaneously daily at bedtime. - Lancets Test blood sugar(s) 4 times daily. Dx: Type 2 DM - Uncontrolled Insulin: Yes - metFORMIN ER (GLUCOPHAGE XR) 500 mg 24 hr tablet Take 2 tablets by mouth two times a day with meals. E11. - omeprazole (PRILOSEC) 40 mg capsule Take 1 capsule by mouth once daily. - meloxicam (MOBIC) 15 mg tablet Take 1 tablet by mouth once daily. As needed - cyclobenzaprine (FLEXERIL) 10 mg tablet Take 1 tablet by mouth three times a day as needed for muscle spasm. - lisinopril (ZESTRIL) 40 mg tablet Take 1 tablet by mouth once daily. - insulin needles, DISPOSABLE, (PEN NEEDLE) 31 gauge x 5/16 Use to inject insulin daily as directed. - ondansetron orally disintegrating (ZOFRAN ODT) 4 mg disintegrating tablet Take 1 tablet by mouth every 6 hours as needed for nausea/vomiting. - alcohol swabs (ALCOHOL PADS) Test blood sugar(s) 2 times daily. Dx: Type 2 DM - Uncontrolled 65 Insulin: Yes Problem List As Of Date 06/18/2024 Noted Resolved Type 2 diabetes (HCC) [E11.9] 08/26/2014 Hyperlipidemia [E78.5] 08/26/2014 Gastroesophageal reflux disease without esophag*08/26/2014 Tobacco use disorder [F17.200] 10/03/2014 Erectile dysfunction [N52.9] 04/17/2015 Overweight (BMI 25.0-29.9) [E66.3] 06/30/2020 Screening for ischemic heart disease [Z13.6] 03/04/2021 05/14/2021 Uncontrolled type 2 diabetes mellitus with hype*03/04/2021 12/23/2022 Burning sensation of feet [R20.8] 11/30/2021 Primary hypertension [I10] 12/23/2022 Obesity (BMI 30.0-34.9) [E66.811] 01/20/2023 Suspected sleep apnea [R29.818] 01/20/2023 Marijuana use [F12.90] 01/20/2023 Leukocytosis [D72.829] 03/19/2024 Encounter Status:Closed by MIRA EVANS on 06/18/24 [facility] 06-11-2024 Note HNO ID: [id number] Author: ALAN HIGHTOWER LPN Service: ? Author Type: LICENSED NURSE Type: Progress Notes Filed: 06/11/2024 10:15 Note Text: Phoned patient to call in to set up a follow up appointment for August [address]Velasquez Alan Hightower LPN [facility] 06-11-2024 History of Presen t illness Narrative Phoned patient to call in to set up a follow up appointment for August [address]Velasquez Alan Hightower LPN documented in this encounter [facility] 06-11-2024 Note Patient Outreach (IN TMWS) PETE VASQUEZ ([id number]) 1980 M Date Time Provider Department 06/11/24 ZELAYABERNARD VAUGHAN During your visit today, we recorded the following information about you: Alan Hightower LPN 06/11/2024 10:15 AM Signed Phoned patient to call in to set up a follow up appointment for August [address]Velasquez Alan Hightower LPN Allergies As of Date: 06/11/2024 (No Known Allergies) Date Reviewed: 03/14/2024 Reviewed by: Karime Pryor, POSTAGE MACHINE OPERATOR.CRUISE COORDINATOR - Fully Assessed Reason for Visit: Follow Up [171] Cmt: Patient needs a follow up appointment for August Prescriptions as of 06/11/2024 - Blood-Glucose Meter,Continuous (DEXCOM G7 TOMOGRAPHY TECHNOLOGIST) misc Use to check blood sugar at least four (4) times daily. Dx: E11.9. Insulin. Yes. - Blood-Glucose Sensor (DEXCOM G7 SENSOR) gem Apply new sensor every ten (10) days. Dx:E11.9. Insulin: Yes. - blood sugar diagnostic test strip Use with blood glucose test four times a day. Insulin Dep? Yes - Blood-Glucose Meter Check Sugar 4 or more times daily Dx: E11.9 Insulin use: yes - atorvastatin (LIPITOR) 40 mg tablet Take 1 tablet by mouth daily at bedtime. For cholesterol. - empagliflozin (JARDIANCE) 25 mg tablet Take 1 tablet by mouth once daily. Take 1 tablet once daily in the morning - insulin glargine (LANTUS SOLOSTAR U-100 INSULIN) 100 unit/mL (3 mL) Inject 44 Units subcutaneously daily at bedtime. - Lancets Test blood sugar(s) 4 times daily. Dx: Type 2 DM - Uncontrolled E11.65 Insulin: Yes - metFORMIN ER (GLUCOPHAGE XR) 500 mg 24 hr tablet Take 2 tablets by mouth two times a day with meals. E11.65 - omeprazole (PRILOSEC) 40 mg capsule Take 1 capsule by mouth once daily. - meloxicam (MOBIC) 15 mg tablet Take 1 tablet by mouth once daily. As needed - cyclobenzaprine (FLEXERIL) 10 mg tablet Take 1 tablet by mouth three times a day as needed for muscle spasm. - lisinopril (ZESTRIL) 40 mg tablet Take 1 tablet by mouth once daily. - insulin needles, DISPOSABLE, (PEN NEEDLE) 31 gauge x 5/16 Use to inject insulin daily as directed. - ondansetron orally disintegrating (ZOFRAN ODT) 4 mg disintegrating tablet Take 1 tablet by mouth every 6 hours as needed for nausea/vomiting. - alcohol swabs (ALCOHOL PADS) Test blood sugar(s) 2 times daily. Dx: Type 2 DM - Uncontrolled E11.65 Insulin: Yes Problem List As Of Date 06/11/2024 Noted Resolved Type 2 diabetes (HCC) [E11.9] 08/26/2014 Hyperlipidemia [E78.5] 08/26/2014 Gastroesophageal reflux disease without esophag*08/26/2014 Tobacco use disorder [F17.200] 10/03/2014 Erectile dysfunction [N52.9] 04/17/2015 Overweight (BMI 25.0-29.9) [E66.3] 06/30/2020 Screening for ischemic heart disease [Z13.6] 03/04/2021 05/14/2021 Uncontrolled type 2 diabetes mellitus with hype*03/04/2021 12/23/2022 Burning sensation of feet [R20.8] 11/30/2021 Primary hypertension [I10] 12/23/2022 Obesity (BMI 30.0-34.9) [E66.811] 01/20/2023 Suspected sleep apnea [R29.818] 01/20/2023 Marijuana use [F12.90] 01/20/2023 Leukocytosis [D72.829] 03/19/2024 Encounter Status:Closed by ALAN HIGHTOWER on 06/11/24 [facility] 05-28-2024 Note HNO ID: [id number] Author: BRISA TAI LPN Service: ? Author Type: LICENSED NURSE Type: Progress Notes Filed: 05/28/2024 14:41 Note Text: POPULATION HEALTH NAVIGATION OUTREACH Action/FYI Patient needs to schedule 6 month follow-up in August 2024, left message to call and schedule Reason for Outreach Care Gap/HCC or Scheduling Wellness Visits Care Gaps due: Follow-up Appointment Patient Contacted: Unable or unnecessary to reach patient: Left message Navigation Signature: Brisa Tai LPN May 28, 2024 2:40 PM [facility] 05-28-2024 History of Presen t illness Narrative POPULATION HEALTH NAVIGATION OUTREACH Action/FYI Patient needs to schedule 6 month follow-up in August 2024, left message to call and schedule Reason for Outreach Care Gap/HCC or Scheduling Wellness Visits Care Gaps due: Follow-up Appointment Patient Contacted: Unable or unnecessary to reach patient: Left message Navigation Signature: Brisa Tai LPN May 28, 2024 2:40 PM documented in this encounter [facility] 03-19-2024 Telephone encounter Note The following approved medication requests have been transmitted electronically. Requested Prescriptions Signed Prescriptions Disp Refills Blood-Glucose Meter,Continuous (DEXCOM G7 TOMOGRAPHY TECHNOLOGIST) misc 1 Each 0 Sig: Use to check blood sugar at least four (4) times daily. Dx: E11.9. Insulin. Yes. Authorizing Provider: BERNARD ZELAYA Blood-Glucose Sensor (DEXCOM G7 SENSOR) gem 9 Each 5 Sig: Apply new sensor every ten (10) days. Dx:E11.9. Insulin: Yes. Authorizing Provider: BERNARD ZELAYA MD [facility] 03-19-2024 Miscellaneous Notes The following approved medication requests have been transmitted electronically. Requested Prescriptions Signed Prescriptions Disp Refills Blood-Glucose Meter,Continuous (DEXCOM G7 TOMOGRAPHY TECHNOLOGIST) misc 1 Each 0 Sig: Use to check blood sugar at least four (4) times daily. Dx: E11.9. Insulin. Yes. Authorizing Provider: BERNARD ZELAYA Blood-Glucose Sensor (DEXCOM G7 SENSOR) gem 9 Each 5 Sig: Apply new sensor every ten (10) days. Dx:E11.9. Insulin: Yes. Authorizing Provider: BERNARD ZELAYA MD Reviewed with pt and he would be fine with the decom that insurance says is covered. Pharmacy verified. Images from the original note were not included. Electonic PA completed for the freestyle wanda 3. Insurance prefers decom. Request for coverage of Continuous Glucose Monitors has been denied. A request for prescription coverage for Continuous Glucose Monitors was recently submitted on your behalf. After careful consideration and review of the information sent to us, this request was not approved. We understand that this decision may not be what you and your doctor expected. This letter and the enclosed information will explain your options and help you decide what to do next. We reviewed all the supporting information sent to us and used your plan s guidelines to make our decision. Why your request was denied: Your plan only covers this product when your doctor gives us a medical reason you cannot use the preferred product. We have denied your request because you do not meet this condition. We reviewed the information we had. Your request has been denied. Your doctor can send us any new or missing information for us to review. The preferred product for your plan is Dexcom Continuous Glucose Monitor. Your doctor may need to get approval from your plan for preferred products. from payer: Your PA request has been denied. Additional information will be provided in the denial communication. (Message 1140) Payer: OSMAN Bustos [phone] Electronic appeal: Not supported Appeal instructions: Your PA request has been denied. Additional information will be provided in the denial communication. (Message 1140) View History Notes Time User Attachment Attachment received from payer. 03/14/2024 8:53 PM C[facility], Rx Priorauth In Document Medication Being Authorized Blood-Glucose Sensor (FREESTYLE WANDA 3 SENSOR) gem Use to test blood sugar as directed. E11.65 Dispense: 6 Each Refills: 3 Start: 03/14/2024 Class: Normal Diagnoses: Type 2 diabetes (HCC) This order has been released to its destination. To be filled at: [facility] [address] [place] [id number] [address] [facility] [phone] [id number] documented in this encounter [facility] 03-15-2024 Telephone encounter Note Reviewed with pt and he would be fine with the decom that insurance says is covered. Pharmacy verified. [facility] 03-15-2024 Telephone encounter Note Images from the original note were not included. Electonic PA completed for the freestyle wanda 3. Insurance prefers decom. Request for coverage of Continuous Glucose Monitors has been denied. A request for prescription coverage for Continuous Glucose Monitors was recently submitted on your behalf. After careful consideration and review of the information sent to us, this request was not approved. We understand that this decision may not be what you and your doctor expected. This letter and the enclosed information will explain your options and help you decide what to do next. We reviewed all the supporting information sent to us and used your plan s guidelines to make our decision. Why your request was denied: Your plan only covers this product when your doctor gives us a medical reason you cannot use the preferred product. We have denied your request because you do not meet this condition. We reviewed the information we had. Your request has been denied. Your doctor can send us any new or missing information for us to review. The preferred product for your plan is Dexcom Continuous Glucose Monitor. Your doctor may need to get approval from your plan for preferred products. from payer: Your PA request has been denied. Additional information will be provided in the denial communication. (Message 1140) Payer: OSMAN Bustos [phone] Electronic appeal: Not supported Appeal instructions: Your PA request has been denied. Additional information will be provided in the denial communication. (Message 1140) View History Notes Time User Attachment Attachment received from payer. 03/14/2024 8:53 PM Cchs, Rx Priorauth In Document Medication Being Authorized Blood-Glucose Sensor (FREESTYLE WANDA 3 SENSOR) gem Use to test blood sugar as directed. E11.65 Dispense: 6 Each Refills: 3 Start: 03/14/2024 Class: Normal Diagnoses: Type 2 diabetes (HCC) This order has been released to its destination. To be filled at: [facility] [address] [facility] [phone] 1811 [facility] 03-14-2024 Telephone encounter Note Pt was notified of the results. Pt verbalized understanding. Agatha Rosario MA [facility] 03-14-2024 Miscellaneous Notes Pt was notified of the results. Pt verbalized understanding. Agatha Rosario MA X-ray came back with just mild degenerative changes. Patient should continue treatment plan as discussed with his primary care that he seen yesterday. If getting worse follow back up with primary care documented in this encounter [facility] 03-14-2024 Telephone encounter Note X-ray came back with just mild degenerative changes. Patient should continue treatment plan as discussed with his primary care that he seen yesterday. If getting worse follow back up with primary care [facility] Work Phone: 03-14-2024 Instructions Karime Pryor APRN.CNP - 03/14/2024 6:57 PM EST [email or web address] documented in this encounter [facility] 03-14-2024 History of Presen t illness Narrative Radiology Service Progress Note PATIENT NAME: Pete Vasquez DATE OF SERVICE: March 14, 2024 TIME: 7:00 PM PATIENT IDENTITY VERIFICATION COMPLETED USING TWO (2) IDENTIFIERS: Name and Date of confirmed by patient verbally. FALL SCREENING: Has the patient had 2 falls in the last year or 1 fall with injury or currently using an Ambulatory Assistive Device (Walker, Cane, Wheelchair, Crutches, etc.)? No PATIENT GENDER DATA: Assigned male at PATIENT RELEVANT IMPLANT DATA REVIEWED: Yes PATIENT PRESENTS WITH AN IMPLANTABLE OR ATTACHED DRIVER SALESMAN: No RADIOLOGY DEPARTMENT: General X-ray: Exam(s) Completed: Spine X-Ray(s): Cervical AP / LAT / OBL PERIPHERAL IV DATA: Not applicable SIGNED BY: RT Henri(Precious) March 14, 2024 7:00 PM documented in this encounter [facility] 03-14-2024 Note HNO ID: [id number] Author: CHARLY CEVALLOS RT(Precious) Service: ? Author Type: Sports Umpire Type: Progress Notes Filed: 03/14/2024 19:00 Note Text: Radiology Service Progress Note PATIENT NAME: Pete Vasquez DATE OF SERVICE: March 14, 2024 TIME: 7:00 PM PATIENT IDENTITY VERIFICATION COMPLETED USING TWO (2) IDENTIFIERS: Name and Date of confirmed by patient verbally. FALL SCREENING: Has the patient had 2 falls in the last year or 1 fall with injury or currently using an Ambulatory Assistive Device (Walker, Cane, Wheelchair, Crutches, etc.)? No PATIENT GENDER DATA: Assigned male at PATIENT RELEVANT IMPLANT DATA REVIEWED: Yes PATIENT PRESENTS WITH AN IMPLANTABLE OR ATTACHED DRIVER SALESMAN: No RADIOLOGY DEPARTMENT: General X-ray: Exam(s) Completed: Spine X-Ray(s): Cervical AP / LAT / OBL PERIPHERAL IV DATA: Not applicable SIGNED BY: RT Henri(Precious) March 14, 2024 7:00 PM [facility] 03-14-2024 Note HNO ID: [id number] Author: KARIME PRYOR APRN.GRISEL Service: ? Author Type: Nurse Practitioner Type: Progress Notes Filed: 03/14/2024 18:57 Note Text: CC: Patient presents with: Physical Pain: Neck x 1.5 month HPI Pete Vasquez is a 43 year old male who presents today for above. He is taking medications as prescribed, denies side effects. He reports occasional reflux and dysphagia with solid foods despite taking PPI. He was seen in [facility] on 02/21 for one week history of neck pain on the left with radiation down the left arm. Associated with intermittent numbness/tingling of the left arm. He was prescribed prednisone burst with taper. X-ray was ordered but he did not have done. He reports modest relief after completing the prednisone but pain is still bothersome. Denies any new or worsening symptoms. Denies left arm weakness or loss of standard machine stitcher strength. There was no injury or trauma, just woke up with the neckpain one morning. He does do quite a bit of heavy lifting at work. Pain is worse first thing in the morning along with stiffness that improves as the day goes on. Review of Systems Constitutional: Negative for chills, diaphoresis, fatigue, fever and unexpected weight change. HENT: Negative for voice change. Respiratory: Negative for cough, shortness of breath and wheezing. Cardiovascular: Negative for chest pain, palpitations and leg swelling. Gastrointestinal: Negative for constipation. Neurological: Negative for dizziness, syncope and light-headedness. PAST MEDICAL HISTORY Diagnosis Date Burning sensation of feet 11/30/2021 Erectile dysfunction 04/17/2015 Essential hypertension Gastroesophageal reflux disease without esophagitis 08/26/2014 GERD (gastroesophageal reflux disease) 08/26/2014 Hyperlipidemia 08/26/2014 Overweight (BMI 25.0-29.9) 06/30/2020 Tobacco use disorder 10/03/2014 Type 2 diabetes (HCC) 08/26/2014 Type II or unspecified type diabetes mellitus without mention of complication, not stated as uncontrolled 08/26/2014 diagnosed 2012 PAST SURGICAL HISTORY Procedure Laterality Date EUSTACHIAN TUBOPLASTY as a child PAST SURGICAL HISTORY OF Right 02/22/1996 Right hand tendon repair PAST SURGICAL HISTORY OF Right 02/21/2003 Calf debridement, infection PAST SURGICAL HISTORY OF 02/21/1991 Testicular torsion REMOVAL GALLBLADDER 01/[address] Wang ALLERGIES Patient has no known allergies. MEDICATIONS insulin glargine (LANTUS SOLOSTAR U-100 INSULIN) 100 unit/mL (3 mL) Inject 44 Units subcutaneously daily at bedtime. cyclobenzaprine (FLEXERIL) 10 mg tablet Take 1 tablet by mouth three times a day as needed for muscle spasm. omeprazole (PRILOSEC) 40 mg capsule Take 1 capsule by mouth once daily. metFORMIN ER (GLUCOPHAGE XR) 500 mg 24 hr tablet Take 2 tablets by mouth two times a day with meals. E11.65 empagliflozin (JARDIANCE) 25 mg tablet Take 1 tablet by mouth once daily. Take 1 tablet once daily in the morning lisinopril (ZESTRIL) 40 mg tablet Take 1 tablet by mouth once daily. insulin needles, DISPOSABLE, (PEN NEEDLE) 31 gauge x 5/16 Use to inject insulin daily as directed. atorvastatin (LIPITOR) 40 mg tablet Take 1 tablet by mouth daily at bedtime. For cholesterol. meloxicam (MOBIC) 15 mg tablet Take 1 tablet by mouth once daily. As needed Blood-Glucose Sensor (FREESTYLE WANDA 3 SENSOR) gem Use to test blood sugar as directed. E11.65 ondansetron orally disintegrating (ZOFRAN ODT) 4 mg disintegrating tablet Take 1 tablet by mouth every 6 hours as needed for nausea/vomiting. alcohol swabs (ALCOHOL PADS) Test blood sugar(s) 2 times daily. Dx: Type 2 DM - Uncontrolled E11.65 Insulin: Yes Lancets lancets Test blood sugar(s) 2 times daily. Dx: Type 2 DM - Uncontrolled E11.65 Insulin: Yes FAMILY HISTORY Problem Relation Age of Onset No Ocular Disease Mother Osteoporosis Mother No Ocular Disease Father other (lymphoma) Father other (hepatitis C) Father Stroke Father No Ocular Disease Brother No Ocular Disease Brother None Brother No Ocular Disease Maternal Grandmother Dementia Maternal Grandmother No Ocular Disease Maternal Grandfather Heart Maternal Grandfather No Ocular Disease Paternal Grandmother unsure if grandmother had cataracts or glaucoma Diabetes Paternal Grandmother No Ocular Disease Paternal Grandfather Anesthesia Problems No Family History Social History Tobacco Use Smoking status: Former Current packs/day: 0.00 Average packs/day: 1 pack/day for 27.0 years (27.0 ttl pk-yrs) Types: Cigarettes Start date: 01/24/1996 Quit date: 01/23/2023 Years since quittin.1 Smokeless tobacco: Never Tobacco comments: From age 15 Vaping Use Vaping status: current everyday user Substances: Nicotine Substance Use Topics Alcohol use: Yes Comment: holidays 2 drinks or less, infrequent drinker Drug use: Yes Types: Marijuana Comment: 5 times per week for anxiety o (more content not included)... [facility] 03-14-2024 History of Presen t illness Narrative CC: Patient presents with: Physical Pain: Neck x 1.5 month HPI Pete Vasquez is a 43 year old male who presents today for above. He is taking medications as prescribed, denies side effects. He reports occasional reflux and dysphagia with solid foods despite taking PPI. He was seen in [facility] on 02/21 for one week history of neck pain on the left with radiation down the left arm. Associated with intermittent numbness/tingling of the left arm. He was prescribed prednisone burst with taper. X-ray was ordered but he did not have done. He reports modest relief after completing the prednisone but pain is still bothersome. Denies any new or worsening symptoms. Denies left arm weakness or loss of standard machine stitcher strength. There was no injury or trauma, just woke up with the neck pain one morning. He does do quite a bit of heavy lifting at work. Pain is worse first thing in the morning along with stiffness that improves as the day goes on. Review of Systems Constitutional: Negative for chills, diaphoresis, fatigue, fever and unexpected weight change. HENT: Negative for voice change. Respiratory: Negative for cough, shortness of breath and wheezing. Cardiovascular: Negative for chest pain, palpitations and leg swelling. Gastrointestinal: Negative for constipation. Neurological: Negative for dizziness, syncope and light-headedness. PAST MEDICAL HISTORY Diagnosis Date Burning sensation of feet 11/30/2021 Erectile dysfunction 04/17/2015 Essential hypertension Gastroesophageal reflux disease without esophagitis 08/26/2014 GERD (gastroesophageal reflux disease) 08/26/2014 Hyperlipidemia 08/26/2014 Overweight (BMI 25.0-29.9) 06/30/2020 Tobacco use disorder 10/03/2014 Type 2 diabetes (HCC) 08/26/2014 Type II or unspecified type diabetes mellitus without mention of complication, not stated as uncontrolled 08/26/2014 diagnosed 2013 PAST SURGICAL HISTORY Procedure Laterality Date EUSTACHIAN TUBOPLASTY as a child PAST SURGICAL HISTORY OF Right 02/22/1996 Right hand tendon repair PAST SURGICAL HISTORY OF Right 02/21/2003 Calf debridement, infection PAST SURGICAL HISTORY OF 02/21/1991 Testicular torsion REMOVAL GALLBLADDER 01/[address] Wang ALLERGIES Patient has no known allergies. MEDICATIONS insulin glargine (LANTUS SOLOSTAR U-100 INSULIN) 100 unit/mL (3 mL) Inject 44 Units subcutaneously daily at bedtime. cyclobenzaprine (FLEXERIL) 10 mg tablet Take 1 tablet by mouth three times a day as needed for muscle spasm. omeprazole (PRILOSEC) 40 mg capsule Take 1 capsule by mouth once daily. metFORMIN ER (GLUCOPHAGE XR) 500 mg 24 hr tablet Take 2 tablets by mouth two times a day with meals. E11.65 empagliflozin (JARDIANCE) 25 mg tablet Take 1 tablet by mouth once daily. Take 1 tablet once daily in the morning lisinopril (ZESTRIL) 40 mg tablet Take 1 tablet by mouth once daily. insulin needles, DISPOSABLE, (PEN NEEDLE) 31 gauge x 5/16 Use to inject insulin daily as directed. atorvastatin (LIPITOR) 40 mg tablet Take 1 tablet by mouth daily at bedtime. For cholesterol. meloxicam (MOBIC) 15 mg tablet Take 1 tablet by mouth once daily. As needed Blood-Glucose Sensor (FREESTYLE WANDA 3 SENSOR) gem Use to test blood sugar as directed. E11.65 ondansetron orally disintegrating (ZOFRAN ODT) 4 mg disintegrating tablet Take 1 tablet by mouth every 6 hours as needed for nausea/vomiting. alcohol swabs (ALCOHOL PADS) Test blood sugar(s) 2 times daily. Dx: Type 2 DM - Uncontrolled E11.65 Insulin: Yes Lancets lancets Test blood sugar(s) 2 times daily. Dx: Type 2 DM - Uncontrolled E11.65 Insulin: Yes FAMILY HISTORY Problem Relation Age of Onset No Ocular Disease Mother Osteoporosis Mother No Ocular Disease Father other (lymphoma) Father other (hepatitis C) Father Stroke Father No Ocular Disease Brother No Ocular Disease Brother None Brother No Ocular Disease Maternal Grandmother Dementia Maternal Grandmother No Ocular Disease Maternal Grandfather Heart Maternal Grandfather No Ocular Disease Paternal Grandmother unsure if grandmother had cataracts or glaucoma Diabetes Paternal Grandmother No Ocular Disease Paternal Grandfather Anesthesia Problems No Family History Social History Tobacco Use Smoking status: Former Current packs/day: 0.00 Average packs/day: 1 pack/day for 27.0 years (27.0 ttl pk-yrs) Types: Cigarettes Start date: 01/24/1996 Quit date: 01/23/2023 Years since quittin.1 Smokeless tobacco: Never Tobacco comments: From age 15 Vaping Use Vaping status: current everyday user Substances: Nicotine Substance Use Topics Alcohol use: Yes Comment: holidays 2 drinks or less, infrequent drinker Drug use: Yes Types: Marijuana Comment: 5 times per week for anxiety or less, non-medical BP 144/78 Pulse 104 Ht 176 cm (5' 9.29) Wt 101.7 kg (224 lb 3.3 oz) SpO2 98% BMI 32.83 kg/m Physical Exam Vitals reviewed. Constitutional: Appearance: Normal appearance. Neck: Thyroid: No thyroid mass, thyromegaly or thyroid tenderness. Trachea: Trachea normal. Comments: Negative Spurling. Positive manual neck distraction test. Cardiovascular: Rate and Rhythm: Normal rate and regular rhythm. Heart sounds: Normal heart sounds. No murmur heard. Pulmonary: Effort: Pulmonary effort is normal. Breath sounds: Normal breath sounds. No wheezing, rhonchi or rales. Musculoskeletal: Cervical back: No edema, signs of trauma, torticollis or crepitus. Pain with movement (left trapezius) and muscular tenderness (left trapezius and sternocleidomastoid) present. No spinous process tenderness. Normal range of motion. Lymphadenopathy: Cervical: No cervical adenopathy. Skin: General: Skin is warm and dry. Neurological: Mental Status: He is alert. Sensory: Sensation is intact. Motor: Motor function is intact. Deep Tendon Reflexes: Reflex Scores: Tricep reflexes are 2+ on the right side and 2+ on the left side. Bicep reflexes are 2+ on the right side and 2+ on the left side. Brachioradialis reflexes are 2+ on the right side and 2+ on the left side. Psychiatric: Mood and Affect: Mood normal. Health maintenance reviewed with patient: BP Controlled (<130/80) Never done HbA1C due on 12/17/2023 Diabetic Foot Exam due on 12/24/2023 Dilated Retinal Exam due on 01/08/2024 Influenza Vaccine(1) due on 08/20/2024 Covid-19 Vaccine(1 - season) due on 03/14/2025 Pneumococcal Vaccine(2 of 2 - PCV) due on 03/14/2025 Urine Albumin:Creatinine Ratio due on 04/26/2024 LDL Cholesterol due on 04/26/2024 Depression Screening due on 07/13/2024 Anxiety Screening due on 07/13/2024 Annual PCP Team Chronic Disease Visit due on 03/14/2025 DTaP,Tdap,Td Vaccine(3 - Td or Tdap) due on 10/19/2026 Hepatitis C Screening Completed HIV Screening Completed HPV Vaccine Aged Out Hepatitis B Vaccine Discontinued DATA REVIEWED: Most recent labs ASSESSMENT/PLAN: 1. Neck pain - ICD9: 723.1, ICD10: M54.2 (primary diagnosis) No cervical pain or tenderness with palpation, pain mostly localized the trapezius muscles. No alarm symptoms or exam findings. Differentials include myofascial pain, muscle strain, cervical radicular pain. - get x-ray done today as previously ordered - start stretching exercises, see patient instructions - start Meloxicam daily - follow-up pending results 2. Numbness and tingling in left arm - ICD9: 782.0, ICD10: R20.0, R20.2 As above 3. Dysphagia, unspecified type - ICD9: 787.20, ICD10: R13.10 Chronic GERD, on PPI - CONSULT TO GENERAL SURGERY for possible EGD 4. Gastroesophageal reflux disease without esophagitis - ICD9: 530.81, ICD10: K21.9 As above - OMEPRAZOLE 40 MG CAPSULE,DELAYED RELEASE - CONSULT TO GENERAL SURGERY 5. Type 2 diabetes (HCC) - ICD9: 250.00, ICD10: E11.9 - Control undetermined, due for labs - Continue current medications - BLOOD SUGAR DIAGNOSTIC STRIPS - BLOOD-GLUCOSE METER - FREESTYLE WANDA 3 SENSOR DEVICE - LANTUS SOLOSTAR U-100 INSULIN 100 UNIT/ML (3 ML) SUBCUTANEOUS PEN - LANCETS - METFORMIN ER 500 MG TABLET,EXTENDED RELEASE 24 HR 6. Hyperlipidemia, unspecified hyperlipidemia type - ICD9: 272.4, ICD10: E78.5 - Control undetermined, due for labs - Continue current medications - ATORVASTATIN 40 MG TABLET 7. Primary hypertension - ICD9: 401.9, ICD10: I10 - Controlled - Continue current medications - Recommend home blood pressure monitoring, to bring results to next visit - Encouraged sodium restriction, DASH or Mediterranean diet Prescription instructions reviewed with patient as applicable. Potential red flag symptoms discussed with the patient. Reviewed appropriate action plan to take if red flag symptoms occur. Patient agreeable to treatment plan. Karime Pryor APRN.CRUISE COORDINATOR documented in this encounter [facility] 02-24-2024 Telephone encounter Note The following approved medication requests have been transmitted electronically. Requested Prescriptions Signed Prescriptions Disp Refills insulin glargine (LANTUS SOLOSTAR U-100 INSULIN) 100 unit/mL (3 mL) 15 mL 0 Sig: Inject 44 Units subcutaneously daily at bedtime. Authorizing Provider: BERNARD ZELAYA Fasting labs ordered for appointment . Message sent. Bernard Zelaya MD [facility] 02-24-2024 Miscellaneous Notes The following approved medication requests have been transmitted electronically. Requested Prescriptions Signed Prescriptions Disp Refills insulin glargine (LANTUS SOLOSTAR U-100 INSULIN) 100 unit/mL (3 mL) 15 mL 0 Sig: Inject 44 Units subcutaneously daily at bedtime. Authorizing Provider: BERNARD ZELAYA Fasting labs ordered for appointment . Message sent. Bernard Zelaya MD Patient has been identified by name and date of : Yes Patient phones for refill(s): Requested Prescriptions Pending Prescriptions Disp Refills insulin glargine (LANTUS SOLOSTAR U-100 INSULIN) 100 unit/mL (3 mL) 15 mL 2 Sig: Inject 44 Units subcutaneously daily at bedtime. Date of last office visit in primary care: 09/16/2023 Date of next office visit in primary care: 03/14/2024 Please advise. Thank you. Brisa Tai LPN. documented in this encounter [facility] 02-23-2024 Telephone encounter Note Patient has been identified by name and date of : Yes Patient phones for refill(s): Requested Prescriptions Pending Prescriptions Disp Refills insulin glargine (LANTUS SOLOSTAR U-100 INSULIN) 100 unit/mL (3 mL) 15 mL 2 Sig: Inject 44 Units subcutaneously daily at bedtime. Date of last office visit in primary care: 09/16/2023 Date of next office visit in primary care: 03/14/2024 Please advise. Thank you. Brisa Tai LPN. [facility] 02-22-2024 Note HNO ID: [id number] Author: ALEXA GONZALEZ APRN.CRUISE COORDINATOR Service: ? Author Type: Nurse Practitioner Type: Progress Notes Filed: 02/22/2024 11:50 Note Text: Subjective The history is provided by the patient and the spouse. No educational sign language interpreter was used. THAI Vasquez is a 43 year old male who presents today for CC of neck pain, with radiation down arm. This started after [place] and has not gone away. He has tried tylenol and ibuprofen without relief. Denies any known injury or trauma. BP 132/82 Pulse 86 Temp 36.6 ?C (97.8 ?F) (Tympanic) Resp 16 Wt 101.1 kg (222 lb 14.2 oz) SpO2 98% BMI 32.44 kg/m? Social History Tobacco Use Smoking status: Former Current packs/day: 0.00 Average packs/day: 1 pack/day for 27.0 years (27.0 ttl pk-yrs) Types: Cigarettes Start date: 01/24/1996 Quit date: 01/23/2023 Years since quittin.0 Smokeless tobacco: Never Tobacco comments: From age 15 Vaping Use Vaping status: current everyday user Substances: Nicotine Substance Use Topics Alcohol use: Yes Comment: holidays 2 drinks or less, infrequent drinker Drug use: Yes Types: Marijuana Comment: 5 times per week for anxiety or less, non-medical PAST MEDICAL HISTORY Diagnosis Date Burning sensation of feet 11/30/2021 Erectile dysfunction 04/17/2015 Essential hypertension Gastroesophageal reflux disease without esophagitis 08/26/2014 GERD (gastroesophageal reflux disease) 08/26/2014 Hyperlipidemia 08/26/2014 Overweight (BMI 25.0-29.9) 06/30/2020 Tobacco use disorder 10/03/2014 Type 2 diabetes (HCC) 08/26/2014 Type II or unspecified type diabetes mellitus without mention of complication, not stated as uncontrolled 08/26/2014 diagnosed 2012 I have confirmed and edited as necessary, the [facility] Review of Systems Constitutional: Negative for chills and fever. Musculoskeletal: Positive for neck pain. Negative for joint pain and myalgias. Skin: Negative for itching and rash. All other systems reviewed and are negative. Objective Physical Exam Vitals and nursing note reviewed. Cardiovascular: Pulses: Radial pulses are 2+ on the right side and 2+ on the left side. Dorsalis pedis pulses are 2+ on the right side and 2+ on the left side. Posterior tibial pulses are 2+ on the right side and 2+ on the left side. Pulmonary: Effort: Pulmonary effort is normal. Musculoskeletal: Cervical back: Rigidity, spasms and tenderness present. No swelling, edema, deformity, erythema, signs of trauma, lacerations, torticollis, bony tenderness or crepitus. Pain with movement present. Normal range of motion. Thoracic back: Normal. Back: Skin: General: Skin is warm and dry. Neurological: Mental Status: He is alert and oriented to person, place, and time. Cranial Nerves: Cranial nerves 2-12 are intact. Sensory: Sensation is intact. Deep Tendon Reflexes: Reflexes are normal and symmetric. Psychiatric: Mood and Affect: Affect normal. ASSESSMENT/PLAN: 1. Neck pain - ICD9: 723.1, ICD10: M54.2 Muscle strain, possible disc involvement due to radiation and occasional numbness Prednisone taper as ordered Flexeril Follow up with PCP for further evaluation and treatment. - XR CERV OTHER 4V AP/LAT/OBL Diagnosis and treatment plan were discussed and questions were answered to the patient's satisfaction. Pt acknowledged understanding of concepts and follow up plan. Specific signs and symptoms that would indicate the need for higher level of care were discussed in detail warranting prompt ER evaluation. Alexa Gonzalez APRN.[facility] 02-22-2024 History of Presen t illness Narrative Images from the original note were not included. Subjective The history is provided by the patient and the spouse. No educational sign language interpreter was used. HPI Pete Vasquez is a 43 year old male who presents today for CC of neck pain, with radiation down arm. This started after [place] and has not gone away. He has tried tylenol and ibuprofen without relief. Denies any known injury or trauma. BP 132/82 Pulse 86 Temp 36.6 C (97.8 F) (Tympanic) Resp 16 Wt 101.1 kg (222 lb 14.2 oz) SpO2 98% BMI 32.44 kg/m Social History Tobacco Use Smoking status: Former Current packs/day: 0.00 Average packs/day: 1 pack/day for 27.0 years (27.0 ttl pk-yrs) Types: Cigarettes Start date: 01/24/1996 Quit date: 01/23/2023 Years since quittin.0 Smokeless tobacco: Never Tobacco comments: From age 15 Vaping Use Vaping status: current everyday user Substances: Nicotine Substance Use Topics Alcohol use: Yes Comment: holidays 2 drinks or less, infrequent drinker Drug use: Yes Types: Marijuana Comment: 5 times per week for anxiety or less, non-medical PAST MEDICAL HISTORY Diagnosis Date Burning sensation of feet 11/30/2021 Erectile dysfunction 04/17/2015 Essential hypertension Gastroesophageal reflux disease without esophagitis 08/26/2014 GERD (gastroesophageal reflux disease) 08/26/2014 Hyperlipidemia 08/26/2014 Overweight (BMI 25.0-29.9) 06/30/2020 Tobacco use disorder 10/03/2014 Type 2 diabetes (HCC) 08/26/2014 Type II or unspecified type diabetes mellitus without mention of complication, not stated as uncontrolled 08/26/2014 diagnosed 2012 I have confirmed and edited as necessary, the [facility] Review of Systems Constitutional: Negative for chills and fever. Musculoskeletal: Positive for neck pain. Negative for joint pain and myalgias. Skin: Negative for itching and rash. All other systems reviewed and are negative. Objective Physical Exam Vitals and nursing note reviewed. Cardiovascular: Pulses: Radial pulses are 2+ on the right side and 2+ on the left side. Dorsalis pedis pulses are 2+ on the right side and 2+ on the left side. Posterior tibial pulses are 2+ on the right side and 2+ on the left side. Pulmonary: Effort: Pulmonary effort is normal. Musculoskeletal: Cervical back: Rigidity, spasms and tenderness present. No swelling, edema, deformity, erythema, signs of trauma, lacerations, torticollis, bony tenderness or crepitus. Pain with movement present. Normal range of motion. Thoracic back: Normal. Back: Skin: General: Skin is warm and dry. Neurological: Mental Status: He is alert and oriented to person, place, and time. Cranial Nerves: Cranial nerves 2-12 are intact. Sensory: Sensation is intact. Deep Tendon Reflexes: Reflexes are normal and symmetric. Psychiatric: Mood and Affect: Affect normal. ASSESSMENT/PLAN: 1. Neck pain - ICD9: 723.1, ICD10: M54.2 Muscle strain, possible disc involvement due to radiation and occasional numbness Prednisone taper as ordered Flexeril Follow up with PCP for further evaluation and treatment. - XR CERV OTHER 4V AP/LAT/OBL Diagnosis and treatment plan were discussed and questions were answered to the patient's satisfaction. Pt acknowledged understanding of concepts and follow up plan. Specific signs and symptoms that would indicate the need for higher level of care were discussed in detail warranting prompt ER evaluation. Alexa Gonzalez APRN.GRISEL documented in this encounter [facility] 11-14-2023 Telephone encounter Note Patient increased Lantus to 44 units, requesting refill with new dosing Karime Pryor APRN.CNP [facility] 11-14-2023 Miscellaneous Notes Patient increased Lantus to 44 units, requesting refill with new dosing Karime Pryor APRN.CNP documented in this encounter [facility] 10-21-2023 Telephone encounter Note Prescription Refill Information The patient has been identified by name and date of : Yes Caregiver verified no other encounters exist for this prescription request: Yes Caregiver confirmed with patient/requestor that no other refills are due, in the near future, with this provider at this time: Yes The last office visit in the department: 09/16/2023 Does the patient have a future office visit with this provider/department: Yes Requested Prescriptions Pending Prescriptions Disp Refills omeprazole (PRILOSEC) 40 mg capsule 90 capsule 1 Sig: Take 1 capsule by mouth once daily. Tunde Green MA October 21, 2023 10:41 AM [facility] 10-21-2023 Miscellaneous Notes Prescription Refill Information The patient has been identified by name and date of : Yes Caregiver verified no other encounters exist for this prescription request: Yes Caregiver confirmed with patient/requestor that no other refills are due, in the near future, with this provider at this time: Yes The last office visit in the department: 09/16/2023 Does the patient have a future office visit with this provider/department: Yes Requested Prescriptions Pending Prescriptions Disp Refills omeprazole (PRILOSEC) 40 mg capsule 90 capsule 1 Sig: Take 1 capsule by mouth once daily. Tunde Green MA October 21, 2023 10:41 AM documented in this encounter [facility] 10-06-2023 Telephone encounter Note Prescription Refill Information The patient has been identified by name and date of : Yes Caregiver verified no other encounters exist for this prescription request: Yes Caregiver confirmed with patient/requestor that no other refills are due, in the near future, with this provider at this time: Yes The last office visit in the department: 09/16/2023 Does the patient have a future office visit with this provider/department: Yes Requested Prescriptions Pending Prescriptions Disp Refills metFORMIN ER (GLUCOPHAGE XR) 500 mg 24 hr tablet 120 tablet 5 Sig: Take 2 tablets by mouth two times a day with meals. E11.65 Tunde Green MA October 06, 2023 8:39 AM [facility] 10-06-2023 Miscellaneous Notes Prescription Refill Information The patient has been identified by name and date of : Yes Caregiver verified no other encounters exist for this prescription request: Yes Caregiver confirmed with patient/requestor that no other refills are due, in the near future, with this provider at this time: Yes The last office visit in the department: 09/16/2023 Does the patient have a future office visit with this provider/department: Yes Requested Prescriptions Pending Prescriptions Disp Refills metFORMIN ER (GLUCOPHAGE XR) 500 mg 24 hr tablet 120 tablet 5 Sig: Take 2 tablets by mouth two times a day with meals. E11.65 Tunde Green MA October 06, 2023 8:39 AM documented in this encounter [facility] 09-16-2023 Instructions Karime Pryor APRN.CRUISE COORDINATOR - 09/16/2023 9:46 AM EDT [email or web address] documented in this encounter [facility] 09-16-2023 History of Presen t illness Narrative CC Patient presents with: 2 month follow up: bp HPI Pete Vasquez is a 43 year old male who presents to the office for blood pressure. His visit today is for follow-up. Patient was last seen for this approximately 2 months ago. Medication changes: Yes Lisinopril increased to 40 mg daily Taking all medications as prescribed: Yes Side effects: No Home BP's: No Denies: headache, chest pain, palpitations, dyspnea, and peripheral edema. Last 4 Encounter BP Readings: Date: BP: 09/16/2023 138/77 07/14/2023 150/81[bp rosalie average[ 07/06/2023 110/70 05/13/2023 156/94 Last 3 Encounter Wt Readings: Date: Wt: 09/16/2023 98.9 kg (218 lb) 07/14/2023 98.9 kg (218 lb) 07/06/2023 98.8 kg (217 lb 13 oz) Diabetes- blood sugars continue to be elevated, no improvement in HgbA1c. Patient increased Lantus from 36 to 38 units about one week ago. He had stopped Jardiance last year due to lack of efficacy but wondering if he should try it again. Review of Systems See HPI PAST MEDICAL HISTORY Diagnosis Date Burning sensation of feet 11/30/2021 Erectile dysfunction 04/17/2015 Essential hypertension Gastroesophageal reflux disease without esophagitis 08/26/2014 GERD (gastroesophageal reflux disease) 08/26/2014 Hyperlipidemia 08/26/2014 Overweight (BMI 25.0-29.9) 06/30/2020 Tobacco use disorder 10/03/2014 Type 2 diabetes (HCC) 08/26/2014 Type II or unspecified type diabetes mellitus without mention of complication, not stated as uncontrolled 08/26/2014 diagnosed 2012 PAST SURGICAL HISTORY Procedure Laterality Date EUSTACHIAN TUBOPLASTY as a child PAST SURGICAL HISTORY OF Right 02/22/1996 Right hand tendon repair PAST SURGICAL HISTORY OF Right 02/21/2003 Calf debridement, infection PAST SURGICAL HISTORY OF 02/21/1991 Testicular torsion REMOVAL GALLBLADDER 01/[address] Wang ALLERGIES Patient has no known allergies. MEDICATIONS insulin glargine (LANTUS SOLOSTAR U-100 INSULIN) 100 unit/mL (3 mL) Inject 36 Units subcutaneously daily at bedtime. lisinopril (ZESTRIL) 40 mg tablet Take 1 tablet by mouth once daily. insulin needles, DISPOSABLE, (PEN NEEDLE) 31 gauge x 5/16 Use to inject insulin daily as directed. omeprazole (PRILOSEC) 40 mg capsule Take 1 capsule by mouth once daily. atorvastatin (LIPITOR) 40 mg tablet Take 1 tablet by mouth daily at bedtime. For cholesterol. meloxicam (MOBIC) 15 mg tablet Take 1 tablet by mouth once daily. As needed metFORMIN ER (GLUCOPHAGE XR) 500 mg 24 hr tablet Take 2 tablets by mouth two times a day with meals. E11.65 Blood-Glucose Sensor (FREESTYLE WANDA 3 SENSOR) gem Use to test blood sugar as directed. E11.65 ondansetron orally disintegrating (ZOFRAN ODT) 4 mg disintegrating tablet Take 1 tablet by mouth every 6 hours as needed for nausea/vomiting. alcohol swabs (ALCOHOL PADS) Test blood sugar(s) 2 times daily. Dx: Type 2 DM - Uncontrolled E11.65 Insulin: Yes Lancets lancets Test blood sugar(s) 2 times daily. Dx: Type 2 DM - Uncontrolled E11.65 Insulin: Yes FAMILY HISTORY Problem Relation Age of Onset No Ocular Disease Mother Osteoporosis Mother No Ocular Disease Father other (lymphoma) Father other (hepatitis C) Father Stroke Father No Ocular Disease Brother No Ocular Disease Brother None Brother No Ocular Disease Maternal Grandmother Dementia Maternal Grandmother No Ocular Disease Maternal Grandfather Heart Maternal Grandfather No Ocular Disease Paternal Grandmother unsure if grandmother had cataracts or glaucoma Diabetes Paternal Grandmother No Ocular Disease Paternal Grandfather Anesthesia Problems No Family History Social History Tobacco Use Smoking status: Former Packs/day: 1.00 Years: 27.00 Additional pack years: 0.00 Total pack years: 27.00 Types: Cigarettes Quit date: 01/23/2023 Years since quittin.6 Smokeless tobacco: Never Tobacco comments: From age 15 Vaping Use Vaping Use: current everyday user Substances: Nicotine Substance Use Topics Alcohol use: Yes Comment: holidays 2 drinks or less, infrequent drinker Drug use: Yes Types: Marijuana Comment: 5 times per week for anxiety or less, non-medical BP 138/77 Pulse 93 Resp 16 Wt 98.9 kg (218 lb) BMI 31.73 kg/m Physical Exam Vitals reviewed. Constitutional: Appearance: Normal appearance. Neurological: Mental Status: He is alert. Psychiatric: Mood and Affect: Mood normal. DATA REVIEWED: Most recent labs Latest Ref Rng 12/17/2022 04/27/2023 09/16/2023 Hemoglobin A1C 4.3 - 5.6 % 7.8 (H) 8.0 (H) Estimated Average Glucose mg/dL 177 183 Hemoglobin A1C (POCT) 4.3 - 5.6 % 8.1 ! Legend: (H) High ! Abnormal ASSESSMENT/PLAN: 1. Type 2 diabetes (HCC) - ICD9: 250.00, ICD10: E11.9 (primary diagnosis) - Uncontrolled - Continue current medications - Start Jardiance - HEMOGLOBIN A1C (POC) - LANTUS SOLOSTAR U-100 INSULIN 100 UNIT/ML (3 ML) SUBCUTANEOUS PEN 2. Primary hypertension - ICD9: 401.9, ICD10: I10 - Improving control - Continue current medications - Encouraged sodium restriction, DASH or Mediterranean diet - Recommend regular aerobic exercise - Follow up in 3 months for hypertension visit Prescription instructions reviewed with patient as applicable. Potential red flag symptoms discussed with the patient. Reviewed appropriate action plan to take if red flag symptoms occur. Patient agreeable to treatment plan During this patient visit I have spent approximately 30 minutes in counseling regarding treatment options, medications, and coordinating care. Karime Pryor APRN.CRUISE COORDINATOR documented in this encounter [facility] 08-11-2023 Telephone encounter Note Prescription Refill Information The patient has been identified by name and date of : Yes Caregiver verified no other encounters exist for this prescription request: Yes Caregiver confirmed with patient/requestor that no other refills are due, in the near future, with this provider at this time: Yes The last office visit in the department: 07/14/23 Does the patient have a future office visit with this provider/department: Yes Requested Prescriptions Pending Prescriptions Disp Refills insulin glargine (LANTUS SOLOSTAR U-100 INSULIN) 100 unit/mL (3 mL) Sig: Inject 36 Units subcutaneously daily at bedtime. Zoya Tee August 11, 2023 8:28 AM [facility] 08-11-2023 Miscellaneous Notes Prescription Refill Information The patient has been identified by name and date of : Yes Caregiver verified no other encounters exist for this prescription request: Yes Caregiver confirmed with patient/requestor that no other refills are due, in the near future, with this provider at this time: Yes The last office visit in the department: 07/14/23 Does the patient have a future office visit with this provider/department: Yes Requested Prescriptions Pending Prescriptions Disp Refills insulin glargine (LANTUS SOLOSTAR U-100 INSULIN) 100 unit/mL (3 mL) Sig: Inject 36 Units subcutaneously daily at bedtime. Zoya Tee August 11, 2023 8:28 AM documented in this encounter [facility] 07-14-2023 Instructions Karime Pryor APRN.CRUISE COORDINATOR - 07/14/2023 10:01 AM EDT Increase Lisinopril to 40 mg daily Okay to increase Lantus every three days by two units until you meet fasting blood sugar goal less than 130. Call office if you experience persistent/frequent hypoglycemia. documented in this encounter [facility] 07-14-2023 History of Presen t illness Narrative CC Patient presents with: 2 month follow up - blood pressure HPI Pete G Pedro is a 43 year old male who presents to the office for blood pressure. His visit today is for BP and diabetes follow-up. Patient was last seen for this approximately two months ago HTN- Medication changes: Yes Lisinopril increased to 20 mg daily Taking all medications as prescribed: Yes Side effects: No Home BP's: No Denies: headache, chest pain, palpitations, dyspnea, and peripheral edema. Last 4 Encounter BP Readings: Date: BP: 07/14/2023 150/81[bp rosalie average[ 07/06/2023 110/70 05/13/2023 156/94 04/22/2023 168/79 Last 3 Encounter Wt Readings: Date: Wt: 07/14/2023 98.9 kg (218 lb) 07/06/2023 98.8 kg (217 lb 13 oz) 05/13/2023 96.6 kg (213 lb) Diabetes: prescribed Ozempic two months ago, he never picked up due to high out of pocket cost. Blood sugars were controlled on Trulicity which was covered however he was unable to tolerate due to persistent GI side effects. He is currently on Lantus which he increased to 34 units a few days ago. Blood sugar average has come down from around 200 to the 160's-180's. Denies hypoglycemia. He also takes Metformin 1000 mg BID, denies side effects. Review of Systems See HPI PAST MEDICAL HISTORY Diagnosis Date Burning sensation of feet 11/30/2021 Erectile dysfunction 04/17/2015 Essential hypertension Gastroesophageal reflux disease without esophagitis 08/26/2014 GERD (gastroesophageal reflux disease) 08/26/2014 Hyperlipidemia 08/26/2014 Overweight (BMI 25.0-29.9) 06/30/2020 Tobacco use disorder 10/03/2014 Type 2 diabetes (HCC) 08/26/2014 Type II or unspecified type diabetes mellitus without mention of complication, not stated as uncontrolled 08/26/2014 diagnosed 2013 PAST SURGICAL HISTORY Procedure Laterality Date EUSTACHIAN TUBOPLASTY as a child PAST SURGICAL HISTORY OF Right 02/22/1996 Right hand tendon repair PAST SURGICAL HISTORY OF Right 02/21/2003 Calf debridement, infection PAST SURGICAL HISTORY OF 02/21/1991 Testicular torsion REMOVAL GALLBLADDER 01/[address] Wang ALLERGIES Patient has no known allergies. MEDICATIONS insulin needles, DISPOSABLE, (PEN NEEDLE) 31 gauge x 5/16 Use to inject insulin daily as directed. insulin glargine (LANTUS SOLOSTAR U-100 INSULIN) 100 unit/mL (3 mL) Inject 28 Units subcutaneously daily at bedtime. lisinopril (ZESTRIL) 20 mg tablet Take 1 tablet by mouth once daily. omeprazole (PRILOSEC) 40 mg capsule Take 1 capsule by mouth once daily. atorvastatin (LIPITOR) 40 mg tablet Take 1 tablet by mouth daily at bedtime. For cholesterol. meloxicam (MOBIC) 15 mg tablet Take 1 tablet by mouth once daily. As needed semaglutide (OZEMPIC) 0.25 mg or 0.5 mg (2 mg/3 mL) pen Inject 0.25 mg subcutaneously one time a week. (Patient not taking: Reported on 07/06/2023) metFORMIN ER (GLUCOPHAGE XR) 500 mg 24 hr tablet Take 2 tablets by mouth two times a day with meals. E11.65 Blood-Glucose Sensor (FREESTYLE WANDA 3 SENSOR) gem Use to test blood sugar as directed. E11.65 ondansetron orally disintegrating (ZOFRAN ODT) 4 mg disintegrating tablet Take 1 tablet by mouth every 6 hours as needed for nausea/vomiting. alcohol swabs (ALCOHOL PADS) Test blood sugar(s) 2 times daily. Dx: Type 2 DM - Uncontrolled E11.65 Insulin: Yes Lancets lancets Test blood sugar(s) 2 times daily. Dx: Type 2 DM - Uncontrolled E11.65 Insulin: Yes FAMILY HISTORY Problem Relation Age of Onset No Ocular Disease Mother Osteoporosis Mother No Ocular Disease Father other (lymphoma) Father other (hepatitis C) Father Stroke Father No Ocular Disease Brother No Ocular Disease Brother None Brother No Ocular Disease Maternal Grandmother Dementia Maternal Grandmother No Ocular Disease Maternal Grandfather Heart Maternal Grandfather No Ocular Disease Paternal Grandmother unsure if grandmother had cataracts or glaucoma Diabetes Paternal Grandmother No Ocular Disease Paternal Grandfather Anesthesia Problems No Family History Social History Tobacco Use Smoking status: Former Packs/day: 1.00 Years: 27.00 Additional pack years: 0.00 Total pack years: 27.00 Types: Cigarettes Quit date: 01/23/2023 Years since quittin.4 Smokeless tobacco: Never Tobacco comments: From age 15 Vaping Use Vaping Use: current everyday user Substances: Nicotine Substance Use Topics Alcohol use: Yes Comment: holidays 2 drinks or less, infrequent drinker Drug use: Yes Types: Marijuana Comment: 5 times per week for anxiety or less, non-medical BP 150/81 Pulse 94 Resp 16 Wt 98.9 kg (218 lb) SpO2 98% BMI 31.73 kg/m Physical Exam Vitals reviewed. Constitutional: Appearance: Normal appearance. Neurological: Mental Status: He is alert. Psychiatric: Mood and Affect: Mood normal. ASSESSMENT/PLAN: 1. Primary hypertension - ICD9: 401.9, ICD10: I10 (primary diagnosis) - Uncontrolled - Increase Lisinopril to 40 mg daily - Recommend home blood pressure monitoring, to bring results to next visit - Encouraged sodium restriction, DASH or Mediterranean diet - Follow up in 2 months for hypertension visit - LISINOPRIL 40 MG TABLET 2. Type 2 diabetes (HCC) - ICD9: 250.00, ICD10: E11.9 - Improving control - Continue current medications - Increase Lantus to 36 units. Okay to increase Lantus every few days by two units until fasting blood sugar goal < 130. - LANTUS SOLOSTAR U-100 INSULIN 100 UNIT/ML (3 ML) SUBCUTANEOUS PEN Behavioral Health Screening SULY-7 Score: 6 (Mild Anxiety) Recommendation: no further intervention at this time Prescription instructions reviewed with patient as applicable. Potential red flag symptoms discussed with the patient. Reviewed appropriate action plan to take if red flag symptoms occur. Patient agreeable to treatment plan Karime Pryor APRN.GRISEL documented in this encounter [facility] 07-06-2023 History of Presen t illness Narrative Patient came in with complaints of a 7 out of 10 right eye pain. Patient denies any injury in the eye. Patient also has significant vision changes in that eye compared to the other eye. We do not see eye pain or vision changes at [facility]. Did offer to get patient an appointment with an eye doctor patient was visibly upset. Patient stated he wasted his time coming here. Patient did ask if I was even going to assess him. I told patient that I could assess him and charge him for the visit but would end up sending him out due to the vision changes anyway. Patient was very angry. Patient said he would make his own appointment. documented in this encounter [facility] 05-26-2023 Miscellaneous Notes Patient has been identified by name and date of : Yes Patient phones for refill(s): Requested Prescriptions Pending Prescriptions Disp Refills insulin needles, DISPOSABLE, (PEN NEEDLE) 31 gauge x 5/16 100 Each 3 Sig: Use to inject insulin daily as directed. Date of last office visit in primary care: 05/13/2023 Date of next office visit in primary care: 07/14/2023 Please advise. Thank you. Brisa Tai LPN. documented in this encounter [facility] 05-26-2023 Miscellaneous Notes Patient is calling requesting a copy of script for eye glasses please advise patient when ready or please send to my chart. documented in this encounter [facility] 05-23-2023 Miscellaneous Notes Patient calls and states that he is almost out of medication. Lantus was increased at last appointment on 05/13/2023. Insurance will not cover insulin unless new script is sent to pharmacy. Patient asking if provider can send new script to [facility]? Patient has been identified by name and date of : Patient phones for refill(s): Requested Prescriptions Pending Prescriptions Disp Refills insulin glargine (LANTUS SOLOSTAR U-100 INSULIN) 100 unit/mL (3 mL) 15 mL 2 Sig: Inject 28 Units subcutaneously daily at bedtime. Date of last office visit in primary care: 05/13/2023 Date of next office visit in primary care: 07/14/2023 Please advise. Thank you. Hailey Cardona RN. documented in this encounter [facility] 05-13-2023 Instructions Karime Pryor APRN.CRUISE COORDINATOR - 05/13/2023 9:50 AM EDT Increase Lisinopril to 20 mg daily Increase Lantus insulin to 28 units daily. Start Ozempic, a new prescription was sent. Let me know if there is any issues filling it For relief of gas/bloating try over the counter medication with active ingredient Mylicon (simethicone) documented in this encounter [facility] 05-13-2023 History of Presen t illness Narrative CC: Patient presents with: 2 month follow up - blood pressure HPI Pete G Pedro is a 43 year old male who presents today for above. HTN- patient's BP was elevated at last appointment two months ago. Attributed to acute neck pain, no medication changes were made. Taking all medications as prescribed: Yes Side effects: No Home BP's: No Denies: headache, chest pain, palpitations, dyspnea, and peripheral edema. Last 4 Encounter BP Readings: Date: BP: 05/13/2023 156/94 04/22/2023 168/79 04/20/2023 168/86 03/11/2023 140/84 Last 3 Encounter Wt Readings: Date: Wt: 05/13/2023 96.6 kg (213 lb) 04/22/2023 97.5 kg (215 lb) 04/20/2023 97.4 kg (214 lb 12.8 oz) Diabetes: Home blood sugar readings: CGM- 7 and 14 day average in the 210's. He increased his Lantus from 20 to 24 units a few weeks ago with minimal improvement in hyperglycemia. He is also on Metformin 1000 mg BID. He was prescribed Ozempic two months ago with insurance approval however when he went to the pharmacy they said the cost would be $900 so he never filled. Hypoglycemia: No He is compliant with medication(s) and is tolerating med(s) without any side effects. Patient's last HgA1C : Hemoglobin A1C (%) Date Value 04/27/2023 8.0 12/17/2022 7.8 03/27/2021 7.3 07/05/2020 11.0 Hemoglobin A1C (POCT) (%) Date Value 11/11/2020 9.6 Upper abdominal discomfort: for the past month. Reports bloating and excessive gas. Denies heartburn/reflux. He did start eating a lot more vegetables prior to symptom onset. He is on Prilosec daily for GERD, has not tried any OTC treatments. He had his GB last year, no other abdominal surgeries. Review of Systems Constitutional: Negative for chills, diaphoresis, fever and unexpected weight change. HENT: Negative for sore throat and trouble swallowing. Respiratory: Negative for cough and wheezing. Gastrointestinal: Negative for abdominal pain, blood in stool, constipation, diarrhea, nausea and vomiting. PAST MEDICAL HISTORY Diagnosis Date Burning sensation of feet 11/30/2021 Erectile dysfunction 04/17/2015 Essential hypertension Gastroesophageal reflux disease without esophagitis 08/26/2014 GERD (gastroesophageal reflux disease) 08/26/2014 Hyperlipidemia 08/26/2014 Overweight (BMI 25.0-29.9) 06/30/2020 Tobacco use disorder 10/03/2014 Type 2 diabetes (HCC) 08/26/2014 Type II or unspecified type diabetes mellitus without mention of complication, not stated as uncontrolled 08/26/2014 diagnosed 2012 PAST SURGICAL HISTORY Procedure Laterality Date EUSTACHIAN TUBOPLASTY as a child PAST SURGICAL HISTORY OF Right 02/22/1996 Right hand tendon repair PAST SURGICAL HISTORY OF Right 02/21/2003 Calf debridement, infection PAST SURGICAL HISTORY OF 02/21/1991 Testicular torsion REMOVAL GALLBLADDER 01/[address] Wang ALLERGIES Patient has no known allergies. MEDICATIONS semaglutide (OZEMPIC) 0.25 mg or 0.5 mg (2 mg/3 mL) pen Inject 0.25 mg subcutaneously one time a week. insulin glargine (LANTUS SOLOSTAR U-100 INSULIN) 100 unit/mL (3 mL) Inject 20 Units subcutaneously daily at bedtime. meloxicam (MOBIC) 15 mg tablet Take 1 tablet by mouth once daily. With food. (Patient not taking: Reported on 04/20/2023) metFORMIN ER (GLUCOPHAGE XR) 500 mg 24 hr tablet Take 2 tablets by mouth two times a day with meals. E11.65 lisinopril (ZESTRIL) 10 mg tablet Take 1 tablet by mouth once daily. Blood-Glucose Sensor (FREESTYLE WANDA 3 SENSOR) gem Use to test blood sugar as directed. E11.65 omeprazole (PRILOSEC) 40 mg capsule Take 1 capsule by mouth once daily. atorvastatin (LIPITOR) 40 mg tablet Take 1 tablet by mouth daily at bedtime. For cholesterol. insulin needles, DISPOSABLE, (PEN NEEDLE) 31 gauge x 5/16 Use to inject insulin daily as directed. ondansetron orally disintegrating (ZOFRAN ODT) 4 mg disintegrating tablet Take 1 tablet by mouth every 6 hours as needed for nausea/vomiting. alcohol swabs (ALCOHOL PADS) Test blood sugar(s) 2 times daily. Dx: Type 2 DM - Uncontrolled E11.65 Insulin: Yes Lancets lancets Test blood sugar(s) 2 times daily. Dx: Type 2 DM - Uncontrolled E11.65 Insulin: Yes FAMILY HISTORY Problem Relation Age of Onset No Ocular Disease Mother Osteoporosis Mother No Ocular Disease Father other (lymphoma) Father other (hepatitis C) Father Stroke Father No Ocular Disease Brother No Ocular Disease Brother None Brother No Ocular Disease Maternal Grandmother Dementia Maternal Grandmother No Ocular Disease Maternal Grandfather Heart Maternal Grandfather No Ocular Disease Paternal Grandmother unsure if grandmother had cataracts or glaucoma Diabetes Paternal Grandmother No Ocular Disease Paternal Grandfather Anesthesia Problems No Family History Social History Tobacco Use Smoking status: Former Packs/day: 1.00 Years: 27.00 Additional pack years: 0.00 Total pack years: 27.00 Types: Cigarettes Quit date: 01/23/2023 Years since quittin.3 Smokeless tobacco: Never Tobacco comments: From age 15 Vaping Use Vaping Use: current everyday user Substances: Nicotine Substance Use Topics Alcohol use: Yes Comment: holidays 2 drinks or less, infrequent drinker Drug use: Yes Types: Marijuana Comment: 5 times per week for anxiety or less, non-medical BP 156/94 Pulse 98 Resp 18 Wt 96.6 kg (213 lb) SpO2 98% BMI 31.00 kg/m Physical Exam Vitals reviewed. Constitutional: Appearance: Normal appearance. Cardiovascular: Rate and Rhythm: Normal rate and regular rhythm. Heart sounds: No murmur heard. Pulmonary: Effort: Pulmonary effort is normal. Breath sounds: Normal breath sounds. No wheezing, rhonchi or rales. Abdominal: General: Bowel sounds are increased. There is no distension. Palpations: Abdomen is soft. There is no hepatomegaly or splenomegaly. Tenderness: There is no abdominal tenderness. Skin: General: Skin is warm and dry. Neurological: Mental Status: He is alert. Health maintenance reviewed with patient: BP Controlled (<130/80) Never done Depression Assessment due on 02/21/2023 Influenza Vaccine(1) due on 08/21/2023 Covid-19 Vaccine(1 - 2022- season) due on 12/24/2023 Pneumococcal Vaccine(2 of 2 - PCV) due on 12/24/2023 HbA1C due on 07/28/2023 Diabetic Foot Exam due on 12/24/2023 Dilated Retinal Exam due on 01/08/2024 Annual PCP Team Chronic Disease Visit due on 03/11/2024 Urine Albumin:Creatinine Ratio due on 04/26/2024 LDL Cholesterol due on 04/26/2024 DTaP,Tdap,Td Vaccine(3 - Td or Tdap) due on 10/19/2026 Hepatitis C Screening Completed HIV Screening Completed HPV Vaccine Aged Out Hepatitis B Vaccine Discontinued DATA REVIEWED: Most recent labs Latest Ref Rng 04/27/2023 Cholesterol, Total <200 mg/dL 192 Triglyceride <150 mg/dL 244 (H) HDL Cholesterol >39 mg/dL 30 (L) Non HDL Cholesterol <130 mg/dL 162 (H) Fasting Time hrs 10 VLDL Cholesterol <30 mg/dL 49 (H) TC:HDL Ratio <5.10 6.40 (H) LDL Cholesterol <100 mg/dL 113 (H) LDL:HDL Ratio <2.54 3.77 (H) Creatinine, Ur Random (UCRR) 20.0 - 300.0 mg/dL 186.9 Albumin, Urine Random mg/L 72.2 Albumin/Creat Ratio <30 mg/g 39 (H) Hemoglobin A1C 4.3 - 5.6 % 8.0 (H) Estimated Average Glucose mg/dL 183 ASSESSMENT/PLAN: 1. Primary hypertension - ICD9: 401.9, ICD10: I10 (primary diagnosis) - Worsening control - Increase Lisinopril to 20 mg daily - Recommend home blood pressure monitoring, to bring results to next visit - Follow up in 2 months for hypertension visit - LISINOPRIL 20 MG TABLET 2. Type 2 diabetes (HCC) - ICD9: 250.00, ICD10: E11.9 - Worsening control - Continue Metformin - Start semaglutide (Ozempic), call for any issues filling - Increase Lantus to 28 units daily - Follow up in 2 months, sooner should any other issues arise. - LANTUS SOLOSTAR U-100 INSULIN 100 UNIT/ML (3 ML) SUBCUTANEOUS PEN 3. Bloating - ICD9: 787.3, ICD10: R14.0 Symptoms may be due to sudden increase in fiber intake. No alarm symptoms or exam findings. Recommend trying simethicone based OTC medication. Follow-up if symptoms persist or worsen 4. Gastroesophageal reflux disease without esophagitis - ICD9: 530.81, ICD10: K21.9 Stable - OMEPRAZOLE 40 MG CAPSULE,DELAYED RELEASE 5. Hyperlipidemia, unspecified hyperlipidemia type - ICD9: 272.4, ICD10: E78.5 - Improving control - Continue current medications - ATORVASTATIN 40 MG TABLET Prescription instructions reviewed with patient as applicable. Potential red flag symptoms discussed with the patient. Reviewed appropriate action plan to take if red flag symptoms occur. Patient agreeable to treatment plan. Karime Pryor APRN.CRUISE COORDINATOR documented in this encounter [facility] 04-22-2023 Instructions Dinesh Huffman APRN.GRISEL - 04/22/2023 8:04 PM EST How to Manage Common Symptoms Associated with COVID for Adults Fever- Fever is a temperature over 100.4 F and can occur when the body is fighting an infection. To help treat a fever: Drink plenty of fluids and stay well hydrated. Eat small amounts of easy to digest food. Rest. Your body needs rest to recover, but getting up and moving around the house frequently is a good idea. You should try to continue doing your normal daily activities (bathing, toileting, grooming, cooking), though you will probably feel tired, and need to rest often. Avoid any heavy activity or exercise, as this will increase your body temperature. Dress in light clothing and stay covered in a light sheet. Keep the room temperature cool. Take a slightly warm (not cold or cool) bath, or apply damp washcloths to the forehead and wrists. Cough- Cough is a common symptom associated with COVID and can be bothersome. To help treat a cough: Stay well hydrated. Try warm water or tea with lemon and/or honey to help soothe the cough. Use a humidifier to add moisture to the air. Try a product with menthol, like a cough drop or a rub for your chest such as Vicks, which can help reduce cough. Try cough drops. Avoid smoking and other strong odors or perfumes. Try breathing exercises to keep your lungs open and clear. Take a big deep breath through your nose and hold for 5 seconds before slowly releasing. Repeat frequently, while you are awake. Congestion- Runny nose or nasal congestion can occur with COVID. Treatment can help relieve symptoms: Try OTC nasal saline spray, or nasal saline rinse to relieve mucus congestion. Nasal strips can help keep nasal passages open, to increase airflow. Elevating your head with an extra pillow in bed can help reduce congestion. Using a humidifier can increase moisture in the air, and make breathing easier. Sore Throat- Another common symptom with COVID, can be managed at home by: Stay well hydrated. Gargle with salt water - mix teaspoon salt with 1 cup of warm water and gargle. This helps to loosen mucus in the back of the throat and may reduce discomfort. Try ice chips, popsicles or lozenges to soothe the throat. Nausea/Vomiting/Diarrhea- These are common symptoms, and staying hydrated is most important. If you are nauseous or vomiting, start with small sips of water every 10-15 minutes and increase as tolerated. You can try sucking an ice cube too. If tolerating, you can try pedialyte or Gatorade, or flat sprite or samantha-maria d. Start slowly and increase as you are able to. Instead of meals, try smaller, more frequent snacks. Try eating bland foods like crackers, toast, rice, and applesauce. Avoid spicy, greasy or fried foods and dairy containing foods. Even if you aren't feeling hungry due to lack of smell or taste, it is important to try to take in some food when you are able. After drinking and eating, rest in an upright position for up to two hours as needed to help decrease nauseous feelings. Try closing your eyes, avoid moving and watching TV. Avoid strong odors that can make you feel more nauseated. When to seek emergency medical attention Look for emergency warning signs for COVID-19. If having any of these symptoms, seek emergency medical care immediately: Trouble breathing Persistent pain or pressure in the chest New confusion Inability to wake or stay awake Bluish lips or face *This list is not all possible symptoms. Please call your medical provider for any other symptoms that are severe or concerning to you. documented in this encounter [facility] 04-22-2023 History of Presen t illness Narrative Subjective HPI Nontoxic-appearing male presents to urgent care with chief complaint of fever and cough. Duration of symptoms 2 days. Associated symptoms with today's chief complaint are on and off headache, muscle aches, fatigue, nonproductive cough. Patient stated symptoms started abruptly. Patient states they have used dcod-dby-cxjtiym medication with some success. Patient states they were in contact with individuals who were diagnosed with influenza. Patient denies any pain at this time. Patient denies any visual changes, visual disturbance, shortness of breath, rash, exercise intolerance, pleuritic pain, productive cough, abdominal pain, nausea, vomiting, chest pain, or change in bowel or bladder habits. Past medical history prescription medications allergies reviewed. .Patient presents with: Sore Throat: Bodyaches, exposure to Flu B x2 days PAST MEDICAL HISTORY Diagnosis Date Burning sensation of feet 11/30/2021 Erectile dysfunction 04/17/2015 Essential hypertension Gastroesophageal reflux disease without esophagitis 08/26/2014 GERD (gastroesophageal reflux disease) 08/26/2014 Hyperlipidemia 08/26/2014 Overweight (BMI 25.0-29.9) 06/30/2020 Tobacco use disorder 10/03/2014 Type 2 diabetes (HCC) 08/26/2014 Type II or unspecified type diabetes mellitus without mention of complication, not stated as uncontrolled 08/26/2014 diagnosed 2012 PAST SURGICAL HISTORY Procedure Laterality Date EUSTACHIAN TUBOPLASTY as a child PAST SURGICAL HISTORY OF Right 02/22/1996 Right hand tendon repair PAST SURGICAL HISTORY OF Right 02/21/2003 Calf debridement, infection PAST SURGICAL HISTORY OF 02/21/1991 Testicular torsion REMOVAL GALLBLADDER 01/[address] Wang ALLERGIES Patient has no known allergies. MEDICATIONS semaglutide (OZEMPIC) 0.25 mg or 0.5 mg (2 mg/3 mL) pen Inject 0.25 mg subcutaneously one time a week. insulin glargine (LANTUS SOLOSTAR U-100 INSULIN) 100 unit/mL (3 mL) Inject 20 Units subcutaneously daily at bedtime. meloxicam (MOBIC) 15 mg tablet Take 1 tablet by mouth once daily. With food. (Patient not taking: Reported on 04/20/2023) metFORMIN ER (GLUCOPHAGE XR) 500 mg 24 hr tablet Take 2 tablets by mouth two times a day with meals. E11.65 lisinopril (ZESTRIL) 10 mg tablet Take 1 tablet by mouth once daily. Blood-Glucose Sensor (FREESTYLE WANDA 3 SENSOR) gem Use to test blood sugar as directed. E11.65 omeprazole (PRILOSEC) 40 mg capsule Take 1 capsule by mouth once daily. atorvastatin (LIPITOR) 40 mg tablet Take 1 tablet by mouth daily at bedtime. For cholesterol. insulin needles, DISPOSABLE, (PEN NEEDLE) 31 gauge x 5/16 Use to inject insulin daily as directed. ondansetron orally disintegrating (ZOFRAN ODT) 4 mg disintegrating tablet Take 1 tablet by mouth every 6 hours as needed for nausea/vomiting. alcohol swabs (ALCOHOL PADS) Test blood sugar(s) 2 times daily. Dx: Type 2 DM - Uncontrolled E11.65 Insulin: Yes Lancets lancets Test blood sugar(s) 2 times daily. Dx: Type 2 DM - Uncontrolled E11.65 Insulin: Yes FAMILY HISTORY Problem Relation Age of Onset No Ocular Disease Mother Osteoporosis Mother No Ocular Disease Father other (lymphoma) Father other (hepatitis C) Father Stroke Father No Ocular Disease Brother No Ocular Disease Brother None Brother No Ocular Disease Maternal Grandmother Dementia Maternal Grandmother No Ocular Disease Maternal Grandfather Heart Maternal Grandfather No Ocular Disease Paternal Grandmother unsure if grandmother had cataracts or glaucoma Diabetes Paternal Grandmother No Ocular Disease Paternal Grandfather Anesthesia Problems No Family History Social History Tobacco Use Smoking status: Former Packs/day: 1.00 Years: 27.00 Additional pack years: 0.00 Total pack years: 27.00 Types: Cigarettes Quit date: 01/23/2023 Years since quittin.2 Smokeless tobacco: Never Tobacco comments: From age 15 Vaping Use Vaping Use: current everyday user Substances: Nicotine Substance Use Topics Alcohol use: Yes Comment: holidays 2 drinks or less, infrequent drinker Drug use: Yes Types: Marijuana Comment: 5 times per week for anxiety or less, non-medical BP 168/79 Pulse 89 Temp 36.1 C (97 F) Resp 18 Wt 97.5 kg (215 lb) SpO2 99% BMI 31.29 kg/m Review of Systems Constitutional: Positive for chills and malaise/fatigue. Negative for fever. HENT: Positive for congestion and sore throat. Negative for ear discharge, ear pain and sinus pain. Eyes: Negative for blurred vision, pain, discharge and redness. Respiratory: Positive for cough. Negative for hemoptysis, sputum production, shortness of breath, wheezing and stridor. Cardiovascular: Negative for chest pain. Gastrointestinal: Positive for nausea. Negative for abdominal pain, diarrhea and vomiting. Musculoskeletal: Positive for myalgias. Skin: Negative for itching and rash. Neurological: Positive for headaches. Negative for dizziness. Objective Physical Exam Constitutional: General: He is not in acute distress. Appearance: He is not diaphoretic. HENT: Head: Normocephalic. Jaw: No trismus, tenderness, swelling or pain on movement. Right Ear: Tympanic membrane, ear canal and external ear normal. Left Ear: Tympanic membrane, ear canal and external ear normal. Nose: Congestion present. Mouth/Throat: Mouth: Mucous membranes are moist. Pharynx: Oropharynx is clear. Uvula midline. No pharyngeal swelling, oropharyngeal exudate, posterior oropharyngeal erythema or uvula swelling. Eyes: Conjunctiva/sclera: Conjunctivae normal. Pupils: Pupils are equal, round, and reactive to light. Cardiovascular: Rate and Rhythm: Normal rate and regular rhythm. Heart sounds: Normal heart sounds. Pulmonary: Effort: Pulmonary effort is normal. No tachypnea, accessory muscle usage or respiratory distress. Breath sounds: Normal breath sounds. No stridor. No wheezing, rhonchi or rales. Abdominal: General: There is no distension. Palpations: Abdomen is soft. Tenderness: There is no abdominal tenderness. There is no guarding or rebound. Musculoskeletal: Cervical back: Normal range of motion and neck supple. No edema, erythema, rigidity or tenderness. No pain with movement. Normal range of motion. Lymphadenopathy: Cervical: No cervical adenopathy. Skin: General: Skin is warm and dry. Neurological: Mental Status: He is alert and oriented to person, place, and time. ASSESSMENT/PLAN: 1. Flu-like symptoms - ICD9: 780.99, ICD10: R68.89 (primary diagnosis) - INFLUENZA A&B MOLECULAR (POC) - COVID & INFLUENZA A/B & RSV NAAT, ROUTINE 2. Viral illness - ICD9: 079.99, ICD10: B34.9 - COVID & INFLUENZA A/B & RSV NAAT, ROUTINE [id number] flu test negative. With patient's presenting symptoms I recommended COVID-19 test. Treat accordingly test results. Suspicious of viral etiology. No evidence of bacterial infection. Red flags for prompt ER evaluation discussed. Limitation of care discussed. Patient was educated on supportive therapies. Patient will follow up with primary care provider 3 to 5 days. Patient was instructed to immediately proceed to emergency room for any new, worsening, or symptoms lasting longer than anticipated. The patient's clinical presentation is otherwise unremarkable at this time. Based on exam and clinical finding, the patient is stable for discharge. Plan of care was discussed with patient. Patient verbalizes understanding and agrees to plan of care. This note was generated using [employer] software. It may contain errors in wording, punctuation, or spelling. Dinesh Huffman APRN.GRISEL documented in this encounter [facility] 04-20-2023 History of Presen t illness Narrative Patient presents with: Headache: Neck pain and abdominal pain x 1 day HPI: Feeling sick and achy since last night. Sent home from work today. His one son had strep throat last week and other son has been sick with URI symptoms this week. Positive symptoms: Headache, neck pain, abdominal bloating, Cough, Chills, decreased appetite, Diarrhea, constipation, malaise, fatigue Negative symptoms: Sore throat, Nasal Congestion, Rhinorrhea, Fever, Nausea, Vomiting, OTC: Tylenol Had laparoscopic cholecystectomy 01/24/2023. MEDICATIONS: Current Outpatient Medications Medication Sig insulin glargine (LANTUS SOLOSTAR U-100 INSULIN) 100 unit/mL (3 mL) Inject 20 Units subcutaneously daily at bedtime. metFORMIN ER (GLUCOPHAGE XR) 500 mg 24 hr tablet Take 2 tablets by mouth two times a day with meals. E11.65 lisinopril (ZESTRIL) 10 mg tablet Take 1 tablet by mouth once daily. Blood-Glucose Sensor (FREESTYLE WANDA 3 SENSOR) gem Use to test blood sugar as directed. E11.65 omeprazole (PRILOSEC) 40 mg capsule Take 1 capsule by mouth once daily. atorvastatin (LIPITOR) 40 mg tablet Take 1 tablet by mouth daily at bedtime. For cholesterol. insulin needles, DISPOSABLE, (PEN NEEDLE) 31 gauge x 5/16 Use to inject insulin daily as directed. ondansetron orally disintegrating (ZOFRAN ODT) 4 mg disintegrating tablet Take 1 tablet by mouth every 6 hours as needed for nausea/vomiting. alcohol swabs (ALCOHOL PADS) Test blood sugar(s) 2 times daily. Dx: Type 2 DM - Uncontrolled E11.65 Insulin: Yes Lancets lancets Test blood sugar(s) 2 times daily. Dx: Type 2 DM - Uncontrolled E11.65 Insulin: Yes semaglutide (OZEMPIC) 0.25 mg or 0.5 mg (2 mg/3 mL) pen Inject 0.25 mg subcutaneously one time a week. meloxicam (MOBIC) 15 mg tablet Take 1 tablet by mouth once daily. With food. (Patient not taking: Reported on 04/20/2023) No current facility-administered medications for this visit. ALLERGIES: ALLERGIES No Known Allergies VITALS: BP 168/86 Pulse 82 Temp 36.4 C (97.6 F) Resp 14 Wt 97.4 kg (214 lb 12.8 oz) SpO2 97% BMI 31.27 kg/m PHYSICAL EXAM: GEN: mildly ill appearing HEENT: PERRL, EOMI, conjunctiva clear Ears: canals clear. TMs without erythema, bulge, or effusion Sinuses: non-tender frontal sinus, non-tender maxillary sinuses; nasal congestion (reports normal) Throat: moist mucous membranes, mild erythema, no exudate Neck: supple, no thyromegaly, mild lymphadenopathy HEART: regular rate and rhythm, no murmurs LUNGS: clear to auscultation, no wheezes or crackles, no increased WOB ABD: Soft, non-distended, non-tender, no masses ASSESSMENT/PLAN: 1. Body aches - ICD9: 780.96, ICD10: R52 (primary diagnosis) 2. Exposure to strep throat - ICD9: V01.89, ICD10: Z20.818 - STREP A MOLECULAR (POC) - suspect early viral URI. Declines COVID testing for now. - Discussed supportive care treatment with rest, cold medicine, and analgesia. Sudarshan Tran MD documented in this encounter [facility] 01-24-2023 Note HNO ID: [id number] Author: Farrah Strickland APRN.UNDERLAY STITCHER Service: ? Author Type: Nurse Food Sales Clerk Type: Anesthesia Procedure Notes Filed: 01/24/2023 7:48 AM Note Text: ANESTHESIOLOGY PROCEDURE NOTE Airway General Information Procedure Start Time/Medication Administration: 01/24/2023 7:34 AM Patient location during procedure: OR Timeout Performed Pre-procedure: timeout performed Consent Obtained: Yes Patient identity confirmed: arm band, care seo team lead and patient Staffing Anesthesiologist: Kathy Chu MD UNDERLAY STITCHER: Farrah Strickland APRN.UNDERLAY STITCHER Performed by: UNDERLAY STITCHER Indications and Patient Condition Indications for airway management: anesthesia Preoxygenated: yes anesthesia circuit Patient position: sniffing Method: asleep Cricoid Pressure: No Manual In-Line Stabilization: No Difficult Mask: No Final Airway Details Final airway type: endotracheal airway Final Endotracheal Airway: ETT Cuffed: yes Successful intubation technique: video laryngoscopy Devices used: [place] Endotracheal tube insertion site: oral Blade size: #4 ETT size (mm): 7.5 Measured from: lips Measurement (cm): 23 Placement verified by: chest auscultation and capnometry Cormack-Lehane Classification: grade I - full view of glottis Number of attempts at approach: 1 Failed airway: no Unrecognized esophageal intubation: no Airway not difficult SIGNATURE: Farrah Strickland APRN.UNDERLAY STITCHER PATIENT NAME: Pete Vasquez DATE: January 24, 2023 TIME: 7:45 AM CSN: [id number] [facility] 01-20-2023 Instructions Chary Bonilla PA-C - 01/20/2023 9:31 AM EST PATIENT PREOPERATIVE INSTRUCTIONS Neel Wang MD has scheduled you for your procedure at this surgery center: [facility]: [phone] -- [address] [address]. Please read below carefully for your personalized instructions. Dietary Restrictions: - No solid food after midnight. - You may have 12 ounces of clear liquids (water, clear juices such as apple juice or gatorade, carbonated beverages, clear tea, black coffee, jello) until 2 hours before scheduled arrival at facility. Medications: Unless instructed differently below, stay on all of your medications until your surgery. If you start any new medications after today's visit, please contact your surgeon. Pre-Surgery Med Instructions Medication Instructions lisinopril (ZESTRIL) 10 mg tablet DO NOT TAKE YOUR LISINOPRIL THE NIGHT BEFORE OR MORNING OF SURGERY. omeprazole (PRILOSEC) 40 mg capsule Take the day of surgery with a small sip of water atorvastatin (LIPITOR) 40 mg tablet Ok to take the evening before surgery as usual insulin glargine (LANTUS SOLOSTAR U-100 INSULIN) 100 unit/mL (3 mL) Insulin: Do not take the morning of surgery. Take 75% of your usual dose the night before surgery if possible. If not possible, take full dose the night before surgery. metFORMIN ER (GLUCOPHAGE XR) 500 mg 24 hr tablet Please hold this the morning of your procedure ondansetron orally disintegrating (ZOFRAN ODT) 4 mg disintegrating tablet Ok to take the morning of surgery (if needed) with a small sip of water If you receive any refills of Jardiance, would ask that you hold it for 3 days pre-op. Please wait to resume this until after surgery If you start any new medications after today's visit, please contact the surgeon's office. Blood Thinning Medications: - Stop NSAIDS (Ibuprofen, Advil, Aleve, Motrin, Celebrex, Mobic, etc.) 7 days before surgery, as directed by your surgeon. - Stop Aspirin 7 days before surgery, as directed by your surgeon. - Stop Vitamin E, ALL multi-vitamins, herbals and dietary supplements 14 days before surgery. - You may take Tylenol (Acetaminophen) or any of your pain medications that do not contain aspirin or NSAIDS as needed. Important Reminders: - Candy, mints, and tobacco products are NOT permitted the morning of surgery. - Hearing aids, dentures and glasses may be worn the morning of surgery. - NO jewelry, body piercings, makeup, hairpins or contacts are to be worn the day of surgery. If you develop symptoms such as a fever, cold, or flu, or have other changes to your health within TWO DAYS of scheduled surgery or the morning of surgery, please contact the surgery center above. Personal Belongings: -Please have photo ID and insurance cards. -If you do not have a copy of advance directives on file with us, please bring a copy with you on the day of surgery. - Leave ALL valuables and money at home or with family members. For Outpatient Procedures: - YOU MUST HAVE A RESPONSIBLE POTATO GRADER TAKE YOU HOME. A OPERATING SYSTEM DESIGNER OR SUPERVISOR DIALS CANNOT BE MADE A RESPONSIBLE POTATO GRADER. - We recommend that a responsible person stays with you overnight to take care of you. - You cannot stay in a hotel alone after outpatient surgery. You will not be permitted to have your surgery, if you do not have someone to take care of you. Arrival Time for Surgery: - The Surgery Center or hospital where you are having surgery will call the afternoon before surgery (or Tuesday for Tuesday surgery) with a scheduled arrival time. - If you have not heard by 4 pm, please contact the surgery center above. Please be aware that emergency situations arise, which may delay or change your surgical time. If this happens, we will notify you as soon as possible and regret any inconvenience. If you already have an Advance Directive, please fax a copy to [phone] or email to for it to be added to your chart. If you do not have an Advance Directive, you can find the appropriate form and more information at [email or web address]. We recommend that you complete the Advance Directive form found on the website and bring it with you the day of your surgery. It can be witnessed and scanned into your chart that day. Chary Bonilla PA-C documented in this encounter [facility] 01-20-2023 History and physical note PREANESTHESIA CONSULT CLINIC TELEHEALTH VISIT Patient has been identified by name and date of : Yes This is a virtual visit using [employer] Video Visit. It require patient-provider interaction for the medical decision making as documented below. Reason for contact: PACC visit Accompanied by: Self Scheduled Surgery: Procedure(s) (LRB): LAPAROSCOPIC CHOLECYSTECTOMY WITH GRAMS (N/A) I have communicated my name and active licensure. The patient's identity and physical location were verified at the time of this visit. Either the patient or their legal paper sales representative has been informed of the risks and benefits of -- and alternatives to -- treatment through a remote evaluation and consents to proceed with the evaluation remotely. Subjective CHIEF COMPLAINT: Patient presents with: Pre-Op Visit HPI: This is a 42 year old male who presents with RUQ pain. He reports symptoms are aggravated by diet choices, getting up and down and the vibration of riding in a car. He reports that pain and nausea have improved with eating less fatty foods. He reports daily intermittent symptoms. He was diagnosed with chronic cholecystitis and elects to proceed with above procedure. ACTIVE PROBLEM LIST Type 2 Diabetes (Hcc) Hyperlipidemia Gastroesophageal Reflux Disease Without Esophagitis Tobacco Use Disorder Erectile Dysfunction Overweight (Bmi 25.0-29.9) Burning Sensation of Feet Primary Hypertension Obesity (Bmi 30.0-34.9) Suspected Sleep Apnea Marijuana Use PAST MEDICAL HISTORY Diagnosis Date Burning sensation of feet 11/30/2021 Erectile dysfunction 04/17/2015 Essential hypertension Gastroesophageal reflux disease without esophagitis 08/26/2014 GERD (gastroesophageal reflux disease) 08/26/2014 Hyperlipidemia 08/26/2014 Overweight (BMI 25.0-29.9) 06/30/2020 Tobacco use disorder 10/03/2014 Type 2 diabetes (HCC) 08/26/2014 Type II or unspecified type diabetes mellitus without mention of complication, not stated as uncontrolled 08/26/2014 diagnosed 2012 PAST SURGICAL HISTORY Procedure Laterality Date EUSTACHIAN TUBOPLASTY as a child PAST SURGICAL HISTORY OF Right 02/22/1996 Right hand tendon repair PAST SURGICAL HISTORY OF Right 02/21/2003 Calf debridement, infection PAST SURGICAL HISTORY OF 02/21/1991 Testicular torsion FAMILY HISTORY Problem Relation Age of Onset No Ocular Disease Mother Osteoporosis Mother No Ocular Disease Father other (lymphoma) Father other (hepatitis C) Father Stroke Father No Ocular Disease Brother No Ocular Disease Brother None Brother No Ocular Disease Maternal Grandmother Dementia Maternal Grandmother No Ocular Disease Maternal Grandfather Heart Maternal Grandfather No Ocular Disease Paternal Grandmother unsure if grandmother had cataracts or glaucoma Diabetes Paternal Grandmother No Ocular Disease Paternal Grandfather Anesthesia Problems No Family History Social History Tobacco Use Smoking status: Every Day Packs/day: 1.00 Years: 27.00 Additional pack years: 0.00 Total pack years: 27.00 Types: Cigarettes Smokeless tobacco: Never Tobacco comments: From age 15 Vaping Use Vaping Use: Some days Substance Use Topics Alcohol use: Yes Comment: holidays 2 drinks or less, infrequent drinker Drug use: Yes Types: Marijuana Comment: 5 times per week for anxiety or less, non-medical ALLERGIES No Known Allergies MEDICATIONS: Current Outpatient Medications Medication Sig lisinopril (ZESTRIL) 10 mg tablet Take 1 tablet by mouth once daily. omeprazole (PRILOSEC) 40 mg capsule Take 1 capsule by mouth once daily. atorvastatin (LIPITOR) 40 mg tablet Take 1 tablet by mouth daily at bedtime. For cholesterol. insulin glargine (LANTUS SOLOSTAR U-100 INSULIN) 100 unit/mL (3 mL) Inject 20 Units subcutaneously daily at bedtime. metFORMIN ER (GLUCOPHAGE XR) 500 mg 24 hr tablet Take 2 tablets by mouth two times a day with meals. E11.65 ondansetron orally disintegrating (ZOFRAN ODT) 4 mg disintegrating tablet Take 1 tablet by mouth every 6 hours as needed for nausea/vomiting. empagliflozin (JARDIANCE) 25 mg tablet Take 1 tablet by mouth once daily. Take 1 tablet once daily in the morning (Patient not taking: Reported on 01/20/2023) Blood-Glucose Sensor (Myshaadi.inSTYLE WANDA 3 SENSOR) gem Use to test blood sugar as directed. E11.65 varenicline (CHANTIX STARTING MONTH BOX) 0.5 mg (11)- 1 mg (42) tablet Take 0.5 mg by mouth once daily on Days 1 through 3, THEN 0.5 mg twice daily on Days 4 through 7, THEN 1 mg twice daily on Day 8 and thereafter (Patient not taking: Reported on 01/18/2023) insulin needles, DISPOSABLE, (PEN NEEDLE) 31 gauge x 5/16 Use to inject insulin daily as directed. alcohol swabs (ALCOHOL PADS) Test blood sugar(s) 2 times daily. Dx: Type 2 DM - Uncontrolled E11.65 Insulin: Yes Lancets lancets Test blood sugar(s) 2 times daily. Dx: Type 2 DM - Uncontrolled E11.65 Insulin: Yes No current facility-administered medications for this visit. COVID VACCINATION STATUS: Not vaccinated, prior infection Had COVID-19 1 year ago. Denies complications or hospitalization. REVIEW OF SYSTEMS: Pain Assessment: General: No weight loss, malaise or fevers. Neuro: No history of TIA's, stroke, TYPING BOOKKEEPER tumor, impaired sensorium, hemiplegia, paraplegia or quadraplegia. No neurological symptoms or problems. Respiratory: Positive for Smoker, seasonal allergies (occasional nasal congestion) - no, fever, chills or cough, Negative for Asthma, COPD, Current cough, URI < 2 weeks Cardiovascular: Positive for: HLD, Hypertension, Negative for Recent IL, Arrhythmia, CAD, Chest Pain, CHF, Valvular Heart Disease, DVT/PE GI: See HPI, GERD : No history of dysuria, frequency or incontinence,, stones or chronic kidney disease Endocrine: Diabetes Mellitus on insulin, Diabetes Mellitus on oral agent Denies neuropathy Denies oral steroids in the last 30 days Denies thyroid disease/symptoms Hematology: No history of bleeding or clotting disorder. Pt is not taking anti-coagulation or platelet medications. No history of hematological symptoms or problems. Oncology: No history of CA metastasis, chemo within 30 days, or radiotherapy within 90 days. Has not lost 10% of body wt in 6 months. No history of oncological symptoms or problems. Psych: No history of psychiatric symptoms or problems. Denies PTSD Musculoskeletal: occasional joint pain and left wrist pain Occasional neck pain, history of pinched nerve symptoms. Denies current numbness or tingling with neck ROM Skin: Negative for lesions, rash and itching. Objective PHYSICAL EXAM: Pulse 84[patient counted[ Ht 5' 9.5[patient reported[ (1.77m) Wt 217 lb (98.4kg) BMI 31.60 kg/(m^2). VIDEO EXAM: (if completed, exam performed via video enabled technology) GENERAL: alert and appropriate, in no distress, well-hydrated, well nourished, and happy, smiling, interactive SKIN: no rash noted HEAD: normocephalic, no abnormality or lesion noted EYES: no injection NOSE: external nose normal without rhinorrhea NECK: full ROM RESPIRATORY: breathing non-labored and no grunting/flaring/retractions CHEST: equal chest rise with normal respiratory effort HEART: Patient confirmed radial pulse and counted aloud with regular rhythm. HR 84 BPM. No cyanosis ABDOMEN: mild TTP noted in the RUQ NEUROLOGIC: no cerebral deficits noted Diagnostic tests reviewed for today's visit: Lab Value Units Date High Low HB No results within date range. HCT No results within date range. WBC No results within date range. PLT No results within date range. NA 138 mmol/L 12/17/2022 144 136 K 4.2 mmol/L 12/17/2022 5.1 3.7 GLUC 203 mg/dL 12/17/2022 99 74 BUN 12 mg/dL 12/17/2022 24 9 CREAT 0.82 mg/dL 12/17/2022 1.22 0.73 PTSEC No results within date range. INR No results within date range. APTT No results within date range. ALT No results within date range. AST No results within date range. TBILI No results within date range. TSH No results within date range. Hemoglobin A1C (%) Date Value 12/17/2022 7.8 05/29/2022 6.7 11/30/2021 7.1 03/27/2021 7.3 07/05/2020 11.0 04/11/2019 12.2 09/25/2016 7.2 10/01/2014 10.9 Hemoglobin A1C (POCT) (%) Date Value 11/11/2020 9.6 07/18/2018 12.2 Labs per care everywhere reviewed: 01/10/2023 [facility] Normal creatinine, GFR, K, NA, BUN, bilirubin, AST, ALT, lipase Glucose 176 WBC 11.2 (4.4-11), normal H/H, platelet EKG 03/02/2021 NORMAL SINUS RHYTHM NORMAL ECG Stress test 03/30/2021 CONCLUSIONS: - Technically difficult exam due to body habitus. - Exam indication: Chest Pain - The exercise stress echo was negative for ischemia at 90 % of MPHR (6.2 METS). - The left ventricle is normal in size. Left ventricular systolic function is normal. EF = 56 5% (2D biplane) Indeterminate left ventricular diastolic dysfunction. - The right ventricle is normal in size. Right ventricular systolic function is normal. - There is mild aortic insufficiency present. - The patient has not had a prior [facility] echocardiographic exam for comparison. Impression/Recommendations ASSESSMENT: 1. Preop examination Scheduled for above procedure 2. Primary hypertension On Lisinopril. Most recent BP reading in Epic 126/84 on 01/18. Stable to proceed 3. Tobacco use disorder 1 ppd x 27 years. Also vapes when he cannot smoke. Patient has Chantix prescription which has has not started yet. Advised that he may start it if he'd like to. Encouraged smoking cessation 4. Type 2 diabetes (HCC) On Lantus and Metformin. Patient is not currently taking Jardiance due to insurance coverage and cost. Advised it would need to be held 3 days pre-op. Patient does not check home BS readings. Advised he will be pending DOS glucose. Last Hgb A1C 7.8% 12/17/2022 5. Hyperlipidemia, unspecified hyperlipidemia type On Lipitor 6. Gastroesophageal reflux disease without esophagitis On Prilosec. Patient reports symptoms are mostly controlled with medication 7. Obesity (BMI 30.0-34.9) BMI 31 8. Suspected sleep apnea STOP BANG score of 5/8. Encouraged patient to discuss sleep study with PCP. 9. Marijuana use Encouraged patient to hold this now for surgery. METS: Walk a block or two on level ground (2.75 METs) Climb a flight of stairs or walk up a hill (5.50 METs) Patient denies any chest pain or undue shortness of breath with the above physical activity. Walking, circuit rehab trainer home gym (limited since onset of abdominal pain) ANESTHESIA FINDINGS: Intubation History: No history of difficult intubation Significant Anesthesia Considerations: None Airway Exam: General: Normal appearance Mallampati Score is CLASS III ULBT: Class I - Lower incisors can bite the upper lip above the arturo line Neck: Normal appearance and function Mouth: Normal tongue size and Mouth opening greater than 2 finger breaths Dentition: right upper molar missing, left lower missing tooth Airway History: No abnormal airway history STOP BANG Score: Criteria: Snoring Tired Hypertension Neck circumference > 15.75 inches Male gender Score = 5 Encouraged patient to discuss sleep study with PCP PLAN: This patient is optimally prepared for surgery. CONSULTS: Patient does not require consults for optimization at this time. The Following Tests/Procedures Have Been Initiated: EKG not indicated per PACC protocol Planned Anesthetic: Per anesthesia choice Instructions Given to Patient: Patient given verbal instructions and voices comprehension and compliance. Copy sent electronically via My Chart, email, or mobile device. This is a virtual visit. It required patient-provider interaction for the medical decision making as documented above. SIGNATURE: Chary Bonilla PA-C PATIENT NAME: Pete Vasquez DATE: 01/20/2023 TIME: 9:14 AM PAGER/CONTACT #: documented in this encounter [facility] 01-19-2023 Telephone encounter Note 01/24/2023 LAP LOIS W/ GRAMS ALVAREZ Patient aware surgery is with Felipe as surgeon did not have any dates available for this year. [facility] 01-19-2023 Miscellaneous Notes 01/24/2023 LAP LOIS W/ GRAMS ALVAREZ Patient aware surgery is with Felipe as surgeon did not have any dates available for this year. documented in this encounter [facility] 01-10-2023 Discharge summary Note Date/Time January 10, 2023 8:40am [facility] Medical Records Department [address] [place] [address] Emergency Department Summary 01/10/23 MR#: [id number] Acct: [id number] Name: PETE VASQUEZ Rep #:[id number] : 1980 42 From: Dario Phillips PCP: Dr. Bernard Zelaya MD Status:R EG ER Location: ED HPI History of Present Illness Chief Complaint: Abd Pain [facility] Medical History Diabetes GERD (gastroesophageal reflux disease) Hypertension Sleep apnea Smoker Testicular torsion Home Medications atorvastatin 40 mg tablet 40 mg PO QHS 06/16/22 [History Last Taken 01/09/23] lisinopril 5 mg tablet 10 mg PO DAILY 06/16/22 [History Last Taken 01/03/23] metformin 500 mg tablet,extended release 24 hr 1,000 mg PO BID 06/16/22 [History Last Taken 01/10/23] omeprazole 40 mg capsule,delayed release 40 mg PO DAILY 06/16/22 [History Last Taken 01/10/23] empagliflozin 25 mg tablet (Jardiance) 25 mg PO DAILY 01/10/23 [History Last Taken 01/03/23] insulin glargine 100 unit/mL (3 mL) subcutaneous pen (Basaglar KwikPen U-100 Insulin) 20 unit subcut QPM 01/10/23 [History Last Taken 01/09/23] naproxen sodium 220 mg tablet (Aleve) 440 mg PO BID 01/10/23 [History Last Taken 01/10/23] Allergy/AdvReac Type Severity Reaction Status Date / Time No Known Allergies Allergy Verified 01/10/23 08:01 Family History Other Lymphoma Social History Smoking Status: Current every day smoker tobacco type: cigarettes EXAM Physical Exam Const Vital Signs: 01/10/23 07:58 01/10/23 10:18 Temperature 96.9 F L Temperature Source Temporal Pulse Rate 86 Respiratory Rate 15 16 Blood Pressure 201/87 H Blood Pressure Mean 125 Pulse Ox 100 Oxygen Delivery Method Room Air MDM MDM MDM Narrative Medical decision making narrative: HISTORY OF PRESENT ILLNESS: 42-year-old male here with concern for abdominal pain. He states he developed burning right upper quad abdominal pain after coughing. No trauma. The pain isnot worse with food. Denies history abdominal surgery. Denies fever nausea or vomiting. Denies chest pain or shortness of breath. Denies any trouble urinating. Denies any melena hematochezia constipation or diarrhea. REVIEW OF SYSTEMS: Pertinent positives: Abdominal pain Pertinent negatives: Fever, nausea vomiting, chest pain, shortness of breath, change in bowel or bladder habits PHYSICAL EXAM: Nursing triage notes reviewed, Vital signs reviewed Constitutional: please see mdm HENT: MMM Eyes: Pupils equal round and reactive to light, Extraocular muscles intact Neck: No stridor, no JVD, full neck ROM Lungs: Clear to auscultation, No wheezing or rales. No increased work of breathing, no conversational dyspnea, no accessory muscle use, no nasal flaring. No respiratory distress noted Heart: Regular rate and rhythm, No murmurs, No rubs and No gallops, 2+ distal pulses (radial, femoral, posterior tibial) in all extremities Abdomen: Soft, there is no tenderness, rigidity, rebound or guarding, no obviousperitoneal signs, no palpable pulsatile abdominal masses, no auscultated abdominal bruit : No CVAT Extremities: No edema Neuro: No focal neurological deficits, cranial nerves II through XII intact, 5/5strength in all extremities. Intact sensation to light touch in all extremities,2+ reflexes bilateral patella tendons. Normal gait. No ataxia. Skin: No rash or lesions noted MEDICAL DECISION MAKING: Chief Complaint: Abdominal pain External records reviewed: CT scan abdomen pelvis from May 2022 shows no acuteinflammatory process Factors affecting care: none Social determinants of health: none History obtained from others: The patient's Consults: none [facility] Narrative: The patient was hemodynamically stable, afebrile, nontoxic-appearing. Exam withright upper quadrant TTP, no peritoneal signs I considered the following differential diagnosis: Musculoskeletal abdominal injury, acute cholecystitis, pancreatitis, hepatobiliary production, viral hepatitides ALL IMAGES (IF OBTAINED) HAVE BEEN PERSONALLY REVIEWED AND INTERPRETED BY MYSELF. CBC with leukocytosis (stable from baseline) suggestive of systemic inflammation, no anemia or thrombocytopenia BMP without evidence of significant electrolyte abnormalities, no anion gap, no acute kidney injury. Lipase is wnl indicating no pancreatic inflammation. LFTs show no evidence of hepatobiliary pathology. Gallbladder ultrasound showed evidence of gallstones but no evidence of acute cholecystitis The synthesis of the patient's history, physical exam, labs, images were suggestive of biliary colic. No indication for emergent surgical consultation or evaluation at this time. Patient was noted to have elevated blood pressure. Is likely secondary to pain. Encouraged him to take his home lisinopril. We will give surgery referral. Gave strict return precautions. The patient and/or family, caregivers express understanding. The patient and/orfamily, caregivers agrees with the plan. Shared decision making: I will have a discussion with the patient and or visitors regarding risk/benefits of further testing or admission. They will be made aware of of the risk/benefits inherent in this decision they will be given the opportunity to voice understanding. Total critical care time today provided was at least 0 minutes. This excludes separately billable procedures. Critical care time (if documented) is secondary to the patient having high probability of clinically significant/life threatening deterioration in the patient's condition which required my urgent intervention. Impression: 1. Abdominal pain acute on chronic right upper quadrant 2. Uncontrolled hypertension 3. Leukocytosis Dispo: Discharge Lab Data Attestation: I reviewed the patient's lab results. Labs: Laboratory Results - last 24 hr 01/10/23 08:25 WBC 11.2 H RBC 5.77 Hgb 14.7 Hct 45.4 MCV 78.7 L MCH 25.5 L MCHC 32.4 RDW Std Deviation 38.0 RDW Coeff of Citlalli 13.3 Plt Count 298 MPV 9.3 Immature Gran % (Auto) 0.300 Neut % (Auto) 51.8 Lymph % (Auto) 36.5 Carolina % (Auto) 7.4 Eos % (Auto) 3.5 Baso % (Auto) 0.5 Absolute Neuts (auto) 5.8 Absolute Lymphs (auto) 4.10 Nucleated RBC % 0 Sodium 137 Potassium 4.4 Chloride 104 Carbon Dioxide 27.0 Anion Gap 6 BUN 10 Creatinine 0.86 Estim Creat Clear Calc 110.75 Est GFR (MDRD) Af Amer 124 Est GFR (MDRD) Non-Af 102 BUN/Creatinine Ratio 11.6 Glucose 176 H Calcium 8.7 Total Bilirubin 0.40 Direct Bilirubin 0.08 AST 16 ALT 24 Alkaline Phosphatase 93 Total Protein 7.5 Albumin 3.3 Globulin 4.2 Lipase 20 Radiography Diagnostic Testing: Clinical Impression(s) from Imaging Studies Gallbladder Ultrasound 01/10/23 09:03 IMPRESSION: Cholelithiasis without gallbladder wall thickening. Hepatomegaly with hepatic steatosis. Electronically Signed: Celestina Ribeiro MD at 10:30 EST , Discharge Plan Triage Chief Complaint: Abd Pain ED Provider: Dario Smith Dx/Rx/DC Orders Instructions: ED Gallstones with Biliary Colic Prescriptions: No Action atorvastatin 40 mg tablet 40 mg PO QHS Patient Comments: TAKE 1 TABLET BY MOUTH ONCE DAILY AT BEDTIME FOR CHOLESTEROL omeprazole 40 mg capsule,delayed release(DR/EC) 40 mg PO DAILY lisinopril 5 mg tablet 10 mg PO DAILY metformin 500 mg tablet extended release 24 hr 1,000 mg PO BID Patient Comments: TAKE 2 TABLETS BY MOUTH TWICE DAILY WITH MEALS Jardiance 25 mg tablet 25 mg PO DAILY insulin glargine [Basaglar KwikPen U-100 Insulin] 100 unit/mL (3 mL) insulin pen 20 unit subcut QPM naproxen sodium [Aleve] 220 mg tablet 440 mg PO BID Stand Alone Forms: ED Work / School Excuse Primary Care Provider: Bernard Zelaya Referrals: Reed Pedraza MD [Med Staff - Active Staff] - Activity Restrictions/Additional Instructions: Thank you for trusting us with your care today! Please take Tylenol (2 pills, 650 mg), ibuprofen (2 pills, 400 mg) every 6 hoursas needed for pain and fever control. Please return to the emergency department if your symptoms change or worsen. Please follow with your primary care physician for further outpatient evaluationand management. Disposition Disposition: Home, Self Care What to do if you have Problems For any increased pain, shortness of breath, bleeding, nausea or vomiting, chestpain, or any unexpected problems, contact your Primary Care Provider. Call [facility] ([phone]) or report to the closest Emergency Room. Call 911 if necessary. 01/10/23 9060 <Electronically signed by Dario Smith DO> Cosigner Signature (if applicable): CC: Dr. Bernard Zelaya MD ~ Signed [facility] Work Phone: 1(578) 312-123311-17-2023 History of Present illness Narrative* Sharron Vigil, OD - 01/07/2023 10:53 AM EST 1. Type 2 diabetes mellitus without retinopathy (HCC) Risk of diabetic changes and vision loss can be minimized by tight control of blood sugar, blood pressure, and cholesterol levels. Educated patient to continue care with primary care doctor and/or spool sorter to maintain optimum levels as they are important to avoid ocular complications. Encouraged patient to call the office immediately with any changes to vision or visual concerns. Advised to not wait until the next scheduled exam. 2. Myopia, bilateral 3. Regular astigmatism of both eyes Finalized spec rx Educated pt on proper wear/care of contact lenses including yearly assessments (not 1800 contacts assessments) to assure proper fit and vision- patient opts out of exam today Follow-up in 1 year for diabetic eye exam or sooner as needed Sharron Vigil, VY January 07, 2023 10:53 AM documented in this encounterC[facility]23 NoteHNO ID: [id number] Author: Saima Florez TECHNOLOGIST Service: ? Author Type: Technologist Type: Progress Notes Filed: 01/06/2023 5:05 PM Note Text: Radiology Service Progress Note PATIENT NAME: Pete Vasquez DATE OF SERVICE: January 06, 2023 TIME: 5:05 PM PATIENT IDENTITY VERIFICATION COMPLETED USING TWO (2) IDENTIFIERS: Name and Date of confirmed by patient verbally. FALL SCREENING: Has the patient had 2 falls in the last year or 1 fall with injury or currently using an Ambulatory Assistive Device (Walker, Cane, Wheelchair, Crutches, etc.)? No PATIENT GENDER DATA: Male PATIENT RELEVANT IMPLANT DATA REVIEWED: Yes RADIOLOGY DEPARTMENT: Ultrasound PERIPHERAL IV DATA: Not applicable SIGNED BY: TECHNOLOGIST Andrey January 06, 2023 5:05 [facility]11-16-2023 History of Present illness Narrative* Saima Florez TECHNOLOGIST - 01/06/2023 5:00 PM EST Radiology Service Progress Note PATIENT NAME: Pete Vasquez DATE OF SERVICE: January 06, 2023 TIME: 5:05 PM PATIENT IDENTITY VERIFICATION COMPLETED USING TWO (2) IDENTIFIERS: Name and Date of confirmedby patient verbally. FALL SCREENING: Has the patient had 2 falls in the last year or 1 fall with injury or currently using an Ambulatory Assistive Device (Walker, Cane, Wheelchair, Crutches, etc.)? No PATIENT GENDER DATA: Male PATIENT RELEVANT IMPLANT DATA REVIEWED: Yes RADIOLOGY DEPARTMENT: Ultrasound PERIPHERAL IV DATA: Not applicable SIGNED BY: TECHNOLOGIST Andrey January 06, 2023 5:05 PM documented in this encounterC[facility] History of Present illness Narrative* Li Santiago RT(R) - 01/05/2023 10:00 AM EST Radiology Service Progress Note PATIENT NAME: Pete Vasquez DATE OF SERVICE: January 05, 2023 TIME: 10:09 AM PATIENT IDENTITY VERIFICATION COMPLETED USING TWO (2) IDENTIFIERS: Name and Date of confirmedby patient verbally. FALL SCREENING: Has the patient had 2 falls in the last year or 1 fall with injury or currently using an Ambulatory Assistive Device (Walker, Cane, Wheelchair, Crutches, etc.)? No PATIENT GENDER DATA: Male PATIENT RELEVANT IMPLANT DATA REVIEWED: Not Applicable RADIOLOGY DEPARTMENT: General X-ray: Exam(s) Completed: Rib X-Ray: Right PERIPHERAL IV DATA: Not applicable SIGNED BY: RT Julito(R) January 05, 2023 10:09 AM documented in this encounterC[facility]11-15-[facility]23 History of Present illness Narrative* Karime Roa APRN.CRUISE COORDINATOR - 01/05/2023 9:30 AM EST Images from the original note were not included. CC: Patient presents with: right flank pain x2 weeks: Seen at [facility] 01/01 HPI Pete Vasquez is a 42 year old male who presents today for above. He was seen in [facility] ER on 01/01 for this. Lab work-up including CMP, CBC, lipase, amylase negative. Pain attributed to musculoskeletal cause. Today patient reports no improvement in pain. He is taking Aleve twice a day which takes the edge off. Pain is located right anterior ribs and right upper quadrant abdomen and does not radiate. Described as constant dull ache, sharp with cough/sneezing. Aggravated by coughing, changing positions, stretching. Alleviated by rest. Belching relieves the pressure Associated with constipation, increase in belching, reflux. Denies fever, chills, cough, wheezing, SOB, hemoptysis, injury, strenuous activities/heavy lifting. Review of Systems Constitutional: Negative for activity change, appetite change, diaphoresis and unexpected weight change. Cardiovascular: Negative for chest pain, palpitations and leg swelling. Gastrointestinal: Negative for abdominal distention, anal bleeding, blood in stool, diarrhea, nausea and vomiting. Genitourinary: Negative for decreased urine volume, difficulty urinating, dysuria, frequency, hematuria and urgency. Skin: Negative for rash. PAST MEDICAL HISTORY Diagnosis Date Burning sensation of feet 11/30/2021 Erectile dysfunction 04/17/2015 Gastroesophageal reflux disease without esophagitis 08/26/2014 GERD (gastroesophageal reflux disease) 08/26/2014 Hyperlipidemia 08/26/2014 Overweight (BMI 25.0-29.9) 06/30/2020 Tobacco use disorder 10/03/2014 Type 2 diabetes (HCC) 08/26/2014 Type II or unspecified type diabetes mellitus without mention of complication, not stated as uncontrolled 08/26/2014 diagnosed 2012 PAST SURGICAL HISTORY Procedure Laterality Date PAST SURGICAL HISTORY OF Right 1996 Right hand tendon repair PAST SURGICAL HISTORY OF Right 2003 Calf debridement, infection PAST SURGICAL HISTORY OF 1991 Testicular torsion ALLERGIES Patient has no known allergies. MEDICATIONS omeprazole (PRILOSEC) 40 mg capsule Take 1 capsule by mouth once daily. atorvastatin (LIPITOR) 40 mg tablet Take 1 tablet by mouth daily at bedtime. For cholesterol. insulin glargine (LANTUS SOLOSTAR U-100 INSULIN) 100 unit/mL (3 mL) Inject 20 Units subcutaneously daily at bedtime. Blood-Glucose Sensor (Myshaadi.inSTYLE WANDA 3 SENSOR) gem Use to test blood sugar as directed. E11.65 lisinopril (ZESTRIL) 10 mg tablet Take 1 tablet by mouth once daily. metFORMIN ER (GLUCOPHAGE XR) 500 mg 24 hr tablet Take 2 tablets by mouth two times a day with meals. E11.65 varenicline (CHANTIX STARTING MONTH BOX) 0.5 mg (11)- 1 mg (42) tablet Take 0.5 mg by mouth once daily on Days 1 through 3, THEN 0.5 mg twice daily on Days 4 through 7, THEN 1 mg twice daily on Day 8and thereafter insulin needles, DISPOSABLE, (PEN NEEDLE) 31 gauge x 5/16 Use to inject insulin daily as directed. ondansetron orally disintegrating (ZOFRAN ODT) 4 mg disintegrating tablet Take 1 tablet by mouth every 6 hours as needed for nausea/vomiting. alcohol swabs (ALCOHOL PADS) Test blood sugar(s) 2 times daily. Dx: Type 2 DM - Uncontrolled E11.65Insulin: Yes Lancets lancets Test blood sugar(s) 2 times daily. Dx: Type 2 DM - Uncontrolled E11.65 Insulin: Yes FAMILY HISTORY Problem Relation Age of Onset Osteoporosis Mother other (lymphoma) Father other (hepatitis C) Father Stroke Father None Brother Dementia Maternal Grandmother Heart Maternal Grandfather Diabetes Paternal Grandmother Social History Tobacco Use Smoking status: Every Day Packs/day: 1.00 Years: 27.00 Additional pack years: 0.00 Total pack years: 27.00 Types: Cigarettes Smokeless tobacco: Never Tobacco comments: From age 15 Substance Use Topics Alcohol use: Yes Comment: holidays 2 drinks Drug use: Yes Types: Marijuana Comment: 5 times per week for anxiety BP 176/95 Pulse 91 Resp 18 Wt 99.3 kg (219 lb) SpO2 97% BMI 31.88 kg/m Physical Exam Vitals reviewed. Constitutional: General: He is not in acute distress. Appearance: Normal appearance. He is not ill-appearing. Cardiovascular: Rate and Rhythm: Normal rate and regular rhythm. Pulses: Normal pulses. Heart sounds: Normal heart sounds. No murmur heard. Pulmonary: Effort: Pulmonary effort is normal. Breath sounds: Normal breath sounds. No wheezing, rhonchi or rales. Chest: Chest wall: Tenderness present. No deformity, swelling or crepitus. Abdominal: General: Bowel sounds are normal. Palpations: Abdomen is soft. There is no hepatomegaly or splenomegaly. Tenderness: There is abdominal tenderness in the right upper quadrant. There is no guarding. Negative signs include Jimenez's sign. Musculoskeletal: Arms: Skin: General: Skin is warm and dry. Neurological: Mental Status: He is alert. Psychiatric: Mood and Affect: Mood normal. DATA REVIEWED: Outside chart from [facility] reviewed. ASSESSMENT/PLAN: 1. Right upper quadrant pain - ICD9: 789.01, ICD10: R10.11 (primary diagnosis) Etiology unclear Differential Diagnosis includes GERD, Constipation, Gall bladder colic/cholelithiasis, Kidney stones/colic, and musculoskeletal pain - US ABD RIGHT UPPER QUADRANT - continue with Aleve as needed - follow-up pending results, see plan below 2. Rib pain on right side - ICD9: 786.50, ICD10: R07.81 - XR RIBS/CHEST 3V AP RIB/OBLS/CXR RIGHT 3. Type 2 diabetes (HCC) - ICD9: 250.00, ICD10: E11.9 - FREESTYLE WANDA 3 SENSOR DEVICE refilled 4. Primary hypertension - ICD9: 401.9, ICD10: I10 BP elevated today due to pain and patient has been out of Lisinopril for a few days - Continue current medications - LISINOPRIL 10 MG TABLET Prescription instructions reviewed with patient as applicable. Potential red flag symptoms discussed with the patient. Reviewed appropriate action plan to take if red flag symptoms occur. Patient agreeable to treatment plan. Karime Roa APRN.CNP documented in this encounterC[facility]11-09-[facility]23 History of Present illness Narrative* Louise Magaña PA-C - 12/30/2022 1:40 PM EST Patient presents with upper abdominal pain, chest pain and left arm tightness and numbness since yesterday. He has a history of hypertension, hyperlipidemia, diabetes, is a smoker and obesity. Has had some nausea. Discussed with patient I would recommend he be seen in the emergency department. Recommended stephanie, patient declined. [facility]. documented in this encounterC[facility]11-03-2023 Miscellaneous Notes* Telephone Encounter - Jhon Gupta RN - 12/24/2022 1:32 PM EDT Phoned patient and given provider's message below with verbalized understanding. Patient states he is not interested in taking victoza injections daily, he would rather stay on the insulin. * Telephone Encounter - Bernard Zelaya MD - 12/24/2022 12:28 PM EDT Reviewed medications on formulary as outlined in previous correspondence. I suggest he take Victoza injections, which are similar to Ozempic, but taken daily daily 1.2 mg SC. * Telephone Encounter - Amanda Tabares LPN - 12/23/2022 2:37 PM EDT PA was already completed for his insurance and this was denied. There are formulary that they say he needs to try first. This info is in scanned documents dated 10/06/22. * Telephone Encounter - Farrah Galvez MSW - 12/23/2022 1:30 PM EDT Sw spoke with patient patient regarding Ozempic cost/coverage issues. [place] [employer] PAP program notes as one of their guidelines not be eligible for Medicaid to be eligible for assistance. Being as patient is eligible and receives Medicaid would then not be eligible forPAP program. Malcolm will send message to Dr. Zelaya to update him with this information. documented in this encounterC[facility]11-02-2023 History of Present illness Narrative* Li Santiago RT(Precious) - 12/23/2022 11:20 AM EDT Radiology Service Progress Note PATIENT NAME: Pete Vasquez DATE OF SERVICE: December 23, 2022 TIME: 11:38 AM PATIENT IDENTITY VERIFICATION COMPLETED USING TWO (2) IDENTIFIERS: Name and Date of confirmedby patient verbally. FALL SCREENING: Has the patient had 2 falls in the last year or 1 fall with injury or currently using an Ambulatory Assistive Device (Walker, Cane, Wheelchair, Crutches, etc.)? No PATIENT GENDER DATA: Male PATIENT RELEVANT IMPLANT DATA REVIEWED: Not Applicable RADIOLOGY DEPARTMENT: General X-ray: Exam(s) Completed: Upper Extremity X- Ray(s): Wrist, left PERIPHERAL IV DATA: Not applicable SIGNED BY: RT Julito(R) December 23, 2022 11:38 AM documented in this encounterC[facility]10-04-2023 Miscellaneous Notes* Telephone Encounter - Brisa Tai LPN - 11/24/2022 8:23 AM EDT Patient has been identified by name and date of : Yes, Patient phones for refill(s): Requested Prescriptions Pending Prescriptions Disp Refills insulin glargine (LANTUS SOLOSTAR U-100 INSULIN) 100 unit/mL (3 mL) Sig: Inject 17 Units subcutaneously daily at bedtime. Date of last office visit in primary care: 09/29/2022 Medication follow-up: 12/23/2022 Last 2 Encounter Wt Readings: Date: Wt: 09/06/2022 93.4 kg (205 lb 12.8 oz) 08/17/2022 88.9 kg (196 lb) Previous labs/tests for medication: Diabetes: Hemoglobin A1C (%) Date Value 05/29/2022 6.7 11/30/2021 7.1 03/27/2021 7.3 07/05/2020 11.0 Hemoglobin A1C (POCT) (%) Date Value 11/11/2020 9.6 Please advise. Thank you. Brisa Tai LPN documented in this encounterC[facility]09-28-2023 Miscellaneous Notes* Telephone Encounter - Bernard Zelaya MD - 11/18/2022 10:20 AM EDT Fasting labs ordered. Appointment in office in 2-4 weeks. * Telephone Encounter - Brisa Tai LPN - 11/18/2022 8:13 AM EDT Patient has been identified by name and date of : Yes Patient phones for refill(s): Requested Prescriptions Pending Prescriptions Disp Refills metFORMIN ER (GLUCOPHAGE XR) 500 mg 24 hr tablet 360 tablet 1 Sig: Take 2 tablets by mouth twice daily with meals. E11.65 Date of last office visit in primary care: 09/29/2022 No future appt scheduled. Last 2 Encounter Wt Readings: Date: Wt: 09/06/2022 93.4 kg (205 lb 12.8 oz) 08/17/2022 88.9 kg (196 lb) Previous labs/tests for medication: Diabetes: Hemoglobin A1C (%) Date Value 05/29/2022 6.7 11/30/2021 7.1 03/27/2021 7.3 07/05/2020 11.0 Hemoglobin A1C (POCT) (%) Date Value 11/11/2020 9.6 Please advise. Thank you. Brisa Tai LPN documented in this encounterC[facility]08-15-2023 Miscellaneous Notes* Telephone Encounter - Morenita Ferrari RN - 10/05/2022 3:50 PM EDT Pt called and is notified of providers message. Pt voices understanding.Pt wants to look Jardiance up and look into it before committing to it. Morenita Ferrari RN * Telephone Encounter - Tunde Green Ma - 10/05/2022 3:00 PM EDT Left message to call office. 10/05/2022 3:00 PM * Telephone Encounter - Karime Roa APRN.CNP - 10/05/2022 2:00 PM EDT Please let the patient know his insurance denied Ozempic. Recommend an oral medication called Jardiance. Please let me know if patient agreeable Karime Roa APRN.CNP * Telephone Encounter - Amanda Tabares LPN - 10/01/2022 11:17 AM EDT Rec'd denied from [employer] for semaglutide. They note pt to has tried at least 3 of formulary in the past 120 days. They are but not limited tofarxiga 5 and 10 mg Invokana 100mg and 300mg Vicotza 18mg/3ml pen Jardiance 10 mg and 25 mg * Telephone Encounter - Amanda Tabares LPN - 09/30/2022 12:25 PM EDT Pete Vasquez (Muñiz: [id number]) - [id number] Ozempic (0.25 or 0.5 MG/DOSE) 2MG/3ML pen-injectors Status: Sent To Plan Created: September 29, 2022 [id number] Sent: September 30, 2022 documented in this encounterCleveland Clinic [facility]08-09-2023 History of Present illness Narrative* Karime Roa APRN.CRUISE COORDINATOR - 09/29/2022 6:37 PM EDT This Team Access Model visit is a virtual encounter. It required patient- provider interaction for the medical decision making as documented below. I have communicated my name and active licensure. The patient's identity and physical location wereverified at the time of this visit. Either the patient or their legal paper sales representative has been informed of the risks and benefits of -- and alternatives to -- treatment through a remote evaluation andconsents to proceed with the evaluation remotely. Patient Location: [place] CC: Patient presents with: Follow Up HPI Pete Vasquez is a 42 year old male who is contacted today for a virtual visit. This is an established patient of Bernard Wilkerson MD. Patient was experiencing intermittent abdominal pain, diarrhea, nausea and vomiting since he was started on Trulicity. This was discontinued one month ago and GI issues have completely resolved. He is taking Lantus 17 units at bedtime. Blood sugars are not as well controlled now, especially post prandial. Fasting in the 130's-160's and post prandial in the 200's. Denies hypoglycemia. REVIEW OF SYSTEMS See HPI PAST MEDICAL HISTORY Diagnosis Date GERD (gastroesophageal reflux disease) 08/26/2014 Hyperlipidemia 08/26/2014 Type II or unspecified type diabetes mellitus without mention of complication, not stated as uncontrolled 08/26/2014 diagnosed 2012 PAST SURGICAL HISTORY Procedure Laterality Date PAST SURGICAL HISTORY OF Right 1996 Right hand tendon repair PAST SURGICAL HISTORY OF Right 2003 Calf debridement, infection PAST SURGICAL HISTORY OF 1991 Testicular torsion ALLERGIES Patient has no known allergies. MEDICATIONS insulin glargine (LANTUS SOLOSTAR U-100 INSULIN) 100 unit/mL (3 mL) Inject 15 Units subcutaneously daily at bedtime. insulin needles, DISPOSABLE, (PEN NEEDLE) 31 gauge x 5/16 Use to inject insulin daily as directed. ondansetron orally disintegrating (ZOFRAN ODT) 4 mg disintegrating tablet Take 1 tablet by mouth every 6 hours as needed for nausea/vomiting. omeprazole (PRILOSEC) 40 mg capsule Take 1 capsule by mouth once daily. lisinopril (ZESTRIL) 5 mg tablet Take 1 tablet by mouth once daily. atorvastatin (LIPITOR) 40 mg tablet Take 1 tablet by mouth daily at bedtime. For cholesterol. Blood-Glucose Sensor (FREESTYLE WANDA 3 SENSOR) gem Use to test blood sugar as directed. E11.65 dulaglutide (TRULICITY) 3 mg/0.5 mL pen injector Inject 3 mg subcutaneously one time a week. metFORMIN ER (GLUCOPHAGE XR) 500 mg 24 hr tablet Take 2 tablets by mouth twice daily with meals. E11.65 alcohol swabs (ALCOHOL PADS) Test blood sugar(s) 2 times daily. Dx: Type 2 DM - Uncontrolled E11.65Insulin: Yes blood sugar diagnostic (BLOOD GLUCOSE TEST) test strip Test blood sugar(s) 2 times daily. Dx: Type 2 DM - Uncontrolled E11.65 Insulin: Yes Lancets lancets Test blood sugar(s) 2 times daily. Dx: Type 2 DM - Uncontrolled E11.65 Insulin: Yes FAMILY HISTORY Problem Relation Age of Onset Osteoporosis Mother other (lymphoma) Father other (hepatitis C) Father Stroke Father None Brother Dementia Maternal Grandmother Heart Maternal Grandfather Diabetes Paternal Grandmother Social History Tobacco Use Smoking status: Every Day Packs/day: 1.00 Years: 19.00 Total pack years: 19.00 Types: Cigarettes Smokeless tobacco: Never Substance Use Topics Alcohol use: Yes Comment: holidays 2 drinks Drug use: Yes Types: Marijuana Comment: 5 times per week for anxiety EXAM: Virtual visit completed using video, limited exam completed. GENERAL: alert and appropriate, in no distress, well-hydrated, well nourished, and happy, smiling, interactive DATA REVIEWED: Most recent labs ASSESSMENT/PLAN: 1. Uncontrolled type 2 diabetes mellitus with hyperglycemia (HCC) - ICD9: 250.02, ICD10: E11.65 (primary diagnosis) Worsening control since stopping Trulicity. GI issues have completely resolved however. Will try switching to Ozempic, see orders. Continue with Lantus for now. Follow-up in 2 months or sooner as needed 2. Medication side effects - ICD9: 995.20, ICD10: T88.7XXA As above Prescription instructions reviewed with patient as applicable. Potential red flag symptoms discussed with the patient. Reviewed appropriate action plan to take if red flag symptoms occur. Patient agreeable to treatment plan. During this patient visit I have spent approximately 20 minutes in counseling regarding treatment options, medications, test results, and coordinating care. Karime Roa APRN.CRUISE COORDINATOR documented in this encounterC[facility] History of Present illness Narrative* Sudarshan Tran MD - 09/06/2022 11:49 AM EDT Patient presents with: Arm Pain: L arm pain and numbness x3 days, dizziness HPI: Left arm pain/numbness: Duration: 3 days Location: left arm Character: aching and numbness/tingling Radiation: from left shoulder/axilla to the 4th and 5th fingers Aggravating: working seemed to make it worse today Relieving: Pain relievers: Tylenol Associated: numbness, hand weakness, improved headache, some left neck pain, has had sciatic pain in the past Pertinent negatives: Denies chest pain, fever, dyspnea on exertion, known injury PAST MEDICAL HISTORY Diagnosis Date GERD (gastroesophageal reflux disease) 08/26/2014 Hyperlipidemia 08/26/2014 Type II or unspecified type diabetes mellitus without mention of complication, not stated as uncontrolled 08/26/2014 diagnosed 2012 PAST SURGICAL HISTORY Procedure Laterality Date PAST SURGICAL HISTORY OF Right 1997 Right hand tendon repair PAST SURGICAL HISTORY OF Right 2003 Calf debridement, infection PAST SURGICAL HISTORY OF 1991 Testicular torsion MEDICATIONS: insulin glargine (LANTUS SOLOSTAR U-100 INSULIN) 100 unit/mL (3 mL) Inject 15 Units subcutaneously daily at bedtime. insulin needles, DISPOSABLE, (PEN NEEDLE) 31 gauge x 5/16 Use to inject insulin daily as directed. ondansetron orally disintegrating (ZOFRAN ODT) 4 mg disintegrating tablet Take 1 tablet by mouth every 6 hours as needed for nausea/vomiting. omeprazole (PRILOSEC) 40 mg capsule Take 1 capsule by mouth once daily. lisinopril (ZESTRIL) 5 mg tablet Take 1 tablet by mouth once daily. atorvastatin (LIPITOR) 40 mg tablet Take 1 tablet by mouth daily at bedtime. For cholesterol. Blood-Glucose Sensor (FREESTYLE WANDA 3 SENSOR) gem Use to test blood sugar as directed. E11.65 dulaglutide (TRULICITY) 3 mg/0.5 mL pen injector Inject 3 mg subcutaneously one time a week. metFORMIN ER (GLUCOPHAGE XR) 500 mg 24 hr tablet Take 2 tablets by mouth twice daily with meals. E11.65 alcohol swabs (ALCOHOL PADS) Test blood sugar(s) 2 times daily. Dx: Type 2 DM - Uncontrolled E11.65Insulin: Yes blood sugar diagnostic (BLOOD GLUCOSE TEST) test strip Test blood sugar(s) 2 times daily. Dx: Type 2 DM - Uncontrolled E11.65 Insulin: Yes Lancets lancets Test blood sugar(s) 2 times daily. Dx: Type 2 DM - Uncontrolled E11.65 Insulin: Yes ALLERGIES: ALLERGIES No Known Allergies VITALS: BP 152/78 Pulse 97 Temp 36.1 C (96.9 F) Resp 18 Wt 93.4 kg (205 lb 12.8 oz) SpO2 98% BMI 29.96 kg/m PHYSICAL EXAM: GEN: pleasant, no acute distress, well nourished HEENT: PERRL, EOMI, MMM, NECK: supple, no lymphadenopathy, no thyromegaly, no midline or paraspinal tenderness, left trapezius tenderness. Full neck ROM with increased shoulder pain on flexion. HEART: regular rate, regular rhythm, no murmurs LUNGS: clear to auscultation, no wheezes or crackles, no increased WOB ABD: soft, non-distended, no masses palpated, non-tender EXT: no clubbing, no cyanosis, no edema BACK: Normal curvature, no midine tenderness, no paraspinal tenderness NEURO: Alert and oriented to person, place, and time; DTR 1+/4 at brachiradialis and patella. Weak left hand standard machine stitcher. Normal finger abduction. Weak vs painful left elbow flexion. strength 4/4 in lower extremities, CN II-XII intact, gait normal. Diminished left hand and medial/dorsal forearm sensation to monofilament. PSYCH: somewhat anxious but otherwise normal mood, full range of affect, speech rate and content appropriate ASSESSMENT/PLAN: 1. Left hand weakness - ICD9: 728.87, ICD10: R29.898 (primary diagnosis) 2. Numbness and tingling in left hand - ICD9: 782.0, ICD10: R20.0, R20.2 - XR CERV OTHER 4V AP/LAT/OBL - no acute fractures or lytic lesions. Radiology interpretation is pending. The patient will be notified if there is a significant finding in the report not discussed atthe time of the visit. Cervical radicular pain more likely than ulnar neuropathy. Start meloxicam. He may continue acetaminophen PRN. Schedule follow up with IM. Seek urgent re-evaluation for progressive weakness or numbness. Sudarshan Tran MD documented in this encounterC[facility]07-03-[facility] History of Present illness Narrative* Karime Roa, POSTAGE MACHINE OPERATOR.CRUISE COORDINATOR - 08/23/2022 9:38 AM EDT This Team Access Model visit is a virtual encounter. It required patient- provider interaction for the medical decision making as documented below. I have communicated my name and active licensure. The patient's identity and physical location wereverified at the time of this visit. Either the patient or their legal paper sales representative has been informed of the risks and benefits of -- and alternatives to -- treatment through a remote evaluation andconsents to proceed with the evaluation remotely. Patient Location: [place] CC: Patient presents with: Diarrhea THAI Vasquez is a 42 year old male who is contacted today for a virtual visit. This is an established patient of Dr. Bernard Zelaya MD. Patient has been experiencing reoccurring episodes of GI symptoms starting early 2021. Worsening this year, becoming more frequent and intense. Symptoms always include diarrhea, nausea, vomiting, sulfur burps, heartburn, reflux, fatigue, body aches. He recently developed intermittent dysphagia aswell. Denies fever, chills, unintentional weight loss, malaise. He is wondering if GI issues are due to Trulicity. He is also on Metformin but has been taking for years without issues. He has had stool tests and labs that were essentially normal other than mildly elevated WBC and eosinophils. REVIEW OF SYSTEMS See HPI PAST MEDICAL HISTORY Diagnosis Date GERD (gastroesophageal reflux disease) 08/26/2014 Hyperlipidemia 08/26/2014 Type II or unspecified type diabetes mellitus without mention of complication, not stated as uncontrolled 08/26/2014 diagnosed 2012 PAST SURGICAL HISTORY Procedure Laterality Date PAST SURGICAL HISTORY OF Right 1997 Right hand tendon repair PAST SURGICAL HISTORY OF Right 2003 Calf debridement, infection PAST SURGICAL HISTORY OF 1991 Testicular torsion ALLERGIES Patient has no known allergies. MEDICATIONS ondansetron orally disintegrating (ZOFRAN ODT) 4 mg disintegrating tablet Take 1 tablet by mouth every 6 hours as needed for nausea/vomiting. omeprazole (PRILOSEC) 40 mg capsule Take 1 capsule by mouth once daily. lisinopril (ZESTRIL) 5 mg tablet Take 1 tablet by mouth once daily. atorvastatin (LIPITOR) 40 mg tablet Take 1 tablet by mouth daily at bedtime. For cholesterol. Blood-Glucose Sensor (FREESTYLE WANDA 3 SENSOR) gem Use to test blood sugar as directed. E11.65 dulaglutide (TRULICITY) 3 mg/0.5 mL pen injector Inject 3 mg subcutaneously one time a week. metFORMIN ER (GLUCOPHAGE XR) 500 mg 24 hr tablet Take 2 tablets by mouth twice daily with meals. E11.65 alcohol swabs (ALCOHOL PADS) Test blood sugar(s) 2 times daily. Dx: Type 2 DM - Uncontrolled E11.65Insulin: Yes blood sugar diagnostic (BLOOD GLUCOSE TEST) test strip Test blood sugar(s) 2 times daily. Dx: Type 2 DM - Uncontrolled E11.65 Insulin: Yes Lancets lancets Test blood sugar(s) 2 times daily. Dx: Type 2 DM - Uncontrolled E11.65 Insulin: Yes FAMILY HISTORY Problem Relation Age of Onset Osteoporosis Mother other (lymphoma) Father other (hepatitis C) Father Stroke Father None Brother Dementia Maternal Grandmother Heart Maternal Grandfather Diabetes Paternal Grandmother Social History Tobacco Use Smoking status: Every Day Packs/day: 1.00 Years: 19.00 Pack years: 19.00 Types: Cigarettes Smokeless tobacco: Never Substance Use Topics Alcohol use: Yes Comment: holidays 2 drinks Drug use: Yes Types: Marijuana Comment: 5 times per week for anxiety EXAM: Virtual visit completed using video, limited exam completed. GENERAL: alert and appropriate, in no distress, well-hydrated, well nourished, and happy, smiling, interactive RESPIRATORY: breathing non-labored ABDOMEN: soft and non-tender DATA REVIEWED: Most recent labs and stool studies Component Latest Ref Rng & Units 06/19/2022 WBC 3.70 - 11.00 k/uL 11.84 (H) RBC 4.20 - 6.00 m/uL 5.87 Hemoglobin 13.0 - 17.0 g/dL 14.8 Hematocrit 39.0 - 51.0 % 47.3 MCV 80.0 - 100.0 fL 80.6 MCH 26.0 - 34.0 pg 25.2 (L) MCHC 30.5 - 36.0 g/dL 31.3 RDW-CV 11.5 - 15.0 % 14.3 Platelet Count 150 - 400 k/uL 370 MPV 9.0 - 12.7 fL 10.6 NRBC /100 WBC 0.0 Absolute nRBC <0.01 k/uL <0.01 Neut% % 45.0 Abs Neut (ANC) 1.45 - 7.50 k/uL 5.33 Lymph% % 44.0 Abs Lymph 1.00 - 4.00 k/uL 5.21 (H) [place]% % 2.0 Abs [place] <0.87 k/uL 0.24 Eosin% % 9.0 Abs Eosin <0.46 k/uL 1.07 (H) Baso% % 0.0 Abs Baso <0.11 k/uL 0.00 Platelet Estimate Adequate Red Cell Morph Reviewed: see results of individual morphologies Ovalocytes Few DTYPE Manual Glucose 74 - 99 mg/dL 119 (H) BUN 9 - 24 mg/dL 13 Creatinine 0.73 - 1.22 mg/dL 0.83 Sodium 136 - 144 mmol/L 138 Potassium 3.7 - 5.1 mmol/L 4.1 Chloride 97 - 105 mmol/L 103 CO2 22 - 30 mmol/L 25 Anion Gap 9 - 18 mmol/L 10 Calcium 8.5 - 10.2 mg/dL 9.2 eGFR >=60 mL/min/1.73m 111 Component Latest Ref Rng & Units 05/29/2022 WBC 3.70 - 11.00 k/uL 17.15 (H) RBC 4.20 - 6.00 m/uL 6.12 (H) Hemoglobin 13.0 - 17.0 g/dL 15.4 Hematocrit 39.0 - 51.0 % 47.5 MCV 80.0 - 100.0 fL 77.6 (L) MCH 26.0 - 34.0 pg 25.2 (L) MCHC 30.5 - 36.0 g/dL 32.4 RDW-CV 11.5 - 15.0 % 14.3 Platelet Count 150 - 400 k/uL 431 (H) MPV 9.0 - 12.7 fL 9.8 NRBC /100 WBC 0.0 Absolute nRBC <0.01 k/uL <0.01 Neut% % 36.0 Abs Neut (ANC) 1.45 - 7.50 k/uL 6.17 Lymph% % 45.0 Abs Lymph 1.00 - 4.00 k/uL 7.72 (H) [place]% % 7.0 Abs [place] <0.87 k/uL 1.20 (H) Eosin% % 12.0 Abs Eosin <0.46 k/uL 2.06 (H) Baso% % 0.0 Abs Baso <0.11 k/uL 0.00 Platelet Estimate Increased Red Cell Morph Reviewed: see results of individual morphologies Ovalocytes Few DTYPE Manual Protein, Total 6.3 - 8.0 g/dL 7.7 Albumin 3.9 - 4.9 g/dL 3.7 (L) Calcium 8.5 - 10.2 mg/dL 9.3 Bilirubin, Total 0.2 - 1.3 mg/dL 0.4 Alkaline Phosphatase 38 - 113 U/L 95 AST 14 - 40 U/L 17 ALT 10 - 54 U/L 10 Glucose 74 - 99 mg/dL 121 (H) BUN 9 - 24 mg/dL 10 Creatinine 0.73 - 1.22 mg/dL 0.90 Sodium 136 - 144 mmol/L 138 Potassium 3.7 - 5.1 mmol/L 4.0 Chloride 97 - 105 mmol/L 99 CO2 22 - 30 mmol/L 28 Anion Gap 9 - 18 mmol/L 11 eGFR >=60 mL/min/1.73m 109 Reviewed MD JASON Component Latest Ref Rng & Units 05/28/2022 Shigella spp./Enteroinvasive E.coli DNA Not Detected Not detected Campylobacter jejuni/coli DNA Not Detected Not detected Shiga toxin-producing gene(s) Not Detected Not detected Salmonella spp. DNA Not Detected Not detected C. difficile PCR Negative for C. difficile toxin by PCR Negative for C. difficile toxin by PCR ASSESSMENT/PLAN: 1. Diarrhea, unspecified type - ICD9: 787.91, ICD10: R19.7 (primary diagnosis) Differentials include medication side effect (Trulicity), IBD, IBS - stop Trulicity, next dose due on Tuesday (see #2) - schedule appointment with GI as previously ordered - recheck CBC with diff as ordered - follow-up with me in 3 weeks or sooner if needed 2. Type 2 diabetes mellitus without complication, without long-term current use of insulin (HCC) - ICD9: 250.00, ICD10: E11.9 Resume Lantus 15 units at bedtime. Increase to 17 units in 3 days if blood sugars are not controlled Follow-up as above 3. Abnormal CBC - ICD9: 790.6, ICD10: R79.89 recheck Prescription instructions reviewed with patient as applicable. Potential red flag symptoms discussed with the patient. Reviewed appropriate action plan to take if red flag symptoms occur. Patient agreeable to treatment plan. During this patient visit I have spent approximately 25 minutes in counseling regarding treatment options, medications, test results, and coordinating care. Karime Roa APRN.CNP documented in this encounterC[facility]06-27-[facility] History of Present illness Narrative* Theodora Mcmahon APRN.CNP - 08/17/2022 6:12 PM EDT Subjective HPI Pete Vasquez is a 42 year old male who presents with intermittent nausea and diarrhea. This started yesterday. He has had this intermittently for the past 6-7 months. He believes it may be related to his Trulicity because it has increased in frequency since the dose was increased. He currentlytake 3 mg weekly. He has not had vomiting with this episode but in the past he has. States he starts feeling very gassy and has belching then has nausea and vomiting and diarrhea. He denies any recent sick contacts. He has not had a fever. Review of Systems Constitutional: Negative for fever. Respiratory: Negative. Cardiovascular: Negative. Gastrointestinal: Positive for diarrhea and nausea. Negative for abdominal pain, blood in stool andvomiting. Musculoskeletal: Negative for myalgias. BP 134/76 Pulse 98 Temp 36.5 C (97.7 F) Resp 16 Wt 88.9 kg (196 lb) SpO2 99% BMI 28.53 kg/m PAST MEDICAL HISTORY Diagnosis Date GERD (gastroesophageal reflux disease) 08/26/2014 Hyperlipidemia 08/26/2014 Type II or unspecified type diabetes mellitus without mention of complication, not stated as uncontrolled 08/26/2014 diagnosed 2012 PAST SURGICAL HISTORY Procedure Laterality Date PAST SURGICAL HISTORY OF Right 1996 Right hand tendon repair PAST SURGICAL HISTORY OF Right 2003 Calf debridement, infection PAST SURGICAL HISTORY OF 1991 Testicular torsion ALLERGIES Patient has no known allergies. MEDICATIONS omeprazole (PRILOSEC) 40 mg capsule Take 1 capsule by mouth once daily. lisinopril (ZESTRIL) 5 mg tablet Take 1 tablet by mouth once daily. atorvastatin (LIPITOR) 40 mg tablet Take 1 tablet by mouth daily at bedtime. For cholesterol. Blood-Glucose Sensor ([employer] ABYLE WANDA 3 SENSOR) gem Use to test blood sugar as directed. E11.65 dulaglutide (TRULICITY) 3 mg/0.5 mL pen injector Inject 3 mg subcutaneously one time a week. metFORMIN ER (GLUCOPHAGE XR) 500 mg 24 hr tablet Take 2 tablets by mouth twice daily with meals. E11.65 alcohol swabs (ALCOHOL PADS) Test blood sugar(s) 2 times daily. Dx: Type 2 DM - Uncontrolled E11.65Insulin: Yes blood sugar diagnostic (BLOOD GLUCOSE TEST) test strip Test blood sugar(s) 2 times daily. Dx: Type 2 DM - Uncontrolled E11.65 Insulin: Yes Lancets lancets Test blood sugar(s) 2 times daily. Dx: Type 2 DM - Uncontrolled E11.65 Insulin: Yes ondansetron orally disintegrating (ZOFRAN ODT) 4 mg disintegrating tablet Take 1 tablet by mouth every 6 hours as needed for nausea/vomiting. FAMILY HISTORY Problem Relation Age of Onset Osteoporosis Mother other (lymphoma) Father other (hepatitis C) Father Stroke Father None Brother Dementia Maternal Grandmother Heart Maternal Grandfather Diabetes Paternal Grandmother Social History Tobacco Use Smoking status: Every Day Packs/day: 1.00 Years: 19.00 Pack years: 19.00 Types: Cigarettes Smokeless tobacco: Never Substance Use Topics Alcohol use: Yes Comment: holidays 2 drinks Drug use: Yes Types: Marijuana Comment: 5 times per week for anxiety Objective Physical Exam Vitals and nursing note reviewed. Constitutional: General: He is not in acute distress. Appearance: Normal appearance. He is not ill-appearing. Cardiovascular: Rate and Rhythm: Normal rate and regular rhythm. Heart sounds: Normal heart sounds. Pulmonary: Effort: Pulmonary effort is normal. No respiratory distress. Breath sounds: Normal breath sounds. No wheezing or rales. Abdominal: General: Bowel sounds are normal. There is no distension. Palpations: Abdomen is soft. There is no mass. Tenderness: There is no abdominal tenderness. There is no guarding. Skin: General: Skin is warm and dry. Neurological: Mental Status: He is alert. ASSESSMENT/PLAN: 1. Nausea - ICD9: 787.02, ICD10: R11.0 (primary diagnosis) - potential causes discussed including Trulicity - chart forwarded to Karime Bowman (Pt has appt on 08/23/22). - CONSULT TO GASTROENTEROLOGY if symptoms persist. 2. Diarrhea, unspecified type - ICD9: 787.91, ICD10: R19.7 - potential causes discussed including Trulicity - chart forwarded to Dr. Zelaya. Contact his office for further evaluation - CONSULT TO GASTROENTEROLOGY if symptoms persist. - Follow-up with your PCP in 3-5 days if symptoms have not improved or sooner if symptoms worsen - Discussed red flags and need for immediate medical evaluation if any occur. - Discussed supportive care treatment with fluids, rest and analgesia. - Discussed expected course of illness Theodora Mcmahon APRN.CNP documented in this encounterCleveland Clinic [facility]06-27-2023 Instructions* Patient Instructions* Theodora Mcmahon APRN.CNP - 08/17/2022 6:10 PM EDT ASSESSMENT/PLAN: 1. Nausea - ICD9: 787.02, ICD10: R11.0 (primary diagnosis) - potential causes discussed including Trulicity - chart forwarded to Dr. Zelaya. Contact his office for further evaluation - CONSULT TO GASTROENTEROLOGY if symptoms persist. 2. Diarrhea, unspecified type - ICD9: 787.91, ICD10: R19.7 - potential causes discussed including Trulicity - chart forwarded to Dr. Zelaya. Contact his office for further evaluation - CONSULT TO GASTROENTEROLOGY if symptoms persist. - Follow-up with your PCP in 3-5 days if symptoms have not improved or sooner if symptoms worsen - Discussed red flags and need for immediate medical evaluation if any occur. - Discussed supportive care treatment with fluids, rest and analgesia. - Discussed expected course of illness Theodora Mcmahon APRN.CNP documented in this encounterCleveland Clinic [facility]06-02-2023 Miscellaneous Notes* Telephone Encounter - Maria Antonia Myers APRN.CNP - 07/23/2022 10:26 AM EDT Valid script at pharmacy. Maria Antonia Myers APRN.CNP * Telephone Encounter - Leelee Billings - 07/23/2022 9:32 AM EDT Requester: Patient Patients last Endocrinology visit occurred 04/09/22. Follow-up evaluation has been established Upcoming Endocrinology Appointments - Next 365 Days No appointments to display Requested Prescriptions Pending Prescriptions Disp Refills Blood-Glucose Sensor (FREESTYLE WANDA 3 SENSOR) gem 6 Each 3 Sig: Use to test blood sugar as directed. E11.65 If patient is due for an appointment please route to provider for refill consideration and also to the endo scheduling pool. PSS NOTE: Patient needs scheduled appointment Yes documented in this encounterCleveland Clinic [facility]06-02-2023 Miscellaneous Notes* Telephone Encounter - Khushboo Carrington LPN - 07/23/2022 8:01 AM EDT Records show a valid rx at the pharmacy for Lisinopril. Patient has been identified by name and date of : Yes, Provider Dr. Zelaya Date 07/23/22 Time8:03 am Patient phones for refill(s): Requested Prescriptions Pending Prescriptions Disp Refills omeprazole (PRILOSEC) 40 mg capsule 90 capsule 1 Sig: Take 1 capsule by mouth once daily. Refused Prescriptions Disp Refills lisinopril (ZESTRIL) 5 mg tablet 90 tablet 1 Sig: Take 1 tablet by mouth once daily. Date of last office visit in primary care: 06/18/22 Last 2 Encounter Wt Readings: Date: Wt: 07/08/2022 88.9 kg (196 lb) 06/22/2022 85.7 kg (189 lb) Previous labs/tests for medication: Not applicable Please advise. Thank you. Khushboo Carrington LPN documented in this encounterCleveland Clinic [facility]05-02-2023 NoteHNO ID: [id number] Author: Dotty Amaro, DO Service: ? Author Type: Physician Type: Progress Notes Filed: 06/22/2022 5:02 PM Note Text: [facility] [place] [facility] LOCATION: [address] [place] [address] NEW CONSULT VISIT PATIENT INFO: Pete Vasquez 42 year old PCP: Bernard Zelaya MD Consultation requested by Bernard Zelaya MD and my final recommendations will be communicated back to the requesting physician by way of shared medical record or letter via [place] mail. Chief Complaint: Abdominal pain HPI Went to ED for diffuse abdominal pain CT flank negative Scrotal ultrasound with small right hydrocele No images for review 1-Duration: 2022 2-Location: testis 3-Severity: N/A 4-Quality: Not applicable 5-Context: N/A 6-Timing: N/A 7-Modifying factors: No treatment prior to referral 8-Associated signs AND symptoms: no additional symptoms No question data found. PATHOLOGY: N/A LAB: WBC (k/uL) Date Value 06/19/2022 11.84 (H) RBC (m/uL) Date Value 06/19/2022 5.87 Hemoglobin (g/dL) Date Value 06/19/2022 14.8 Hematocrit (%) Date Value 06/19/2022 47.3 MCV (fL) Date Value 06/19/2022 80.6 MCH (pg) Date Value 06/19/2022 25.2 (L) MCHC (g/dL) Date Value 06/19/2022 31.3 RDW-CV (%) Date Value 06/19/2022 14.3 Platelet Count (k/uL) Date Value 06/19/2022 370 MPV (fL) Date Value 06/19/2022 10.6 Neutrophils % (%) Date Value 06/19/2022 45.0 Lymphocytes % (%) Date Value 06/19/2022 44.0 Monocytes % (%) Date Value 06/19/2022 2.0 Basophils % (%) Date Value 06/19/2022 0.0 Abs Neut (Segs + Bands) (k/uL) Date Value 06/19/2022 5.33 Abs Carolina (k/uL) Date Value 06/19/2022 0.24 Abs Eosin (k/uL) Date Value 06/19/2022 1.07 (H) Abs Baso (k/uL) Date Value 06/19/2022 0.00 Creatinine Date Value Ref Range Status 06/19/2022 0.83 0.73 - 1.22 mg/dL Final 05/29/2022 0.90 0.73 - 1.22 mg/dL Final 11/30/2021 0.83 0.73 - 1.22 mg/dL Final 07/05/2020 0.64 (L) 0.73 - 1.22 mg/dL Final No results found for: PSA, PSAPER URINE POC No results found for this basename: uglucpoc,ubilipoc,uketonpoc,usgpoc,uhbpoc,uphpoc,upropoc,uuropoc,unitpoc,uw bcpoc,ucolpoc,uclarpoc IMAGING: Epic reports from [facility] I have independently reviewed films and my findings are the same. ALLERGIES: ALLERGIES No Known Allergies MEDICATIONS: atorvastatin (LIPITOR) 40 mg tablet Take 1 tablet by mouth daily at bedtime. For cholesterol. lisinopril (ZESTRIL) 5 mg tablet Take 1 tablet by mouth once daily. Blood-Glucose Sensor (FREESTYLE WANDA 3 SENSOR) gem Use to test blood sugar as directed. E11.65 dulaglutide (TRULICITY) 3 mg/0.5 mL pen injector Inject 3 mg subcutaneously one time a week. metFORMIN ER (GLUCOPHAGE XR) 500 mg 24 hr tablet Take 2 tablets by mouth twice daily with meals. E11.65 ondansetron orally disintegrating (ZOFRAN ODT) 4 mg disintegrating tablet Take 1 tablet by mouth every 12 hours as needed for nausea/vomiting. omeprazole (PRILOSEC) 40 mg capsule Take 1 capsule by mouth once daily. alcohol swabs (ALCOHOL PADS) Test blood sugar(s) 2 times daily. Dx: Type 2 DM - Uncontrolled E11.65 Insulin: Yes blood sugar diagnostic (BLOOD GLUCOSE TEST) test strip Test blood sugar(s) 2 times daily. Dx: Type 2 DM - Uncontrolled E11.65 Insulin: Yes Lancets lancets Test blood sugar(s) 2 times daily. Dx: Type 2 DM - Uncontrolled E11.65 Insulin: Yes Does the patient take any herbal medications?: No Medication list reviewed and reconciled with patient: Yes HISTORIES PAST MEDICAL HISTORY Diagnosis Date GERD (gastroesophageal reflux disease) 08/26/2014 Hyperlipidemia 08/26/2014 Type II or unspecified type diabetes mellitus without mention of complication, not stated as uncontrolled 08/26/2014 diagnosed 2012 PAST SURGICAL HISTORY Procedure Laterality Date PAST SURGICAL HISTORY OF Right 1996 Right hand tendon repair PAST SURGICAL HISTORY OF Right 2003 Calf debridement, infection PAST SURGICAL HISTORY OF 1991 Testicular torsion FAMILY HISTORY Problem Relation Age of Onset Osteoporosis Mother other (lymphoma) Father other (hepatitis C) Father Stroke Father None Brother Dementia Maternal Grandmother Heart Maternal Grandfather Diabetes Paternal Grandmother Negative family history: No SOCIAL HISTORY Social History Tobacco Use Smoking status: Every Day Packs/day: 1.00 Years: 19.00 Pack years: 19.00 Types: Cigarettes Smokeless tobacco: Never Substance Use Topics Alcohol use: Yes Comment: holidays 2 drinks Drug use: Yes Types: Marijuana Comment: 5 times per week for anxiety Smoking Status Reviewed: Yes REVIEW OF SYSTEMS: GENERAL: No fever, chills, weight loss, or fatigue. HEAD AND NECK: No blurred vision or Sjogren's syndrome CARDIOVASCULAR: NO CHEST PAIN, PALPITATIONS, ANKLE EDEMA RESPIRATORY: No chronic cough, (more content not included)...[facility] [id number] History of Present illness Narrative* Dotty Amaro, DO - 06/22/2022 4:57 PM EDT Images from the original note were not included. [facility] [place] [facility] LOCATION: [address] [place] [address] NEW CONSULT VISIT PATIENT INFO: Pete Vasquez 42 year old PCP: Bernard Zelaya MD Consultation requested by Bernard Zelaya MD and my final recommendations will be communicated back to the requesting physician by way of shared medical record or letter via [place] mail. Chief Complaint: Abdominal pain HPI Went to ED for diffuse abdominal pain CT flank negative Scrotal ultrasound with small right hydrocele No images for review 1-Duration: 2022 2-Location: testis 3-Severity: N/A 4-Quality: Not applicable 5-Context: N/A 6-Timing: N/A 7-Modifying factors: No treatment prior to referral 8-Associated signs & symptoms: no additional symptoms No question data found. PATHOLOGY: N/A LAB: WBC (k/uL) Date Value 06/19/2022 11.84 (H) RBC (m/uL) Date Value 06/19/2022 5.87 Hemoglobin (g/dL) Date Value 06/19/2022 14.8 Hematocrit (%) Date Value 06/19/2022 47.3 MCV (fL) Date Value 06/19/2022 80.6 MCH (pg) Date Value 06/19/2022 25.2 (L) MCHC (g/dL) Date Value 06/19/2022 31.3 RDW-CV (%) Date Value 06/19/2022 14.3 Platelet Count (k/uL) Date Value 06/19/2022 370 MPV (fL) Date Value 06/19/2022 10.6 Neutrophils % (%) Date Value 06/19/2022 45.0 Lymphocytes % (%) Date Value 06/19/2022 44.0 Monocytes % (%) Date Value 06/19/2022 2.0 Basophils % (%) Date Value 06/19/2022 0.0 Abs Neut (Segs + Bands) (k/uL) Date Value 06/19/2022 5.33 Abs Carolina (k/uL) Date Value 06/19/2022 0.24 Abs Eosin (k/uL) Date Value 06/19/2022 1.07 (H) Abs Baso (k/uL) Date Value 06/19/2022 0.00 Creatinine Date Value Ref Range Status 06/19/2022 0.83 0.73 - 1.22 mg/dL Final 05/29/2022 0.90 0.73 - 1.22 mg/dL Final 11/30/2021 0.83 0.73 - 1.22 mg/dL Final 07/05/2020 0.64 (L) 0.73 - 1.22 mg/dL Final No results found for: PSA, PSAPER URINE POC No results found for this basename: uglucpoc,ubilipoc,uketonpoc,usgpoc,uhbpoc,uphpoc,upropoc,uuropoc ,unitpoc,uwbcpoc,ucolpoc,uclarpoc IMAGING: Epic reports from [facility] I have independently reviewed films and my findings are the same. ALLERGIES: ALLERGIES No Known Allergies MEDICATIONS: atorvastatin (LIPITOR) 40 mg tablet Take 1 tablet by mouth daily at bedtime. For cholesterol. lisinopril (ZESTRIL) 5 mg tablet Take 1 tablet by mouth once daily. Blood-Glucose Sensor (FREESTYLE WANDA 3 SENSOR) gem Use to test blood sugar as directed. E11.65 dulaglutide (TRULICITY) 3 mg/0.5 mL pen injector Inject 3 mg subcutaneously one time a week. metFORMIN ER (GLUCOPHAGE XR) 500 mg 24 hr tablet Take 2 tablets by mouth twice daily with meals. E11.65 ondansetron orally disintegrating (ZOFRAN ODT) 4 mg disintegrating tablet Take 1 tablet by mouth every 12 hours as needed for nausea/vomiting. omeprazole (PRILOSEC) 40 mg capsule Take 1 capsule by mouth once daily. alcohol swabs (ALCOHOL PADS) Test blood sugar(s) 2 times daily. Dx: Type 2 DM - Uncontrolled E11.65Insulin: Yes blood sugar diagnostic (BLOOD GLUCOSE TEST) test strip Test blood sugar(s) 2 times daily. Dx: Type 2 DM - Uncontrolled E11.65 Insulin: Yes Lancets lancets Test blood sugar(s) 2 times daily. Dx: Type 2 DM - Uncontrolled E11.65 Insulin: Yes Does the patient take any herbal medications?: No Medication list reviewed and reconciled with patient: Yes HISTORIES PAST MEDICAL HISTORY Diagnosis Date GERD (gastroesophageal reflux disease) 08/26/2014 Hyperlipidemia 08/26/2014 Type II or unspecified type diabetes mellitus without mention of complication, not stated as uncontrolled 08/26/2014 diagnosed 2012 PAST SURGICAL HISTORY Procedure Laterality Date PAST SURGICAL HISTORY OF Right 1996 Right hand tendon repair PAST SURGICAL HISTORY OF Right 2003 Calf debridement, infection PAST SURGICAL HISTORY OF 1991 Testicular torsion FAMILY HISTORY Problem Relation Age of Onset Osteoporosis Mother other (lymphoma) Father other (hepatitis C) Father Stroke Father None Brother Dementia Maternal Grandmother Heart Maternal Grandfather Diabetes Paternal Grandmother Negative family history: No SOCIAL HISTORY Social History Tobacco Use Smoking status: Every Day Packs/day: 1.00 Years: 19.00 Pack years: 19.00 Types: Cigarettes Smokeless tobacco: Never Substance Use Topics Alcohol use: Yes Comment: holidays 2 drinks Drug use: Yes Types: Marijuana Comment: 5 times per week for anxiety Smoking Status Reviewed: Yes REVIEW OF SYSTEMS: GENERAL: No fever, chills, weight loss, or fatigue. HEAD & NECK: No blurred vision or Sjogren's syndrome CARDIOVASCULAR: NO CHEST PAIN, PALPITATIONS, ANKLE EDEMA RESPIRATORY: No chronic cough, wheezing, dyspnea, hemoptysis. MUSCULOSKELETAL: NO CHRONIC BACK PAIN, ARTHRITIS, CHRONIC NECK PAIN SKIN: NO VARICOSE VEINS, RASH, ABNORMAL ITCHING BLOOD/LYMPHATIC: No easy bleeding, easy bruising, transfusion Hx NEUROLOGICAL: NO HEADACHES, NUMBNESS, SEIZURES, STROKE PSYCHIATRIC: No depression or inordinate anxiety The remainder of the ROS was negative. PHYSICAL EXAMINATION Resp 18 Ht 176.5 cm (5' 9.5) Wt 85.7 kg (189 lb) BMI 27.51 kg/m General appearance: Well appearing, alert, in no acute distress, and well- hydrated, well nourished Skin: Skin color, texture, turgor normal, no suspicious rashes or lesions Head: Normocephalic, no masses, lesions, tenderness or abnormalities Neck: Supple, no adenopathy; thyroid symmetric, normal size, no bruits Lungs: Clear to auscultation no wheezing or rhonchi Heart: RRR without murmur, gallop, or rubs. No ectopy Abdomen: Normal abdominal exam, Abdomen soft, non-tender. Bowel sounds normal. No masses, organomegaly Extremities: Extremities normal. No deformities, edema, or skin discoloration. Good capillary refill. Genitourinary: Exam PATIENT DID NOT WANT SCROTAL EXAM PVR: NA IMPRESSION/PLAN: Small right hydrocele Diffuse abdominal pain Reviewed scrotal support and elevation Patient did not want exam today. He will follow up PRN. I spent 20 minutes in the visit, with more than 50% of the total [id number] time of the visit in counseling / coordination of care. Dotty Amaro DO JJ Letter to: Bernard Zelaya MD documented in this encounterC[facility] History of Present illness Narrative* Karime Older, POSTAGE MACHINE OPERATOR.CRUISE COORDINATOR - 06/18/2022 8:27 AM EDT CC: Patient presents with: right abdominal pain - right testical HPI Pete Vasquez is a 42 year old male who presents today for above. Patient developed right groin andtesticular pain on Tuesday, scheduled appointment for today. Pain became significantly worse on Tuesday so he went to [facility] ER. Labs including urinalysis were normal. CT abdomen/pelvis normal. Scrotalultrasound revealed bilateral cysts and small hydrocele, he was referred to urology and has appointment scheduled next week. Today he denies any new or worsening symptoms. Pain is just a constant, mild ache. Denies fever, chills, nausea, vomiting, scrotal swelling, difficulty urinating, hematuria, dysuria. REVIEW OF SYSTEMS See HPI PAST MEDICAL HISTORY Diagnosis Date GERD (gastroesophageal reflux disease) 08/26/2014 Hyperlipidemia 08/26/2014 Type II or unspecified type diabetes mellitus without mention of complication, not stated as uncontrolled 08/26/2014 diagnosed 2012 PAST SURGICAL HISTORY Procedure Laterality Date PAST SURGICAL HISTORY OF Right 1996 Right hand tendon repair PAST SURGICAL HISTORY OF Right 2003 Calf debridement, infection PAST SURGICAL HISTORY OF 1991 Testicular torsion ALLERGIES Patient has no known allergies. MEDICATIONS atorvastatin (LIPITOR) 40 mg tablet Take 1 tablet by mouth daily at bedtime. For cholesterol. lisinopril (ZESTRIL) 5 mg tablet Take 1 tablet by mouth once daily. Blood-Glucose Sensor (FREESTYLE WANDA 3 SENSOR) gem Use to test blood sugar as directed. E11.65 dulaglutide (TRULICITY) 3 mg/0.5 mL pen injector Inject 3 mg subcutaneously one time a week. metFORMIN ER (GLUCOPHAGE XR) 500 mg 24 hr tablet Take 2 tablets by mouth twice daily with meals. E11.65 ondansetron orally disintegrating (ZOFRAN ODT) 4 mg disintegrating tablet Take 1 tablet by mouth every 12 hours as needed for nausea/vomiting. omeprazole (PRILOSEC) 40 mg capsule Take 1 capsule by mouth once daily. alcohol swabs (ALCOHOL PADS) Test blood sugar(s) 2 times daily. Dx: Type 2 DM - Uncontrolled E11.65Insulin: Yes blood sugar diagnostic (BLOOD GLUCOSE TEST) test strip Test blood sugar(s) 2 times daily. Dx: Type 2 DM - Uncontrolled E11.65 Insulin: Yes Lancets lancets Test blood sugar(s) 2 times daily. Dx: Type 2 DM - Uncontrolled E11.65 Insulin: Yes FAMILY HISTORY Problem Relation Age of Onset Osteoporosis Mother other (lymphoma) Father other (hepatitis C) Father Stroke Father None Brother Dementia Maternal Grandmother Heart Maternal Grandfather Diabetes Paternal Grandmother Social History Tobacco Use Smoking status: Every Day Packs/day: 1.00 Years: 19.00 Pack years: 19.00 Types: Cigarettes Smokeless tobacco: Never Substance Use Topics Alcohol use: Yes Comment: holidays 2 drinks Drug use: Yes Types: Marijuana Comment: 5 times per week for anxiety PHYSICAL EXAM BP 139/83 Pulse 92 Resp 16 Wt 88.5 kg (195 lb) BMI 28.88 kg/m General Appearance: well appearing, in no acute distress, alert Abdomen: soft, nondistended, nontender DATA REVIEWED: Outside chart from [facility] ER reviewed. ASSESSMENT/PLAN: 1. Right testicular pain - ICD9: 608.9, ICD10: N50.811 (primary diagnosis) Possibly due to hydrocele. No acute findings on CT or ultrasound. Symptoms are stable. Follow-up with urology as scheduled. 2. Right groin pain - ICD9: 789.03, ICD10: R10.31 As above Prescription instructions reviewed with patient as applicable. Potential red flag symptoms discussed with the patient. Reviewed appropriate action plan to take if red flag symptoms occur. Patient agreeable to treatment plan. During this patient visit I have spent approximately 20 minutes in counseling regarding treatment options and coordinating care. Karime Roa APRN.CNP documented in this encounterC[facility]04-26-[facility] Discharge summary Author Corky Taylor [facility] June 16, 2022 11:36pm Note Date/Time June 16, 2022 8:[address] [facility] Medical Records Department [address] [place] [address] Emergency Department Summary 06/16/22 MR#: [id number] Acct: [id number] Name: PETE VASQUEZ Rep #:[id number] : 1980 42 From: Ti Storey DO PCP: Dr. Bernard Zelaya MD Status:R EG ER Location: ED HPI HPI - GI History of Present Illness Chief Complaint: Abd Pain Detail of Chief Complaint: Abdominal pain Informant: patient Narrative Narrative: Patient presents with abdominal pain x4 days. Patient initially felt like maybehe has had on his testicle and he had discomfort in the area of the testicle. Patient denies nausea or vomiting. He has remote history as a child of torsion of the testicle with repair. Patient denies urinary symptoms. He denies traumato his testicle. No history of kidney stones. Patient denies dysuria. He denies fever. Prior similar symptoms: No PFSH PFSH Medical History (Updated 06/16/22 @ 22:[address] Ti Storey DO) Diabetes GERD (gastroesophageal reflux disease) Hypertension Sleep apnea Smoker Testicular torsion Home Medications atorvastatin 40 mg tablet 40 mg PO QHS 06/16/22 [History Last Taken Unknown] dulaglutide 3 mg/0.5 mL subcutaneous pen injector (Trulicity) 3 mg subcut QWEEK 06/16/22 [History Last Taken Unknown] lisinopril 5 mg tablet 5 mg PO DAILY 06/16/22 [History Last Taken Unknown] metformin 500 mg tablet,extended release 24 hr 1,000 mg PO BID 06/16/22 [History Last Taken Unknown] omeprazole 40 mg capsule,delayed release 40 mg PO DAILY 06/16/22 [History Last Taken Unknown] Allergy/AdvReac Type Severity Reaction Status Date / Time No Known Allergies Allergy Verified 06/16/22 20:09 Family History (Updated 06/16/22 @ 20:31 by Chelita Morales) Other Lymphoma Social History Smoking Status: Current every day smoker tobacco type: cigarettes ROS ROS ED Review of Systems ROS Unobtainable: other Constitutional Constitutional ED: Reports lethargy; Denies chills, fever(s), sweats or weight loss Eyes Eyes: Denies blurry vision, change in vision or diplopia ENT ENT ED: Denies rhinorrhea or sore throat Cardiovascular Cardiovascular: Denies chest pain, orthopnea or racing heartbeat Respiratory/Chest Respiratory/Chest: Denies cough, dyspnea, dyspnea on exertion, orthopnea or sputum Gastrointestinal Gastrointestinal: Reports abdominal pain; Denies diarrhea, nausea or vomiting Genitourinary Genitourinary ED: Reports other Details: Right testicle pain ; Denies dysuria, hematuria or urinary frequency Musculoskeletal Musculoskeletal: Denies arthralgias, back pain, myalgias or neck pain Integumentary Denies abscess, Abrasions or rash Neurologic Neurologic: Denies headache(s) or weakness Psychiatric Psychiatric: Denies anxiety, depression or suicidal thoughts Endocrine Endocrinology: Denies polydipsia, polyphagia or polyuria Hematologic/Lymphatic Hematologic/Lymphatic: Denies easy bleeding, easy bruising or lymphadenopathy Allergic/Immunologic Allergic/Immunologic ED: Denies mouth swelling, tongue swelling or urticaria EXAM Physical Exam Const Vital Signs: 06/16/22 20:07 06/16/22 22:22 Temperature 98.2 F Temperature Source Temporal Pulse Rate 96 86 Respiratory Rate 18 16 Blood Pressure 168/84 H 156/81 H Blood Pressure Mean 112 106 Pulse Ox 100 97 Oxygen Delivery Method Room Air Room Air Positive well nourished and well developed General Appearance ED: well developed and NAD HEENT Reports TM's clear and moist mucous membranes normocephalic and atraumatic; Negative for trauma or tenderness Tympanic Membrane ED: Yes TM's clear Eyes PERRL and EOMs intact bilaterally General Eye ED: Negative for pale conjunctiva or scleral icterus Neck no lymphadenopathy, supple and no JVD General: Negative for tenderness Chest Wall inspection of chest normal and palpation of chest normal Chest: Negative for tenderness Resp normal respiratory effort and clear to auscultation bilaterally Effort and Inspection: Negative for respiratory distress or pain with movement Auscultation: Negative for rhonchi, wheezes or diminished lung sounds Cardio regular rate, regular rhythm, S1 normal heart sound, S2 normal heart sound and no murmurs Peripheral Pulses: pulses 2+ throughout GI normal to inspection, nondistended, normoactive bowel sounds, soft to palpation,non-distended and no masses GI Narrative: Patient with tenderness over the right lower quadrant with some guarding. Thereis no rebound, rigidity, or. Signs. No obvious masses noted. Narrative: Patient with minimal discomfort over the right epididymis. Testicle has a normal lie. He has normal cremasteric reflex. No obvious or significant herniapalpated within the inguinal canal with cough. Back/Spine no CVA tenderness and no thoracic nor lumbar tenderness Extremity normal to inspection General Extremety ED: Negative for edema General Extremity: Negative for edema Neuro oriented x3, CN's II-XII intact bilaterally, no sensory deficits noted and gait normal Sensorium / Orientation: awake, alert, oriented to person, oriented to place andoriented to time Motor Exam: strength 5/5 throughout and strength abnormal Psych mental status grossly normal Skin no rashes or lesions noted and no wounds MDM MDM MDM Narrative Medical decision making narrative: Patient presents with right testicle pain and right lower quadrant abdominal discomfort. In the differential would be hernia versus epididymitis. Medicallynot having a significant amount of tenderness over the epididymis. There is no erythema or warmth or cellulitic changes noted. IV line established on arrival. CBC with differential obtained showed a white count of 11 as well as a hemoglobin of 13 and hematocrit of 41 and platelet count of 319. Chemistries were unremarkable. Urinalysis was normal. Lactate normal at 1.6. CT scan of the abdomen pelvis ordered to rule out incarcerated hernia versus appendicitis versus other etiology. CT scan of abdomen pelvis was read essentially as normal. I did order a testicular ultrasound to evaluate further for possible epididymitis versus other etiology for his pain. Case turned over to evening physician awaiting ultrasound results. Lab Data Labs: Laboratory Results - last 24 hr 06/16/22 06/16/22 06/16/22 21:00 21:05 21:05 WBC 11.0 RBC 5.26 Hgb 13.3 Hct 41.1 MCV 78.1 L MCH 25.3 L MCHC 32.4 RDW Std Deviation 39.9 RDW Coeff of Citlalli 14.2 Plt Count 319 MPV 9.5 Immature Gran % (Auto) 0.300 Neut % (Auto) 50.2 Lymph % (Auto) 37.0 Carolina % (Auto) 7.0 Eos % (Auto) 5.0 Baso % (Auto) 0.5 Absolute Neuts (auto) 5.5 Absolute Lymphs (auto) 4.08 Nucleated RBC % 0 Sodium 138 Potassium 3.5 Chloride 107 Carbon Dioxide 28.0 Anion Gap 3 L BUN 14 Creatinine 1.12 Estim Creat Clear Calc 85.04 Est GFR (MDRD) Af Amer 92 Est GFR (MDRD) Non-Af 76 BUN/Creatinine Ratio 12.5 Glucose 191 H Lactic Acid Calcium 8.6 Urine Color Yellow Urine Clarity Clear Urine pH 7.0 Ur Specific Timber 1.010 Urine Protein 15 H Urine Glucose (UA) Normal Urine Ketones Negative Urine Occult Blood Negative Urine Nitrite Negative Urine Bilirubin Negative Urine Urobilinogen Normal Ur Leukocyte Esterase Negative Urine RBC 0 SEEN Urine WBC 0 SEEN Ur Squamous Epith Cells 0 SEEN Urine Bacteria 0 SEEN Urine Mucus 0 SEEN 06/16/22 21:05 WBC RBC Hgb Hct MCV MCH MCHC RDW Std Deviation RDW Coeff of Citlalli Plt Count MPV Immature Gran % (Auto) Neut % (Auto) Lymph % (Auto) Carolina % (Auto) Eos % (Auto) Baso % (Auto) Absolute Neuts (auto) Absolute Lymphs (auto) Nucleated RBC % Sodium Potassium Chloride Carbon Dioxide Anion Gap BUN Creatinine Estim Creat Clear Calc Est GFR (MDRD) Af Amer Est GFR (MDRD) Non-Af BUN/Creatinine Ratio Glucose Lactic Acid 1.6 Calcium Urine Color Urine Clarity Urine pH Ur Specific Timber Urine Protein Urine Glucose (UA) Urine Ketones Urine Occult Blood Urine Nitrite Urine Bilirubin Urine Urobilinogen Ur Leukocyte Esterase Urine RBC Urine WBC Ur Squamous Epith Cells Urine Bacteria Urine Mucus Radiography Diagnostic Testing: Clinical Impression(s) from Imaging Studies Abdomen/Pelvis CT 06/16/22 21:24 IMPRESSION: No acute or inflammatory disease or bowel obstruction. Electronically Signed: Corky Miller MD at 22:37 EDT , Discharge Plan Triage Chief Complaint: Abd Pain ED Provider: Ti Storey Dx/Rx/DC Orders Clinical Impression: Abdominal pain, Pain in testicle Prescriptions: No Action atorvastatin 40 mg tablet 40 mg PO QHS Label Comments: TAKE 1 TABLET BY MOUTH ONCE DAILY AT BEDTIME FOR CHOLESTEROL omeprazole 40 mg capsule,delayed release(DR/EC) 40 mg PO DAILY lisinopril 5 mg tablet 5 mg PO DAILY metformin 500 mg tablet extended release 24 hr 1,000 mg PO BID Label Comments: TAKE 2 TABLETS BY MOUTH TWICE DAILY WITH MEALS Trulicity 3 mg/0.5 mL pen injector 3 mg SUBCUT QWEEK Label Comments: INJECT THE CONTENTS OF 1 PEN SUBCUTANEOUSLY ONCE WEEKLY Rx Instructions: saturdays Primary Care Provider: Bernard Zelaya Referrals: Bernard Zelaya MD [Primary Care Provider] - What to do if you have Problems For any increased pain, shortness of breath, bleeding, nausea or vomiting, chestpain, or any unexpected problems, contact your Primary Care Provider. Call [facility] ([phone]) or report to the closest Emergency Room. Call 911 if necessary. 06/16/222250 <Electronically signed by Ti Storey DO> Cosigner Signature (if applicable): CC: Dr. Bernard Zelaya MD ~ Signed ADDENDUM by Corky Taylor DO on 06/16/22 at 2336 Patient was signed out to me while pending testicular ultrasound. The ultrasound revealed no signs of torsion there is no inflammation around the epididymis to suggest epididymitis and he had benign cysts bilaterally. Patientdoes have a small hydrocele on the right which is the side of his pain and this is most likely the cause. At this time with negative CT scan and ultrasound as well as normal laboratory values I do not feel there is need for further inpatient evaluation or emergent urology consultation and patient can follow-up on an outpatient basis. 06/16/22 [id number]<Electronically signed by Corky Taylor DO> Cosigner Signature (if applicable): cc: Dr. Bernard Zelaya MD ~* Signed [facility] Work Phone: [phone]) 497-708104-07-2023 History of Present illness Narrative* Karime Roa APRN.CRUISE COORDINATOR - 05/28/2022 8:09 AM EDT CC: Patient presents with: Follow Up: Med check - c/o stomach bug HPI Peteelin Vasquez is a 42 year old male who presents today for above. Diabetes control improved, 30 dayaverage on CGM 138. Does not check BP at home. Taking all medications as prescribed without side effects. His main concern today is diarrheal illness. Two weeks ago he developed diarrhea, nausea and vomiting. Symptoms resolved for about one week but returned a few days ago. Diarrhea is described as profuse watery occuring 10-12 times in the past 24 hours, last time was a couple hours ago. Associated with abdominal cramping, nausea, poor appetite, excessive belching with foul sulfur odor, weight loss,malaise. Denies: black/bloody stools, vomiting and abdominal pain. Reports recent antibiotic usage-PCN V for dental infection 04/09. He has not taken any of his routine meds in a few days ROS General: denies dizziness, lightheadedness, fever, chills, headaches, syncope, feeling faint CV: denies rapid heart rate, edema Resp: denies SOB : denies dark/concentrated urine or decreased urine output PAST MEDICAL HISTORY Diagnosis Date GERD (gastroesophageal reflux disease) 08/26/2014 Hyperlipidemia 08/26/2014 Type II or unspecified type diabetes mellitus without mention of complication, not stated as uncontrolled 08/26/2014 diagnosed 2012 PAST SURGICAL HISTORY Procedure Laterality Date PAST SURGICAL HISTORY OF Right 1996 Right hand tendon repair PAST SURGICAL HISTORY OF Right 2003 Calf debridement, infection PAST SURGICAL HISTORY OF 1991 Testicular torsion ALLERGIES Patient has no known allergies. MEDICATIONS Blood-Glucose Sensor (FREESTYLE WANDA 3 SENSOR) gem Use to test blood sugar as directed. E11.65 dulaglutide (TRULICITY) 3 mg/0.5 mL pen injector Inject 3 mg subcutaneously one time a week. metFORMIN ER (GLUCOPHAGE XR) 500 mg 24 hr tablet Take 2 tablets by mouth twice daily with meals. E11.65 ondansetron orally disintegrating (ZOFRAN ODT) 4 mg disintegrating tablet Take 1 tablet by mouth every 12 hours as needed for nausea/vomiting. atorvastatin (LIPITOR) 40 mg tablet Take 1 tablet by mouth daily at bedtime. For cholesterol. lisinopril (ZESTRIL, PRINIVIL) 5 mg tablet Take 1 tablet by mouth once daily. omeprazole (PRILOSEC) 40 mg capsule Take 1 capsule by mouth once daily. alcohol swabs (ALCOHOL PADS) Test blood sugar(s) 2 times daily. Dx: Type 2 DM - Uncontrolled E11.65Insulin: Yes blood sugar diagnostic (BLOOD GLUCOSE TEST) test strip Test blood sugar(s) 2 times daily. Dx: Type 2 DM - Uncontrolled E11.65 Insulin: Yes Lancets lancets Test blood sugar(s) 2 times daily. Dx: Type 2 DM - Uncontrolled E11.65 Insulin: Yes FAMILY HISTORY Problem Relation Age of Onset Osteoporosis Mother other (lymphoma) Father other (hepatitis C) Father Stroke Father None Brother Dementia Maternal Grandmother Heart Maternal Grandfather Diabetes Paternal Grandmother Social History Tobacco Use Smoking status: Every Day Packs/day: 1.00 Years: 19.00 Pack years: 19.00 Types: Cigarettes Smokeless tobacco: Never Substance Use Topics Alcohol use: Yes Comment: holidays 2 drinks Drug use: Yes Types: Marijuana Comment: 5 times per week for anxiety PHYSICAL EXAM BP 134/86 Pulse 88 Resp 14 Wt 84.8 kg (187 lb) BMI 27.70 kg/m General Appearance: well appearing, in no acute distress, alert Skin: Skin color, texture, turgor normal for age; Eyes: conjunctiva pink and moist, no icterus, sclera white, non-injected Oropharynx: moist Lungs: Lungs clear to auscultation. No wheezing, rhonchi, rales. Heart: RRR without murmur, gallop, or rubs. No ectopy Abdomen: Abdomen soft, non-tender. Bowel sounds normal. No masses, organomegaly Health maintenance reviewed with patient: HEPATITIS B(1 of 3 - 3-dose series) Never done PNEUMOCOCCAL(2 - PCV) due on 04/17/2016 URINE ALBUMIN:CREATININE RATIO due on 04/11/2020 DILATED RETINAL EXAM due on 07/03/2021 DEPRESSION ASSESSMENT Never done COVID-19 VACCINE(1) due on 11/30/2022 HBA1C due on 05/31/2022 INFLUENZA(Season Ended) due on 10/22/2022 LDL CHOLESTEROL due on 11/30/2022 DIABETIC FOOT EXAM due on 11/30/2022 ANNUAL PCP TEAM CHRONIC DISEASE VISIT due on 11/30/2022 DTAP,TDAP,TD(2 - Td or Tdap) due on 08/26/2024 HEPATITIS C SCREENING Completed HIV SCREENING Completed DATA REVIEWED: Most recent labs ASSESSMENT/PLAN: 1. Diarrhea, unspecified type - ICD9: 787.91, ICD10: R19.7 (primary diagnosis) Differentials include viral gastroenteritis, C-diff, food poisoning Evaluate further with: - CBC + DIFF - COMP METABOLIC PANEL - C. DIFFICILE PCR - ENTERIC BACTERIAL PANEL BY PCR Follow-up pending results 2. Type 2 diabetes (HCC) - ICD9: 250.00, ICD10: E11.9 - Controlled - Continue current medications Prescription instructions reviewed with patient as applicable. Potential red flag symptoms discussed with the patient. Reviewed appropriate action plan to take if red flag symptoms occur. Patient agreeable to treatment plan. Karime Roa APRN.CNP documented in this encounterC[facility] History of Present illness Narrative* SHANICE Vo - 05/26/2022 2:38 PM EDT This note was created using [employer]riter. Subjective Pete Vasquez is a 42 year old male. HPI this 42-year-old male presents for vomiting and diarrhea. Patient states he started not feelingwell yesterday. He had a few episodes of diarrhea. He has had 2 episodes of vomiting since yesterday. He was able to eat 2 bagels today and keep those down. He has been drinking Gatorade. His family was recently sick with similar GI symptoms. Patient denies any abdominal pain. No back pain. He states that he has been able to take his medications. He denies any fevers, cough or URI symptoms. PAST MEDICAL HISTORY Diagnosis Date GERD (gastroesophageal reflux disease) 08/26/2014 Hyperlipidemia 08/26/2014 Type II or unspecified type diabetes mellitus without mention of complication, not stated as uncontrolled 08/26/2014 diagnosed 2012 PAST SURGICAL HISTORY Procedure Laterality Date PAST SURGICAL HISTORY OF Right 1996 Right hand tendon repair PAST SURGICAL HISTORY OF Right 2003 Calf debridement, infection PAST SURGICAL HISTORY OF 1991 Testicular torsion ALLERGIES Patient has no known allergies. MEDICATIONS Blood-Glucose Sensor (FREESTYLE WANDA 3 SENSOR) gem Use to test blood sugar as directed. E11.65 dulaglutide (TRULICITY) 3 mg/0.5 mL pen injector Inject 3 mg subcutaneously one time a week. metFORMIN ER (GLUCOPHAGE XR) 500 mg 24 hr tablet Take 2 tablets by mouth twice daily with meals. E11.65 ondansetron orally disintegrating (ZOFRAN ODT) 4 mg disintegrating tablet Take 1 tablet by mouth every 12 hours as needed for nausea/vomiting. atorvastatin (LIPITOR) 40 mg tablet Take 1 tablet by mouth daily at bedtime. For cholesterol. lisinopril (ZESTRIL, PRINIVIL) 5 mg tablet Take 1 tablet by mouth once daily. omeprazole (PRILOSEC) 40 mg capsule Take 1 capsule by mouth once daily. alcohol swabs (ALCOHOL PADS) Test blood sugar(s) 2 times daily. Dx: Type 2 DM - Uncontrolled E11.65Insulin: Yes blood sugar diagnostic (BLOOD GLUCOSE TEST) test strip Test blood sugar(s) 2 times daily. Dx: Type 2 DM - Uncontrolled E11.65 Insulin: Yes Lancets lancets Test blood sugar(s) 2 times daily. Dx: Type 2 DM - Uncontrolled E11.65 Insulin: Yes FAMILY HISTORY Problem Relation Age of Onset Osteoporosis Mother other (lymphoma) Father other (hepatitis C) Father Stroke Father None Brother Dementia Maternal Grandmother Heart Maternal Grandfather Diabetes Paternal Grandmother Social History Tobacco Use Smoking status: Every Day Packs/day: 1.00 Years: 19.00 Pack years: 19.00 Types: Cigarettes Smokeless tobacco: Never Substance Use Topics Alcohol use: Yes Comment: holidays 2 drinks Drug use: Yes Types: Marijuana Comment: 5 times per week for anxiety Review of Systems Constitutional: Negative for chills and fever. HENT: Negative for congestion and sore throat. Respiratory: Negative for cough and shortness of breath. Gastrointestinal: Positive for diarrhea, nausea and vomiting. Negative for abdominal pain. Objective BP 132/80 Pulse 95 Temp 37.1 C (98.7 F) (Tympanic) Resp 16 Wt 86.4 kg (190 lb 6.4 oz) SpO2 97% BMI 28.20 kg/m Physical Exam Vitals and nursing note reviewed. Constitutional: General: He is not in acute distress. Appearance: Normal appearance. He is not toxic-appearing. HENT: Nose: Nose normal. Mouth/Throat: Mouth: Mucous membranes are moist. Eyes: Conjunctiva/sclera: Conjunctivae normal. Cardiovascular: Rate and Rhythm: Normal rate and regular rhythm. Pulmonary: Effort: Pulmonary effort is normal. Breath sounds: Normal breath sounds. Abdominal: General: Abdomen is flat. Palpations: Abdomen is soft. Tenderness: There is no abdominal tenderness. Skin: General: Skin is warm and dry. Neurological: Mental Status: He is alert. Assessment and Plan ASSESSMENT/PLAN: 1. Gastroenteritis - ICD9: 558.9, ICD10: K52.9 -Recommend fluids, bland diet. -Family recently sick with similar symptoms, most likely viral. -Patient able to take diabetic medications. -Given red flag symptoms and when to go to ER. -Declines COVID/flu swab Diagnosis and treatment plan were discussed and questions were answered to the patient's satisfaction. Pt acknowledged understanding of concepts and follow up plan. Specific signs and symptoms that would indicate the need for higher level of care were discussed in detail warranting prompt ER evaluation. SHANICE Vo documented in this encounterC[facility]04-05-2023 Instructions* Patient Instructions* SHANICE Vo - 05/26/2022 2:36 PM EDT GASTROENTERITIS DESCRIPTION: Irritation and infection of the digestive tract that can often cause sudden and sometimes violent upsets. Gastroenteritis may be confused with spastic colitis. It affects all ages but is most severe in young children (1 to 5 years) and adults over 60. FREQUENT SIGNS AND SYMPTOMS: -Nausea that sometimes causes vomiting. -Diarrhea that ranges from 2 or 3 loose stools to many watery stools. -Abdominal cramps, pain or tenderness. -Appetite loss. -Fever. -Weakness. CAUSES: -A variety of viruses, bacteria or parasites that have contaminated food or water. -Food poisoning. -Use of harsh laxatives. -Change in bacteria that normally live in the intestinal tract. -Chemical toxins in certain plants, seafood, or contaminated food. -Heavy metal poisoning. RISK INCREASES WITH: -Adults over 60. -Newborns and infants. -Improper diet. -Excess alcohol consumption. -Use of drugs, such as aspirin, nonsteroidal anti-inflammatories, antibiotics, laxatives, cortisoneor caffeine. -Travel to foreign countries. PREVENTIVE MEASURES: -Wash hands frequently if you or someone around you has gastroenteritis. -Avoid as many causes and risks mentioned above as possible. -Take care with food preparation. TREATMENT: GENERAL MEASURES: -Diagnostic tests may include laboratory studies of blood and stool. -Treatment is usually supportive (rest, fluids). -Mild cases are usually treated at home. -It is not necessary to isolate persons with gastroenteritis. -Hospitalization, if dehydration is severe. MEDICATIONS: -Medicine is usually not necessary. If gastroenteritis is severe or prolonged, you may be prescribed antinausea and antidiarrheal medication. -Certain bacteria and parasites may require specific antibiotic treatment. ACTIVITY: Rest in bed until nausea, vomiting, diarrhea and fever are gone. DIET: -Suck ice chips or drink small amounts of clear fluids frequently. -After diarrhea and vomiting stop, drink small amounts of clear liquids, such as tea, flat gingerale or lemon-big lagoon soda, broth and gelatin. -If liquids are tolerated for 12 hours, eat small amounts of soft foods, such as cooked cereal, rice, eggs, custard, baked potato and yogurt. -If soft food is tolerated for 2 - 3 days, gradually return to a normal diet. Avoid alcohol, spicy food (pizza, spaghetti, onions), gravy raw vegetables, raw fruit, salad dressing, cream soup, coffeeand milk for several days. NOTIFY OFFICE: -Symptoms of gastroenteritis persist longer than 2 days. -The following occur during treatment: Mucus or blood in the stool. Fever of 101 degrees F (38.3 degrees C) or higher. Abdominal swelling. Severe pain in the abdomen or rectum especially pain that begins in the center and moves to the lower right side. -Vomiting and diarrhea recur after treatment. -Signs of dehydration, such as dry mouth, wrinkled skin, excess thirst or decreased urination, develop. documented in this encounterC[facility]03-08-2023 Miscellaneous Notes* Telephone Encounter - Nikos Wellington RN - 04/28/2022 12:37 PM EST Noted. * Telephone Encounter - Yaritza Alejandra - 04/20/2022 11:13 AM EST Patient has been identified by name and date of : Yes [facility] notice no prior authorization needed for Blood Glucose Sensor Form received via: Fax When form is completed, contact if needed. Form has been forwarded to: Provider's mailbox. Provider name: Maria Antonia Goldberg Pss documented in this encounterC[facility]02-21-2023 Miscellaneous Notes* Telephone Encounter - Irina Harmon RN - 04/13/2022 3:16 PM EST Prior Auth started MUÑIZ: [id number] Awaiting determination documented in this encounterCleveland Clinic [facility]02-17-2023 History of Present illness Narrative* Sudarshan Tran MD - 04/09/2022 5:06 PM EST Patient presents with: Pain: T reported (RT) sided cheek, jaw pain, x 2 days. HPI: Jaw pain: Duration: 6 days, first noticed waking up grinding his teeth. Location: right upper last molar Character: sharp Radiation: right maxilla, feels pressure behind the eye Aggravating: biting, touching the cheek Relieving: Pain relievers: Tylenol Associated: Pertinent negatives: Denies fever, cough, stuffy runny nose, earache MEDICATIONS: Blood-Glucose Sensor (FREESTYLE WANDA 3 SENSOR) gem Use to test blood sugar as directed. E11.65 dulaglutide (TRULICITY) 3 mg/0.5 mL pen injector Inject 3 mg subcutaneously one time a week. metFORMIN ER (GLUCOPHAGE XR) 500 mg 24 hr tablet Take 2 tablets by mouth twice daily with meals. E11.65 ondansetron orally disintegrating (ZOFRAN ODT) 4 mg disintegrating tablet Take 1 tablet by mouth every 12 hours as needed for nausea/vomiting. atorvastatin (LIPITOR) 40 mg tablet Take 1 tablet by mouth daily at bedtime. For cholesterol. lisinopril (ZESTRIL, PRINIVIL) 5 mg tablet Take 1 tablet by mouth once daily. omeprazole (PRILOSEC) 40 mg capsule Take 1 capsule by mouth once daily. alcohol swabs (ALCOHOL PADS) Test blood sugar(s) 2 times daily. Dx: Type 2 DM - Uncontrolled E11.65Insulin: Yes blood sugar diagnostic (BLOOD GLUCOSE TEST) test strip Test blood sugar(s) 2 times daily. Dx: Type 2 DM - Uncontrolled E11.65 Insulin: Yes Lancets lancets Test blood sugar(s) 2 times daily. Dx: Type 2 DM - Uncontrolled E11.65 Insulin: Yes ALLERGIES: ALLERGIES No Known Allergies VITALS: BP 144/87 Pulse 100 Temp 37.1 C (98.7 F) (Tympanic) Resp 18 Wt 91.7 kg (202 lb 3.2 oz) SpO2 98% BMI 29.95 kg/m PE: Gen: Mildly ill-appearing Eyes: PERRL, EOMI, sclera clear Ears: Canals clear. TMs without erythema, bulge, or effusion, TMJs non-tender to palpation Sinuses: non-tender frontal, non-tender maxillary Mouth/throat: MMM, no pharyngeal erythema No pain with light palpation of the right upper molars, filling in right upper 2nd molar Neck: Supple, no thyromegaly, nontender, no lymphadenopathy Heart: regular rate and rhythm, no murmurs Lungs: clear to auscultation ASSESSMENT/PLAN: 1. Pain, dental - ICD9: 525.9, ICD10: K08.89 Differential includes dental infection, cracked enamel, or carries. - PENICILLIN V POTASSIUM 500 MG TABLET As needed acetaminophen. Schedule follow up with dentist. Sudarshan Tran MD documented in this encounterC[facility]02-17-2023 History of Present illness Narrative* Mandy Desai - 04/09/2022 10:12 AM EST Lmtcb on home/cell * Maria Antonia Myers APRN.CRUISE COORDINATOR - 04/09/2022 9:08 AM EST ENDOCRINOLOGY, DIABETES & METABOLISM DIABETES VIRTUAL VISIT ALLERGIES No Known Allergies Current Outpatient Medications Medication Sig Blood-Glucose Sensor (FREESTYLE WANDA 3 SENSOR) gem Use to test blood sugar as directed. E11.65 dulaglutide (TRULICITY) 3 mg/0.5 mL pen injector Inject 3 mg subcutaneously one time a week. metFORMIN ER (GLUCOPHAGE XR) 500 mg 24 hr tablet Take 2 tablets by mouth twice daily with meals. E11.65 ondansetron orally disintegrating (ZOFRAN ODT) 4 mg disintegrating tablet Take 1 tablet by mouth every 12 hours as needed for nausea/vomiting. atorvastatin (LIPITOR) 40 mg tablet Take 1 tablet by mouth daily at bedtime. For cholesterol. lisinopril (ZESTRIL, PRINIVIL) 5 mg tablet Take 1 tablet by mouth once daily. omeprazole (PRILOSEC) 40 mg capsule Take 1 capsule by mouth once daily. alcohol swabs (ALCOHOL PADS) Test blood sugar(s) 2 times daily. Dx: Type 2 DM - Uncontrolled E11.65Insulin: Yes blood sugar diagnostic (BLOOD GLUCOSE TEST) test strip Test blood sugar(s) 2 times daily. Dx: Type 2 DM - Uncontrolled E11.65 Insulin: Yes Lancets lancets Test blood sugar(s) 2 times daily. Dx: Type 2 DM - Uncontrolled E11.65 Insulin: Yes No current facility-administered medications for this visit. Immunization History Administered Date(s) Administered Pneumovax 04/17/2015 Tdap (Age 7+) 08/26/2014 Social History Tobacco Use Smoking status: Every Day Packs/day: 1.00 Years: 19.00 Pack years: 19.00 Types: Cigarettes Smokeless tobacco: Never Substance Use Topics Alcohol use: Yes Comment: holidays 2 drinks Drug use: Yes Types: Marijuana Comment: 5 times per week for anxiety PAST MEDICAL HISTORY Diagnosis Date GERD (gastroesophageal reflux disease) 08/26/2014 Hyperlipidemia 08/26/2014 Type II or unspecified type diabetes mellitus without mention of complication, not stated as uncontrolled 08/26/2014 diagnosed 2012 FAMILY HISTORY Problem Relation Age of Onset Osteoporosis Mother other (lymphoma) Father other (hepatitis C) Father Stroke Father None Brother Dementia Maternal Grandmother Heart Maternal Grandfather Diabetes Paternal Grandmother PAST SURGICAL HISTORY Procedure Laterality Date PAST SURGICAL HISTORY OF Right 1996 Right hand tendon repair PAST SURGICAL HISTORY OF Right 2003 Calf debridement, infection PAST SURGICAL HISTORY OF 1991 Testicular torsion I reviewed the {current allergies, medications, electronic medical record, lab(s), outside lab(s), and history of vaccinations. I edited the information obtained, as required. HISTORY OF PRESENT ILLNESS This Team Access Model visit is a virtual encounter and Pete Vasquez has consented to this virtualencounter. It required patient-provider interaction for the medical decision making as documented below. Persons Present: patient and his Last endo office visit: 09/2021 with me via [employer] [facility] Pete Vasquez is a 42 year old male who presents for follow-up of Type 2 DM. Patient has had diabetes since 2015. Also known history of elevated BP, Hyperlipidemia, current smoker 1 ppd, GERD, ED, obesity. He reports smoking marijuana for stress relief. Family history of DM: yes, paternal grandmother He is having issues chewing due tooth issue. is concerned about him waking up gasping for air. He does not get restful sleep. Is fatiguedduring the day. Discussed sleep apnea and to discuss further with PCP at apt in May. Occasionallyhas trouble swallowing. He is interested in quitting smoking. Patient's last HgA1C was Hemoglobin A1C (%) Date Value 11/30/2021 7.1 03/27/2021 7.3 07/05/2020 11.0 Hemoglobin A1C (POCT) (%) Date Value 11/11/2020 9.6 Diet: I haven't been eating super healthy Zero sugar pudding Diet pepsi Trying to eat fruits instead of sweets Chicken, red meat once in a while Medications: Trulicity 3 mg once weekly Metformin ER 2 tablets twice a day Prior medications Lantus MONITORING: He has the Wanda but is not scanning frequently enough BG Values reports readings 104 in the morning , 108 in the afternoon Hypoglycemia: none OTHER ISSUES: Ophthalmology 06/2020 Retinopathy: none Podiatry: none Neuropathy: none Exercise: active at work LABS No results found for: TSH No results found for: T3 ALT Date Value Ref Range Status 11/30/2021 16 10 - 54 U/L Final Potassium Date Value Ref Range Status 11/30/2021 3.8 3.7 - 5.1 mmol/L Final Creatinine Date Value Ref Range Status 11/30/2021 0.83 0.73 - 1.22 mg/dL Final Hemoglobin A1C Date Value Ref Range Status 11/30/2021 7.1 (H) 4.3 - 5.6 % Final Comment: [place] Diabetes Association guidelines indicate that patients with HgbA1c in the range 5.7-6.4% are at increased risk for development of diabetes, and intervention by lifestyle modification may be beneficial. HgbA1c greater or equal to 6.5% is considered diagnostic of diabetes. Albumin, Urine Random Date Value Ref Range Status 04/11/2019 37.4 mg/L Final Albumin/Creat Ratio Date Value Ref Range Status 04/11/2019 46 (H) <30 mg/g Final Comment: Adult Male and Female Nephrotic Criteria: <30 mg/g is considered normal to mildly increased 30-300 mg/g is considered moderately increased >300 mg/g is considered severely increased KDIGO. (2013). KDIGO 2012 Clinical Practice Guideline for the Evaluation and Management of Chronic Kidney Disease. Official Journal of the International Society of Nephrology, 3(1), 1-150. Glucose Date Value Ref Range Status 11/30/2021 189 (H) 74 - 99 mg/dL Final Comment: The [place] Diabetes Association (ADA) provides guidance for cutoff values for fasting glucose andrandom glucose. The ADA defines fasting as no caloric intake for at least 8 hours. Fasting plasma glucose results between 100 to 125 mg/dL indicate increased risk for diabetes (prediabetes). Fasting plasma glucose results greater than or equal to 126 mg/dL meet the criteria for diagnosis of diabetes. In the absence of unequivocal hyperglycemia, results should be confirmed by repeat testing. In a patient with classic symptoms of hyperglycemia or hyperglycemic crisis, random plasma glucose results greater than or equal to 200 mg/dL meet the criteria for diagnosis of diabetes. Reference: Standards of Medical Care in Diabetes 2016, [place] Diabetes Association. Diabetes Care. 2016.39(Suppl 1). No components found for: CPEP No results found for: VITD25 No components found for: LIPID Cholesterol, Total Date Value Ref Range Status 11/30/2021 254 (H) <200 mg/dL Final Comment: <200 mg/dL, Desirable 200-239 mg/dL, Borderline high >239 mg/dL, High HDL Cholesterol Date Value Ref Range Status 11/30/2021 26 (L) >39 mg/dL Final Comment: 40-59 mg/dL, Acceptable >59 mg/dL, High: Negative risk factor for coronary heart disease <40 mg/dL, Low: Positive risk factor for coronary heart disease LDL Cholesterol Date Value Ref Range Status 11/30/2021 166 (H) <100 mg/dL Final Comment: <100 mg/dL, Optimal 100-129 mg/dL, Near optimal/above optimal 130-159 mg/dL, Borderline high 160-189 mg/dL, High >189 mg/dL, Very high Secondary prevention optimal LDL Cholesterol levels are recommended to be < 70 mg/dL Triglyceride Date Value Ref Range Status 11/30/2021 308 (H) <150 mg/dL Final Comment: <150 mg/dL, Normal 150-199 mg/dL, Borderline high 200-499 mg/dL, High >499 mg/dL, Very high WEIGHT: Last 5 Encounter Wt Readings: Last 5 Encounter Wt Readings: Date: Wt: 03/31/2022 91.2 kg (201 lb) 11/30/2021 93.4 kg (206 lb) 03/02/2021 100.2 kg (221 lb) 11/11/2020 94.3 kg (208 lb) 10/29/2020 94.3 kg (208 lb) REVIEW OF SYSTEMS: Answers submitted by the patient for this visit: Core Review of Systems (Submitted on 04/09/2022) Fever : No Night Sweats: No Recent Unintentional Weight Change: No Nasal Congestion: Yes Hearing Loss: Yes Vision Disturbance: Yes Chest Pain: No Irregular Heart Beat: No Leg Swelling: No Nausea: Yes Diarrhea: Yes Black Tarry Stools: No Difficulty Urinating?: No Awaken at Night More Than Once to Urinate?: No Joint Pain or Stiffness: Yes Muscle Aches: Yes Leg or Foot Discomfort at Night?: No A Rash: No Dizziness: Yes Headaches: No Memory Loss: No Seizures: No PHYSICAL EXAMINATION: alert and appropriate, in no distress, well-hydrated, well nourished, and happy, smiling, interactive IMPRESSION/PLAN Mr. Pete Vasquez is a 42 year old male who returns to the Department of Endocrinology for diabetesmanagement for a virtual appointment. (E11.65) Type 2 diabetes mellitus with hyperglycemia, without long-term current use of insulin (HCC) (primary encounter diagnosis) (E11.9, Z79.84) Diabetes mellitus treated with oral medication (HCC) (E11.9, Z79.899) Diabetes mellitus treated with injections of non-insulin medication (HCC) Comment: HgbA1C 7.1 % -labs: 11/2021: Cr 0.83 eGFR 112 Plan: 1) Keep glucose tablets or hard candy with you at all times in case of a low blood sugar 2) Please bring meter and/or log book with you to your appointments 3) Start using wanda 3 so he doesn't have to scan to Check blood sugars 4) Continue current medications 5) update labs-already ordered by PCP -Hypoglycemia guidelines reviewed -Recommended diet: Low carbohydrate, Low Added Fat, and No Added Salt -Recommended exercise: 150 minutes of exercise per week as goal -Monitor blood glucose using Wanda 3. The patient was advised to contact the office if the blood sugar readings are consistently high or if having frequent hypoglycemia. -Driving and Diabetes has been reviewed with the patient Patient to continue to follow up with Primary Care Provider and with other consultants regarding other medical problems. I spent a total of 30 minutes on the date of the service which included preparing to see the patient, [id number] patient care, completing clinical documentation, obtaining and/or reviewing separately obtained history, performing a medically appropriate examination, counseling and educating the pat ient/family/caregiver, ordering medications, tests, or procedures, independently interpreting results (not separately reported), and communicating results to the patient/family/caregiver. Next visit in 3 months. Maria Antonia Myers, SONU, POSTAGE MACHINE OPERATOR, SENIOR PROCESS CONTROL TECH-C Department of Endocrinology, Diabetes and Metabolism Some elements in this note were copied from my last note and have been updated as appropriate and reflect medical decision making today. documented in this encounterC[facility]08-[facility]23 Miscellaneous Notes* Telephone Encounter - Varsha Saul - 03/31/2022 4:49 PM EST Pt is scheduled * Telephone Encounter - Maria Antonia Myers APRN.CNP - 03/31/2022 3:51 PM EST Please call him to schedule an apt. Thanks, Maria Antonia Myers APRN.CNP * Telephone Encounter - Hailey Valdes Ma - 03/31/2022 11:12 AM EST Requester: Patient Patients last Endocrinology visit occurred 09/26/2021. Follow-up evaluation has been established n/a. Requested Prescriptions Pending Prescriptions Disp Refills dulaglutide (TRULICITY) 3 mg/0.5 mL pen injector 6 mL 1 Sig: Inject 3 mg subcutaneously one time a week. If patient is due for an appointment please route to provider for refill consideration and also to the endo scheduling pool. PSS NOTE: Patient needs scheduled appointment Yes documented in this encounterC[facility]02-08-2023 History of Present illness Narrative* Laurel Lee APRN.CRUISE COORDINATOR - 03/31/2022 10:16 AM EST Images from the original note were not included. This note was created using [employer]. Subjective Peteelin Vasquez is a 42 year old male. 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 No educational sign language interpreter was used. Diarrhea This is a new problem. The current episode started 6 to 12 hours ago. The problem occurs 2 to 4 times per day. The problem has not changed since onset.The stool consistency is described as Watery. There has been no fever. Associated symptoms include headaches and myalgias. Pertinent negatives include no abdominal pain, no vomiting, no chills, no sweats, no arthralgias, no URI and no cough. He hastried nothing for the symptoms. His past medical history does not include irritable bowel syndrome,inflammatory bowel disease, short gut syndrome, bowel resection, recent abdominal surgery or malabsorption. PAST MEDICAL HISTORY Diagnosis Date GERD (gastroesophageal reflux disease) 08/26/2014 Hyperlipidemia 08/26/2014 Type II or unspecified type diabetes mellitus without mention of complication, not stated as uncontrolled 08/26/2014 diagnosed 2012 PAST SURGICAL HISTORY Procedure Laterality Date PAST SURGICAL HISTORY OF Right 1996 Right hand tendon repair PAST SURGICAL HISTORY OF Right 2003 Calf debridement, infection PAST SURGICAL HISTORY OF 1991 Testicular torsion ALLERGIES Patient has no known allergies. MEDICATIONS ondansetron orally disintegrating (ZOFRAN ODT) 4 mg disintegrating tablet Take 1 tablet by mouth every 12 hours as needed for nausea/vomiting. atorvastatin (LIPITOR) 40 mg tablet Take 1 tablet by mouth daily at bedtime. For cholesterol. lisinopril (ZESTRIL, PRINIVIL) 5 mg tablet Take 1 tablet by mouth once daily. omeprazole (PRILOSEC) 40 mg capsule Take 1 capsule by mouth once daily. dulaglutide (TRULICITY) 3 mg/0.5 mL pen injector Inject 3 mg subcutaneously one time a week. flash glucose sensor ([employer] WANDA 14 DAY SENSOR) kit Use as directed. Change sensor every 14 days. E11.65 alcohol swabs (ALCOHOL PADS) Test blood sugar(s) 2 times daily. Dx: Type 2 DM - Uncontrolled E11.65Insulin: Yes blood sugar diagnostic (BLOOD GLUCOSE TEST) test strip Test blood sugar(s) 2 times daily. Dx: Type 2 DM - Uncontrolled E11.65 Insulin: Yes Lancets lancets Test blood sugar(s) 2 times daily. Dx: Type 2 DM - Uncontrolled E11.65 Insulin: Yes metFORMIN ER (GLUCOPHAGE XR) 500 mg 24 hr tablet Take 2 tablets by mouth twice daily with meals. E11.65 FAMILY HISTORY Problem Relation Age of Onset Osteoporosis Mother other (lymphoma) Father other (hepatitis C) Father Stroke Father None Brother Dementia Maternal Grandmother Heart Maternal Grandfather Diabetes Paternal Grandmother Social History Tobacco Use Smoking status: Every Day Packs/day: 1.00 Years: 19.00 Pack years: 19.00 Types: Cigarettes Smokeless tobacco: Never Substance Use Topics Alcohol use: Yes Comment: holidays 2 drinks Drug use: Yes Types: Marijuana Comment: 5 times per week for anxiety Review of Systems Constitutional: Negative for activity change, appetite change, chills, diaphoresis, fatigue and fever. HENT: Negative for congestion, dental problem, ear discharge, ear pain, hearing loss, mouth sores, nosebleeds, postnasal drip, rhinorrhea, sinus pressure, sinus pain, sneezing, sore throat and trouble swallowing. Eyes: Negative for pain, discharge, redness, itching and visual disturbance. Respiratory: Negative for cough, chest tightness and shortness of breath. Cardiovascular: Negative for chest pain, palpitations and leg swelling. Gastrointestinal: Positive for diarrhea. Negative for abdominal distention, abdominal pain, blood in stool, constipation, nausea and vomiting. Genitourinary: Negative for difficulty urinating, dysuria, flank pain, frequency, hematuria and urgency. Musculoskeletal: Positive for myalgias. Negative for arthralgias, back pain, gait problem, joint swelling, neck pain and neck stiffness. Skin: Negative for color change, pallor and rash. Allergic/Immunologic: Positive for immunocompromised state. Negative for environmental allergies and food allergies. Neurological: Positive for headaches. Negative for dizziness, weakness and light-headedness. Hematological: Negative for adenopathy. Psychiatric/Behavioral: Negative for behavioral problems and sleep disturbance. The patient is not nervous/anxious. Objective BP 128/82 Pulse 104 Temp 36.4 C (97.6 F) Resp 16 Wt 91.2 kg (201 lb) SpO2 98% BMI 29.77kg/m Physical Exam Vitals and nursing note reviewed. Exam conducted with a cloth finishing range back tender present. Constitutional: General: He is not in acute distress. Appearance: Normal appearance. He is normal weight. He is not ill-appearing, toxic-appearing or diaphoretic. HENT: Head: Normocephalic and atraumatic. Right Ear: Tympanic membrane normal. There is no impacted cerumen. Tympanic membrane is not injected, erythematous or bulging. Left Ear: Ear canal and external ear normal. There is no impacted cerumen. Tympanic membrane is bulging. Tympanic membrane is not injected or erythematous. Nose: Nose normal. No congestion or rhinorrhea. Mouth/Throat: Mouth: Mucous membranes are moist. Pharynx: Uvula midline. Posterior oropharyngeal erythema present. No pharyngeal swelling, oropharyngeal exudate or uvula swelling. Tonsils: No tonsillar exudate or tonsillar abscesses. 2+ on the right. 2+ on the left. Eyes: General: Right eye: No discharge. Left eye: No discharge. Conjunctiva/sclera: Conjunctivae normal. Pupils: Pupils are equal, round, and reactive to light. Neck: Vascular: No carotid bruit. Cardiovascular: Rate and Rhythm: Normal rate and regular rhythm. Pulses: Normal pulses. Heart sounds: Normal heart sounds. No murmur heard. No friction rub. No gallop. Pulmonary: Effort: Pulmonary effort is normal. No respiratory distress. Breath sounds: Normal breath sounds. No stridor. No wheezing, rhonchi or rales. Chest: Chest wall: No tenderness. Abdominal: General: Abdomen is flat. Bowel sounds are normal. There is no distension. Palpations: Abdomen is soft. There is no mass. Tenderness: There is no abdominal tenderness. There is no guarding or rebound. Hernia: No hernia is present. Musculoskeletal: General: No swelling, tenderness, deformity or signs of injury. Normal range of motion. Cervical back: Normal range of motion and neck supple. No rigidity or tenderness. Right lower leg: No edema. Left lower leg: No edema. Lymphadenopathy: Cervical: No cervical adenopathy. Skin: General: Skin is warm and dry. Capillary Refill: Capillary refill takes less than 2 seconds. Coloration: Skin is not jaundiced or pale. Findings: No bruising, erythema, lesion or rash. Neurological: General: No focal deficit present. Mental Status: He is alert and oriented to person, place, and time. Sensory: No sensory deficit. Motor: No weakness. Coordination: Coordination normal. Gait: Gait normal. Psychiatric: Mood and Affect: Mood normal. Behavior: Behavior normal. Thought Content: Thought content normal. Assessment and Plan ASSESSMENT/PLAN: 1. URI, acute - ICD9: 465.9, ICD10: J06.9 (primary diagnosis) Acute onset today No red flags - Covid/Flu A&B test in the office, results pending - Discussed viral etiology and rationale for treatment. - Symptomatic treatment with prn analgesia - Supportive care with fluids and rest - The patient may also use OTC decongestants prn and OTC cough and cold meds as needed. - Follow up in 3-5 days if symptoms persist or sooner if worsening of symptoms 2. Diarrhea, unspecified type - ICD9: 787.91, ICD10: R19.7 - probably viral etiology BRAT diet Fluids - discussed symptomatic treatment - encourage plenty of fluid and rest - work release provided - f/u in 3-5 days if no improvement or if condition worsens Kimberly Tinsley TEACHING PROVIDER (Physician/PA/POSTAGE MACHINE OPERATOR) NOTE OF PERSONAL INVOLVEMENT IN CARE: I have personally seen and examined the patient and performed the medical decision-making components. I have reviewed the Advanced Practice Registered Nurse (POSTAGE MACHINE OPERATOR) Student's documentation and verified the findings in the note as written. Any additions or changes are noted in bold/italics. Signature: Laurel Lee Date: 03/31/2022 Time: 12:02 PM documented in this encounterC[facility]12-13-2022 Miscellaneous Notes* Telephone Encounter - Khushboo Carrington LPN - 02/02/2022 4:13 PM EST Spoke with pt and information listed below given. Pt verbalizes understanding. Apt booked. Khushboo Carrington LPN * Telephone Encounter - Bernard Zelaya MD - 02/02/2022 2:09 PM EST He should have scheduled something then instead of scheduling nothing. GLOBAL PRESIDENT recommended follow up in February, hence, my recommendation. I'll work with him (6 months follow ups). Appointment in May with fasting labs and urine test fordiabetes. Call for refills when needed. * Telephone Encounter - Khushboo Carrington LPN - 02/01/2022 3:00 PM EST Spoke with pt and he wants to be seen every 6 month instead of every 3 months. 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 Please advise pt. Khushboo Carrington LPN * Telephone Encounter - Bernard Zelaya MD - 02/01/2022 1:11 PM EST Follow up appointment next month. * Telephone Encounter - Kusum Dickerson LPN - 02/01/2022 10:06 AM EST Last office visit: 11/30/21 Next appointment scheduled: No future appointments scheduled at this time. Last labs: 11/30/21 Last HGBA1C Patient phones requesting refills as follows: Requested Prescriptions Pending Prescriptions Disp Refills metFORMIN ER (GLUCOPHAGE XR) 500 mg 24 hr tablet 120 tablet 0 Sig: Take 2 tablets by mouth twice daily with meals. E11.65 Please review and advise. Kusum Dickerson LPN documented in this encounterC[facility]12-12-2022 Miscellaneous Notes* Telephone Encounter - Kusum Dickerson LPN - 02/01/2022 10:08 AM EST Last office visit: 11/30/21 Next appointment scheduled: No future appointments scheduled at this time. Last labs: 11/30/21 Last HGBA1C Patient phones requesting refills as follows: Requested Prescriptions Pending Prescriptions Disp Refills ondansetron orally disintegrating (ZOFRAN ODT) 4 mg disintegrating tablet 10 tablet 0 Sig: Take 1 tablet by mouth every 12 hours as needed for nausea/vomiting. Please review and advise. Kusum Dickerson LPN documented in this encounterC[facility]10-28-2022 Miscellaneous Notes* Telephone Encounter - Zuly Meng - 12/18/2021 8:09 AM EDT Patient has been identified by name and date of : Yes Last office visit in this department: 11/30/2021 RX INSTRUCTIONS: Patient aware RX will be sent to pharmacy. No need to notify patient. Patient phones requesting refills as follows: Requested Prescriptions Pending Prescriptions Disp Refills metFORMIN ER (GLUCOPHAGE XR) 500 mg 24 hr tablet 120 tablet 0 Sig: Take 2 tablets by mouth twice daily with meals. E11.65 Please review and advise. Zuly Meng documented in this encounterCleveland [facility]10-10-2022 History of Present illness Narrative* Karime Older, POSTAGE MACHINE OPERATOR.CRUISE COORDINATOR - 11/30/2021 8:21 AM EDT CC: Patient presents with: Medication Follow-up: C/o burning and tingling in feet. HPI Pete Vasquez is a 41 year old male who presents today for overdue follow-up. Diabetes: managed by endocrinology. Control has improved quite a bit with Trulicity. Has CGM, patient reports blood sugars are well controlled. Hypoglycemia: No He is compliant with medication(s) and is tolerating med(s) without any side effects. Reports burning and tingling sensation in both feet that started recently. Only at night. Typicallyresolves if he gets up a walks a little bit. Does not interfere with sleep or daily activities. Denies increased thirst, urinary frequency, nocturia, fatigue, unintentional weight loss, blurred vision, ulcers or sores on feet Last Ophthalmology exam was over one year ago Patient's last HgA1C was Hemoglobin A1C (%) Date Value 03/27/2021 7.3 07/05/2020 11.0 Hemoglobin A1C (POCT) (%) Date Value 11/11/2020 9.6 BP is elevated today. Patient is on Lisinopril 2.5 mg daily for renal protection, no history of hypertension. BP typically well controlled in the office but no recent office and patient does not check at home. Denies: headache, chest pain, palpitations, dyspnea, and peripheral edema. Last 3 Encounter BP Readings: Date: BP: 11/30/2021 150/87[bp rosalie average[ 03/02/2021 128/80 11/11/2020 120/80 REVIEW OF SYSTEMS See HPI PAST MEDICAL HISTORY Diagnosis Date GERD (gastroesophageal reflux disease) 08/26/2014 Hyperlipidemia 08/26/2014 Type II or unspecified type diabetes mellitus without mention of complication, not stated as uncontrolled 08/26/2014 diagnosed 2012 PAST SURGICAL HISTORY Procedure Laterality Date PAST SURGICAL HISTORY OF Right 1996 Right hand tendon repair PAST SURGICAL HISTORY OF Right 2003 Calf debridement, infection PAST SURGICAL HISTORY OF 1991 Testicular torsion ALLERGIES Patient has no known allergies. MEDICATIONS pravastatin (PRAVACHOL) 40 mg tablet Take 1 tablet by mouth daily at bedtime. metFORMIN ER (GLUCOPHAGE XR) 500 mg 24 hr tablet Take 2 tablets by mouth twice daily with meals. E11.65 dulaglutide (TRULICITY) 3 mg/0.5 mL pen injector Inject 3 mg subcutaneously one time a week. flash glucose sensor ([employer] WANDA 14 DAY SENSOR) kit Use as directed. Change sensor every 14 days. E11.65 omeprazole (PRILOSEC) 40 mg capsule Take 1 capsule by mouth once daily. ondansetron orally disintegrating (ZOFRAN ODT) 4 mg disintegrating tablet Take 1 tablet by mouth every 12 hours as needed for nausea/vomiting. lisinopril 2.5 mg tablet Take 1 tablet by mouth once daily. alcohol swabs (ALCOHOL PADS) Test blood sugar(s) 2 times daily. Dx: Type 2 DM - Uncontrolled E11.65Insulin: Yes blood sugar diagnostic (BLOOD GLUCOSE TEST) test strip Test blood sugar(s) 2 times daily. Dx: Type 2 DM - Uncontrolled E11.65 Insulin: Yes Lancets lancets Test blood sugar(s) 2 times daily. Dx: Type 2 DM - Uncontrolled E11.65 Insulin: Yes FAMILY HISTORY Problem Relation Age of Onset Osteoporosis Mother other (lymphoma) Father other (hepatitis C) Father Stroke Father None Brother Dementia Maternal Grandmother Heart Maternal Grandfather Diabetes Paternal Grandmother Social History Tobacco Use Smoking status: Every Day Packs/day: 1.00 Years: 19.00 Pack years: 19.00 Types: Cigarettes Smokeless tobacco: Never Substance Use Topics Alcohol use: Yes Comment: holidays 2 drinks Drug use: Yes Types: Marijuana Comment: 5 times per week for anxiety PHYSICAL EXAM BP 174/84 Pulse 84 Resp 16 Wt 93.4 kg (206 lb) BMI 30.51 kg/m General Appearance: well appearing, in no acute distress, alert Lungs: Lungs clear to auscultation. No wheezing, rhonchi, rales. Heart: RRR without murmur, gallop, or rubs. No ectopy Feet:Shoes and socks removed, No deformities, ulcers, calluses, normal distal pulses, sensitive to 10 gm monofilament, and vibratory perception normal Health maintenance reviewed with patient: HEPATITIS B(1 of 3 - 3-dose series) Never done COVID-19 VACCINE(1) Never done PNEUMOCOCCAL(2 - PCV) due on 04/17/2016 URINE ALBUMIN:CREATININE RATIO due on 04/11/2020 DIABETIC FOOT EXAM due on 01/10/2021 DEPRESSION ASSESSMENT Never done DILATED RETINAL EXAM due on 07/03/2021 LDL CHOLESTEROL due on 07/05/2021 HBA1C due on 09/24/2021 INFLUENZA(1) due on 10/22/2021 ANNUAL PCP TEAM CHRONIC DISEASE VISIT due on 05/14/2022 DTAP,TDAP,TD(2 - Td or Tdap) due on 08/26/2024 HEPATITIS C SCREENING Completed HIV SCREENING Completed DATA REVIEWED: Most recent labs ASSESSMENT/PLAN: 1. Uncontrolled type 2 diabetes mellitus with hyperglycemia (HCC) - ICD9: 250.02, ICD10: E11.65 (primary diagnosis) improved control - Continue current medications - check HGB A1C 2. Elevated blood pressure reading in office without diagnosis of hypertension - ICD9: 796.2, ICD10: R03.0 - Encouraged dietary sodium restriction/DASH diet - Recommended regular aerobic exercise. - Recommend home blood pressure monitoring, to bring results in on next visit - increase Lisinopril to 5 mg daily - Goal of BP <130/80 3. Burning sensation of feet - ICD9: 782.0, ICD10: R20.8 Suspect diabetic neuropathy. Discussed symptom management with Gabapentin, patient declined need for treatment at this time. Will let us know if symptoms worsen 4. Gastroesophageal reflux disease without esophagitis - ICD9: 530.81, ICD10: K21.9 - OMEPRAZOLE 40 MG CAPSULE,DELAYED RELEASE refilled 5. Hyperlipidemia, unspecified hyperlipidemia type - ICD9: 272.4, ICD10: E78.5 Control to be determined on lab results Continue current medication - PRAVASTATIN 40 MG TABLET Prescription instructions reviewed with patient as applicable. Potential red flag symptoms discussed with the patient. Reviewed appropriate action plan to take if red flag symptoms occur. Patient agreeable to treatment plan. Karime Roa APRN.CNP documented in this encounterCleveland Clinic [facility]09-28-2022 Miscellaneous Notes* Telephone Encounter - Brisa Tai LPN - 11/18/2021 9:34 AM EDT Patient has been identified by name and date of : Yes Patient phones for refill(s): Requested Prescriptions Pending Prescriptions Disp Refills pravastatin (PRAVACHOL) 40 mg tablet 90 tablet 0 Sig: Take 1 tablet by mouth daily at bedtime. Date of last office visit in primary care: 05/14/2021 Appt: 11/30/2021 Last 2 Encounter Wt Readings: Date: Wt: 03/02/2021 100.2 kg (221 lb) 11/11/2020 94.3 kg (208 lb) Previous labs/tests for medication: Cholesterol: HDL Cholesterol (mg/dL) Date Value 07/05/2020 25 LDL Cholesterol (mg/dL) Date Value 07/05/2020 108 ALT (U/L) Date Value 04/11/2019 18 Non HDL Cholesterol (mg/dL) Date Value 07/05/2020 187 Please advise. Thank you. Brisa Tai LPN * Telephone Encounter - Zuly Layton Pss - 11/18/2021 8:43 AM EDT Pharmacy verified in [facility] Patient has been identified by name and date of : Yes Patient aware RX will be sent to pharmacy. No need to notify patient. Patient phones for refill(s): Requested Prescriptions Pending Prescriptions Disp Refills pravastatin (PRAVACHOL) 40 mg tablet 90 tablet 0 Sig: Take 1 tablet by mouth daily at bedtime. Date of last office visit : 10/29/2020 Date of next office visit : 11/30/2021 Last 2 Encounter Wt Readings: Date: Wt: 03/02/2021 100.2 kg (221 lb) 11/11/2020 94.3 kg (208 lb) Please advise. Zuly Layton Pss documented in this encounterCleveland Clinic [facility]09-15-2022 Miscellaneous Notes* Telephone Encounter - Mandy Thompson MD - 11/05/2021 12:35 PM EDT The following approved medication requests have been transmitted electronically. Requested Prescriptions Pending Prescriptions Disp Refills metFORMIN ER (GLUCOPHAGE XR) 500 mg 24 hr tablet 120 tablet 0 Sig: Take 2 tablets by mouth twice daily with meals. E11.65 Mandy Thompson MD * Telephone Encounter - Brisa Tai LPN - 11/05/2021 9:26 AM EDT Patient has been identified by name and date of : Yes Patient phones for refill(s): Requested Prescriptions Pending Prescriptions Disp Refills metFORMIN ER (GLUCOPHAGE XR) 500 mg 24 hr tablet 120 tablet 0 Sig: Take 2 tablets by mouth twice daily with meals. E11.65 Date of last office visit in primary care: 05/14/2021 Appt: 11/30/2021 Last 2 Encounter Wt Readings: Date: Wt: 03/02/2021 100.2 kg (221 lb) 11/11/2020 94.3 kg (208 lb) Previous labs/tests for medication: Diabetes: Hemoglobin A1C (%) Date Value 03/27/2021 7.3 07/05/2020 11.0 Hemoglobin A1C (POCT) (%) Date Value 11/11/2020 9.6 Please advise. Thank you. Brisa Tai LPN * Telephone Encounter - Kristi Guerrero [facility] - 11/04/2021 10:22 AM EDT Patient has been identified by name and date of : Yes Last office visit in this department: 10/29/2020 Next office visit: 12/01/21 RX INSTRUCTIONS: Patient aware RX will be sent to pharmacy. No need to notify patient. Patient phones requesting refills as follows: Requested Prescriptions Pending Prescriptions Disp Refills metFORMIN ER (GLUCOPHAGE XR) 500 mg 24 hr tablet 120 tablet 0 Sig: Take 2 tablets by mouth twice daily with meals. E11.65 Please review and advise. 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 Faxed it to [employer] at # [phone]. documented in this encounterC[facility]08-06-2022 History of Present illness Narrative* Maria Antonia Myers APRN.GRISEL - 09/26/2021 7:00 AM EDT Images from the original note were not included. ENDOCRINOLOGY, DIABETES & METABOLISM DIABETES VIRTUAL VISIT ALLERGIES No Known Allergies Current Outpatient Medications Medication Sig metFORMIN ER (GLUCOPHAGE XR) 500 mg 24 hr tablet Take 2 tablets by mouth twice daily with meals. E11.65 flash glucose sensor (FREESTYLE WANDA 14 DAY SENSOR) kit Use as directed. E11.65 dulaglutide (TRULICITY) 3 mg/0.5 mL pen injector Inject 3 mg subcutaneously one time a week. pravastatin (PRAVACHOL) 40 mg tablet Take 1 tablet by mouth daily at bedtime. omeprazole (PRILOSEC) 40 mg capsule Take 1 capsule by mouth once daily. ondansetron orally disintegrating (ZOFRAN ODT) 4 mg disintegrating tablet Take 1 tablet by mouth every 12 hours as needed for nausea/vomiting. lisinopril 2.5 mg tablet Take 1 tablet by mouth once daily. alcohol swabs (ALCOHOL PADS) Test blood sugar(s) 2 times daily. Dx: Type 2 DM - Uncontrolled E11.65Insulin: Yes blood sugar diagnostic (BLOOD GLUCOSE TEST) test strip Test blood sugar(s) 2 times daily. Dx: Type 2 DM - Uncontrolled E11.65 Insulin: Yes Lancets lancets Test blood sugar(s) 2 times daily. Dx: Type 2 DM - Uncontrolled E11.65 Insulin: Yes No current facility-administered medications for this visit. Immunization History Administered Date(s) Administered Pneumovax 04/17/2015 Tdap (Age 7+) 08/26/2014 Social History Tobacco Use Smoking status: Every Day Packs/day: 1.00 Years: 19.00 Pack years: 19.00 Types: Cigarettes Smokeless tobacco: Never Substance Use Topics Alcohol use: Yes Comment: holidays 2 drinks Drug use: Yes Types: Marijuana Comment: 5 times per week for anxiety PAST MEDICAL HISTORY Diagnosis Date GERD (gastroesophageal reflux disease) 08/26/2014 Hyperlipidemia 08/26/2014 Type II or unspecified type diabetes mellitus without mention of complication, not stated as uncontrolled 08/26/2014 diagnosed 2012 FAMILY HISTORY Problem Relation Age of Onset Osteoporosis Mother other (lymphoma) Father other (hepatitis C) Father Stroke Father None Brother Dementia Maternal Grandmother Heart Maternal Grandfather Diabetes Paternal Grandmother PAST SURGICAL HISTORY Procedure Laterality Date PAST SURGICAL HISTORY OF Right 1996 Right hand tendon repair PAST SURGICAL HISTORY OF Right 2003 Calf debridement, infection PAST SURGICAL HISTORY OF 1991 Testicular torsion I reviewed the {current allergies, medications, electronic medical record, lab(s), outside lab(s), and history of vaccinations. I edited the information obtained, as required. HISTORY OF PRESENT ILLNESS This Team Access Model visit is a virtual encounter and Pete Vasquez has consented to this virtualencounter. It required patient-provider interaction for the medical decision making as documented below. Persons Present: patient Last endo office visit: 03/26/2021 with me via virtual visit Pete Vasquez is a 41 year old male who presents for 5 month follow-up of Type 2 DM which is uncontrolled. Patient has had diabetes since 2014. Also known history of elevated BP, Hyperlipidemia, current smoker 1 ppd, GERD, ED, obesity. He reports smoking marijuana for stress relief. Family history of DM: yes, paternal grandmother Patient's last HgA1C was Hemoglobin A1C (%) Date Value 03/27/2021 7.3 07/05/2020 11.0 Hemoglobin A1C (POCT) (%) Date Value 11/11/2020 9.6 Diet: he has noted appetite suppression with Trulicity Medications: Trulicity 1.5 mg once weekly on Sundays Metformin ER 500 mg 2 tablets twice a day Lantus 32 units at bedtime >> isn't taking at this time. He discontinued this himself d/t improvement in blood sugars MONITORING: Summary of Personal CGM Findings: Type of CGM: [employer] CGM using phone 1) CGM Worn 12% of time. 2) Average glucose is 156 mg/dL. BG range/St. Dev:19.4 3) 83% time in range 70-180 mg/dL 4) Total frequency of hypoglycemia: 0% with BG < 70 - Hypoglycemia patterns: none - Nocturnal hypoglycemia was NOT noted 5) Hyperglycemic episodes 17% with BG > 180 - Hyperglycemia patterns: post prandially Time in range 0% < 54 mg/dL 0% < 70 mg/dL 83 % 71-180 mg/dL 17 % 181-250 mg/dL 0% > 251 mg/dL Download of CGM of past 14 days: Hypoglycemia awareness: yes OTHER ISSUES: Ophthalmology 06/2020 Retinopathy: none Podiatry: none Neuropathy: none Exercise: walking, core routine LABS No results found for: TSH No results found for: T3 ALT Date Value Ref Range Status 04/11/2019 18 10 - 54 U/L Final Potassium Date Value Ref Range Status 07/05/2020 4.3 3.7 - 5.1 mmol/L Final Creatinine Date Value Ref Range Status 07/05/2020 0.64 (L) 0.73 - 1.22 mg/dL Final Hemoglobin A1C Date Value Ref Range Status 03/27/2021 7.3 (H) 4.3 - 5.6 % Final Comment: [place] Diabetes Association guidelines indicate that patients with HgbA1c in the range 5.7-6.4% are at increased risk for development of diabetes, and intervention by lifestyle modification may be beneficial. HgbA1c greater or equal to 6.5% is considered diagnostic of diabetes. Albumin, Urine Random Date Value Ref Range Status 04/11/2019 37.4 mg/L Final Albumin/Creat Ratio Date Value Ref Range Status 04/11/2019 46 (H) <30 mg/g Final Comment: Adult Male and Female Nephrotic Criteria: <30 mg/g is considered normal to mildly increased 30-300 mg/g is considered moderately increased >300 mg/g is considered severely increased KDIGO. (2013). KDIGO 2012 Clinical Practice Guideline for the Evaluation and Management of Chronic Kidney Disease. Official Journal of the International Society of Nephrology, 3(1), 1-150. Glucose Date Value Ref Range Status 07/05/2020 262 (H) 74 - 99 mg/dL Final Comment: The [place] Diabetes Association (ADA) provides guidance for cutoff values for fasting glucose and random glucose. The ADA defines fasting as no caloric intake for at least 8 hours. Fasting plasma glucose results between 100 to 125 mg/dL indicate increased risk for diabetes (prediabetes). Fasting plasma glucose results greater than or equal to 126 mg/dL meet the criteria for diagnosis of diabetes. In the absence of unequivocal hyperglycemia, results should be confirmed by repeat testing. In a patient with classic symptoms of hyperglycemia or hyperglycemic crisis, random plasma glucose results greater than or equal to 200 mg/dL meet the criteria for diagnosis of diabetes. Reference: Standards of Medical Care in Diabetes 2016, [place] Diabetes Association. Diabetes Care. 2016.39(Suppl 1). No components found for: CPEP No results found for: VITD25 No components found for: LIPID Cholesterol, Total Date Value Ref Range Status 07/05/2020 212 (H) <200 mg/dL Final Comment: <200 mg/dL, Desirable 200-239 mg/dL, Borderline high >239 mg/dL, High HDL Cholesterol Date Value Ref Range Status 07/05/2020 25 (L) >39 mg/dL Final Comment: 40-59 mg/dL, Acceptable >59 mg/dL, High: Negative risk factor for coronary heart disease <40 mg/dL, Low: Positive risk factor for coronary heart disease LDL Cholesterol Date Value Ref Range Status 07/05/2020 108 (H) <100 mg/dL Final Comment: <100 mg/dL, Optimal 100-129 mg/dL, Near optimal/above optimal 130-159 mg/dL, Borderline high 160-189 mg/dL, High >189 mg/dL, Very high Secondary prevention optimal LDL Cholesterol levels are recommended to be < 70 mg/dL Triglyceride Date Value Ref Range Status 07/05/2020 394 (H) <150 mg/dL Final Comment: <150 mg/dL, Normal 150-199 mg/dL, Borderline high 200-499 mg/dL, High >499 mg/dL, Very high WEIGHT: Last 5 Encounter Wt Readings: Last 5 Encounter Wt Readings: Date: Wt: 03/02/2021 100.2 kg (221 lb) 11/11/2020 94.3 kg (208 lb) 10/29/2020 94.3 kg (208 lb) 07/18/2018 96.7 kg (213 lb 3.2 oz) 05/02/2018 97.5 kg (215 lb) REVIEW OF SYSTEMS: Answers submitted by the patient for this visit: Endocrine Review of Systems (Submitted on 09/25/2021) Fatigue: No Night Sweats: No Recent Unintentional Weight Change: No Skin Color Changes: No Post-Nasal Drip: No Thyroid Pain (lower neck): No Trouble Swallowing: No Vision Disturbance: No Chest Pain: No Leg Swelling: No Blood Clots?: No Leg Pain while walking?: No Difficulty Breathing?: No Heartburn: No Nausea: No Vomiting?: No Diarrhea: No Constipation: Yes Abdominal Pain: No Bone Pain?: No Muscle Aches: No Muscle Weakness: No Headaches: No Numbness?: No Urgency to Urinate?: No Increased Urination?: No Slow or Small Urine Stream?: No Flushing?: No Hot Flashes?: No Increased Thirst: No Change in Body Hair?: No Cold Intolerance: No Heat Intolerance?: No Core Review of Systems (Submitted on 09/25/2021) Night Sweats: No Recent Unintentional Weight Change: No Vision Disturbance: No Chest Pain: No Leg Swelling: No Difficulty Breathing?: No Nausea: No Diarrhea: No Muscle Aches: No Headaches: No Fever : No Nasal Congestion: No Hearing Loss: No A Cough: Yes Irregular Heart Beat: No Black Tarry Stools: No Difficulty Urinating?: No Awaken at Night More Than Once to Urinate?: No Leg or Foot Discomfort at Night?: No A Rash: No Memory Loss: No Seizures: No Conflicting answers have been found for some questions. Please document the patient's answers manually. PHYSICAL EXAMINATION: GENERAL: alert and appropriate, in no distress, well-hydrated, well nourished, and happy, smiling, interactive IMPRESSION/PLAN Mr. Pete Vasquez is a 41 year old male who returns to the Department of Endocrinology for diabetesmanagement for a virtual appointment. (E11.65) Type 2 diabetes mellitus with hyperglycaemia (HCC) (primary encounter diagnosis) (E11.9, Z79.84) Diabetes mellitus treated with oral medication (HCC) (E11.9, Z79.899) Diabetes mellitus treated with injections of non-insulin medication (HCC) (Z79.899) Medication course changed Comment: HgbA1C 7.3 % 03/27/2021 -labs:overdue Urine Albumin/ Creatine Ratio:46 on 04/11/201906/2020 Cr 0.64 eGFR >60 Plan: 1) Keep glucose tablets or hard candy with you at all times in case of a low blood sugar 2) Please bring meter and/or log book with you to your appointments 3) Medications Trial off Lantus for now and see how blood sugars do with higher dose of Trulicity Increase Trulicity 3 mg once weekly Continue Metformin ER 500 mg 2 tablets twice a day 4) update labs 5) test blood sugar more frequently using Wanda CGM -Hypoglycemia guidelines reviewed -Recommended diet: Low carbohydrate, Low Added Fat, and No Added Salt -Recommended exercise: 150 minutes of exercise per week as goal -Monitor blood glucose 4 times per day. The patient was advised to contact the office if the blood sugar readings are consistently high or if having frequent hypoglycemia. -Driving and Diabetes has been reviewed with the patient Patient to continue to follow up with Primary Care Provider and with other consultants regarding other medical problems. I spent a total of 22 minutes on the date of the service which included preparing to see the patient, [id number] patient care, completing clinical documentation, obtaining and/or reviewing separately obtained history, performing a medically appropriate examination, counseling and educating the pat ient/family/caregiver, ordering medications, tests, or procedures, independently interpreting results (not separately reported), and communicating results to the patient/family/caregiver. Next visit in 3 months. Maria Antonia Myers, SONU, POSTAGE MACHINE OPERATOR, SENIOR PROCESS CONTROL TECH-C Department of Endocrinology, Diabetes and Metabolism Some elements in this note were copied from my last note on 03/26/2021 and have been updated as appropriate and reflect medical decision making today. documented in this encounterC[facility]08-05-2022 Miscellaneous Notes* Telephone Encounter - Tunde Green Ma - 09/25/2021 9:09 AM EDT Patient notified notified via mychart. * Telephone Encounter - Karime Roa APRN.CNP - 09/25/2021 8:43 AM EDT He is overdue for routine follow-up in office. He no showed appointment with endocrinology. Please schedule in office visit with Dr. Garcia Roa APRN.CNP * Telephone Encounter - Tunde Green Ma - 09/25/2021 8:08 AM EDT JACOBO: 05/14/2021 distance health Last refill: 02/09/2021 QTY: 120 Refills: 5 Patient's request for medication is as follows: Pending Prescriptions Disp Refills METFORMIN ER 500 MG TABLET,EXTENDED RELEASE 24 HR 120 tablet 5 Sig: Take 2 tablets by mouth twice daily with meals. E11.65 GRAHAM: No Please approve the above prescription(s) to electronically send to pharmacy. Tunde Green Ma documented in this encounterC[facility]05-21-2022 Miscellaneous Notes* Telephone Encounter - Brisa Tai LPN - 07/11/2021 10:12 AM EDT Below response left on identified vm. Brisa Tai LPN * Telephone Encounter - Bernard Zelaya MD - 07/10/2021 1:07 PM EDT Check state registry of MM providers. [facility] does not provide. * Telephone Encounter - Cheyenne Carrington Pss - 07/08/2021 4:19 PM EDT Wanting to know what he has to do to get set up to get a medical marjuana card? If you can please contact patient at [phone]. Cheyenne Carrington Pss documented in this encounterC[facility]05-18-2022 Miscellaneous Notes* Telephone Encounter - Brisa Tai LPN - 07/08/2021 4:59 PM EDT Patient has been identified by name and date of : Yes Patient phones for refill(s): Pending Prescriptions Disp Refills PRAVASTATIN 40 MG TABLET 90 tablet 0 Sig: Take 1 tablet by mouth daily at bedtime. GRAHAM: No Date of last office visit in primary care: 05/17/2021 No future appt scheduled. Last 2 Encounter Wt Readings: Date: Wt: 03/02/2021 100.2 kg (221 lb) 11/11/2020 94.3 kg (208 lb) Previous labs/tests for medication: Cholesterol: HDL Cholesterol (mg/dL) Date Value 07/05/2020 25 LDL Cholesterol (mg/dL) Date Value 07/05/2020 108 ALT (U/L) Date Value 04/11/2019 18 Non HDL Cholesterol (mg/dL) Date Value 07/05/2020 187 Please advise. Thank you. Brisa Tai LPN * Telephone Encounter - Cheyenne Alejandra - 07/08/2021 4:17 PM EDT Patient has been identified by name and date of : Yes Pending Prescriptions Disp Refills PRAVASTATIN 40 MG TABLET 90 tablet 2 Sig: Take 1 tablet by mouth daily at bedtime. GRAHAM: No RX INSTRUCTIONS: Patient aware RX will be sent to pharmacy. No need to notify patient. Cheyenne Alejandra documented in this encounterC[facility]05-18-2022 Miscellaneous Notes* Telephone Encounter - Maria Antonia Myers APRN.CNP - 07/08/2021 3:20 PM EDT Placed consult Maria Antonia Myers APRN.CNP * Telephone Encounter - Sunni Stanley PSS - 07/08/2021 8:23 AM EDT Marichuy from [facility] calling for Yahaira Myers to place order into [employer] for pt to take Diabetic Education class referral code [id number] thru [facility]. Pt is signed up 5-25 for virtual class. documented in this encounterC[facility]01-12-2022 History of Past illness Narrative* Problem Noted Date Resolved Date Screening for ischemic heart disease 03/04/2021 05/14/2021 documented as of this encounter (statuses as of 07/08/2021) [address]12-2022 History of Past illness Narrative* Problem Noted Date Resolved Date Screening for ischemic heart disease 03/04/2021 05/14/2021 documented as of this encounter (statuses as of 07/10/2021) [address]12-2022 History of Past illness Narrative* Problem Noted Date Resolved Date Screening for ischemic heart disease 03/04/2021 05/14/2021 documented as of this encounter (statuses as of 07/11/2021) [address]12-2022 History of Past illness Narrative* Problem Noted Date Resolved Date Screening for ischemic heart disease 03/04/2021 05/14/2021 documented as of this encounter (statuses as of 09/02/2021) [address]12-2022 History of Past illness Narrative* Problem Noted Date Resolved Date Screening for ischemic heart disease 03/04/2021 05/14/2021 documented as of this encounter (statuses as of 09/25/2021) [address]12-2022 History of Past illness Narrative* Problem Noted Date Resolved Date Screening for ischemic heart disease 03/04/2021 05/14/2021 documented as of this encounter (statuses as of 09/26/2021) [address]12-2022 History of Past illness Narrative* Problem Noted Date Resolved Date Screening for ischemic heart disease 03/04/2021 05/14/2021 documented as of this encounter (statuses as of 11/04/2021) [address]12-2022 History of Past illness Narrative* Problem Noted Date Resolved Date Screening for ischemic heart disease 03/04/2021 05/14/2021 documented as of this encounter (statuses as of 11/05/2021) [address]12-[address]22 History of Past illness Narrative* Problem Noted Date Resolved Date Screening for ischemic heart disease 03/04/2021 05/14/2021 documented as of this encounter (statuses as of 11/18/2021) [address]22 History of Past illness Narrative* Problem Noted Date Resolved Date Screening for ischemic heart disease 03/04/2021 05/14/2021 documented as of this encounter (statuses as of 11/30/2021) [address]12-[address]22 History of Past illness Narrative* Problem Noted Date Resolved Date Screening for ischemic heart disease 03/04/2021 05/14/2021 documented as of this encounter (statuses as of 12/02/2021) [address]12-[address]22 History of Past illness Narrative* Problem Noted Date Resolved Date Screening for ischemic heart disease 03/04/2021 05/14/2021 documented as of this encounter (statuses as of 12/18/2021) [address]22 History of Past illness Narrative* Problem Noted Date Resolved Date Screening for ischemic heart disease 03/04/2021 05/14/2021 documented as of this encounter (statuses as of 02/01/2022) [address]12-2022 History of Past illness Narrative* Problem Noted Date Resolved Date Screening for ischemic heart disease 03/04/2021 05/14/2021 documented as of this encounter (statuses as of 02/02/2022) [address]12-2022 History of Past illness Narrative* Problem Noted Date Resolved Date Screening for ischemic heart disease 03/04/2021 05/14/2021 documented as of this encounter (statuses as of 03/31/2022) [address]12-2022 History of Past illness Narrative* Problem Noted Date Resolved Date Screening for ischemic heart disease 03/04/2021 05/14/2021 documented as of this encounter (statuses as of 04/01/2022) [address]12-2022 History of Past illness Narrative* Problem Noted Date Resolved Date Screening for ischemic heart disease 03/04/2021 05/14/2021 documented as of this encounter (statuses as of 04/09/2022) [address]12-2022 History of Past illness Narrative* Problem Noted Date Resolved Date Screening for ischemic heart disease 03/04/2021 05/14/2021 documented as of this encounter (statuses as of 04/10/2022) [address]12-2022 History of Past illness Narrative* Problem Noted Date Resolved Date Screening for ischemic heart disease 03/04/2021 05/14/2021 documented as of this encounter (statuses as of 04/13/2022) [address]12-2022 History of Past illness Narrative* Problem Noted Date Resolved Date Screening for ischemic heart disease 03/04/2021 05/14/2021 documented as of this encounter (statuses as of 04/28/2022) [address]12-2022 History of Past illness Narrative* Problem Noted Date Resolved Date Screening for ischemic heart disease 03/04/2021 05/14/2021 documented as of this encounter (statuses as of 05/26/2022) [address]12-2022 History of Past illness Narrative* Problem Noted Date Resolved Date Screening for ischemic heart disease 03/04/2021 05/14/2021 documented as of this encounter (statuses as of 05/28/2022) [address]12-2022 History of Past illness Narrative* Problem Noted Date Resolved Date Screening for ischemic heart disease 03/04/2021 05/14/2021 documented as of this encounter (statuses as of 05/31/2022) [address]12-2022 History of Past illness Narrative* Problem Noted Date Resolved Date Screening for ischemic heart disease 03/04/2021 05/14/2021 documented as of this encounter (statuses as of 06/18/2022) [address]12-2022 History of Past illness Narrative* Problem Noted Date Resolved Date Screening for ischemic heart disease 03/04/2021 05/14/2021 documented as of this encounter (statuses as of 06/23/2022) [address]12-2022 History of Past illness Narrative* Problem Noted Date Resolved Date Screening for ischemic heart disease 03/04/2021 05/14/2021 documented as of this encounter (statuses as of 07/23/2022) [address]12-2022 History of Past illness Narrative* Problem Noted Date Resolved Date Screening for ischemic heart disease 03/04/2021 05/14/2021 documented as of this encounter (statuses as of 07/23/2022) [address]12-2022 History of Past illness Narrative* Problem Noted Date Resolved Date Screening for ischemic heart disease 03/04/2021 05/14/2021 documented as of this encounter (statuses as of 08/18/2022) [address]12-2022 History of Past illness Narrative* Problem Noted Date Resolved Date Screening for ischemic heart disease 03/04/2021 05/14/2021 documented as of this encounter (statuses as of 08/23/2022) [address]12-2022 History of Past illness Narrative* Problem Noted Date Diagnosed Date Resolved Date Screening for ischemic heart disease 03/04/2021 05/14/2021 documented as of this encounter (statuses as of 09/06/2022) [address]12-2022 History of Past illness Narrative* Problem Noted Date Diagnosed Date Resolved Date Screening for ischemic heart disease 03/04/2021 05/14/2021 documented as of this encounter (statuses as of 09/30/2022) [address]12-2022 History of Past illness Narrative* Problem Noted Date Diagnosed Date Resolved Date Screening for ischemic heart disease 03/04/2021 05/14/2021 documented as of this encounter (statuses as of 10/08/2022) [address]12-2022 History of Past illness Narrative* Problem Noted Date Diagnosed Date Resolved Date Screening for ischemic heart disease 03/04/2021 05/14/2021 documented as of this encounter (statuses as of 10/15/2022) [address]12-2022 History of Past illness Narrative* Problem Noted Date Diagnosed Date Resolved Date Screening for ischemic heart disease 03/04/2021 05/14/2021 documented as of this encounter (statuses as of 11/19/2022) [address]12-2022 History of Past illness Narrative* Problem Noted Date Diagnosed Date Resolved Date Screening for ischemic heart disease 03/04/2021 05/14/2021 documented as of this encounter (statuses as of 11/25/2022) [address]12-2022 History of Past illness Narrative* Problem Noted Date Diagnosed Date Resolved Date Screening for ischemic heart disease 03/04/2021 05/14/2021 Uncontrolled type 2 diabetes mellitus with hyperglycemia 03/04/2021 12/23/2022 documented as of this encounter (statuses as of 12/26/2022) [address]12-2022 History of Past illness Narrative* Problem Noted Date Diagnosed Date Resolved Date Screening for ischemic heart disease 03/04/2021 05/14/2021 Uncontrolled type 2 diabetes mellitus with hyperglycemia 03/04/2021 12/23/2022 documented as of this encounter (statuses as of 12/31/2022) [address]12-2022 History of Past illness Narrative* Problem Noted Date Diagnosed Date Resolved Date Screening for ischemic heart disease 03/04/2021 05/14/2021 Uncontrolled type 2 diabetes mellitus with hyperglycemia 03/04/2021 12/23/2022 documented as of this encounter (statuses as of 01/05/2023) [address]12-2022 History of Past illness Narrative* Problem Noted Date Diagnosed Date Resolved Date Screening for ischemic heart disease 03/04/2021 05/14/2021 Uncontrolled type 2 diabetes mellitus with hyperglycemia 03/04/2021 12/23/2022 documented as of this encounter (statuses as of 01/07/2023) [address]12-2022 History of Past illness Narrative* Problem Noted Date Diagnosed Date Resolved Date Screening for ischemic heart disease 03/04/2021 05/14/2021 Uncontrolled type 2 diabetes mellitus with hyperglycemia 03/04/2021 12/23/2022 documented as of this encounter (statuses as of 01/07/2023) [address]12-2022 History of Past illness Narrative* Problem Noted Date Diagnosed Date Resolved Date Screening for ischemic heart disease 03/04/2021 05/14/2021 Uncontrolled type 2 diabetes mellitus with hyperglycemia 03/04/2021 12/23/2022 documented as of this encounter (statuses as of 01/20/2023) [address]12-2022 History of Past illness Narrative* Problem Noted Date Diagnosed Date Resolved Date Screening for ischemic heart disease 03/04/2021 05/14/2021 Uncontrolled type 2 diabetes mellitus with hyperglycemia 03/04/2021 12/23/2022 documented as of this encounter (statuses as of 04/21/2023) [address]12-2022 History of Past illness Narrative* Problem Noted Date Diagnosed Date Resolved Date Screening for ischemic heart disease 03/04/2021 05/14/2021 Uncontrolled type 2 diabetes mellitus with hyperglycemia 03/04/2021 12/23/2022 documented as of this encounter (statuses as of 04/23/2023) [address]12-2022 History of Past illness Narrative* Problem Noted Date Diagnosed Date Resolved Date Screening for ischemic heart disease 03/04/2021 05/14/2021 Uncontrolled type 2 diabetes mellitus with hyperglycemia 03/04/2021 12/23/2022 documented as of this encounter (statuses as of 05/13/2023) [address]12-2022 History of Past illness Narrative* Problem Noted Date Diagnosed Date Resolved Date Screening for ischemic heart disease 03/04/2021 05/14/2021 Uncontrolled type 2 diabetes mellitus with hyperglycemia 03/04/2021 12/23/2022 documented as of this encounter (statuses as of 05/23/2023) [address]12-[address]22 History of Past illness Narrative* Problem Noted Date Diagnosed Date Resolved Date Screening for ischemic heart disease 03/04/2021 05/14/2021 Uncontrolled type 2 diabetes mellitus with hyperglycemia 03/04/2021 12/23/2022 documented as of this encounter (statuses as of 06/08/2023) [address]12-[address]22 History of Past illness Narrative* Problem Noted Date Diagnosed Date Resolved Date Screening for ischemic heart disease 03/04/2021 05/14/2021 Uncontrolled type 2 diabetes mellitus with hyperglycemia 03/04/2021 12/23/2022 documented as of this encounter (statuses as of 05/27/2023) [facility] Diagnosis Uncontrolled type 2 diabetes mellitus with hyperglycemia (HCC)- Primary [facility] Diagnosis Hyperlipidemia, unspecified hyperlipidemia type [facility]* Diagnosis Type 2 diabetes (HCC) [facility]* Diagnosis Type 2 diabetes mellitus with hyperglycaemia (HCC)- Primary Diabetes mellitus treated with oral medication (HCC) Diabetes mellitus treated with injections of non-insulin medication (HCC) Medication course changed Encounter for long-term (current) use of other medications documented [facility] this [facility]* Diagnosis Type 2 diabetes (HCC) [facility]* Diagnosis Uncontrolled type 2 diabetes mellitus with hyperglycemia (HCC)- Primary Elevated blood pressure reading in office without diagnosis of hypertension Burning sensation of feet Disturbance of skin sensation Gastroesophageal reflux disease without esophagitis Esophageal reflux Hyperlipidemia, unspecified hyperlipidemia type documented in this [facility]* Diagnosis Abnormal CBC- Primary Other abnormal blood chemistry [facility] this [facility]* Diagnosis Type 2 diabetes (HCC) [facility]* Diagnosis Nausea and vomiting, unspecified vomiting type [facility]* Diagnosis Type 2 diabetes (HCC)- Primary Hyperlipidemia, unspecified hyperlipidemia type documented [facility]* Diagnosis URI, acute- Primary Acute upper respiratory infections of unspecified site Diarrhea, unspecified type documented in this encounter [facility]* Diagnosis Type 2 diabetes mellitus with hyperglycaemia (HCC) documented [facility]* Diagnosis Type 2 diabetes mellitus with hyperglycemia, without long-term current use of insulin (HCC)- Primary Diabetes mellitus treated with oral medication (HCC) Diabetes mellitus treated with injections of non-insulin medication (HCC) [facility]* Diagnosis Pain, dental- Primary Unspecified disorder of the teeth and supporting structures documented in this encounter [facility]* Diagnosis Gastroenteritis- Primary Other and unspecified noninfectious gastroenteritis and colitis documented in this encounter [facility]* Diagnosis Diarrhea, unspecified type- Primary Type 2 diabetes (HCC) documented [facility] this [facility]* Diagnosis Leukocytosis, unspecified type- Primary documented in this [facility] noteNo assessment information availableWMagruder Hospital Work Phone: Evaluation note* Diagnosis Right testicular pain- Primary Unspecified disorder of male genital organs Right groin pain Abdominal pain, right lower quadrant [facility] this [facility]* Diagnosis Hydrocele, unspecified hydrocele type- Primary documented [facility] this [facility]* Diagnosis Type 2 diabetes mellitus with hyperglycemia, without long-term current use of insulin ([facility]) documented in this encounter [facility]* Diagnosis Gastroesophageal reflux disease without esophagitis Esophageal reflux documented in this encounter [facility] note* Diagnosis Nausea- Primary Nausea alone Diarrhea, unspecified type documented in this encounter [facility] note* Diagnosis Diarrhea, unspecified type- Primary Type 2 diabetes mellitus without complication, without long-term current use of insulin ([facility]) Abnormal CBC Other abnormal blood chemistry documented in this encounter [facility] note* Diagnosis Left hand weakness- Primary Muscle weakness (generalized) Numbness and tingling in left hand Disturbance of skin sensation documented in this encounter [facility] note* Diagnosis Uncontrolled type 2 diabetes mellitus with hyperglycemia ([facility])- Primary Medication side effects Unspecified adverse effect of unspecified drug, medicinal and biological substance documented in this encounter [facility] note* Diagnosis Type 2 diabetes mellitus with hyperglycemia, without long-term current use of insulin ([facility]) documented in this encounter [facility] note* Diagnosis Chest pain, unspecified type- Primary Left arm pain Pain in limb documented in this encounter [facility] note* Diagnosis Right upper quadrant pain- Primary Abdominal pain, right upper quadrant Rib pain on right side Chest pain, unspecified Type 2 diabetes (HCC) Primary hypertension Unspecified essential hypertension documented in this encounter [facility] note* Diagnosis Right upper quadrant pain Abdominal pain, right upper quadrant documented in this encounter [facility] note* Diagnosis Type 2 diabetes mellitus without retinopathy (HCC)- Primary Type II or unspecified type diabetes mellitus without mention of complication, not stated as uncontrolled Myopia, bilateral Myopia Regular astigmatism of both eyes Regular astigmatism documented in this encounter [facility] note* Diagnosis Preop examination- Primary Preoperative examination, unspecified Primary hypertension Unspecified essential hypertension Tobacco use disorder Type 2 diabetes (HCC) Hyperlipidemia, unspecified hyperlipidemia type Gastroesophageal reflux disease without esophagitis Esophageal reflux Obesity (BMI 30.0-34.9) Obesity, unspecified Suspected sleep apnea Marijuana use Cannabis abuse, unspecified Right upper quadrant pain Abdominal pain, right upper quadrant Chronic cholecystitis documented in this encounter [facility] note* Diagnosis Body aches- Primary Generalized pain Exposure to strep throat Contact with or exposure to other communicable diseases documented in this encounter [facility] note* Diagnosis Flu-like symptoms- Primary Other general symptoms Viral illness Unspecified viral infection, in conditions classified elsewhere and of unspecified site documented in this encounter [facility]* Diagnosis Primary hypertension- Primary Unspecified essential hypertension Type 2 diabetes (HCC) Bloating Flatulence, eructation, and gas pain Gastroesophageal reflux disease without esophagitis Esophageal reflux Hyperlipidemia, unspecified hyperlipidemia type documented in this encounter [facility] note* Diagnosis Type 2 diabetes (HCC) documented in this encounter [facility] note* Diagnosis Pain of right eye- Primary Pain in or around eye documented in this encounter [facility]* Diagnosis Primary hypertension- Primary Unspecified essential hypertension Type 2 diabetes (HCC) documented in this encounter [facility] note* Diagnosis Type 2 diabetes (HCC)- Primary Primary hypertension Unspecified essential hypertension documented in this encounter [facility]* Diagnosis Type 2 diabetes (HCC) documented in this encounter [facility]* Diagnosis Uncontrolled type 2 diabetes mellitus without complication, without long-term current use of insulin- Primary Erectile dysfunction due to diseases classified elsewhere Gastroesophageal reflux disease without esophagitis Esophageal reflux Tobacco use disorder Gastroesophageal reflux disease without esophagitis Esophageal reflux documented in this encounter [facility] note* Diagnosis Uncontrolled type 2 diabetes mellitus without complication, without long-term current use of insulin- Primary Erectile dysfunction due to diseases classified elsewhere Gastroesophageal reflux disease without esophagitis Esophageal reflux Tobacco use disorder Rib pain on right side Chest pain, unspecified documented in this encounter [facility] note* Diagnosis Uncontrolled type 2 diabetes mellitus without complication, without long-term current use of insulin- Primary Erectile dysfunction due to diseases classified elsewhere Gastroesophageal reflux disease without esophagitis Esophageal reflux Tobacco use disorder Acute wrist pain, left [facility]* Diagnosis Uncontrolled type 2 diabetes mellitus without complication, without long-term current use of insulin- Primary Erectile dysfunction due to diseases classified elsewhere Gastroesophageal reflux disease without esophagitis Esophageal reflux Tobacco use disorder Left hand weakness Muscle weakness (generalized) Numbness and tingling in left hand Disturbance of skin sensation documented in this encounter [facility]* Diagnosis Uncontrolled type 2 diabetes mellitus without complication, without long-term current use of insulin- Primary Erectile dysfunction due to diseases classified elsewhere Gastroesophageal reflux disease without esophagitis Esophageal reflux Tobacco use disorder Type 2 diabetes (HCC) documented [facility] this [facility]* Diagnosis Uncontrolled type 2 diabetes mellitus without complication, without long-term current use of insulin- Primary Erectile dysfunction due to diseases classified elsewhere Gastroesophageal reflux disease without esophagitis Esophageal reflux Tobacco use disorder Neck pain- Primary Cervicalgia documented in this encounter [facility] note* Diagnosis Uncontrolled type 2 diabetes mellitus without complication, without long-term current use of insulin- Primary Erectile dysfunction due to diseases classified elsewhere Gastroesophageal reflux disease without esophagitis Esophageal reflux Tobacco use disorder Primary hypertension- Primary Unspecified essential hypertension Type 2 diabetes (HCC) documented in this encounter [facility] note* Diagnosis Uncontrolled type 2 diabetes mellitus without complication, without long-term current use of insulin- Primary Erectile dysfunction due to diseases classified elsewhere Gastroesophageal reflux disease without esophagitis Esophageal reflux Tobacco use disorder Neck pain- Primary Cervicalgia Numbness and tingling in left arm Disturbance of skin sensation Dysphagia, unspecified type Gastroesophageal reflux disease without esophagitis Esophageal reflux Type 2 diabetes (HCC) Hyperlipidemia, unspecified hyperlipidemia type Primary hypertension Unspecified essential hypertension documented in this encounter [facility]* Diagnosis Uncontrolled type 2 diabetes mellitus without complication, without long-term current use of insulin- Primary Erectile dysfunction due to diseases classified elsewhere Gastroesophageal reflux disease without esophagitis Esophageal reflux Tobacco use disorder Neck pain Cervicalgia documented in this encounter [facility] note* Diagnosis Uncontrolled type 2 diabetes mellitus without complication, without long-term current use of insulin- Primary Erectile dysfunction due to diseases classified elsewhere Gastroesophageal reflux disease without esophagitis Esophageal reflux Tobacco use disorder Type 2 diabetes (HCC)- Primary [facility]* Diagnosis Uncontrolled type 2 diabetes mellitus without complication, without long-term current use of insulin- Primary Erectile dysfunction due to diseases classified elsewhere Gastroesophageal reflux disease without esophagitis Esophageal reflux Tobacco use disorder Primary hypertension Unspecified essential hypertension documented in this encounter [facility] note* Diagnosis Uncontrolled type 2 diabetes mellitus without complication, without long-term current use of insulin- Primary Erectile dysfunction due to diseases classified elsewhere Gastroesophageal reflux disease without esophagitis Esophageal reflux Tobacco use disorder Diarrhea of presumed infectious origin- Primary Primary hypertension Unspecified essential hypertension documented in this encounter [facility]* Diagnosis Uncontrolled type 2 diabetes mellitus without complication, without long-term current use of insulin- Primary Erectile dysfunction due to diseases classified elsewhere Gastroesophageal reflux disease without esophagitis Esophageal reflux Tobacco use disorder Type 2 diabetes (HCC)- Primary Positional lightheadedness Dizziness and giddiness Hyperlipidemia, unspecified hyperlipidemia type Gastroesophageal reflux disease without esophagitis Esophageal reflux Encounter for screening examination for other mental health and behavioral disorders Primary hypertension Unspecified essential hypertension Screening for depression documented in this encounter [facility] Discharge instructions Additional Instructions Thank you for trusting us with your care today! Please take Tylenol (2 pills, 650 mg), ibuprofen (2 pills, 400 mg) every 6 hours as needed for pain and fever control. Please return to the emergency department if your symptoms change or worsen. Please follow with your primary care physician for further outpatient evaluation and management.[facility] Work Phone: [facility] (narrative)* Diagnostic Procedure Only (Urgent) - Closed Specialty Diagnoses / Procedures Referred By Contac t Referred To Contact XR IMAGING Diagnoses Left hand weakness Numbness and tingling in left hand Procedures XR CERV OTHER 4V AP/LAT/OBL RADEX SPINE CERVICAL 4 OR 5 VIEWS Sudarshan Tran MD [address] [place] [address] Xr Imaging Referral ID Status Reason Start Date Expiration Date V isits Requested Visits Authorized [id number] Closed Auto-Generate d Referral 09/06/2022 10/06/[address] [facility] for referral (narrative)* Diagnostic Procedure Only (Urgent) - Closed Specialty Diagnoses / Procedures Referred By Contac t Referred To Contact XR IMAGING Diagnoses Rib pain on right side Procedures XR RIBS/CHEST 3V AP RIB/OBLS/CXR RIGHT RADEX RIBS UNI W/POSTEROANT CH MINIMUM 3 VIEWS Karime Roa, POSTAGE MACHINE OPERATOR.CRUISE COORDINATOR [address] [place] [address] [place] [address] Referral ID Status Reason Start Date Expiration Date V isits Requested Visits Authorized [id number] Closed Auto-Generate d Referral 01/05/2023 02/04/2024 1 1 * Diagnostic Procedure Only (Urgent) - Authorized Specialty Diagnoses / Procedures Referred By Contac t Referred To Contact US IMAGING Diagnoses Right upper quadrant pain Procedures US ABD RIGHT UPPER QUADRANT US ABDOMINAL REAL TIME W/IMAGE LIMITED Karime Roa APRN.CRUISE COORDINATOR [address] [place] [address] [place] [address] Referral ID Status Reason Start Date Expiration Date Visits Requested Visits Authorized [id number] Authorized Auto-Generat ed Referral 02/04/2024 1 1 [facility] for referral (narrative)* Diagnostic Procedure Only (Urgent) - Closed Specialty Diagnoses / Procedures Referred By Contac t Referred To Contact US IMAGING Diagnoses Right upper quadrant pain Procedures US ABD RIGHT UPPER QUADRANT US ABDOMINAL REAL TIME W/IMAGE LIMITED Karime Roa APRN.CRUISE COORDINATOR [address] [place] [address] [place] [address] Referral ID Status Reason Start Date Expiration Date V isits Requested Visits Authorized [id number] Closed Auto-Generate d Referral 01/05/2023 02/04/2024 1 1 [facility] for referral (narrative)* Diagnostic Procedure Only (Urgent) - Closed Specialty Diagnoses / Procedures Referred By Contac t Referred To Contact XR IMAGING Diagnoses Rib pain on right side Procedures XR RIBS/CHEST 3V AP RIB/OBLS/CXR RIGHT RADEX RIBS UNI W/POSTEROANT CH MINIMUM 3 VIEWS Karime Pryor APRN.CRUISE COORDINATOR [address] [place] [address] [place] [address] Referral ID Status Reason Start Date Expiration Date V isits Requested Visits Authorized [id number] Closed Auto-Generate d Referral 01/05/2023 02/04/2024 1 1 [facility] for referral (narrative)* Diagnostic Procedure Only (Routine) - Closed Specialty Diagnoses / Procedures Referred By Contac t Referred To Contact XR IMAGING Diagnoses Acute wrist pain, left Procedures XR WRIST GENERAL 3V PA/LAT/OBL LEFT RADEX WRIST COMPLETE MINIMUM 3 VIEWS Bernard Zelaya MD [address] [place] [address] [place] [address] Referral ID Status Reason Start Date Expiration Date V isits Requested Visits Authorized [id number] Closed Auto-Generate d Referral 12/23/2022 01/22/[address] [facility] for referral (narrative)* Diagnostic Procedure Only (Urgent) - Closed Specialty Diagnoses / Procedures Referred By Contac t Referred To Contact XR IMAGING Diagnoses Left hand weakness Numbness and tingling in left hand Procedures XR CERV OTHER 4V AP/LAT/OBL RADEX SPINE CERVICAL 4 OR 5 VIEWS Sudarshan Tran MD [address] [place] [address] [place] [address] Referral ID Status Reason Start Date Expiration Date V isits Requested Visits Authorized [id number] Closed Auto-Generate d Referral 09/06/2022 10/06/[address] [facility] for referral (narrative)* Diagnostic Procedure Only (Urgent) - New Request Specialty Diagnoses / Procedures Referred By Contac t Referred To Contact XR IMAGING Diagnoses Neck pain Procedures XR CERV OTHER 4V AP/LAT/OBL RADEX SPINE CERVICAL 4 OR 5 VIEWS Alexa Gonzalez, [facility].CRUISE COORDINATOR [address] [place] [address] [place] [address] Referral ID Status Reason Start Date Expiration Date Visits Requested Visits Authorized [id number] New Request Auto-Generat ed Referral 02/22/2024 03/23/2025 1 1 [facility] for referral (narrative)* Diagnostic Procedure Only (Urgent) - Closed Specialty Diagnoses / Procedures Referred By Contac t Referred To Contact XR IMAGING Diagnoses Neck pain Procedures XR CERV OTHER 4V AP/LAT/OBL RADEX SPINE CERVICAL 4 OR 5 VIEWS Alexa Gonzalez, POSTAGE MACHINE OPERATOR.CRUISE COORDINATOR [address] [place] [address] [place] [address] Referral ID Status Reason Start Date Expiration Date V isits Requested Visits Authorized [id number] Closed Auto-Generate d Referral 02/22/2024 03/23/2025 1 1 [facility] for visit Narrative* Diagnostic Procedure Only (Urgent) - Closed Specialty Diagnoses / Procedures Referred By Contac t Referred To Contact US IMAGING Diagnoses Right upper quadrant pain Procedures US ABD RIGHT UPPER QUADRANT US ABDOMINAL REAL TIME W/IMAGE LIMITED Karime Roa POSTAGE MACHINE OPERATOR.CRUISE COORDINATOR [address] [place] [address] [place] [address] Referral ID Status Reason Start Date Expiration Date V isits Requested Visits Authorized [id number] Closed Auto-Generate d Referral 01/05/2023 02/04/[address] [facility] for visit Narrative* Diagnostic Procedure Only (Urgent) - Closed Specialty Diagnoses / Procedures Referred By Contac t Referred To Contact XR IMAGING Diagnoses Rib pain on right side Procedures XR RIBS/CHEST 3V AP RIB/OBLS/CXR RIGHT RADEX RIBS UNI W/POSTEROANT CH MINIMUM 3 VIEWS Karime Pryor POSTAGE MACHINE OPERATOR.CRUISE COORDINATOR [address] [place] [address] [place] [address] Referral ID Status Reason Start Date Expiration Date V isits Requested Visits Authorized [id number] Closed Auto-Generate d Referral 01/05/2023 02/04/[address] [facility] for visit Narrative* Diagnostic Procedure Only (Routine) - Closed Specialty Diagnoses / Procedures Referred By Contac t Referred To Contact XR IMAGING Diagnoses Acute wrist pain, left Procedures XR WRIST GENERAL 3V PA/LAT/OBL LEFT RADEX WRIST COMPLETE MINIMUM 3 VIEWS Bernard Zelaya MD [address] [place] [address] [place] [address] Referral ID Status Reason Start Date Expiration Date V isits Requested Visits Authorized [id number] Closed Auto-Generate d Referral 12/23/2022 01/22/[address] [facility] for visit Narrative* Diagnostic Procedure Only (Urgent) - Closed Specialty Diagnoses / Procedures Referred By Contac t Referred To Contact XR IMAGING Diagnoses Left hand weakness Numbness and tingling in left hand Procedures XR CERV OTHER 4V AP/LAT/OBL RADEX SPINE CERVICAL 4 OR 5 VIEWS Sudarshan Tran MD [address] [place] [address] [place] [address] Referral ID Status Reason Start Date Expiration Date V isits Requested Visits Authorized [id number] Closed Auto-Generate d Referral 09/06/2022 10/06/[address] [facility] for visit Narrative* Diagnostic Procedure Only (Urgent) - Closed Specialty Diagnoses / Procedures Referred By Contac t Referred To Contact XR IMAGING Diagnoses Neck pain Procedures XR CERV OTHER 4V AP/LAT/OBL RADEX SPINE CERVICAL 4 OR 5 VIEWS Alexa Gonzalez, POSTAGE MACHINE OPERATOR.CRUISE COORDINATOR [address] [place] [address] [place] [address] Referral ID Status Reason Start Date Expiration Date V isits Requested Visits Authorized [id number] Closed Auto-Generate d Referral 02/22/2024 03/23/2025 1 1 [facility] Reason for Referral Specialty Diagnoses / Procedures Referred By Contac t Referred To Contact Diagnoses Uncontrolled type 2 diabetes mellitus with hyperglycemia (HCC) Procedures CONSULT TO DIABETES EDUCATION OFFICE/OUTPATIENT [facility] AT [place] 60-74 MINUTES Maria Antonia Myers, POSTAGE MACHINE OPERATOR.CRUISE COORDINATOR [address] [place] [address] Referral ID Status Reason Start Date Expiration Date Visits Requested Visits Authorized [id number] Authorized PCP Requested Referral 07/08/2021 07/08/2022 1 1 Specialty Diagnoses / Procedures Referred By Contac t Referred To Contact Gastroenterology Diagnoses Nausea Procedures CONSULT TO GASTROENTEROLOGY OFFICE/OUTPATIENT [facility] MDM 60-74 MINUTES Theodora Mcmahon, POSTAGE MACHINE OPERATOR.CRUISE COORDINATOR [address] [place] [address] Referral ID Status Reason Start Date Expiration Date Visits Requested Visits Authorized [id number] Authorized PCP Requested Referral 08/17/2022 08/17/2023 1 1 Specialty Diagnoses / Procedures Referred By Contac t Referred To Contact Karime Roa APRN.CRUISE COORDINATOR [address] [place] [address] Referral ID Status Reason Start Date Expiration Date Visits Re quested Visits Authorized [id number] Closed 1 1 Specialty Diagnoses / Procedures Referred By Contac t Referred To Contact General Surgery Diagnoses Gastroesophageal reflux disease without esophagitis Dysphagia, unspecified type Procedures CONSULT TO GENERAL SURGERY OFFICE/OUTPATIENT [facility] [place] 60 MINUTES Karime Pryor, POSTAGE MACHINE OPERATOR.CRUISE COORDINATOR [address] [place] [address] Referral ID Status Reason Start Date Expiration Date Visits Requested Visits Authorized [id number] Authorized PCP Requested Referral 03/14/2024 03/14/2025 1 1 Specialty Diagnoses / Procedures Referred By Contac t Referred To Contact Diagnoses Type 2 diabetes (HCC) Karime Pryor, POSTAGE MACHINE OPERATOR.CRUISE COORDINATOR [address] [place] [address] Referral ID Status Reason Start Date Expiration Date V isits Requested Visits Authorized [id number] Pending Review 1 1 Specialty Diagnoses / Procedures Referred By Contac t Referred To Contact Diagnoses Type 2 diabetes (HCC) Bernard Zelaya MD [address] [place] [address] Referral ID Status Reason Start Date Expiration Date Visits Re quested Visits Authorized [id number] Closed 1 1 Referral ID Status Reason Start Date Expiration Date Visits Re quested Visits Authorized [id number] Closed 1 1 Health Concerns Infection Onset Date Last Indicated Resolved Time COVID-19 Rule-Out 03/31/2022 03/31/2022 Infection Onset Date Last Indicated Resolved Time COVID-19 Rule-Out 03/31/2022 03/31/2022 03/31/2022 11:29 PM EST Infection Onset Date Last Indicated Resolved Time COVID-19 Rule-Out 04/22/2023 04/22/2023 Chief Complaint and Reason for Visit Chief Complaint ABDOMINAL PAIN Chief Complaint ABD Chief Complaint ABD RUQ ABD PAIN Advance Directives Advance Directive Response Recorded Date/ Time Living Will No June 16, 2022 8:23pm Power of Life Management Teacher No June 16 8:23pm Advance Directive Response Recorded Date/ Time Living Will No January 01, 023 12:51pm Power of Life Management Teacher No January 01, 2023 12:51pm Advance Directive Response Recorded Date/ Time Living Will No January 10 023 8:14am Power of Life Management Teacher No January 10, 2023 8:14am Summary Purpose Family History No Family History Records Found Additional Source Comments Source Comments (unrecognize d section and content) In the event this informatio n is protected by the Federal Confidentiality of Alcohol and Drug Abuse Patient Records regulations: The Federal rules restrict any use of the information to criminally investigate or prosecute any alcohol or drug abuse patient.[facility] the event this information is protected by the Federal Confidentiality of Alcohol and Drug Abuse Patient Records regulations: The Federal rules restrict any use of the information to criminally investigate or prosecute any alcohol or drug abuse patient.[facility]In the event this information is protected by the Federal Confidentiality of Alcohol and Drug Abuse Patient Records regulations: The Federal rules restrict any use of the information to criminally investigate or prosecute any alcohol or drug abuse patient.[facility]In the event this information is protected by the Federal Confidentiality of Alcohol and Drug Abuse Patient Records regulations: The Federal rules restrict any use of the information to criminally investigate or prosecute any alcohol or drug abuse patient.[facility] HospitalIn the event this information is protected by the Federal Confidentiality of Alcohol and Drug Abuse Patient Records regulations: The Federal rules restrict any use of the information to criminally investigate or prosecute any alcohol or drug abuse patient.[facility]In the event this information is protected by the Federal Confidentiality of Alcohol and Drug Abuse Patient Records regulations: The Federal rules restrict any use of the information to criminally investigate or prosecute any alcohol or drug abuse patient.[facility] HospitalIn the event this information is protected by the Federal Confidentiality of Alcohol and Drug Abuse Patient Records regulations: The Federal rules restrict any use of the information to criminally investigate or prosecute any alcohol or drug abuse patient.[facility] HospitalIn the event this information is protected by the Federal Confidentiality of Alcohol and Drug Abuse Patient Records regulations: The Federal rules restrict any use of the information to criminally investigate or prosecute any alcohol or drug abuse patient.[facility] HospitalIn the event this information is protected by the Federal Confidentiality of Alcohol and Drug Abuse Patient Records regulations: The Federal rules restrict any use of the information to criminally investigate or prosecute any alcohol or drug abuse patient.[facility] HospitalIn the event this information is protected by the Federal Confidentiality of Alcohol and Drug Abuse Patient Records regulations: The Federal rules restrict any use of the information to criminally investigate or prosecute any alcohol or drug abuse patient.[facility] HospitalIn the event this information is protected by the Federal Confidentiality of Alcohol and Drug Abuse Patient Records regulations: The Federal rules restrict any use of the information to criminally investigate or prosecute any alcohol or drug abuse patient.[facility] HospitalIn the event this information is protected by the Federal Confidentiality of Alcohol and Drug Abuse Patient Records regulations: The Federal rules restrict any use of the information to criminally investigate or prosecute any alcohol or drug abuse patient.[facility] HospitalIn the event this information is protected by the Federal Confidentiality of Alcohol and Drug Abuse Patient Records regulations: The Federal rules restrict any use of the information to criminally investigate or prosecute any alcohol or drug abuse patient.[facility] HospitalIn the event this information is protected by the Federal Confidentiality of Alcohol and Drug Abuse Patient Records regulations: The Federal rules restrict any use of the information to criminally investigate or prosecute any alcohol or drug abuse patient.[facility] HospitalIn the event this information is protected by the Federal Confidentiality of Alcohol and Drug Abuse Patient Records regulations: The Federal rules restrict any use of the information to criminally investigate or prosecute any alcohol or drug abuse patient.[facility] the event this information is protected by the Federal Confidentiality of Alcohol and Drug Abuse Patient Records regulations: The Federal rules restrict any use of the information to criminally investigate or prosecute any alcohol or drug abuse patient.[facility] HospitalIn the event this information is protected by the Federal Confidentiality of Alcohol and Drug Abuse Patient Records regulations: The Federal rules restrict any use of the information to criminally investigate or prosecute any alcohol or drug abuse patient.[facility] HospitalIn the event this information is protected by the Federal Confidentiality of Alcohol and Drug Abuse Patient Records regulations: The Federal rules restrict any use of the information to criminally investigate or prosecute any alcohol or drug abuse patient.[facility] ClinicIn the event this information is protected by the Federal Confidentiality of Alcohol and Drug Abuse Patient Records regulations: The Federal rules restrict any use of the information to criminally investigate or prosecute any alcohol or drug abuse patient.[facility] HospitalIn the event this information is protected by the Federal Confidentiality of Alcohol and Drug Abuse Patient Records regulations: The Federal rules restrict any use of the information to criminally investigate or prosecute any alcohol or drug abuse patient.[facility] HospitalIn the event this information is protected by the Federal Confidentiality of Alcohol and Drug Abuse Patient Records regulations: The Federal rules restrict any use of the information to criminally investigate or prosecute any alcohol or drug abuse patient.[facility] HospitalIn the event this information is protected by the Federal Confidentiality of Alcohol and Drug Abuse Patient Records regulations: The Federal rules restrict any use of the information to criminally investigate or prosecute any alcohol or drug abuse patient.[facility] HospitalIn the event this information is protected by the Federal Confidentiality of Alcohol and Drug Abuse Patient Records regulations: The Federal rules restrict any use of the information to criminally investigate or prosecute any alcohol or drug abuse patient.[facility] HospitalIn the event this information is protected by the Federal Confidentiality of Alcohol and Drug Abuse Patient Records regulations: The Federal rules restrict any use of the information to criminally investigate or prosecute any alcohol or drug abuse patient.[facility] HospitalIn the event this information is protected by the Federal Confidentiality of Alcohol and Drug Abuse Patient Records regulations: The Federal rules restrict any use of the information to criminally investigate or prosecute any alcohol or drug abuse patient.[facility] HospitalIn the event this information is protected by the Federal Confidentiality of Alcohol and Drug Abuse Patient Records regulations: The Federal rules restrict any use of the information to criminally investigate or prosecute any alcohol or drug abuse patient.[facility] HospitalIn the event this information is protected by the Federal Confidentiality of Alcohol and Drug Abuse Patient Records regulations: The Federal rules restrict any use of the information to criminally investigate or prosecute any alcohol or drug abuse patient.[facility] HospitalIn the event this information is protected by the Federal Confidentiality of Alcohol and Drug Abuse Patient Records regulations: The Federal rules restrict any use of the information to criminally investigate or prosecute any alcohol or drug abuse patient.[facility] HospitalIn the event this information is protected by the Federal Confidentiality of Alcohol and Drug Abuse Patient Records regulations: The Federal rules restrict any use of the information to criminally investigate or prosecute any alcohol or drug abuse patient.[facility] HospitalIn the event this information is protected by the Federal Confidentiality of Alcohol and Drug Abuse Patient Records regulations: The Federal rules restrict any use of the information to criminally investigate or prosecute any alcohol or drug abuse patient.[facility] HospitalIn the event this information is protected by the Federal Confidentiality of Alcohol and Drug Abuse Patient Records regulations: The Federal rules restrict any use of the information to criminally investigate or prosecute any alcohol or drug abuse patient.[facility] HospitalIn the event this information is protected by the Federal Confidentiality of Alcohol and Drug Abuse Patient Records regulations: The Federal rules restrict any use of the information to criminally investigate or prosecute any alcohol or drug abuse patient.[facility] HospitalIn the event this information is protected by the Federal Confidentiality of Alcohol and Drug Abuse Patient Records regulations: The Federal rules restrict any use of the information to criminally investigate or prosecute any alcohol or drug abuse patient.[facility] HospitalIn the event this information is protected by the Federal Confidentiality of Alcohol and Drug Abuse Patient Records regulations: The Federal rules restrict any use of the information to criminally investigate or prosecute any alcohol or drug abuse patient.[facility] HospitalIn the event this information is protected by the Federal Confidentiality of Alcohol and Drug Abuse Patient Records regulations: The Federal rules restrict any use of the information to criminally investigate or prosecute any alcohol or drug abuse patient.[facility] HospitalIn the event this information is protected by the Federal Confidentiality of Alcohol and Drug Abuse Patient Records regulations: The Federal rules restrict any use of the information to criminally investigate or prosecute any alcohol or drug abuse patient.[facility] HospitalIn the event this information is protected by the Federal Confidentiality of Alcohol and Drug Abuse Patient Records regulations: The Federal rules restrict any use of the information to criminally investigate or prosecute any alcohol or drug abuse patient.[facility] HospitalIn the event this information is protected by the Federal Confidentiality of Alcohol and Drug Abuse Patient Records regulations: The Federal rules restrict any use of the information to criminally investigate or prosecute any alcohol or drug abuse patient.[facility] HospitalIn the event this information is protected by the Federal Confidentiality of Alcohol and Drug Abuse Patient Records regulations: The Federal rules restrict any use of the information to criminally investigate or prosecute any alcohol or drug abuse patient.[facility] HospitalIn the event this information is protected by the Federal Confidentiality of Alcohol and Drug Abuse Patient Records regulations: The Federal rules restrict any use of the information to criminally investigate or prosecute any alcohol or drug abuse patient.[facility] HospitalIn the event this information is protected by the Federal Confidentiality of Alcohol and Drug Abuse Patient Records regulations: The Federal rules restrict any use of the information to criminally investigate or prosecute any alcohol or drug abuse patient.[facility] HospitalIn the event this information is protected by the Federal Confidentiality of Alcohol and Drug Abuse Patient Records regulations: The Federal rules restrict any use of the information to criminally investigate or prosecute any alcohol or drug abuse patient.[facility] HospitalIn the event this information is protected by the Federal Confidentiality of Alcohol and Drug Abuse Patient Records regulations: The Federal rules restrict any use of the information to criminally investigate or prosecute any alcohol or drug abuse patient.[facility] HospitalIn the event this information is protected by the Federal Confidentiality of Alcohol and Drug Abuse Patient Records regulations: The Federal rules restrict any use of the information to criminally investigate or prosecute any alcohol or drug abuse patient.[facility] HospitalIn the event this information is protected by the Federal Confidentiality of Alcohol and Drug Abuse Patient Records regulations: The Federal rules restrict any use of the information to criminally investigate or prosecute any alcohol or drug abuse patient.[facility] HospitalIn the event this information is protected by the Federal Confidentiality of Alcohol and Drug Abuse Patient Records regulations: The Federal rules restrict any use of the information to criminally investigate or prosecute any alcohol or drug abuse patient.[facility] HospitalIn the event this information is protected by the Federal Confidentiality of Alcohol and Drug Abuse Patient Records regulations: The Federal rules restrict any use of the information to criminally investigate or prosecute any alcohol or drug abuse patient.[facility] HospitalIn the event this information is protected by the Federal Confidentiality of Alcohol and Drug Abuse Patient Records regulations: The Federal rules restrict any use of the information to criminally investigate or prosecute any alcohol or drug abuse patient.[facility] HospitalIn the event this information is protected by the Federal Confidentiality of Alcohol and Drug Abuse Patient Records regulations: The Federal rules restrict any use of the information to criminally investigate or prosecute any alcohol or drug abuse patient.[facility] HospitalIn the event this information is protected by the Federal Confidentiality of Alcohol and Drug Abuse Patient Records regulations: The Federal rules restrict any use of the information to criminally investigate or prosecute any alcohol or drug abuse patient.[facility] HospitalIn the event this information is protected by the Federal Confidentiality of Alcohol and Drug Abuse Patient Records regulations: The Federal rules restrict any use of the information to criminally investigate or prosecute any alcohol or drug abuse patient.[facility] HospitalIn the event this information is protected by the Federal Confidentiality of Alcohol and Drug Abuse Patient Records regulations: The Federal rules restrict any use of the information to criminally investigate or prosecute any alcohol or drug abuse patient.[facility] HospitalIn the event this information is protected by the Federal Confidentiality of Alcohol and Drug Abuse Patient Records regulations: The Federal rules restrict any use of the information to criminally investigate or prosecute any alcohol or drug abuse patient.[facility] HospitalIn the event this information is protected by the Federal Confidentiality of Alcohol and Drug Abuse Patient Records regulations: The Federal rules restrict any use of the information to criminally investigate or prosecute any alcohol or drug abuse patient.[facility] HospitalIn the event this information is protected by the Federal Confidentiality of Alcohol and Drug Abuse Patient Records regulations: The Federal rules restrict any use of the information to criminally investigate or prosecute any alcohol or drug abuse patient.[facility] HospitalIn the event this information is protected by the Federal Confidentiality of Alcohol and Drug Abuse Patient Records regulations: The Federal rules restrict any use of the information to criminally investigate or prosecute any alcohol or drug abuse patient.[facility] HospitalIn the event this information is protected by the Federal Confidentiality of Alcohol and Drug Abuse Patient Records regulations: The Federal rules restrict any use of the information to criminally investigate or prosecute any alcohol or drug abuse patient.[facility] HospitalIn the event this information is protected by the Federal Confidentiality of Alcohol and Drug Abuse Patient Records regulations: The Federal rules restrict any use of the information to criminally investigate or prosecute any alcohol or drug abuse patient.[facility] HospitalIn the event this information is protected by the Federal Confidentiality of Alcohol and Drug Abuse Patient Records regulations: The Federal rules restrict any use of the information to criminally investigate or prosecute any alcohol or drug abuse patient.[facility] HospitalIn the event this information is protected by the Federal Confidentiality of Alcohol and Drug Abuse Patient Records regulations: The Federal rules restrict any use of the information to criminally investigate or prosecute any alcohol or drug abuse patient.[facility] HospitalIn the event this information is protected by the Federal Confidentiality of Alcohol and Drug Abuse Patient Records regulations: The Federal rules restrict any use of the information to criminally investigate or prosecute any alcohol or drug abuse patient.[facility] HospitalIn the event this information is protected by the Federal Confidentiality of Alcohol and Drug Abuse Patient Records regulations: The Federal rules restrict any use of the information to criminally investigate or prosecute any alcohol or drug abuse patient.[facility] HospitalIn the event this information is protected by the Federal Confidentiality of Alcohol and Drug Abuse Patient Records regulations: The Federal rules restrict any use of the information to criminally investigate or prosecute any alcohol or drug abuse patient.[facility] HospitalIn the event this information is protected by the Federal Confidentiality of Alcohol and Drug Abuse Patient Records regulations: The Federal rules restrict any use of the information to criminally investigate or prosecute any alcohol or drug abuse patient.[facility] HospitalIn the event this information is protected by the Federal Confidentiality of Alcohol and Drug Abuse Patient Records regulations: The Federal rules restrict any use of the information to criminally investigate or prosecute any alcohol or drug abuse patient.[facility] the event this information is protected by the Federal Confidentiality of Alcohol and Drug Abuse Patient Records regulations: The Federal rules restrict any use of the information to criminally investigate or prosecute any alcohol or drug abuse patient.[facility] HospitalIn the event this information is protected by the Federal Confidentiality of Alcohol and Drug Abuse Patient Records regulations: The Federal rules restrict any use of the information to criminally investigate or prosecute any alcohol or drug abuse patient.[facility] HospitalIn the event this information is protected by the Federal Confidentiality of Alcohol and Drug Abuse Patient Records regulations: The Federal rules restrict any use of the information to criminally investigate or prosecute any alcohol or drug abuse patient.[facility] ClinicIn the event this information is protected by the Federal Confidentiality of Alcohol and Drug Abuse Patient Records regulations: The Federal rules restrict any use of the information to criminally investigate or prosecute any alcohol or drug abuse patient.[facility] HospitalIn the event this information is protected by the Federal Confidentiality of Alcohol and Drug Abuse Patient Records regulations: The Federal rules restrict any use of the information to criminally investigate or prosecute any alcohol or drug abuse patient.[facility] HospitalIn the event this information is protected by the Federal Confidentiality of Alcohol and Drug Abuse Patient Records regulations: The Federal rules restrict any use of the information to criminally investigate or prosecute any alcohol or drug abuse patient.[facility] Care Teams (unrecognized sec tion and content) Solderer Electronic Relationship Specialty Start Date End Date Bernard Zelaya MD [address] [place], [place] [id number] PCP - General Internal Medicine 08/29/14 Ynes Bass Formerly [facility] [address], [place] [id number] Pharmacist Pharmacy 11/26/20 Solderer Electronic Relationship Specialty Start Date End Date Bernard Zelaya MD [address] [place] [address] PCP - General Internal Medicine 08/29/14 Anderson Ynes, Formerly [facility] [address] [place] [address] Pharmacist Pharmacy 11/26/20 Solderer Electronic Relationship Specialty Start Date End Date Bernard Zelaya MD [address] [place] [address] PCP - General Internal Medicine 08/29/14 AndersonYnes, Formerly [facility] [address] [place] [address] Pharmacist Pharmacy 11/26/20 Solderer Electronic Relationship Specialty Start Date End Date Bernard Zelaya MD [address] [place] [address] PCP - General Internal Medicine 08/29/14 AndersonYnes, Formerly [facility] [address] [place] [address] Pharmacist Pharmacy 11/26/20 Solderer Electronic Relationship Specialty Start Date End Date Bernard Zelaya MD [address] [place] [address] PCP - General Internal Medicine 08/29/14 Anderson Ynes, Formerly [facility] [address] [place] [address] Pharmacist Pharmacy 11/26/20 Solderer Electronic Relationship Specialty Start Date End Date Bernard Zelaya MD [address] [place] [address] PCP - General Internal Medicine 08/29/14 AndersonYnes, Formerly [facility] [address] [place] [address] Pharmacist Pharmacy 11/26/20 Solderer Electronic Relationship Specialty Start Date End Date Bernard Zelaya MD [address] [place] [address] PCP - General Internal Medicine 08/29/14 AndersonYnes, Formerly [facility] [address] [place] [address] Pharmacist Pharmacy 11/26/20 Solderer Electronic Relationship Specialty Start Date End Date Bernard Zelaya MD [address] [place] [address] PCP - General Internal Medicine 08/29/14 AndersonYnes, Formerly [facility] [address] [place] [address] Pharmacist Pharmacy 11/26/20 Solderer Electronic Relationship Specialty Start Date End Date Bernard Zelaya MD [address] [place] [address] PCP - General Internal Medicine 08/29/14 AndersonYnes, Formerly [facility] [address] [place] [address] Pharmacist Pharmacy 11/26/20 Solderer Electronic Relationship Specialty Start Date End Date Bernard Zelaya MD [address] [place] [address] PCP - General Internal Medicine 08/29/14 AndersonYnes, Formerly [facility] [address] [place] [address] Pharmacist Pharmacy 11/26/20 Solderer Electronic Relationship Specialty Start Date End Date Bernard Zelaya MD [address] [place] [address] PCP - General Internal Medicine 08/29/14 AndersonYnes, Formerly [facility] [address] [place] [address] Pharmacist Pharmacy 11/26/20 Solderer Electronic Relationship Specialty Start Date End Date Bernard Zelaya MD [address] [place] [address] PCP - General Internal Medicine 08/29/14 AndersonYnes, Formerly [facility] [address] [place] [address] Pharmacist Pharmacy 11/26/20 Solderer Electronic Relationship Specialty Start Date End Date Bernard Zelaya MD [address] [place] [address] PCP - General Internal Medicine 08/29/14 AndersonYnes, Formerly [facility] [address] [place] [address] Pharmacist Pharmacy 11/26/20 Solderer Electronic Relationship Specialty Start Date End Date Bernard Zelaya MD [address] [place] [address] PCP - General Internal Medicine 08/29/14 AndersonYnes, Formerly [facility] [address] [place] [address] Pharmacist Pharmacy 11/26/20 Team Status: Active Member Role Status Dates Dr. Bernard Zelaya MD Family Provider Active Dr. Bernard Zelaya MD Primary Care Provider Active Team Status: Inactive Member Role Status Dates Dr. Bernard Zelaya MD Primary Care Provider Active Dr. Ti Storey DO Emergency Provider Active Solderer Electronic Relationship Specialty Start Date End Date Bernard Zelaya MD [address] [place] [address] PCP - General Internal Medicine 08/29/14 AndersonSierraYnes, Formerly [facility] [address] [place] [address] Pharmacist Pharmacy 11/26/20 Solderer Electronic Relationship Specialty Start Date End Date Bernard Zelaya MD [address] [place] [address] PCP - General Internal Medicine 08/29/14 Anderson Ynes, Formerly [facility] [address] [place] [address] Pharmacist Pharmacy 11/26/20 Solderer Electronic Relationship Specialty Start Date End Date Bernard Zelaya MD [address] [place] [address] PCP - General Internal Medicine 08/29/14 AndersonYnes, Formerly [facility] [address] [place] [address] Pharmacist Pharmacy 11/26/20 Solderer Electronic Relationship Specialty Start Date End Date Bernard Zelaya MD [address] [place] [address] PCP - General Internal Medicine 08/29/14 Anderson Ynes, Formerly [facility] [address] [place] [address] Pharmacist Pharmacy 11/26/20 Solderer Electronic Relationship Specialty Start Date End Date Bernard Zelaya MD [address] [place] [address] PCP - General Internal Medicine 08/29/14 AndersonSierraYnes, Formerly [facility] [address] [place] [address] Pharmacist Pharmacy 11/26/20 Solderer Electronic Relationship Specialty Start Date End Date Bernard Zelaya MD [address] [place] [address] PCP - General Internal Medicine 08/29/14 AndersonYnes, Formerly [facility] [address] [place] [address] Pharmacist Pharmacy 11/26/20 Solderer Electronic Relationship Specialty Start Date End Date Bernard Zelaya MD [address] [place] [address] PCP - General Internal Medicine 08/29/14 AndersonYnes, Formerly [facility] [address] [place] [address] Pharmacist Pharmacy 11/26/20 Solderer Electronic Relationship Specialty Start Date End Date Bernard Zelaya MD [address] [place] [address] PCP - General Internal Medicine 08/29/14 AndersonYnes, Formerly [facility] [address] [place] [address] Pharmacist Pharmacy 11/26/20 Solderer Electronic Relationship Specialty Start Date End Date Bernard Zelaya MD [address] [place] [address] PCP - General Internal Medicine 08/29/14 AndersonYnes, Formerly [facility] [address] [place] [address] Pharmacist Pharmacy 11/26/20 Team Status: Inactive Member Role Status Dates Dr. Bernard Zelaya MD Primary Care Provider Active Dr. Bam Castro DO Emergency Provider Active Solderer Electronic Relationship Specialty Start Date End Date Bernard Zelaya MD [address] [place] [address] PCP - General Internal Medicine 08/29/14 AndersonYnes, Formerly [facility] [address] [facility] [place] [address] Pharmacist Pharmacy 11/26/20 Solderer Electronic Relationship Specialty Start Date End Date Bernard Zelaya MD [address] [place] [address] PCP - General Internal Medicine 08/29/14 AndersonYnes, Formerly [facility] [address] [place] [address] Pharmacist Pharmacy 11/26/20 Solderer Electronic Relationship Specialty Start Date End Date Bernard Zelaya MD [address] [place] [address] PCP - General Internal Medicine 08/29/14 AndersonYnes, Formerly [facility] [address] [place] [address] Pharmacist Pharmacy 11/26/20 Team Status: Inactive Member Role Status Dates Dr. Bernard Zelaya MD Primary Care Provider Active Dr. Bam Castro DO Attending Provider, Emergency Kilo cardenas Active Team Status: Inactive Member Role Status Dates Dr. Bernard Zelaya MD Primary Care Provider Active Dr. Dario Smith DO Emergency Provider Active Solderer Electronic Relationship Specialty Start Date End Date Bernard Zelaya MD [address] [place] [address] PCP - General Internal Medicine 08/29/14 AndersonYnes, Formerly [facility] [address] [place] [address] Pharmacist Pharmacy 11/26/20 Solderer Electronic Relationship Specialty Start Date End Date Bernard Zelaya MD [address] [place] [address] PCP - General Internal Medicine 08/29/14 Kali, Ynes, Formerly [facility] [address] [place] [address] Pharmacist Pharmacy 11/26/20 Solderer Electronic Relationship Specialty Start Date End Date Bernard Zelaya MD [address] [place] [address] PCP - General Internal Medicine 08/29/14 KaliYnes colunga, Formerly [facility] [address] [place] [address] Pharmacist Pharmacy 11/26/20 Solderer Electronic Relationship Specialty Start Date End Date Bernard Zelaya MD [address] [place] [address] PCP - General Internal Medicine 08/29/14 Kali, Ynes, Formerly [facility] [address] [place] [address] Pharmacist Pharmacy 11/26/20 Solderer Electronic Relationship Specialty Start Date End Date Bernard Zelaya MD [address] [place] [address] PCP - General Internal Medicine 08/29/14 Anderson Ynes, Formerly [facility] [address] [place] [address] Pharmacist Pharmacy 11/26/20 Solderer Electronic Relationship Specialty Start Date End Date Bernard Zelaya MD [address] [place] [address] PCP - General Internal Medicine 08/29/14 KaliYnes colunga, Formerly [facility] [address] [place] [address] Pharmacist Pharmacy 11/26/20 Solderer Electronic Relationship Specialty Start Date End Date Bernard Zelaya MD [address] [place] [address] PCP - General Internal Medicine 08/29/14 Anderson Ynes, Formerly [facility] [address] [place] [address] Pharmacist Pharmacy 11/26/20 Solderer Electronic Relationship Specialty Start Date End Date Bernard Zelaya MD [address] [place] [address] PCP - General Internal Medicine 08/29/14 AndersonYnes, Formerly [facility] [address] [place] [address] Pharmacist Pharmacy 11/26/20 Solderer Electronic Relationship Specialty Start Date End Date Bernard Zelaya MD [address] [place] [address] PCP - General Internal Medicine 08/29/14 Anderson Ynes, Formerly [facility] [address] [place] [address] Pharmacist Pharmacy 11/26/20 Solderer Electronic Relationship Specialty Start Date End Date Bernard Zelaya MD [address] [place] [address] PCP - General Internal Medicine 08/29/14 Anderson Ynes, Formerly [facility] [address] [place] [address] Pharmacist Pharmacy 11/26/20 Solderer Electronic Relationship Specialty Start Date End Date Bernard Zelaya MD [address] [place] [address] PCP - General Internal Medicine 08/29/14 AndersonYnes, Formerly [facility] [address] [place] [address] Pharmacist Pharmacy 11/26/20 Solderer Electronic Relationship Specialty Start Date End Date Bernard Zelaya MD [address] [place] [address] PCP - General Internal Medicine 08/29/14 AndersonYnes, Formerly [facility] [address] [place] [address] Pharmacist Pharmacy 11/26/20 Solderer Electronic Relationship Specialty Start Date End Date Bernard Zelaya MD [address] [place] [address] PCP - General Internal Medicine 08/29/14 AndersonYnes, Formerly [facility] [address] [place] [address] Pharmacist Pharmacy 11/26/20 Karime Pryor, POSTAGE MACHINE OPERATOR.[facility] [address] [place] [address] [employer] Specialist Internal Medicine 01/30/24 Solderer Electronic Relationship Specialty Start Date End Date Bernard Zelaya MD [address] [place] [address] PCP - General Internal Medicine 08/29/14 AndersonYnes, Formerly [facility] [address] [place] [address] Pharmacist Pharmacy 11/26/20 Karime Pryor, POSTAGE MACHINE OPERATOR.CRUISE COORDINATOR [address] [place] [address] [employer] Specialist Internal Medicine 01/30/24 Solderer Electronic Relationship Specialty Start Date End Date Bernard Zelaya MD [address] [place] [address] PCP - General Internal Medicine 08/29/14 [facility] [address] [place] [address] Pharmacist Pharmacy 11/26/20 Karime Pryor, POSTAGE MACHINE OPERATOR.CRUISE COORDINATOR [address] [place] [address] [employer] Specialist Internal Medicine 01/30/24 Solderer Electronic Relationship Specialty Start Date End Date Bernard Zelaya MD [address] [place] [address] PCP - General Internal Medicine 08/29/14 [facility] [address] [place] [address] Pharmacist Pharmacy 11/26/20 Karime Pryor, POSTAGE MACHINE OPERATOR.CRUISE COORDINATOR [address] [place] [address] [employer] Specialist Internal Medicine 01/30/24 Solderer Electronic Relationship Specialty Start Date End Date Bernard Zelaya MD [address] [place] [address] PCP - General Internal Medicine 08/29/14 [facility] [address] [place] [address] Pharmacist Pharmacy 11/26/20 Karime Pryor, POSTAGE MACHINE OPERATOR.CRUISE COORDINATOR [address] [place] [address] [employer] Specialist Internal Medicine 01/30/24 Solderer Electronic Relationship Specialty Start Date End Date Bernard Zelaya MD [address] [place] [address] PCP - General Internal Medicine 08/29/14 [facility] [address] [place] [address] Pharmacist Pharmacy 11/26/20 Karime Pryor, POSTAGE MACHINE OPERATOR.CRUISE COORDINATOR [address] [place] [address] [employer] Traffic [employer] Specialist Internal Medicine 01/30/24 Solderer Electronic Relationship Specialty Start Date End Date Bernard Zelaya MD [address] [place] [address] PCP - General Internal Medicine 08/29/14 [facility] [address] [place] [address] Pharmacist Pharmacy 11/26/20 Karime Pryor, POSTAGE MACHINE OPERATOR.CRUISE COORDINATOR [address] [place] [address] [employer] Specialist Internal Medicine 01/30/24 Solderer Electronic Relationship Specialty Start Date End Date Bernard Zelaya MD [address] [place] [address] PCP - General Internal Medicine 08/29/14 [facility] [address] [place] [address] Pharmacist Pharmacy 11/26/20 Karime Pryor, POSTAGE MACHINE OPERATOR.CRUISE COORDINATOR [address] [place] [address] Tower [employer] Traffic [employer] Specialist Internal Medicine 01/30/24 Solderer Electronic Relationship Specialty Start Date End Date Bernard Zelaya MD [address] [place] [address] PCP - General Internal Medicine [facility]29[facility] [address] [place] [address] Pharmacist Pharmacy 11/26/20 Karime Pryor, POSTAGE MACHINE OPERATOR.CRUISE COORDINATOR [address] [place] [address] [facility] Internal Medicine 01/30/24 Solderer Electronic Relationship Specialty Start Date End Date Bernard Zelaya MD [address] [place] [address] PCP - General Internal Medicine 08/29/14 [facility] [address] [place] [address] Pharmacist Pharmacy 11/26/20 Karime Pryor, POSTAGE MACHINE OPERATOR.CRUISE COORDINATOR [address] [place] [address] Tower [employer] Specialist Internal Medicine 01/30/24 Reason for Visit (unrecogniz ed section and content) Reason Comments Orders Reason Comments Prescription Refills Reason Comments Question Reason Comments Diabetes Reason Comments Patient Question Reason Onset Date Comments Refill Request 11/04/2021 Reason Onset Date Comments Refill Request 11/18/2021 Reason Comments Medication Follow-up C/o burning and tin gling in feet. Reason Comments Refill Request Reason Onset Date Comments Refill Request 01/31/2022 Reason Comments Diarrhea bodyaches x this am Reason Onset Date Comments Refill Request 03/30/2022 Reason Comments Pain T reported (RT) side d cheek, jaw pain, x 2 days. Reason Comments Insurance Authorization Reason Comments Forms Reason Comments Vomiting Vomiting x 1 day Reason Comments Follow Up Med check - c/o sto mach bug Reason Comments right abdominal pain - right testical Reason Comments Hydronephrosis Reason Onset Date Comments Refill Request 07/22/2022 Reason Comments Nausea diarrhea and fatigue x 1 day, ongoing x last 6-7 months Reason Comments Diarrhea Reason Comments Arm Pain L arm pain and numbn ess x3 days, dizziness Reason Comments Follow Up Reason Onset Date Comments Refill Request 11/23/2022 Reason Comments Medication Problem Reason Comments right flank pain x2 weeks Seen at [facility] 01/01 Reason Comments Diabetic Eye Exam Type 2 IDDM Specialty Diagnoses / Procedures Referred By Contac t Referred To Contact MOLECULAR & FUNCTIONAL IMAGING Diagnoses Calculus of gallbladder without cholecystitis without obstruction Right upper quadrant pain Procedures NM HEPATOBILIARY W EF AND/OR RX HEPATOBIL SYST IMAG INC GB W/PHARMA INTERVENJ Older, Karime, POSTAGE MACHINE OPERATOR.CRUISE COORDINATOR [address] [place] [address] Molecular [facility] Functional [facility] [address] [id number] Referral ID Status Reason Start Date Expiration Date Visits Requested Visits Authorized [id number] Authorized Patient Cleared - Qualified 100% FAS 3 04/07/2023 99 99 Reason Comments Pre-Op Visit Reason Comments Headache Neck pain and abdomi nal pain x 1 day Reason Comments Sore Throat Bodyaches, exposure to Flu B x2 days Reason Comments 2 month follow up - blood pressure Reason Onset Date Comments Refill Request 05/23/2023 Reason Comments Ear Pain right x this am Reason Onset Date Comments Refill Request 08/11/2023 Reason Comments 2 month follow up bp Reason Onset Date Comments Refill Request 10/06/2023 Reason Onset Date Comments Refill Request 10/21/2023 Reason Onset Date Comments Refill Request 11/14/2023 Reason Onset Date Comments Refill Request 05/26/2023 Reason Comments 01/24/2023 LAP LOIS W/ GRAMS ALVAREZ Reason Comments Neck Pain Neck pain radiating down back and into limbs x 2 weeks-cannot recall an injury Reason Onset Date Comments Refill Request 02/21/2024 Reason Comments Physical Pain Neck x 1.5 month Reason Comments Results Reason Comments Insurance Authorization Reason Onset Date Comments Follow Up 06/11/2024 Patient needs a follow up appointment for August Reason Onset Date Comments Refill Request 07/22/2024 Reason Comments Follow Up 6 months Goals (unrecognized section and content) Goals may be documented in a n alternate sectionGoals may be documented in an alternate sectionGoals may be documented in an alternate section (unrecognized sect ion and content) No Status Records FoundNo Status Records FoundNo Status Records FoundNo Status Records Found INFORMATION SOURCE (unrecogn ized section and content) DATE CREATED AUTHOR 01/09/2023 [facility] DATE CREATED AUTHOR AUTHOR'S ORGANIZ ATION 01/28/2023 [facility] DATE CREATED AUTHOR AUTHOR'S ORGANIZ ATION 02/02/2023 [facility] DATE CREATED AUTHOR AUTHOR'S ORGANIZ ATION 09/15/2024 [facility] FOR RECORDS PERTAINING TO PATIENTS WHO ARE OR HAVE BEEN ENROLLED IN A CHEMICAL DEPENDENCY/SUBSTANCEABUSE PROGRAM, SOME INFORMATION MAY BE OMITTED. This clinical summary was aggregated from multiple sources. Caution should be exercised in using it in the provision of clinical care. This summary normalizes information from multiple sources, and as a consequence, information in this document may materially change the coding, format and clinical context of patient data. In addition, data may be omitted in some cases. CLINICAL DECISIONS SHOULD BE BASED ON THE PRIMARY CLINICAL RECORDS. [employer] provides no warranty or guarantee of the accuracy or completeness of information in this document.
[2025-01-22 22:32] LABS: Reactive Lymphocyte 1+
[2025-01-22 22:33] LABS: Red Cell Morphology NORM C+C NORMAL (NORM C&C)
[2025-01-22 22:40] VITALS: BP 122/70; PULSE 88; RESP 18; TEMP 36.6; O2SAT 99
== END 2025-01-22 22:43 | disposition home or self-care (01) ==
PROVIDERS: Emergency Provider Emergency Medicine; PCP Internal Medicine; Visit Provider Emergency Medicine
DX: R07.89 Other chest pain (principal); Z79.4 Long term (current) use of insulin; E11.65 Type 2 diabetes mellitus with hyperglycemia; I10 Essential (primary) hypertension; Z79.899 Other long term (current) drug therapy; F17.290 Nicotine dependence, other tobacco product, uncomplicated; R10.9 Unspecified abdominal pain; F17.210 Nicotine dependence, cigarettes, uncomplicated; Z82.49 Family history of ischemic heart disease and other diseases of the circulatory system; E78.00 Pure hypercholesterolemia, unspecified; K21.9 Gastro-esophageal reflux disease without esophagitis; M94.0 Chondrocostal junction syndrome [Tietze]
CPT/HCPCS: 80048; 84484; 85025; 93005; 99283; A4216